=== PATIENT | female | born 1955 | race Caucasian/White ===

== ENCOUNTER 2020-02-06 12:22 | Emergency (ER) | payer MEDICARE, SELFPAY ==
[2020-02-06 12:33] VITALS: BP 120/79; PULSE 85; RESP 19; TEMP 36.6; O2SAT 100
--- NOTE | 2020-02-06 13:04 | ED.EXTPRO ---
HPI - Extremity Problem General Chief complaint: Extremity Problem,Nontraumatic Stated complaint: Possible blood clot right lower leg Time Seen by Provider: 02/06/20 13:00 Source: patient and RN notes reviewed Mode of arrival: ambulatory Limitations: no limitations History of Present Illness HPI Narrative: 64-year-old female who presents to express care with complaints of aching pain to her right lateral lower leg, thinks she has a blood clot. Patient states that she felt an itching sensation to her right lower leg on the lateral aspect and rubbed it through her pant leg about 45 minutes ago. Patient states that she has varicose veins to her lower legs and she noted now that she has swelling to the outer part of her leg and has a lot of discomfort to her leg. Patient denies any recent travel, no abnormal clotting factors, no hormones or irregular heart rhythm, denies any dyspnea or any chest pressure or pain.. Patient states that she is concerned also because she is suppose to leave on a trip to [place] on Sunday. MD Complaint: extremity pain (lateral right lower leg) Onset (ago): hour(s) (with in past hour) Pain Consistency: constant Location: right and lower extremity Severity scale (1-10): 4 Quality: aching Radiation: none Relieving factors: nothing Exacerbating factors: weight bearing and palpation Associated symptoms: denies other symptoms Context: other (varicose veins) Related Data Home Medications Medication Instructions Recorded Confirmed albuterol sulfate 2 inh INHALATION DIRECTED 02/06/20 02/06/20 fluticasone propionate 2 spray INTRANASAL DAILY 02/06/20 02/06/20 hydroxychloroquine 200 mg PO DIRECTED 02/06/20 02/06/20 methocarbamol 500 mg PO DIRECTED 02/06/20 02/06/20 mometasone-formoterol [Dulera] 2 inh INHALATION DIRECTED 02/06/20 02/06/20 omeprazole 40 mg PO DAILY 02/06/20 02/06/20 tizanidine 4 mg PO DIRECTED 02/06/20 02/06/20 Allergies Allergy/AdvReac Type Severity Reaction Status Date / Time Sulfa (Sulfonamide Allergy Unknown Rash Verified 02/06/20 12:26 Antibiotics) sulfanilamide Allergy Unknown Rash Verified 02/06/20 12:26 tramadol Allergy Unknown Unknown Verified 01/31/18 10:53 Review of Systems Review of Systems: Narrative: CONSTITUTIONAL: Denies fever, chills, or sweats. EYES: Denies visual changes, redness, or discharge. ENT: Denies rhinorrhea, congestion, sore throat, or otalgia. CARDIOVASCULAR: Denies chest pain, palpitations, or edema. RESPIRATORY: Denies cough or dyspnea. GASTROINTESTINAL: Denies abdominal pain, nausea, vomiting, or diarrhea. GENITOURINARY: Denies dysuria or hematuria. SKIN: Denies rash or itching. MUSCULOSKELETAL:States some chronic back pain,no other joint pain, states discomfort to her right lateral mid lower leg with swelling and bruising noted. patient concerned about possible blood clot. Noted varicose veins to lower extremities with hematoma type of swelling noted to right lateral lower leg measuring 2cm X 7cm, negative Neri's sign. NEUROLOGIC: Denies headache, numbness, or weakness. PSYCHIATRIC: Denies anxiety or depression. All systems reviewed & are unremarkable except as noted in HPI and below PMFSH Past Medical History Medical History (Updated 02/07/20 @ 13:12 by Josiane Rae NP) Age related osteoporosis Ankle fracture, left (Unknown) required ORIF Bronchitis Chronic back pain GERD (gastroesophageal reflux disease) Mitral valve prolapse Rheumatoid arthritis Surgical History Surgical History (Updated 02/07/20 @ 13:06 by Josiane Rae NP) History of bunionectomy of both great toes History of cholecystectomy History of hysterectomy Hx of cervical spine surgery fusion Family History Family History Mother Asthma Family history of arthritis Family history of emphysema, Onset Age: 67 Patient's mother is Sibling Family history of diabetes mellitus in f
--- NOTE | 2020-02-06 13:11 | PC.NURSE ---
1310- INBOUND CALL CENTER AGENT (Josiane) talking to Dr Dudley at [facility] for transfer.
== END 2020-02-06 13:20 | disposition short-term general hospital (02) ==
PROVIDERS: Emergency Provider Registered Nurse; PCP Family Medicine
DX: S80.11XA Contusion of right lower leg, initial encounter (principal); X58.XXXA Exposure to other specified factors, initial encounter; K21.9 Gastro-esophageal reflux disease without esophagitis; I34.1 Nonrheumatic mitral (valve) prolapse; M06.9 Rheumatoid arthritis, unspecified; M81.0 Age-related osteoporosis without current pathological fracture
CPT/HCPCS: 99212; G0463

== ENCOUNTER 2020-02-06 13:37 | Emergency (ER) | payer MEDICARE, SELFPAY ==
[2020-02-06 13:45] VITALS: BP 152/96; PULSE 83; RESP 17; TEMP 35.8; O2SAT 100
--- NOTE | 2020-02-06 14:15 | ED.LOWEXIN ---
HPI - Extremity Injury (Lower) General Chief Complaint: Extremity Injury, Lower Stated Complaint: Possible blood clot in leg Time Seen by Provider: 02/06/20 14:11 History of Present Illness HPI Narrative: Patient is a 64-year-old female who presents ER with right lower extremity bruising. Patient reports she felt an itch to her lower leg a couple hours ago when she rubs it. She then noticed that she developed a bruise and some swelling. No chest pain or shortness of breath or lower extremity swelling. No previous DVT or PE. She is not on any blood thinners. Related Data Home Medications Medication Instructions Recorded Confirmed albuterol sulfate 2 inh INHALATION DIRECTED 02/06/20 02/06/20 fluticasone propionate 2 spray INTRANASAL DAILY 02/06/20 02/06/20 hydroxychloroquine 200 mg PO DIRECTED 02/06/20 02/06/20 methocarbamol 500 mg PO DIRECTED 02/06/20 02/06/20 mometasone-formoterol [Dulera] 2 inh INHALATION DIRECTED 02/06/20 02/06/20 omeprazole 40 mg PO DAILY 02/06/20 02/06/20 tizanidine 4 mg PO DIRECTED 02/06/20 02/06/20 Allergies Allergy/AdvReac Type Severity Reaction Status Date / Time Sulfa (Sulfonamide Allergy Unknown Rash Verified 02/06/20 12:26 Antibiotics) sulfanilamide Allergy Unknown Rash Verified 02/06/20 12:26 tramadol Allergy Unknown Unknown Verified 01/31/18 10:53 Review of Systems Integumentary/Breasts: Skin/Breast: Reports pruritus, Denies rash and Denies skin ulcer Hematologic/Lymphatic: Hematologic/Lymphatic: Denies easy bleeding and Reports easy bruising [facility] Past Medical History Medical History (Updated 02/06/20 @ 14:21 by Gunnar Dudley MD) GERD (gastroesophageal reflux disease) Mitral valve prolapse Surgical History Surgical History (Updated 02/06/20 @ 14:18 by Gunnar Dudley MD) History of cholecystectomy History of hysterectomy Family History Family History Mother Asthma Family history of arthritis Family history of emphysema, Onset Age: 67 Patient's mother is Sibling Family history of diabetes mellitus in first degree relative Family history of heart disease in male family member before age 55 Other Diabetes mellitus Family history of gout Social History Social History Smoking status: Former smoker Smoking end date: 03/12/02 Alcohol intake: never Exam Narrative: Exam Narrative: GENERAL: Well-appearing, well-nourished, and in no acute distress. HEAD: Normocephalic, atraumatic. EXTREMITIES: Normal range of motion. No edema. The right lateral calf has an area of superficial bruising and hematoma formation. No Homans' sign SKIN: Warm, dry, no rash. Varicose veins of bilateral lower extremities. NEURO: Alert and oriented x3. PSYCH: Normal mood and affect. Course Course Emergency Course: Superficial hematoma. Discharge home. Vital Signs Vital signs: Vital Signs Temperature 96.5 F L 02/06/20 13:45 Pulse Rate 83 02/06/20 13:45 Respiratory Rate 17 02/06/20 13:45 Blood Pressure 152/96 H 02/06/20 13:45 Pulse Oximetry 100 02/06/20 13:45 Temperature 96.5 F L 02/06/20 13:45 Pulse Rate 83 02/06/20 13:45 Respiratory Rate 17 02/06/20 13:45 Blood Pressure 152/96 H 02/06/20 13:45 Pulse Oximetry 100 02/06/20 13:45 Discharge Plan Discharge Clinical Impression: Hematoma of lower leg Patient Disposition: Home, Self-Care Condition: Stable Instructions: Hematoma (ED) Additional Instructions: Follow-up with your primary care doctor. Return the ER if you have chest pain shortness of breath, you have lower extremity swelling, you have other concerns. Prescriptions: No Action methocarbamol 500 mg tablet 500 mg PO DIRECTED RF: 0 tizanidine 4 mg tablet 4 mg PO DIRECTED RF: 0 omeprazole 40 mg capsule,delayed release(DR/EC) 40 mg PO DA
== END 2020-02-06 14:41 | disposition home or self-care (01) ==
PROVIDERS: Emergency Provider Emergency Medicine; PCP Family Medicine
DX: M79.81 Nontraumatic hematoma of soft tissue (principal); I34.1 Nonrheumatic mitral (valve) prolapse; K21.9 Gastro-esophageal reflux disease without esophagitis
CPT/HCPCS: 99282

== ENCOUNTER → 2020-11-19 12:20 | Outpatient (CLI) | payer MEDICARE, SELFPAY ==
--- NOTE | ~2020-11-19 | XR_ITS ---
EXAMINATION: XR shoulder RT min 2V, XR humerus RT EXAM DATE: 11/19/2020 13:11 INDICATION: pain in right arm, pain in right shoulder. c/o popping and superior shoulder pain towa rds neck, c/o lateral mid to upper humerus pain x couple weeks, h/o neck surgery. TECHNIQUE: The following right shoulder projections obtained: frontal projection with internal rotati on, frontal projection with external rotation, Grashey, and axillary (4+ views). 2 orthogonal projec tions right humerus. There are no prior studies for comparison. FINDINGS: No evidence of right shoulder rotator cuff calcific tendinosis. There is mild glenohumera l joint, mild acromioclavicular joint primary osteoarthritis. There are no acute fractures or disloca tions identified. There is no subcutaneous gas. The soft tissue is unremarkable. There are no rad iopaque foreign bodies. IMPRESSION: Mild right shoulder osteoarthritis. Reviewed, dictated and finalized at location A. IMPRESSION: Mild right shoulder osteoarthritis.
== END ==
PROVIDERS: PCP Family Medicine; Visit Provider Physician Assistant
DX: M25.511 Pain in right shoulder (principal); M79.601 Pain in right arm; M19.011 Primary osteoarthritis, right shoulder
CPT/HCPCS: 73030; 73060

== ENCOUNTER → 2020-11-30 17:18 | Outpatient (CLI) | payer MEDICARE, SELFPAY ==
--- NOTE | ~2020-11-30 | MM_ITS ---
EXAMINATION: MM screening samir BI w mary HISTORY: Screening mammogram TECHNIQUE: Craniocaudal and mediolateral oblique 3-D tomosynthesis images were obtained and synthetic 2-D images were generated. CAD analysis was submitted and interpreted. COMPARISON: 08/07/2018, 06/28/2017, 06/27/2016 bilateral digital screening mammogram examinations BREAST PARENCHYMAL COMPOSITION: There are scattered areas of fibroglandular density. FINDINGS: There is no evidence of suspicious mass, calcification, or architectural distortion to sugg est malignancy in either breast. There has been no suspicious interval change. IMPRESSION: 1. No mammographic evidence of malignancy. 2. Recommend routine screening mammography in one year. BI-RADS Category 1: Negative Reviewed, dictated and finalized at location A.
== END ==
PROVIDERS: Visit Provider Obstetrics & Gynecology
DX: Z12.31 Encounter for screening mammogram for malignant neoplasm of breast (principal)
CPT/HCPCS: 77063; 77067

== ENCOUNTER → 2020-12-28 07:58 | Outpatient (CLI) | payer MEDICARE, SELFPAY ==
[2020-12-28 11:21] LABS: Influenza Control Positive
[2020-12-29 19:25] LABS: SARS-CoV-2 RNA PCR Negative
== END ==
PROVIDERS: PCP Family Medicine; Visit Provider Physician Assistant
DX: Z20.822 Contact with and (suspected) exposure to COVID-19 (principal); R05.9 Cough, unspecified
CPT/HCPCS: 87804; C9803; U0003; U0005

== ENCOUNTER → 2021-03-25 08:48 | Outpatient (CLI) | payer MEDICARE, SELFPAY ==
[2021-03-26 23:20] LABS: SARS-CoV-2 RNA PCR Positive
== END ==
PROVIDERS: PCP Family Medicine; Visit Provider Family Medicine
DX: U07.1 COVID-19 (principal); J06.9 Acute upper respiratory infection, unspecified
CPT/HCPCS: C9803; U0003; U0005

== ENCOUNTER → 2022-05-12 13:27 | Outpatient (CLI) | payer MEDICARE, SELFPAY ==
--- NOTE | ~2022-05-12 | MM_ITS ---
EXAMINATION: MM screening samir BI w mary HISTORY: Screening TECHNIQUE: Craniocaudal and mediolateral oblique 3-D tomosynthesis images were obtained and synthetic 2-D images were generated. CAD analysis was submitted and interpreted. COMPARISON: Comparison to multiple prior studies sequentially, with oldest reviewed study dated 06/21. BREAST PARENCHYMAL COMPOSITION: There are scattered areas of fibroglandular density. FINDINGS: There is no evidence of suspicious mass, calcification, or architectural distortion to sugg est malignancy in either breast. There has been no suspicious interval change. IMPRESSION: 1. No mammographic evidence of malignancy. 2. Recommend routine screening mammography in one year. BI-RADS Category 1: Negative Reviewed, dictated and finalized at location B. 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
--- NOTE | ~2022-05-12 | DEXA_ITS ---
Bone Density Report Name: ZEENAT ROBERTO Age: 67 Sex: Female Ethnicity: White Date of : 1955 Indication: postmenopausal osteoporosis; height loss; prior fracture; asthma or emphysema; hysterectomy; rheumatoid arthritis; Referring Provider: SINGH RAMÍREZ Study: Bone densitometry was performed. Exam Date: May 12, 2022 Accession number: [id number] Bone Density: Region BMD T-score Z-score Classification AP Spine (L1-L4) 0.710 -3.1 -1.2 Osteoporosis Femoral Neck (Left) 0.389 -4.1 -2.6 Osteoporosis Total Hip (Left) 0.523 -3.4 -2.2 Osteoporosis Femoral Neck (Right) 0.389 -4.1 -2.6 Osteoporosis Total Hip (Right) 0.529 -3.4 -2.1 Osteoporosis Total Hip Mean 0.526 -3.4 -2.2 Osteoporosis World Health Organization criteria for BMD impression classify patients as: Normal (T-score at or above -1.0), Osteopenia (T-score between -1.0 and -2.5), or Osteoporosis (T-score at or below -2.5). 10-year Fracture Risk: FRAX not reported because: Some T-score for Spine Total or Hip Total or Femoral Neck at or below -2.5 Prior hip or vertebral fracture Previous Exams: Region Exam Age BMD T-score BMD Change BMD Change Date g/cm2 vs Baseline vs Previous AP Spine(L1-L4) 05/12/2022 67 0.710 -3.1 -0.024* -0.024* 06/28/2017 62 0.734 -2.8 Total Hip(Left) 05/12/2022 67 0.523 -3.4 -0.082* -0.082* 06/28/2017 62 0.604 -2.8 Total Hip(Right) 05/12/2022 67 0.529 -3.4 -0.063* -0.063* 06/28/2017 62 0.591 -2.9 *Denotes significance at 95% confidence level, LSC for AP Spine = 0.022 g/cm2, LSC for Total Hip = 0.027 g/cm2 Clinical Information Provided by Patient: Have had a previous hip or vertebral fracture Has had a low trauma fracture Has rheumatoid arthritis Has the following medical conditions: Asthma or Emphysema, Hysterectomy, IBS no meds Patient maximum height was 62 Menopause Age: 45 No regular weight bearing exercise Does not regularly consume dairy products Onset of menses at age 13 Number of children 3 Impression: The patient has established osteoporosis, based on the Left Femoral Neck T-score and the existence of a prior fracture. The patient has risk factors, including: previous fracture. The BMD for the AP Spine(L1-L4) decreased, changing by -0.024 since the last DXA exam. The BMD for the Total Hip(Left) decreased, changing by -0.082 since the last DXA exam. The BMD for the Total Hip(Right) decreased, mario alberto
== END ==
PROVIDERS: PCP Obstetrics & Gynecology; Visit Provider Family Medicine
DX: Z12.31 Encounter for screening mammogram for malignant neoplasm of breast (principal); Z78.0 Asymptomatic menopausal state; M81.0 Age-related osteoporosis without current pathological fracture
CPT/HCPCS: 77063; 77067; 77080

== ENCOUNTER 2022-05-17 14:20 | Outpatient (CLI) | payer MEDICARE, SELFPAY ==
[2022-05-17 16:57] LABS: Albumin Level 4.4 g/dL (3.5-5.1); Anion Gap 6 mmol/L (8-16); Blood Urea Nitrogen 11 mg/dL (7-17); Calcium 8.8 mg/dL (8.4-10.2); Carbon Dioxide 27 mmol/L (22-30); Chloride 105 mmol/L (98-107); Estimated Glomerular Filt Rate > 60; Glucose 81 mg/dL (65-110); Phosphorus 3.9 mg/dL (2.5-4.5); Potassium 3.7 mmol/L (3.4-5.0); Sodium 138 mmol/L (137-145)
[2022-05-17 17:05] LABS: Parathyroid Intact 34.1 pg/mL (7.5-53.5)
[2022-05-17 17:19] LABS: Vitamin D 25 Hydroxy 45.7 ng/mL
== END 2022-05-17 14:21 | disposition home or self-care (01) ==
LOC: ANHWCLAB 14:20
PROVIDERS: PCP Family Medicine; Visit Provider Internal Medicine Endocrinology, Diabetes & Metabolism
DX: M81.0 Age-related osteoporosis without current pathological fracture (principal); R79.89 Other specified abnormal findings of blood chemistry
CPT/HCPCS: 36415; 80069; 82306; 83970; 84443

== ENCOUNTER 2022-06-21 14:34 | Outpatient (CLI) | payer MEDICARE, SELFPAY ==
--- NOTE | ~2022-06-21 | XR_ITS ---
XR lumbar spine 2-3V DATE: 06/21/2022 14:54 INDICATION: Low back pain for 2 weeks TECHNIQUE: AP, lateral, coned lateral lumbosacral views COMPARISON: 06/08/2015 lumbar spine FINDINGS: Diffuse osteopenia. There is mild thoracolumbar levoscoliosis. No fracture or bone destruction of the lumbar spine is detected. There is degenerative change at the apophyseal joints in the mid and lower lumbar and lumbosacral area with associated grade 1 anterolist hesis at L4-5. The included lower thoracic and lumbar pedicles are intact. Lumbar and lumbosacral interspaces are relatively preserved. The sacroiliac joints are normal. Surgical clips, right upper quadrant, consistent with cholecystectomy IMPRESSION: Thoracolumbar levoscoliosis Osteopenia Degenerative changes apophyseal joints with associated grade 1 anterolisthesis at L4-5 Reviewed, dictated and finalized at location A.
== END 2022-06-21 14:35 | disposition home or self-care (01) ==
PROVIDERS: PCP Family Medicine; Visit Provider Internal Medicine Endocrinology, Diabetes & Metabolism
DX: M81.0 Age-related osteoporosis without current pathological fracture (principal); M54.9 Dorsalgia, unspecified; M41.85 Other forms of scoliosis, thoracolumbar region; M85.88 Other specified disorders of bone density and structure, other site; M43.16 Spondylolisthesis, lumbar region
CPT/HCPCS: 72100

== ENCOUNTER 2022-07-05 15:12 | Outpatient (CLI) | payer MEDICARE, SELFPAY ==
--- NOTE | ~2022-07-05 | XR_ITS ---
EXAMINATION: XR chest 2V Exam Date/Time: 07/05/2022 15:30 CDT HISTORY: chest pain Comparison: 03/07/2013. RESULT: Lines, tubes, and devices: Partially visualized cervical fusion hardware. Fractured right inferior c ervical pedicle screw. Cholecystectomy clips Lungs and pleura: Clear. Cardiomediastinal silhouette: Stable. Other: No acute osseous or upper abdominal finding. IMPRESSION: No acute cardiopulmonary process. Fractured right inferior cervical pedicle screw. Recommend obtainin g outside studies for comparison, correlation with any cervical symptoms, and consider cervical spine radiographs for further evaluation. Reviewed, dictated and finalized at location K. IMPRESSION: No acute cardiopulmonary process. Fractured right inferior cervical pedicle scr ew. Recommend obtaining outside studies for comparison, correlation with any ce rvical symptoms, and consider cervical spine radiographs for further evaluation .
--- NOTE | 2022-07-05 16:46 | ECG_ITS ---
Measurements Intervals [place] Rate: 56 P: 77 CA: 158 QRS: 84 QRSD: 85 T: 59 QT: 388 QTc: 377 Interpretive Statements SINUS BRADYCARDIA OTHERWISE NORMAL ECG NO PREVIOUS ECG AVAILABLE FOR COMPARISON Electronically Signed On 07-06-2022 8:57:24 CDT by Haile Stubbs M.D.
[2022-07-05 16:47] LABS: Hematocrit 45.1 % (37.0-47.0); Hemoglobin 14.7 g/dL (12.0-15.0); Mean Corpuscular HGB Conc 32.6 g/dl (32-36); Mean Corpuscular Hemoglobin 29.6 pg (26-34); Mean Corpuscular Volume 90.7 fl (80-100); Mean Platelet Volume 9.1 fl (7.4-10.4); Platelet Count Result 265 k/mm3 (150-375); Red Blood Count 4.97 M/mm3 (4.2-5.4); Red Cell Distribution Width 14.6 % (11.5-14.5); White Blood Count 8.7 K/mm3 (4.5-10.0)
[2022-07-05 17:09] LABS: Troponin I < 0.012 ng/mL (0.000-0.034)
== END 2022-07-05 15:13 | disposition home or self-care (01) ==
PROVIDERS: PCP Family Medicine; Visit Provider Physician Assistant Medical
DX: R53.83 Other fatigue (principal); R07.9 Chest pain, unspecified; R00.1 Bradycardia, unspecified
CPT/HCPCS: 36415; 71046; 84484; 85027; 93005; 96372; J3111

== ENCOUNTER → 2022-08-02 09:48 | Outpatient (CLI) | payer MEDICARE, SELFPAY ==
--- NOTE | ~2022-08-02 | XR_ITS ---
EXAMINATION: XR ribs LT 2V w CXR 2V Exam Date/Time: 08/02/2022 9:59 CDT HISTORY: R07.81 - Pleurodynia Comparison: X-ray chest 07/05/2022. RESULT: Lines, tubes, and devices: Partially visualized cervical fusion hardware. The right inferior posteri or pedicle screw is fractured, a chronic finding. Cholecystectomy clips. Soft tissue anchor in the pr oximal right humerus. Lungs and pleura: Senescent change and mild hyperinflation. Otherwise clear. Cardiothymic silhouette: Stable. Other: No acute osseous or upper abdominal finding. IMPRESSION: No acute cardiopulmonary process. No acute osseous finding in the left ribs. Reviewed, dictated and finalized at location K.
== END ==
PROVIDERS: PCP Family Medicine; Visit Provider Family Medicine
DX: R07.81 Pleurodynia (principal)
CPT/HCPCS: 71046; 71100

== ENCOUNTER → 2023-05-15 10:55 | Outpatient (CLI) | payer MEDICARE, SELFPAY ==
--- NOTE | ~2023-05-15 | DEXA_ITS ---
Bone Density Report Name: ZEENAT ROBERTO Age: 68 Sex: Female Ethnicity: White Date of : 1955 Indication: postmenopausal osteoporosis; monitoring treatment; prior fracture; asthma or emphysema; hysterectomy; rheumatoid arthritis; Referring Provider: Rita Winkler Study: Bone densitometry was performed. Exam Date: May 15, 2023 Accession number: [id number] Bone Density: Region BMD T-score Z-score Classification AP Spine (L1-L4) 0.787 -2.4 -0.5 Osteopenia Femoral Neck (Left) 0.438 -3.7 -2.1 Osteoporosis Total Hip (Left) 0.580 -3.0 -1.6 Osteoporosis Femoral Neck (Right) 0.408 -4.0 -2.3 Osteoporosis Total Hip (Right) 0.572 -3.0 -1.7 Osteoporosis Total Hip Mean 0.576 -3.0 -1.7 Osteoporosis World Health Organization criteria for BMD impression classify patients as: Normal (T-score at or above -1.0), Osteopenia (T-score between -1.0 and -2.5), or Osteoporosis (T-score at or below -2.5). 10-year Fracture Risk: FRAX not reported because: Some T-score for Spine Total or Hip Total or Femoral Neck at or below -2.5 Prior hip or vertebral fracture Treated for osteopor Previous Exams: Region Exam Age BMD T-score BMD Change BMD Change Date g/cm2 vs Baseline vs Previous AP Spine(L1-L4) 05/15/2023 68 0.787 -2.4 0.053* 0.077* 05/12/2022 67 0.710 -3.1 -0.024* -0.024* 06/28/2017 62 0.734 -2.8 Total Hip(Left) 05/15/2023 68 0.580 -3.0 -0.025 0.057* 05/12/2022 67 0.523 -3.4 -0.082* -0.082* 06/28/2017 62 0.604 -2.8 Total Hip(Right) 05/15/2023 68 0.572 -3.0 -0.020 0.043* 05/12/2022 67 0.529 -3.4 -0.063* -0.063* 06/28/2017 62 0.591 -2.9 *Denotes significance at 95% confidence level, LSC for AP Spine = 0.022 g/cm2, LSC for Total Hip = 0.027 g/cm2 Clinical Information Provided by Patient: Have had a previous hip or vertebral fracture Has had a low trauma fracture Has rheumatoid arthritis Is being treated for osteoporosis Has used the following medications: Vitamin D, Calcium, EVENITY INJECTIONS, MTV Has the following medical conditions: Asthma or Emphysema, Hysterectomy, IBS no meds Patient maximum height was 62.0 Menopause Age: 45 No regular weight bearing exercise Onset of menses at age 13 Number of children 3 Impression: The patient has established osteoporosis, based on the Right Femoral Neck T-score and the existence of
== END ==
PROVIDERS: PCP Family Medicine; Visit Provider Internal Medicine Endocrinology, Diabetes & Metabolism
DX: M81.0 Age-related osteoporosis without current pathological fracture (principal)
CPT/HCPCS: 77080

== ENCOUNTER → 2023-05-15 10:58 | Outpatient (CLI) | payer MEDICARE, SELFPAY ==
--- NOTE | ~2023-05-15 | MM_ITS ---
EXAMINATION: MM screening samir BI w mary HISTORY: Screening mammogram TECHNIQUE: Craniocaudal and mediolateral oblique 3-D tomosynthesis images were obtained and synthetic 2-D images were generated. CAD analysis was submitted and interpreted. COMPARISON: 05/29/2022, 11/30/2020 bilateral screening mammogram examinations BREAST PARENCHYMAL COMPOSITION: The breasts are heterogeneously dense, which may obscure small masses . FINDINGS: There is no evidence of suspicious mass, calcification, or architectural distortion to sugg est malignancy in either breast. There has been no suspicious interval change. IMPRESSION: 1. No mammographic evidence of malignancy. 2. Recommend routine screening mammography in one year. BI-RADS Category 1: Negative Reviewed, dictated and finalized at location A. 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
== END ==
PROVIDERS: PCP Obstetrics & Gynecology; Visit Provider Family Medicine
DX: Z12.31 Encounter for screening mammogram for malignant neoplasm of breast (principal)
CPT/HCPCS: 77063; 77067

== ENCOUNTER 2023-06-25 09:24 | Outpatient (CLI) | payer MEDICARE, SELFPAY ==
--- NOTE | ~2023-06-25 | XR_ITS ---
Lumbosacral Spine: AP and lateral views Clinical History: Pain Findings: The normal lordotic curve is maintained. There is mild levoscoliosis. No fracture evident. There is 6 mm anterolisthesis of L4 over L5. There is severe facet arthropathy at L4-5 and L5-S1. The re is moderate facet arthropathy the upper lumbar spine. The sacroiliac joints are normally outlined. Impression: Moderate degenerative spondylosis, as above. 6 mm anterolisthesis of L4 over L5. Mild levoscoliosis. Reviewed, dictated and finalized at location M. Impression: Moderate degenerative spondylosis, as above. 6 mm anterolisthesis of L4 over L5. Mild levoscoliosis.
== END 2023-06-25 09:25 ==
PROVIDERS: PCP Family Medicine; Referring Provider Chiropractor; Visit Provider Internal Medicine Endocrinology, Diabetes & Metabolism
DX: M47.896 Other spondylosis, lumbar region (principal); M41.86 Other forms of scoliosis, lumbar region; M81.0 Age-related osteoporosis without current pathological fracture
CPT/HCPCS: 72100

== ENCOUNTER 2023-07-19 11:31 | Outpatient (CLI) | payer MEDICARE, SELFPAY ==
[2023-07-19 12:30] LABS: Influenza A QL RT-PCR Negative (Negative); Influenza B QL RT-PCR Negative (Negative); RSV RNA, RT-PCR Negative (Negative); SARS-CoV-2 RNA PCR Positive (Negative)
== END 2023-07-19 11:32 | disposition home or self-care (01) ==
LOC: ANHLAB 11:33
PROVIDERS: PCP Family Medicine; Visit Provider Family Medicine
DX: J06.9 Acute upper respiratory infection, unspecified (principal); Z20.822 Contact with and (suspected) exposure to COVID-19
CPT/HCPCS: 87637

== ENCOUNTER 2024-05-15 10:53 | Outpatient (CLI) | payer MEDICARE, SELFPAY ==
--- NOTE | ~2024-05-15 | MM_ITS ---
EXAMINATION: MM screening samir BI w mary HISTORY: Screening mammogram TECHNIQUE: Craniocaudal and mediolateral oblique 3-D tomosynthesis images were obtained and synthetic 2-D images were generated. CAD analysis was submitted and interpreted. COMPARISON: 05/15/2023, 05/12/2022, 11/30/2020 BREAST PARENCHYMAL COMPOSITION:Not Dense. There are scattered areas of fibroglandular density. FINDINGS: No suspicious mass, calcification, or architectural distortion are identified in either anderson ast to suggest malignancy. There has been no suspicious interval change. IMPRESSION: No mammographic evidence of malignancy. Recommend routine screening mammography in one year. BI-RADS Category 1: Negative Reviewed, dictated and finalized at location . 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
== END 2024-05-15 10:54 | disposition home or self-care (01) ==
LOC: MICIMG 10:54
PROVIDERS: PCP Family Medicine; Visit Provider Obstetrics & Gynecology
DX: Z12.31 Encounter for screening mammogram for malignant neoplasm of breast (principal)
CPT/HCPCS: 77063; 77067

== ENCOUNTER 2024-05-19 10:33 | Outpatient (CLI) | payer MEDICARE, SELFPAY ==
--- NOTE | ~2024-05-19 | DEXA_ITS ---
Bone Density Report Name: ZEENAT ROBERTO Age: 69 Sex: Female Ethnicity: White Date of : 1955 Indication: postmenopausal; screening for osteoporosis; height loss; asthma or emphysema; hysterectomy; secondary osteoporosis; Referring Provider: DANIEL BAEZA Study: Bone densitometry was performed. Exam Date: May 19, 2024 Accession number: [id number] Bone Density: Region BMD T-score Z-score Classification AP Spine(L1-L4) 0.862 -1.7 0.3 Osteopenia Femoral Neck (Left) 0.472 -3.4 -1.7 Osteoporosis Total Hip (Left) 0.649 -2.4 -1.0 Osteopenia Femoral Neck (Right) 0.457 -3.5 -1.9 Osteoporosis Total Hip (Right) 0.602 -2.8 -1.4 Osteoporosis Total Hip Mean 0.626 -2.6 -1.2 Osteoporosis World Health Organization criteria for BMD impression classify patients as: Normal (T-score at or above -1.0), Osteopenia (T-score between -1.0 and -2.5), or Osteoporosis (T-score at or below -2.5). 10-year Fracture Risk: FRAX not reported because: Some T-score for Spine Total or Hip Total or Femoral Neck at or below -2.5 Treated for osteoporosis Clinical Information Provided by Patient: Has secondary osteoporosis Is being treated for osteoporosis Has used the following medications: Prolia (i.e. denosumab), Vitamin D, Calcium Has the following medical conditions: Asthma or Emphysema, Hysterectomy Patient maximum height was 63.0 Menopause Age: 45 No regular weight bearing exercise Onset of menses at age 13 Number of children 3 Impression: The patient has osteoporosis, based on the Right Femoral Neck T-score. Discussion: It is important to ask patients whether they are taking their medications and to encourage continued and appropriate compliance with their osteoporosis therapies to reduce fracture risk. It is also important to review their risk factors and encourage appropriate calcium and vitamin D intakes, exercise, fall prevention and other lifestyle measures. Follow-Up: Consider a repeat BMD and Vertebral Fracture Assessment (VFA) exam in 2 years or sooner if medically necessary, to reassess this patient's status. Reported by: LITZY on 05/19/2024 11:05:00 AM. Reviewed, dictated and finalized at location A.
--- OUTSIDE RECORDS SUMMARY | 2024-05-19 12:23 | XMS_ITS | Patient Health Summary ---
Author Organization [facility] Address [address] [place] [address] Care Team Providers Care Mail List Librarian Name Role Phone Yudy Norris MD Unavailable [phone] Solis Gallagher MD Unavailable [phone] Cynthia Sarah MD Primary Care Provider [phone] [facility] from [facility],non-owned Affiliates and Associated Physician Practices is amultiple site organization consisting of ambulatory clinics and hospital sitesin [place], [place], [place] and [place]. This disclosure is being madepursuant to the Care Everywhere program and may not contain all information available regarding this patient. Last updated 17.[facility] Allergies * Cephalosporins(Rash) -Medium Criticality * Hydromorphone(Other) -Low Criticality * Sulfa Drugs(Itching) -Medium Criticality * Tramadol(Itching,Unknown) -Low Criticality Medications * Be aware that medications may not be up to date on this document. Alwaysverify current medications with the patient. * polyethylene glycol 3350 (MIRALAX) powder(Started 05/31/2016) MIX 25.5 GRAMS WITH FLUID ONCE DAILY 11 refills left * tiZANidine (ZANAFLEX) 4 MG tablet(Started 05/19/2016) Take 4 mg by mouth 3 times daily 2 refills left * omeprazole (PRILOSEC) 40 MG capsule Take 40 mg by mouth daily before breakfast * mometasone-formoterol (DULERA) 200-5 MCG/ACT inhaler Inhale 2 Puffs by mouth 2 times daily * Albuterol Sulfate (VENTOLIN HFA IN) * cetirizine (ZYRTEC ALLERGY) 10 MG tablet Take 10 mg by mouth once daily * FLUTICASONE PROPIONATE, INHAL, IN * Psyllium (METAMUCIL PO) * VITAMIN D, CHOLECALCIFEROL, PO * linaCLOtide (LINZESS) 145 MCG capsule(Started 07/13/2016) 145 mcg * hydroxychloroquine (PLAQUENIL) 200 MG tablet(Started 10/09/2017) TAKE 2 TABLETS BY MOUTH EVERY DAY FOR 30 DAYS * meloxicam (MOBIC) 15 MG tablet(Started 01/29/2018) Take 15 mg by mouth once daily Active Problems Problem Noted Date Diagnosed Date Other fracture of unspecifie d lower leg, initial encounter for closed fracture 03/12/2016 Osteoporosis Asthma Social History Tobacco Use Types Packs/Day Years Used Date Smoking Tobacco: Former Smokeless Tobacco: Never Alcohol Use Standard Drinks/Week Comments Yes 0 (1 standard drink = 0.6 oz pur e alcohol) social PHQ-2 Answer Date Recorded PHQ2 TOTAL SCORE 0 11/12/2020 Sex and Gender Information Value Date Recorded Sex Assigned at Not on file Gender Identity Female 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 Sexual Orientation Not on file Last Filed Vital Signs Vital Sign Reading Time Taken Comments Blood Pressure 104/64 11/12/2020 11:20 AM CDT Pulse - - Temperature - - Respiratory Rate - - Oxygen Saturation - - Inhaled Oxygen Concentration - - Weight 53.1 kg (117 lb) 11/12/2020 11:20 AM CDT Height 154.9 cm (5' 1 ) 11/12/2020 11:20 AM CDT Body Mass Index 22.11 11/12/2020 11:20 AM CDT Procedures * MAMMOGRAM(Performed 05/15/2024) * MAMMOGRAM(Performed 05/15/2023) * MAMMOGRAM(Performed 05/12/2022) * MAMMO BILAT SCREENING(Performed 11/30/2020) Performed for Well woman exam * PAP IG LB(Performed 11/12/2020) Performed for Well woman exam * OCCULT BLOOD FECES 1-3 SCREEN POINT OF CARE (AMB)(Performed 11/12/2020) Performed for Colon cancer screening * US TRANSVAGINAL NON OB(Performed 10/01/2019) Performed for Lower abdominal pain * MAMMO BILAT SCREENING(Performed 08/07/2018) Performed for Well woman exam * PAP IG LB + HPV HR(Performed 06/24/2018) Performed for Encounter for gynecological examination with abnormal finding * OCCULT BLOOD FECES 1-3 SCREEN POINT OF CARE (AMB)(Performed 06/24/2018) Performed for Lower abdominal pain * VITAMIN D 25-HYDROXY(Performed 06/28/2017) Performed for Osteoporosis, unspecified osteoporosis type, unspecified pathological fracture presence, Other fracture of unspecified lower leg, initial encounter for closed fracture * PAP IG LB + HPV HR(Performed 06/18/2017) Performed for Well woman exam * OCCULT BLOOD FECES 1-3 SCREEN POINT OF CARE (AMB)(Performed 06/18/2017) Performed for Colon cancer screening * DEXA BONE DENSITY 2 SITES(Performed 07/07/2016) Performed for Age-related osteoporosis without current pathological fracture * MAMMO BILAT SCREENING(Performed 06/27/2016) * PAP THINPREP(Performed 06/16/2016) * OCCULT BLOOD FECES 1-3 SCREEN POC (AMB) STL(Performed 06/16/2016) Performed for Colon cancer screening * HPV DNA PROBE HIGH RISK(Performed 06/16/2016) * PATHOLOGY/GENETICS HISTORICAL-ONBASE(Performed 05/17/2007) * PATHOLOGY/GENETICS HISTORICAL-ONBASE(Performed 01/11/2002) * GROSS + MICRO EXAM(Performed 11/13/2001) Results * MAMMOGRAM (05/15/2024) Only the most recent of3 resultswithin the time period is included. Anatomical Region Laterality Modality Other 05/15/2024 Narrative 05/15/2024 Ordered by an unspecified provider. Scanned Document SCANNING ONLY * MAMMO BILAT SCREENING (11/30/2020) Only the most recent of3 resultswithin the time period is included. Anatomical Region Laterality Modality Breast Bilateral Mammography 11/30/2020 Solis Gallagher MD MAMMO ORDERABLES * PAP IG LB (11/12/2020 12:02 PM CDT) Diagnosis [facility] ACCOUNT BILL Comment: NEGATIVE FOR INTRAEPITHELIAL LESION OR MALIGNANCY. CELLULAR CHANGES ASSOCIATED WITH ATROPHY ARE PRESENT. THIS SPECIMEN WAS RESCREENED PART OF OUR EM PHYSICIAN PROGRAM. Specimen Adequacy [facility] ACCOUNT BILL Comment: Satisfactory for evaluation. Endocervical component may not be distinguished in cases of atrophy. Clinician Provided ICD10 [facility] ACCOUNT BILL Comment: Z01.419 Z12.11 Performed by [facility] ACCOUNT BILL Comment:Latasha Cabello, Cytot echnologist (ASCP) QC Reviewed by [facility] ACCOUNT BILL Comment:Roxana Gordon pervisory Manager Community Relations (ASCP) Comment . [facility] ACCOUNT BILL Note [facility] ACCOUNT BILL Comment: The Pap smear is a screening test designed to aid in the detection of premalignant and malignant conditions of the uterine cervix. It is not a diagnostic procedure and should not be used as the sole means of detecting cervical cancer. Both false-positive and false-negative reports do occur. . IGLBP CPT Code Automation [facility] ACCOUNT BILL Comment: This liquid based ThinPrep(R) pap test was screened with the use of an image guided system. Pathology/Cytolog y ENTIRE VAGINA / Unknown 11/12/2020 12:02 PM CDT 11/16/2020 Narrative [facility] ACCOUNT BILL - 11/18/2020 1:09 PM CDT Source.............Vagina No. of containers..01 ThinPrep Vial Resulting Agency Comment Lab Testing performed at: [address] [phone] Solis Gallagher MD LAB - PATHOLOGY/CYT OLOGY ORDERABLES [facility] ACCOUNT BILL [address] [place] [address] * OCCULT BLOOD FECES 1-3 SCREEN POINT OF CARE (AMB) (11/12/2020 11:50 AM CDT) Only the most recent of3 resultswithin the time period is included. Occult Blood 1 neg Negative [facility] Occult Blood 2 [facility] Occult Blood 3 [facility] Card Lot Number [id number] Card Exp Date [facility] Developer Lot Number [facility] Developer Expiration Date [facility] QC Negative [facility] QC Positive [facility] Stool STOOL SPECIMEN / Unknown 11/12/2020 11:50 AM CDT Solis Gallagher MD LAB - POINT OF CARE ORDERABLES [facility] [address], [place] [phone] * US TRANSVAGINAL NON OB (10/01/2019 12:59 PM CDT) Anatomical Region Laterality Modality Abdomen Ultrasound Narrative 10/01/2019 12:59 PM CDT Solis Gallagher MD 10/01/2019 1:20 PM [facility] GRAINING MACHINE OPERATOR [place] TRANSPORTATION MAINTENANCE OPERATOR PELVIC ULTRASOUND Pt. Name: Josiane Bardales : 1955 Exam Date: 10/01/2019 LMP: No LMP recorded. Patient has had a hysterectomy. BMI: 24.75 kg/m2 Referring Physician: Loraine Gallagher Reason for Scan: Pain RLQ Transabdominal: No Transvaginal: Yes Uterine orientation: Surg absent Left Ovary: Unable to visualize due to bowel gas Right Ovary: Length 1.95 cm. Width 1.14 cm. Height 0.66 cm. Volume 0.768 cc Cul de Sac: Negative for free fluid CPT: 62223 Physician Interpretation: The uterus is not seen consistent with her history of previous surgically removal. The left ovary is not seen today due to bowel gas. The right ovary is seen and is normal in size and appearance. There is no free fluid present in the pelvis. Railroad Surveyor: Willa Mcgregor RDMS, RT(R) Images will be scanned into the record. Interpreting Physician: Loraine Gallagher Procedure Note Willa Mcgregor - 10/01/2019 12:59 PM CDT [facility] GRAINING MACHINE OPERATOR [place] TRANSPORTATION MAINTENANCE OPERATOR PELVIC ULTRASOUND Pt. Name: Josiane Bardales : 1955 Exam Date: 10/01/2019 LMP: No LMP recorded. Patient has had a hysterectomy. BMI: 24.75 kg/m2 Referring Physician: Loraine Gallagher Reason for Scan: Pain RLQ Transabdominal: No Transvaginal: Yes Uterine orientation: Surg absent Left Ovary: Unable to visualize due to bowel gas Right Ovary: Length 1.95 cm. Width 1.14 cm. Height 0.66 cm. Volume 0.768 cc Cul de Sac: Negative for free fluid CPT: 38879 Physician Interpretation: The uterus is not seen consistent with herhistory of previous surgically removal. The left ovary is not seen todaydue to bowel gas. The right ovary is seen and is normal in size andappearance. There is no free fluid present in the pelvis. Railroad Surveyor: Willa Mcgregor RDMS, RT(R) Images will be scanned into the record. Interpreting Physician: Loraine Gallagher Solis Gallagher MD US ORDERABLES * PAP IG LB + HPV HR (06/24/2018 11:42 AM CDT) Only the most recent of2 resultswithin the time period is included. Diagnosis [facility] ACCOUNT BILL Comment:NEGATIVE FOR INTRAEP ITHELIAL LESION OR MALIGNANCY. Specimen Adequacy [facility] ACCOUNT BILL Comment: Satisfactory for evaluation. Endocervical component may not be distinguished in cases of atrophy. Clinician Provided ICD10 [facility] ACCOUNT BILL Comment: Z01.419 R10.30 Performed by [facility] ACCOUNT BILL Comment:David Domínguez, Cyto technologist (ASCP) Comment . [facility] ACCOUNT BILL Note [facility] ACCOUNT BILL Comment: The Pap smear is a screening test designed to aid in the detection of premalignant and malignant conditions of the uterine cervix. It is not a diagnostic procedure and should not be used as the sole means of detecting cervical cancer. Both false-positive and false-negative reports do occur. . IGLBP CPT Code Automation [facility] ACCOUNT BILL Comment: This liquid based ThinPrep(R) pap test was screened with the use of an image guided system. Human papillomavirus High Risk Negative Negative [facility] ACCOUNT BILL Comment: This high-risk HPV test detects thirteen high-risk types (16/18/31/33/35/39/45/51/52/56/58/59/68) without differentiation. . Pathology/Cytolog y ENTIRE VAGINA / Unknown 06/24/2018 11:42 AM CDT 06/24/2018 Narrative [facility] ACCOUNT BILL - 06/25/2018 8:35 PM CDT No. of containers..01 ThinPrep Vial Resulting Agency Comment [facility] [place] [address] [facility] [place] [id number] Solis Gallagher MD LAB - PATHOLOGY/CYT OLOGY ORDERABLES [facility] ACCOUNT BILL [address] [place] [address] * VITAMIN D 25-HYDROXY (06/28/2017 2:24 PM CDT) Vitamin D, 25 Hydroxy 49.2 30.0 - 100.0 ng/mL [facility] ACCOUNT BILL Comment: Vitamin D deficiency has been defined by the [place] of Medicine and an Endocrine Society practice guideline as a level of serum 25-OH vitamin D less than 20 ng/mL (1,2). The Endocrine Society went on to further define vitamin D insufficiency as a level between 21 and 29 ng/mL (2). 1. IOM ([place] of Medicine). 2010. Dietary reference intakes for calcium and D. [place]: The National Academies Press. 2. Mitra MF, Karen NC, Steph BAETS, et al. Evaluation, treatment, and prevention of vitamin D deficiency: an Endocrine Society clinical practice guideline. JCEM. 2010; 96(7):1911-30. Blood BLOOD SPECIMEN / Unknown 06/28/2017 2:24 PM CDT 06/28/2017 Narrative Resulting Agency Comment [facility] [place] [address] [id number] Solis Gallagher MD LAB - CHEMISTRY ORD ERABLES [facility] ACCOUNT BILL [address] [place] [address] * DEXA BONE DENSITY 2 SITES (07/07/2016 2:45 PM CDT) Anatomical Region Laterality Modality Other Narrative 07/07/2016 2:45 PM CDT Solis Gallagher MD 07/07/2016 2:45 PM [facility] GRAINING MACHINE OPERATOR [place], Bone Density Report with VFA Pt. Name: Josiane Bardales Gender: female : 1955 Age: 61 y.o. Referring Physician: Loraine Gallagher Exam Date: 06/22/2016 Indication: Screening HIP: Osteoporosis SPINE: Osteoporosis WRIST: Not performed OVERALL IMPRESSION: Osteoporosis* INTERPRETATION OF VFA XXX VFA appears normal and shows no obvious evidence of compression VFA appears abnormal with possible compression fracture at . Lateral spine films would be beneficial in this patient to confirm compression fracture. In women > age 65 BMD testing of the spine may not be indicative of the disease process due to arthritic changes, facet sclerosis, or overlying Calcifications. T-Score of (L1), (L2), (L3), (L4), (Femoral Neck), (1/3 of wrist) is . Assesment: normal VFA Technologist: RT Vale(R), [facility] Images will be scanned into the record. Interpreting Physician: Loraine Gallagher Solis Gallagher MD DEXA ORDERABLES * PAP THIN PREP (06/16/2016) Clinical Information [facility] Comment:Information not prov ided LMP [facility] Comment:INFORMATION NOT PROV IDED Previous Pap [facility] Comment:INFORMATION NOT PROV IDED Prev. BX [facility] Comment:INFORMATION NOT PROV IDED Source [facility] Comment:Vagina Statement of Adequacy [facility] Comment:SATISFACTORY FOR JORGE LUATION Interpretation/Resul t [facility] Comment:Negative for intraep ithelial lesion or malignancy. Comment [facility] Comment: This Pap test has been evaluated with computer assisted technology. Manager Community Relations [facility] Comment: PCM, CT(ASCP) CT screening location: [place] [address] [place] [address] Test Performed at: [facility] [address] LESTER CAMPOVERDE MD 06/16/2016 06/19/2016 10: 03 AM CDT Solis Gallagher MD LAB - PATHOLOGY/CYT OLOGY ORDERABLES Performing Organization Address [facility] Co de Phone Number [facility] [address] [place] [address] * OCCULT BLOOD FECES 1-3 SCREEN POC (AMB) STL (06/16/2016) Pathologist [facility] Occult Blood 1 neg Negative Occult Blood 2 Negative Occult Blood 3 Negative Card Lot Number z Card Exp Date z Yes Developer Lot Number z Developer Expiration Date z Yes QC Negative z Negative QC Positive z Stool STOOL SPECIMEN / Unknown 06/16/2016 Solis Gallagher MD LAB - POINT OF CARE ORDERABLES * HPV DNA PROBE HIGH RISK (06/16/2016) [facility] Human papillomavirus DNA High Risk NOT DETECTED [facility] Comment: Tested for High Risk types 16, 18, 31, 33, 35, 39, 45, 51, 52, 56, 58, 59, 68. REFERENCE RANGE: HPV DNA HIGH RISK: NOT DETECTED The analytical performance characteristics of this assay, when used to test SurePath(TM) or Vaginal specimens, have been determined by [facility]. Test Performed at: [facility] [address] [place] [phone] Ede MONTOYA 06/16/2016 06/19/2016 10: 03 AM CDT Solis Gallagher MD LAB - MICROBIOLOGY ORDERABLES Performing Organization Address [facility] Co de Phone Number [facility] [address] [place] [address] * PATHOLOGY/GENETICS HISTORICAL-ONBASE (05/17/2007) Only the most recent of2 resultswithin the time period is included. 05/17/2007 Historical Provider LAB - CHEMISTRY O RDERABLES [place] [address] [address] * GROSS + MICRO EXAM (11/13/2001 7:54 AM CDT) Pathologist [facility] Result CASE NUMBER [id number] Comment: ORDERING PHYSICIAN SOLIS GALLAGHER SPECIMEN TYPE Uterus for Prolapse Date 11/13/2001 Physician Sudhakar Gross Description The specimen is received in formalin, labeled with the patient's name, and `uterus and cervix' and consists of a uterus that measures 5.5 x 4.5 x 4 cm. with attached cervix that measures 3 x 4 x 3 cm. The total weight including the cervix is 120 gms. Separately received is a nodule of fibroid tissue that measures 4 x 3 x 2.5 cm. The serosal surface of the uterus is tannish light brown, the cervix has external os that measures 1.3 cm in length. The uterine cavity is triangular shape, measures 2.2 x 3.7 cm. It has tannish reddish internal lining and the myometrium wall measures up to 1.5 cm in thickness. Sectioning through the uterus there are three whitish nodules, all of them have approximately equal size, .4 x .3 cm. and located serosally. Posterior surface of uterus there is a tissue defect that measures 2 x 1 cm. It is probably a represent area of previously detached and removed fibroid, otherwise specimen is grossly unremarkable. Sections are submitted as follows A and B-cervix anterior posterior, C and D- endomyometrium anterior posterior, E and F-fibroid, G-section through the area of defect tissue. TK/[facility] Microscopic Exam Sections of the cervix reveal squamocolumnar lined tissue fragments with areas of squamous metaplasia. Dysplasia is not seen. The stroma shows chronic inflammation. Sections of the endometrium reveals proliferative pattern. Sections of the myometrium reveal leiomyoma made up of elongated interlacing bundles of smooth muscle cells. Areas of hyalinization is seen. One of the leiomyomas show increased cellularity. However, no evidence of nuclear anaplasia, increased mitosis, malignancy, necrosis is noted. Serosal endometriosis is identified. SR/ Diagnosis i. Uterus, cervix A. Acute and chronic cervicitis with squamous metaplasia II. Uterus, endometrium A. Proliferative pattern. III. Uterus, myometrium A. Leiomyomata, multiple B. Cellular leiomyoma C. Serosal endometriosis SR/ Juvenile Officer [facility] Pathologist Damian Taylor M.D. [place]. 11/14/2001 1243 <4> CPT code 08430 MISCELLANEOUS SAMPLES / Unknown 11/13/2001 7:54 AM CDT 11/13/2001 7:54 AM CDT Historical Provider LAB - PATHOLOGY/C YTOLOGY ORDERABLES Care Teams Mail List Librarian Relationship Specialty Start Date End Date Cynthia Sarah MD [address] [place] [address] PCP - General Family Medicine 11/12/20 Yudy Norris MD [address] [facility] [address] [place] [address] Family Medicine 06/16/16 Solis Gallagher MD [address] [facility] [address] [place] [address] Obstetrics and Gynecology 11/11/20
--- OUTSIDE RECORDS SUMMARY | 2024-05-19 12:23 | XMS_ITS | Referral Summary ---
Author Organization [facility] Address [address] [facility] [place] [address] Care Team Providers Care Casino Operations Supervisor Name Role Phone Yudy Norris MD Unavailable [phone] Solis De La Fuente MD Unavailable [phone] Cynthia Sarah MD Primary Care Provider [phone] Source Comments [facility],non-owned Affiliates and Associated Physician Practices is amultiple site organization consisting of ambulatory clinics and hospital sitesin [place], [place], [place] and [place]. This disclosure is being madepursuant to the Care Everywhere program and may not contain all information available regarding this patient. Last updated 17.[facility] Allergies Active Allergy Reactions Criticality Noted Date Comments Cephalosporins Rash Medium 01/04/2015 Hydromorphone Other Low 10/21/2020 Makes me feel like I'm having a heart attack Sulfa Drugs Itching Medium 06/09/2013 Itching Other reaction(s): Unknown Tramadol Itching,Unknown Low 01/04/2015 Medications * Be aware that medications may not be up to date on this document. Alwaysverify current medications with the patient. Medication Sig Dispensed Refills Start Date End Date Status polyethylene glycol 3350 (MIRALAX) powder MIX 25.5 GRAMS WITH FLUID ONCE DAILY 11 05/31/2016 Active tiZANidine (ZANAFLEX) 4 MG tablet Take 4 mg by mouth 3 times daily 2 05/19/2016 Active omeprazole (PRILOSEC) 40 MG capsule Take 40 mg by mouth daily before breakfast Active mometasone-formoterol (DULERA) 200-5 MCG/ACT inhaler Inhale 2 Puffs by mouth 2 times daily Active Albuterol Sulfate (VENTOLIN HFA IN) Active cetirizine (ZYRTEC ALLERGY) 10 MG tablet Take 10 mg by mouth once daily Active FLUTICASONE PROPIONATE, INHAL, IN Act elva Psyllium (METAMUCIL PO) Active VITAMIN D, CHOLECALCIFEROL, PO Activ e linaCLOtide (LINZESS) 145 MCG capsule 145 mcg 07/13/2016 Active hydroxychloroquine (PLAQUENIL) 200 MG tablet TAKE 2 TABLETS BY MOUTH EVERY DAY FOR 30 DAYS 10/09/2017 Active meloxicam (MOBIC) 15 MG tablet Take 15 mg by mouth once daily 01/29/2018 Active Active Problems Problem Noted Date Diagnosed Date Other fracture of unspecifie d lower leg, initial encounter for closed fracture 03/12/2016 Overview (06/18/2017): Ankle fracture Osteoporosis Asthma Social History Tobacco Use Types Packs/Day Years Used Date Smoking Tobacco: Former Smokeless Tobacco: Never Alcohol Use Standard Drinks/Week Comments Yes 0 (1 standard drink = 0.6 oz pur e alcohol) social PHQ-2 Answer Date Recorded PHQ2 TOTAL SCORE 0 11/12/2020 Sex and Gender Information Value Date Recorded Sex Assigned at Not on file Gender Identity Female 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 Scanned Document SCANNING ONLY * DEXA BONE DENSITY 2 SITES (07/07/2016 2:45 PM CDT) Anatomical Region Laterality Modality Other Narrative 07/07/2016 2:45 PM CDT Solis De La Fuente MD 07/07/2016 2:45 PM SSG SOFTWARE TEST MANAGER [place], Bone Density Report with VFA Pt. Name: Josiane Bardales Gender: female : 1955 Age: 61 y.o. Referring Physician: Loraine De La Fuente Exam Date: 06/22/2016 Indication: Screening HIP: Osteoporosis [...] wrist) is . Assesment: normal VFA Technologist: Willa Mcgregor RT(R), [facility] Images will be scanned into the record. Interpreting Physician: Loranie De La Fuente Solis De La Fuente MD DEXA ORDERABLES from Last 3 Months or Most Recently Relevant to Health Maintenance Care Teams Casino Operations Supervisor Relationship Specialty Start Date End Date Cynthia Sarah MD [address] [place] [address] PCP - General Family Medicine 11/12/20 Yudy Norris MD [address] [place] [address] Family Medicine 06/16/16 Solis De La Fuente MD [address] [facility] [address] [place] [id number] Obstetrics and Gynecology 11/11/20
--- OUTSIDE RECORDS SUMMARY | 2024-05-19 12:23 | XMS_ITS | Clinical Summary ---
Author Organization [facility] Address [address] [place] [address] Care Team Providers Care Crew Member Name Role Phone Yudy Norris MD Unavailable [phone] Solis De La Fuente MD Unavailable [phone] Cynthia Sarah MD Primary Care Provider [phone] Source Comments [facility],non-owned Affiliates and Associated Physician Practices is amultiple site organization consisting of ambulatory clinics and hospital sitesin [place], [place], [place] and [place]. This disclosure is being madepursuant to the Care Everywhere program and may not contain all information available regarding this patient. Last updated 17.[facility] Allergies Active Allergy Reactions Criticality Noted [...] file Gender Identity Female 02/23/2021 8:42 AM RN GYNECOLOGY Sexual Orientation Not on file Last Filed [...] 11/12/2020 11:20 AM CDT Plan of Treatment Health Maintenance Due Date Last Done Comments COLOGUARD (AGES 45-75) - COLON CA SCREENING 1955 COLON MONITORING 1955 COLONOSCOPY - COLON CA SCREENING 1956 CT COLONOGRAPHY - COLON CA SCREENING 1955 Colorectal Cancer Screening 1955 FIT - COLON CA SCREENING 1955 FLEX SIG - COLON CA SCREENING 1955 LIPID TESTING 1955 HEPATITIS C SCREENING 05/01/1974 DTAP/TDAP/TD VACCINES (1 - Tdap) 1975 PNEUMOCOCCAL VACCINE 50+ (1 of 2 - PCV) 1975 ZOSTER VACCINE (1 of 2) 2006 Respiratory Syncytial Virus (RSV) Vaccine Pt: or over 60 yrs (1 - Risk 60-74 years 1-dose series) 2016 COVID-19 VACCINE (3 - 2023- season) 2023 05/31/2020, 05/10/2020 INFLUENZA VACCINE (#1) 2023 , 12/10/2017, 11/10/2016, Additional history exists DEPRESSION SCREENING 03/12/2024 MEDICARE AWV CALENDAR YEAR 2024 MAMMOGRAM 05/15/2026 05/15/2024, 030 07/2023, 05/12/2022, Additional history exists BONE DENSITY TESTING Completed 07/07/2016 HEPATITIS B VACCINE Aged Out No longe r eligible based on patient's age to complete this topic HIB VACCINE Aged Out No longer eligi ble based on patient's age to complete this topic HPV VACCINE Aged Out No longer eligi ble based on patient's age to complete this topic MENINGOCOCCAL (Group B) VACCINE Aged Out No longer eligible based on patient's age to complete this topic MENINGOCOCCAL VACCINE Aged Out No gonzalez manny eligible based on patient's age to complete this topic Procedures Procedure Name Priority Date/Time Associated Diagnosis [...] De La Fuente MD 07/07/2016 2:45 PM [facility] Elijah, Bone Density Report with VFA Pt. Name: [...] . Assesment: normal VFA Technologist: RT Vale(R), [facility] Images will be scanned into the record. Interpreting Physician: Loraine De La Fuente Solis De La Fuente MD DEXA ORDERABLES from Last 3 Months or Most Recently Relevant to Health Maintenance Care Teams Crew Member Relationship Specialty Start Date End Date Cynthia Sarah MD [address] [place] [address] PCP - General Family Medicine 11/12/20 Yudy Norris MD [address] [place] [address] Family Medicine 06/16/16 Solis De La Fuente MD [address] [place] [address] Obstetrics and Gynecology 11/11/20
--- OUTSIDE RECORDS SUMMARY | 2024-05-19 12:23 | XMS_ITS ---
Author Organization [facility] hussein Address [address] [facility] [place] [address] Care Team Providers Care Firefighter Type One Name Role Phone Tyrel YOUSSEF, Cynthia Primary Care Provider Jaye SolitarioKelly Unavailable [phone] Allergies Allergen (clinical drug ingredient) Drug/Non Drug Allergy documented on EMR Reaction Allergy Type Onset Date Status Substance with sulfonamide structure and antibacterial mechanism of action (substance) Sulfa Antibiotics Unknown Drug Allergy 06/11/2017 Active tramadol Tramadol Unknown Drug Allergy 06/11/2017 Active REASON FOR VISIT inflammatory arthritis, PCP: Dr. Cynthia Sarah [address] [facility] [address] Medications Medication SIG (Take, Route, Frequency, Duration) Notes Start Date End Date Status Prolia 60 MG/ML inject 1 milliliter (60 mg) by subcutaneous route every 6 months in the upper arm, upper thigh or abdomen Subcutaneous 5.64359384402935B-6 3 Active ZyrTEC Allergy 10 MG Oral Active Biotin - - oral *Pick strength-form from [employer] for eRX* Active tiZANidine HCl 2 MG Oral Active Calcium Pantothenate 500 MG chew 1 tablet by oral route once Oral 1 Active Dulera 100-5 MCG/ACT Inhalation Active Hydroxychloroquine Sulfate 200 MG TAKE 1 TABLET BY MOUTH TWICE A DAY for 90 Active Glucosamine Sulfate 500 mg take 1 tablet by oral route once Oral 1 Active Metamucil - daily oral *Pick strength-form from [employer] for eRX* Active Probiotic Blend - as directed Orally Active Vitamin D (Ergocalciferol) 40894 UNIT Oral Active Acetaminophen-Codeine 300-30 MG prn Oral Active Vital Signs Temperature 98.0 degrees Fahrenheit 05/14/19 25 Blood pressure systolic 108 mm Hg 05/14/19 25 Blood pressure diastolic 70 mm Hg 025 Heart Rate 92 /min 05/13/2024 Height 64 in 05/13/2024 Weight 110.4 lbs 05/13/2024 BMI 18.95 kg/m2 05/13/2024 Oximetry 95 % 05/13/2024 Height-cm 162.56 cm 05/13/2024 Weight-kg 50.07 kg 05/13/2024 Encounters Encounter Location Date Provider Diagnosis [facility] [address] [place] [address] 05/13/2024 Kelly Solitario Inflammatory arthrit is M19.90 ; High risk medication use Z79.899 and Lumbar back pain M54.50 Assessments Encounter Date Diagnosis (ICD Code) Assessment Notes Treatment Notes Treatment Clinical Notes Section Notes 05/13/2024 Inflammatory arthritis (ICD-10 - M19.90) improving, continue plaquenil, return in 5 months, advised about eye exam for plaquenil 05/13/2024 High risk medication use (ICD-10 - Z79.899) improving, continue plaquenil, return in 5 months, advised about eye exam for plaquenil 05/13/2024 Lumbar back pain (ICD-10 - M54.50) improving, continue plaquenil, return in 5 months, advised about eye exam for plaquenil Plan Of Treatment Next Appt Details Follow Up: 5 Months, Reason: Provider Name:Kelly Solitario, 10/28 10:15:00 AM, [address], [place], [address], Progress Notes * FELISAMauricioAlvaroOB:1955 (69 yo F)Acc No.[id number]:05/13/2024 Progress Notes Patient: Josiane NAVA Provider: Jocy SOLITARIO MD :1955 A ge:69 Y S ex:Female Date:05/13/2024 Address:[address] [place] [address] Pcp:Cynthia Sarah MD Subjective: * Chief Complaints: * I nflammatory arthritisPCP: Dr. Cynthia Sarah [address] [facility] [address] * HPI: G eneral Follow up: serologies (-) except for elevated CRP, on plaquneil 400mg/day, plaquenil helping, not much pain today, no joint swelling, am stiffness: none sees pain doctor for back pain, s/p radiofrequency ablation, takes Tylenol #3 and tizanidine, cannot afford PT allergic to sulfa and tramadol, off Mobic due to kidney problem, did not tolerate diclofenac, off?MTX since surgeries in 01/2023, serologies (-) eye exam: scheduled. * ROS: G eneral / Constitutional: Patient denies f kyra, chills. P atient complains of?fatigue. M usculoskeletal: Patient complains of s ee HPI. S kin: Patient denies r mariza. * Medical History: * Surgical History: G all Bladder Surgery; [id number]; 8051-41-64Iyjgoheoirjst; 8248-28-62Cagr Surgery; [id number] partial colectomy * Hospitalization/Major Diagno stic Procedure: * Family History: M igrated Family History: Father Notes: , Mother Notes: ,emphysema . * Social History: M igrated Social History: M igrated Social History: :: 2 Sons , Exercise :: Exercises regularly :: note : 03/14/2022 - stationary bike 15 mins a day, Marital Status :: , Occupation :: Disabled :: note : - [employer] 10/02/2017 , Substance Use :: Nonsmoker , Substance Use :: rare alcohol usage , Substance Use :: Tobacco :: Former :: note : quit 2001. * Medications: T akingDulera 100-5 MCG/ACT Aerosol Inhalation Glucosamine Sulfate 500 mg Tablet take 1 tablet by oral route once Oral 1 Prolia 60 MG/ML Solution Prefilled Syringe inject 1 milliliter (60 mg) by subcutaneous route every 6 months in the upper arm, upper thigh or abdomen Subcutaneous 5.01118610314966P-60 ZyrTEC Allergy 10 MG Capsule Oral Calcium Pantothenate 500 MG Tablet chew 1 tablet by oral route once Oral 1 Biotin - - oral , Notes to Pharmacist: *Pick strength-form from [facility] for eRX*tiZANidine HCl 2 MG Tablet Oral Vitamin D (Ergocalciferol) 49259 UNIT Capsule Oral Acetaminophen-Codeine 300-30 MG Tablet prn Oral Metamucil - daily oral , Notes to Pharmacist: *Pick strength-form from [facility] for eRX*Probiotic Blend - Capsule as directed Orally Hydroxychloroquine Sulfate 200 MG Tablet TAKE 1 TABLET BY MOUTH TWICE A DAY Medication List reviewed and reconciled with the patientTaking Dulera 100- 5 MCG/ACT Aerosol Inhalation Taking Glucosamine Sulfate 500 mg Tablet take 1 tablet by oral route once Oral 1 Taking Prolia 60 MG/ML Solution Prefilled Syringe inject 1 milliliter (60 mg) by subcutaneous route every 6 months in the upper arm, upper thigh or abdomen Subcutaneous 5.97866899738387T-32 Taking ZyrTEC Allergy 10 MG Capsule Oral Taking Calcium Pantothenate 500 MG Tablet chew 1 tablet by oral route once Oral 1 Taking Biotin - - oral , Notes to Pharmacist: *Pick strength-form from [facility] for eRX*Taking tiZANidine HCl 2 MG Tablet Oral Taking Vitamin D (Ergocalciferol) 39675 UNIT Capsule Oral Taking Acetaminophen-Codeine 300-30 MG Tablet prn Oral Taking Metamucil - daily oral , Notes to Pharmacist: *Pick strength-form from [facility] for eRX*Taking Probiotic Blend - Capsule as directed Orally Taking Hydroxychloroquine Sulfate 200 MG Tablet TAKE 1 TABLET BY MOUTH TWICE A DAY Medication List reviewed and reconciled with the patient * Allergies: S ulfa Antibiotics: Allergy - Onset Date 06/11/2017Tramadol: Allergy - Onset Date 06/11/2017no[Allergies Verified] Objective: * Vitals: B P:108/70mm Hg, HR:92/min, Temp:98.0F, Oxygen sat %:95%, Wt:110.4lbs, Wt- k.07kg, Ht:64in, Ht-cm:162.56cm, BMI:18.95Index, Body Surface Area:1.5. * Examination: G eneral Examination: General appearance: a lert, well-nourished and in no acute distress. Head: n ormocephalic, atraumatic. Eyes: n ormal. Skin: n o rash. Lungs: r espiratory effort normal. N eurology: Speech: n ormal. P sychiatry: Affect / mood: a ppropriate. R heumatology: b il CMCs and R 2nd PIP mildly tender, no swelling. Assessment: * Assessment: 1. I nflammatory arthritis - M19.90 (Primary) 2 . H igh risk medication use - Z79.899 3 . L umbar back pain - M54.50 improving, continue plaqueni l, return in 5 months, advised about eye exam for plaquenil Plan: * Treatment: * Procedure Codes: * Follow Up: 5 Months * Billing Information: * Visit Code: 50930 Office Visit, Est Pt., Level 4. * Procedure Codes: * ITY CONTROL COORDINATOR Sign off status: Completed true * Provider: Jocy SOLITARIO MD Date: 0 05/13/2024 Generated for Jacob downey/Gary/eTransmitting on: 0 05/19/2024 12:23 PM CDT History and Physical Notes * HPI (History of Present Illness) Category Sub-Category Detail Notes Category Not es General Follow up serologies (-) except for elevated CRP, on plaquneil 400mg/day, plaquenil helping, not much pain today, no joint swelling, am stiffness: none sees pain doctor for back pain, s/p radiofrequency ablation, takes Tylenol #3 and tizanidine, cannot afford PT allergic to sulfa and tramadol, off Mobic due to kidney problem, did not tolerate diclofenac, off MTX since surgeries in 01/2023, serologies (-) eye exam: scheduled Examination Category Sub-Category Detail Notes Category Not es Rheumatology caridad CMCs and R 2nd PIP mildly tender, no swelling Neurology Speech: normal Psychiatry Affect / mood: appropriate General Examination General appearance: alert, w ell-nourished and in no acute distress Head: normocephalic, atrau matic Eyes: normal Lungs: respiratory effort n ormal Skin: no rash
--- OUTSIDE RECORDS SUMMARY | 2024-05-19 12:24 | XMS_ITS ---
Author Organization [employer] Address [address] [facility] [address] [place] [address] Care Team Providers Care Hard Rock Miner Blasting Name Role Phone Cynthia Sarah MD Primary Care Provider Dominguez Cm Unavailable [phone] Results Component Value Reference Range Notes CBC With Differential/Platel et (Not yet reviewed by provider) Interpretation: Performing Lab:[facility], [address] [facility], Phone - [phone], Director - PhDRicbarrera Notes/Report: WBC 6.1 3.4-10.8 x10E3/uL RBC 4.72 3.77-5.28 x10E6/uL Hemoglobin 13.4 11.1-15.9 g/dL Hematocrit 40.4 34.0-46.6 % MCV 86 79-97 fL MCH 28.4 26.6-33.0 pg MCHC 33.2 31.5-35.7 g/dL RDW 13.6 11.7-15.4 % Platelets 281 150-450 x10E3/uL Neutrophils 64 Not Estab. % Lymphs 20 Not Estab. % Monocytes 11 Not Estab. % Eos 4 Not Estab. % Basos 1 Not Estab. % Neutrophils (Absolute) 3.9 1.4-7.0 x10E3/uL Lymphs (Absolute) 1.2 0.7-3.1 x10E3/uL Monocytes(Absolute) 0.7 0.1-0.9 x10E3/uL Eos (Absolute) 0.3 0.0-0.4 x10E3/uL Baso (Absolute) 0.0 0.0-0.2 x10E3/uL Immature Granulocytes 0 Not Estab. % Immature Grans (Abs) 0.0 0.0-0.1 x10E3/uL REASON FOR VISIT Labs Problems Problem Type SNOMED Code ICD Code Onset Dates Problem Status W/U Status Risk Notes Problem Anemia (103814999) Anemia (D64.9) Active confirmed Encounters Encounter Location Date Provider Diagnosis [facility] [address] [place] [address] 04/18/2024 Dominguez Noel Anemia D64.9 Assessments Encounter Date Diagnosis (ICD Code) Assessment Notes Treatment Notes Treatment Clinical Notes Section Notes 04/18/2024 Anemia (ICD-10 - D64.9) Plan Of Treatment Pending Test Test Name Order Date CBC With Differential/Platelet Next Appt Details Provider Name:Dominguez murphy, 07/01/2024 10:15:00 AM, [address] [place] [address] [address], [place], [address], Progress Notes * Josiane ROBERTO LDOB:[birth year] (68 yo F)Acc No.[id number]:04/18/2024 Patient: Josiane NAVA Arsalan :1955 A ge:68 Y S ex:Female Address:[address] [place] [address] Subjective: * Chief Complaints: * L abs * Medical History: * Surgical History: * Hospitalization/Major Diagno stic Procedure: * Medications: Objective: * Vitals: * Physical Examination: Assessment: * Assessment: 1. A nemia - D64.9 (Primary) Plan: * Treatment: * Procedure Codes: * true * Date: Generated for Jacob downey/Gary/eTransmitting on: 0 05/19/2024 12:23 PM CDT
--- OUTSIDE RECORDS SUMMARY | 2024-05-19 12:24 | XMS_ITS | Patient Health Record ---
Author Organization [facility] hussein Address [address] [place] [address] Care Team Providers Care Asw/Asuw Tactical Air Controller Name Role Phone Cynthia Sarah MD Primary Care Provider Kelly Zurita Unavailable [phone] Allergies Allergen (clinical drug ingredient) Drug/Non Drug Allergy documented on EMR Reaction Allergy Type Onset Date Status Substance with sulfonamide structure and antibacterial mechanism of action (substance) Sulfa Antibiotics Unknown Drug Allergy 06/11/2017 Active tramadol Tramadol Unknown Drug Allergy 06/11/2017 Active Reason For Referral No Information Medications Medication SIG (Take, Route, Frequency, Duration) Notes Start Date End Date Status Prolia 60 MG/ML inject 1 milliliter (60 mg) by subcutaneous route every 6 months in the upper arm, upper thigh or abdomen Subcutaneous 5.47909103535034R-7 3 Active ZyrTEC Allergy 10 MG Oral Active Dulera 100-5 MCG/ACT Inhalation Active Hydroxychloroquine Sulfate 200 MG TAKE 1 TABLET BY MOUTH TWICE A DAY for 90 Active Glucosamine Sulfate 500 mg take 1 tablet by oral route once Oral 1 Active Biotin - - oral *Pick strength-form from [employer] for eRX* Active tiZANidine HCl 2 MG Oral Active Calcium Pantothenate 500 MG chew 1 tablet by oral route once Oral 1 Active Metamucil - daily oral *Pick strength-form from [employer] for eRX* Active Probiotic Blend - as directed Orally Active Vitamin D (Ergocalciferol) 22411 UNIT Oral Active Acetaminophen-Codeine 300-30 MG prn Oral Active Problems Problem Type SNOMED Code ICD Code Onset Dates Problem Status W/U Status Risk Notes Problem Inflammatory arthritis (6366465) Inflammatory arthritis (M19.90) Active confirmed Problem Rheumatoid arthritis (77452618) Rheumatoid arthritis, unspecified (M06.9) Active confirmed Vital Signs Heart Rate 92 /min 05/13/2024 Temperature 98.0 degrees Fahrenheit 05/13/2024 Oximetry 95 % 05/13/2024 Height-cm 162.56 cm 05/13/2024 Blood pressure diastolic 70 mm Hg 05/13/2024 Weight-kg 50.07 kg 05/13/2024 Height 64 in 05/13/2024 Blood pressure systolic 108 mm Hg 05/13/2024 Weight 110.4 lbs 05/13/2024 BMI 18.95 kg/m2 05/13/2024 Encounters Encounter Location Date Provider Diagnosis [facility] [email or web address] [place] [address] 06/06/2023 Kelly Du Inflammatory arthrit is M19.90 ; High risk medication use Z79.899 and Lumbar back pain M54.50 [facility] [address] [place] [address] 01/18/2024 Kelly Du Inflammatory arthrit is M19.90 ; High risk medication use Z79.899 and Lumbar back pain M54.50 [facility] [email or web address] [place] [address] 05/13/2024 Kelly Du Inflammatory arthrit is M19.90 ; High risk medication use Z79.899 and Lumbar back pain M54.50 Assessments Encounter Date Diagnosis (ICD Code) Assessment Notes Treatment Notes Treatment Clinical Notes Section Notes 06/06/2023 Inflammatory arthritis (ICD-10 - M19.90) off DMARDs, no synovitis on exam, will monitor, return in 6 months 01/18/2024 Inflammatory arthritis (ICD-10 - M19.90) restart plaquenil 400mg/day, return in 3 momths 05/13/2024 Inflammatory arthritis (ICD-10 - M19.90) improving, continue plaquenil, return in 5 months, advised about eye exam for plaquenil 01/18/2024 High risk medication use (ICD-10 - Z79.899) restart plaquenil 400mg/day, return in 3 momths 05/13/2024 High risk medication use (ICD-10 - Z79.899) improving, continue plaquenil, return in 5 months, advised about eye exam for plaquenil 06/06/2023 High risk medication use (ICD-10 - Z79.899) off DMARDs, no synovitis on exam, will monitor, return in 6 months 01/18/2024 Lumbar back pain (ICD-10 - M54.50) restart plaquenil 400mg/day, return in 3 momths 06/06/2023 Lumbar back pain (ICD-10 - M54.50) off DMARDs, no synovitis on exam, will monitor, return in 6 months 05/13/2024 Lumbar back pain (ICD-10 - M54.50) improving, continue plaquenil, return in 5 months, advised about eye exam for plaquenil Plan Of Treatment Next Appt Details Provider Name:Kelly Sequeira, 10/28 10:15:00 AM, [address], [facility] [address], [place], [address], Insurance Providers Payer Name Payer Address Payer Phone Subscriber Number Group Number Insured Name Patient Relationship to Insured Coverage Start Date Coverage End Date [facility] Medicare Advantage [facility] [address] [address] [place] [address] [id number] Josiane Bardales Self - patient is the insured Medical (General) History Medical History History ICD Code Asthma; Rheumatoid arthritis; Surgical History Surgery Date(Month/Year) Gall Bladder Surgery; 2017-06-11 Hysterectomy; 2017-06-11 Thoracentesis; 2017-06-11 Neck Surgery; 2017-06-11 appendectomy partial colectomy
--- OUTSIDE RECORDS SUMMARY | 2024-05-19 12:24 | XMS_ITS ---
Author Organization [facility] Address [address] [place] [address] [address] [place] [address] Care Team Providers Care Char Filter Operator Helper Name Role Phone Cynthia Sarah MD Primary Care Provider Dominguez Cm Unavailable [phone] REASON FOR VISIT Abdominal cramping Encounters Encounter Location Date Provider Diagnosis [facility], [address] [place] [address] 05/08/2024 Dominguez Noel Plan Of Treatment Next Appt Details Provider Name:Dominguez murphy, 07/01/2024 10:15:00 AM, [address] [place] [address] [address], [place], [address], Progress Notes * Josiane ROBERTO LDOB:[birth year] (69 yo F)Acc No.[id number]:05/08/2024 Patient: Syd Josiane ROBERTS :1955 A ge:69 Y S ex:Female Address:[address] [place] [address] * true * Date: Generated for Printi ng/Faxing/eTransmitting on: 0 05/19/2024 12:23 PM CDT
--- OUTSIDE RECORDS SUMMARY | 2024-05-19 12:24 | XMS_ITS ---
Author Organization [facility] hussein Address [address] [place] [address] Care Team Providers Care Rabbler Name Role Phone Tyrel YOUSSEF, Cynthia Primary Care Provider Jaye Solitario Kelly Unavailable [phone] Allergies Allergen (clinical drug ingredient) Drug/Non Drug Allergy documented on EMR Reaction Allergy Type Onset Date Status Substance with sulfonamide structure and antibacterial mechanism of action (substance) Sulfa Antibiotics Unknown Drug Allergy 06/11/2017 Active tramadol Tramadol Unknown Drug Allergy 06/11/2017 Active REASON FOR VISIT yd/3 month follow up/flc, inflammatory arthritis, PCP: Dr. Cynthia Sarah [address] [id number] Medications Medication SIG (Take, Route, Frequency, Duration) Notes Start Date End Date Status Acetaminophen-Codeine 300-30 MG prn Oral Active Methotrexate Sodium 2.5 MG TAKE 4 TABLETS BY ORAL ROUTE ONCE A WEEK for 90 Active Hydroxychloroquine Sulfate 200 MG TAKE 1 TABLET BY MOUTH TWICE A DAY for 90 Active Folic Acid 1 MG TAKE 1 TABLET BY MOUTH EVERY DAY for 90 Active Metamucil - daily oral *Pick strength-form from [employer] for eRX* Active Cholestyramine powder - daily - *Reorder from [employer] for eRx and Interaction Alerts* Active Vitamin D (Ergocalciferol) 56945 UNIT Oral Active tiZANidine HCl 2 MG Oral Active Biotin - - oral *Pick strength-form from [employer] for eRX* Active Calcium Pantothenate 500 MG chew 1 tablet by oral route once Oral 1 Active Prolia 60 MG/ML inject 1 milliliter (60 mg) by subcutaneous route every 6 months in the upper arm, upper thigh or abdomen Subcutaneous 5.89689182229076U- 03 Active Glucosamine Sulfate 500 mg take 1 tablet by oral route once Oral 1 Active Dulera 100-5 MCG/ACT Inhalation Active ZyrTEC Allergy 10 MG Oral Active Vital Signs Temperature 97.0 degrees Fahrenheit 06/06/19 24 Blood pressure systolic 120 mm Hg 06/06/19 24 Blood pressure diastolic 80 mm Hg 024 Height 64 in 06/06/2023 Weight 111 lbs 06/06/2023 BMI 19.05 kg/m2 06/06/2023 Height-cm 162.56 cm 06/06/2023 Weight-kg 50.35 kg 06/06/2023 Encounters Encounter Location Date Provider Diagnosis [facility] [address] [place] [address] 06/06/2023 Kelly Du Inflammatory arthrit is M19.90 ; High risk medication use Z79.899 and Lumbar back pain M54.50 Assessments Encounter Date Diagnosis (ICD Code) Assessment Notes Treatment Notes Treatment Clinical Notes Section Notes 06/06/2023 Inflammatory arthritis (ICD-10 - M19.90) off DMARDs, no synovitis on exam, will monitor, return in 6 months 06/06/2023 High risk medication use (ICD-10 - Z79.899) off DMARDs, no synovitis on exam, will monitor, return in 6 months 06/06/2023 Lumbar back pain (ICD-10 - M54.50) off DMARDs, no synovitis on exam, will monitor, return in 6 months Plan Of Treatment Next Appt Details Follow Up: 6 Months, Reason: Provider Name:Kelly Solitario, 10/28 10:15:00 AM, [address], [place], [address], Progress Notes * Aric ROBERTOOB:1955 (68 yo F)Acc No.[id number]:06/06/2023 Progress Notes Patient: Josiane NAVA Provider: Jocy SOLITARIO MD :1955 A ge:68 Y S ex:Female Date:06/06/2023 Address:[address] [place], [place] [id number] Pcp:Cynthia Sarah MD Subjective: * Chief Complaints: * Y d/3 month follow up/flc, inflammatory arthritisPCP: Dr. Cynthia Sarah [address] [facility] [address] * HPI: G eneral Follow up: serologies (-) except for elevated CRP, stopped HCQ and MTX since surgeries in 01/2023, no flares, not much pain today, am stiffness: none significant sees pain doctor for back pain, s/p radiofrequency ablation, takes Tylenol #3 and tizanidine, cannot afford PT allergic to sulfa and tramadol, off Mobic due to kidney problem, did not tolerate diclofenac 09/2021, serologies (-) eye exam: 09/01/2022. * ROS: G eneral / Constitutional: Patient denies f kyra, chills. P atient complains of?fatigue. M usculoskeletal: Patient complains of s ee HPI. S kin: Patient denies r mariza. * Medical History: * Surgical History: G all Bladder Surgery; 4212-81-04Fzazjmpwexrb; 0685-05-21Gvlhwfcckvqml; 5894-72-12Lcvx Surgery; 6490-69-45qupflyqtmdql partial colectomy * Hospitalization/Major Diagno stic Procedure: [...] upper arm, upper thigh or abdomen Subcutaneous 5.91665187267774R-96 ZyrTEC Allergy 10 MG Capsule Oral Calcium Pantothenate 500 MG Tablet chew 1 tablet by oral route once Oral 1 Biotin - - oral , Notes to Pharmacist: *Pick strength-form from [facility] for eRX*tiZANidine HCl 2 MG Tablet Oral Vitamin D (Ergocalciferol) 26867 UNIT Capsule Oral Cholestyramine powder - daily - , Notes to Pharmacist: *Reorder from [facility] for eRx and Interaction Alerts*Acetaminophen-Codeine 300-30 MG Tablet prn Oral Metamucil - daily oral , Notes to Pharmacist: *Pick strength-form from [facility] for eRX*Folic Acid 1 MG Tablet TAKE 1 TABLET BY MOUTH EVERY DAY Hydroxychloroquine Sulfate 200 MG Tablet TAKE 1 TABLET BY MOUTH TWICE A DAY Methotrexate Sodium 2.5 MG Tablet TAKE 4 TABLETS BY ORAL ROUTE ONCE A WEEK Medication List reviewed and reconciled with the patientTaking Dulera 100-5 MCG/ACT Aerosol Inhalation Taking Glucosamine Sulfate 500 mg Tablet take 1 tablet by oral route once Oral 1 Taking Prolia 60 MG/ML Solution Prefilled Syringe inject 1 milliliter (60 mg) by subcutaneous route every 6 months in the upper arm, upper thigh or abdomen Subcutaneous 5.32085041701556B-63 Taking ZyrTEC Allergy 10 MG Capsule Oral Taking Calcium Pantothenate 500 MG Tablet chew 1 tablet by oral route once Oral 1 Taking Biotin - - oral , Notes to Pharmacist: *Pick strength-form from [facility] for eRX*Taking tiZANidine HCl 2 MG Tablet Oral Taking Vitamin D (Ergocalciferol) 81869 UNIT Capsule Oral Taking Cholestyramine powder - daily - , Notes to Pharmacist: *Reorder from [facility] for eRx and Interaction Alerts*Taking Acetaminophen-Codeine 300-30 MG Tablet prn Oral Taking Metamucil - daily oral , Notes to Pharmacist: *Pick strength-form from [facility] for eRX*Taking Folic Acid 1 MG Tablet TAKE 1 TABLET BY MOUTH EVERY DAY Taking Hydroxychloroquine Sulfate 200 MG Tablet TAKE 1 TABLET BY MOUTH TWICE A DAY Taking Methotrexate Sodium 2.5 MG Tablet TAKE 4 TABLETS BY ORAL ROUTE ONCE A WEEK Medication List reviewed and reconciled with the patient * Allergies: S ulfa Antibiotics: Allergy - Onset Date 06/11/2017Tramadol: Allergy - Onset Date 06/11/2017no[Allergies Verified] Objective: * Vitals: B P:120/80mm Hg, Temp:97.0F, Wt:111lbs, Wt-k.35 kg, Ht: 64 in, Ht-cm: 162.56 cm, BMI:19.05Index, Body Surface Area: 1.51. * Examination: G eneral Examination: General appearance: a lert, well-nourished and in no acute distress. Head: n ormocephalic, atraumatic. Eyes: n ormal. Skin: n o rash. Lungs: r espiratory effort normal. N eurology: Speech: n ormal. P sychiatry: Affect / mood: a ppropriate. R heumatology: n o synovitis, L 5th DIP - flexion contracture (hx of injury). Assessment: * Assessment: 1. I nflammatory arthritis - M19.90 (Primary) 2 . H igh risk medication use - Z79.899?3. L umbar back pain - M54.50 off DMARDs, no synovitis on exam, will monitor, return in 6 months. Plan: * Treatment: * Procedure Codes: * Follow Up: 6 Months * Billing Information: * Visit Code: 10926 Office Visit, Est Pt., Level 4. * Procedure Codes: * Sign off status: Completed true * Provider: Jocy SOLITARIO MD Date: 0 06/06/2023 Generated for Jacob downey/Gary/Devynitting on: 0 05/19/2024 12:24 PM CDT History and Physical Notes * HPI (History of Present Illness) Category Sub-Category Detail Notes Category Not es General Follow up serologies (-) except for elevated CRP, stopped HCQ and MTX since surgeries in 01/2023, no flares, not much pain today, am stiffness: none significant sees pain doctor for back pain, s/p radiofrequency ablation, takes Tylenol #3 and tizanidine, cannot afford PT allergic to sulfa and tramadol, off Mobic due to kidney problem, did not tolerate diclofenac 09/2021, serologies (-) eye exam: 09/01/2022 Examination Category Sub-Category Detail Notes Category Not es Rheumatology no synovitis, L 5th DIP - flexion contracture (hx of injury) Neurology Speech: normal Psychiatry Affect / mood: appropriate General Examination General appearance: alert, well-nourished and in no acute distress Head: normocephalic, atrau matic Eyes: normal Lungs: respiratory effort n ormal Skin: no rash
--- OUTSIDE RECORDS SUMMARY | 2024-05-19 12:25 | XMS_ITS | Encounter Summary ---
Author Organization [facility] Address [address] [place] [address] Care Team Providers Care In Home Nanny Name Role Phone Jess Burleson MD Primary Care Provider [phone] Encounter Details Date Type Department Care Team (Late Contact Info) Description 06/10/2002 Outpatient Historical [facility] Nicolás Arnold MD [address] [place] [address] ACUTE GASTRITIS W/O HEMORRHAGE (Primary Dx) Social History Tobacco Use Types Packs/Day Years Used Date Smoking Tobacco: Never Assessed Comments Unknown Sex and Gender Information Value Date Recorded Sex Assigned at Not on file Legal Sex Female 4:25 AM PAINT POURER Gender Identity Not on file Sexual Orientation Not on file documented as of this encounter Plan of Treatment Upcoming Encounters Date Type Department Care Team (Late Contact Info) Description 03/18/2025 11:00 AM PAINT POURER Office Visit [facility] Pulmonology [facility] [address] [place] [id number] Robbie Summers MD [address] [place] [address] documented as of this encounter Visit Diagnoses Diagnosis Acute gastritis without mention of hemorrhage- Primary documented in this encounter Additional Health Concerns Infection Onset Date Last Indicated Resolved Time R/O COVID-19 03/22/2021 03/22/2021 03/29/2021 1:16 AM PAINT POURER documented as of this encounter Care Teams In Home Nanny Relationship Specialty Start Date End Date Jess Burleson MD [address] [address] PCP - General 02/26/15 documented as of this encounter
--- OUTSIDE RECORDS SUMMARY | 2024-05-19 12:25 | XMS_ITS ---
Author Organization [facility] hussein Address [address] [place] [address] Care Team Providers Care Inter Com Installer Name Role Phone Tyrel YOUSSEF, Cynthia Primary Care Provider Jaye SolitarioKelly Unavailable [phone] Allergies Allergen (clinical drug ingredient) Drug/Non Drug Allergy documented on EMR Reaction Allergy Type Onset Date Status Substance with sulfonamide structure and antibacterial mechanism of action (substance) Sulfa Antibiotics Unknown Drug Allergy 06/11/2017 Active tramadol Tramadol Unknown Drug Allergy 06/11/2017 Active REASON FOR VISIT 6 month f/u, inflammatory arthritis, PCP: Dr. Cynthia Sarah [address] [facility] [address] Medications Medication SIG (Take, Route, Frequency, Duration) Notes Start Date End Date Status Probiotic Blend - as directed Orally Active Metamucil - daily oral *Pick strength-form from [facility] [employer] for eRX* Active Acetaminophen-Codeine 300-30 MG prn Oral Active Calcium Pantothenate 500 MG chew 1 tablet by oral route once Oral 1 Active Hydroxychloroquine Sulfate 200 MG TAKE 1 TABLET BY MOUTH TWICE A DAY for 90 Active Vitamin D (Ergocalciferol) 92721 UNIT Oral Active Biotin - - oral *Pick strength-form from [facility] for eRX* Active tiZANidine HCl 2 MG Oral Active ZyrTEC Allergy 10 MG Oral Active Glucosamine Sulfate 500 mg take 1 tablet by oral route once Oral 1 Active Prolia 60 MG/ML inject 1 milliliter (60 mg) by subcutaneous route every 6 months in the upper arm, upper thigh or abdomen Subcutaneous 5.81598165522479Q-5 3 Active Dulera 100-5 MCG/ACT Inhalation Active Problems Problem Type SNOMED Code ICD Code Onset Dates Problem Status W/U Status Risk Notes Problem Inflammatory arthritis (6182843) Inflammatory arthritis (M19.90) Active confirmed Vital Signs Temperature 98.0 degrees Fahrenheit 01/18/20 24 Blood pressure systolic 112 mm Hg 01/18/20 24 Blood pressure diastolic 68 mm Hg 024 Heart Rate 93 /min 01/18/2024 Height 64 in 01/18/2024 Weight 109.2 lbs 01/18/2024 BMI 18.74 kg/m2 01/18/2024 Oximetry 96 % 01/18/2024 Height-cm 162.56 cm 01/18/2024 Weight-kg 49.52 kg 01/18/2024 Encounters Encounter Location Date Provider Diagnosis [facility] [address] [address] [place] [address] 01/18/2024 Kelly Solitario Inflammatory arthrit is M19.90 ; High risk medication use Z79.899 and Lumbar back pain M54.50 Assessments Encounter Date Diagnosis (ICD Code) Assessment Notes Treatment Notes Treatment Clinical Notes Section Notes 01/18/2024 Inflammatory arthritis (ICD-10 - M19.90) restart plaquenil 400mg/day, return in 3 momths 01/18/2024 High risk medication use (ICD-10 - Z79.899) restart plaquenil 400mg/day, return in 3 momths 01/18/2024 Lumbar back pain (ICD-10 - M54.50) restart plaquenil 400mg/day, return in 3 momths Plan Of Treatment Medication Medication Name Sig Start Date Stop Date Notes Hydroxychloroquine Sulfate 200 MG TAKE 1 TABLET BY MOUTH TWICE A DAY for 90 Next Appt Details Follow Up: 3 Months, Reason: Provider Name:Kelly Solitario, 10/28 10:15:00 AM, [address], [place], [address], Progress Notes * Aric ROBERTOOB:1955 (68 yo F)Acc No.[id number]:01/18/2024 Progress Notes Patient: Josiane NAVA Provider: Jocy SOLITARIO MD :1955 A ge:68 Y S ex:Female Date:01/18/2024 Address:[address] [place], [place] [id number] Pcp:Cynthia Sarah MD Subjective: * Chief Complaints: * 6 month f/uInflammatory arthritisPCP: Dr. Cynthia Sarah [address] [facility] [address] * HPI: G eneral Follow up: serologies (-) except for elevated CRP, stopped HCQ and MTX since surgeries in 01/2023, has had pain in the arms, legs, and hands for a month, no joint swelling, am stiffness: not sure how long sees pain doctor for back pain, s/p [...] * Surgical History: G all Bladder Surgery; 6298-20-15Uptzexloitoi; 4572-47-02Oybehrbqthtxe; 3355-91-06Vori Surgery; 9087-00-53anoivmevuxfo partial colectomy * Hospitalization/Major Diagno stic Procedure: [...] upper arm, upper thigh or abdomen Subcutaneous 5.02477909036186B-49 ZyrTEC Allergy 10 MG Capsule Oral Calcium Pantothenate 500 MG Tablet chew 1 tablet by oral route once Oral 1 Biotin - - oral , Notes to Pharmacist: *Pick strength-form from [facility] for eRX*tiZANidine HCl 2 MG Tablet Oral Vitamin D (Ergocalciferol) 16957 UNIT Capsule Oral Acetaminophen-Codeine 300-30 MG Tablet prn Oral Metamucil - daily oral , Notes to Pharmacist: *Pick strength-form from [facility] for eRX*Hydroxychloroquine Sulfate 200 MG Tablet TAKE 1 TABLET BY MOUTH TWICE A DAY Probiotic Blend - Capsule as directed Orally Taking Dulera 100-5 MCG/ACT Aerosol Inhalation Taking Glucosamine Sulfate 500 mg Tablet take 1 tablet by oral route once Oral 1 Taking Prolia 60 MG/ML Solution Prefilled Syringe inject 1 milliliter (60 mg) by subcutaneous route every 6 months in the upper arm, upper thigh or abdomen Subcutaneous 5.49981657914194T-80 Taking ZyrTEC Allergy 10 MG Capsule Oral Taking Calcium Pantothenate 500 MG Tablet chew 1 tablet by oral route once Oral 1 Taking Biotin - - oral , Notes to Pharmacist: *Pick strength-form from [facility] for eRX*Taking tiZANidine HCl 2 MG Tablet Oral Taking Vitamin D (Ergocalciferol) 98707 UNIT Capsule Oral Taking Acetaminophen-Codeine 300-30 MG Tablet prn Oral Taking Metamucil - daily oral , Notes to Pharmacist: *Pick strength-form from [facility] for eRX*Taking Hydroxychloroquine Sulfate 200 MG Tablet TAKE 1 TABLET BY MOUTH TWICE A DAY Taking Probiotic Blend - Capsule as directed Orally DiscontinuedCholestyramine powder - daily - , Notes to Pharmacist: *Reorder from [facility] for eRx and Interaction Alerts*Methotrexate Sodium 2.5 MG Tablet TAKE 4 TABLETS BY ORAL ROUTE ONCE A WEEK Folic Acid 1 MG Tablet TAKE 1 TABLET BY MOUTH EVERY DAY Medication List reviewed and reconciled with the patientDiscontinued Cholestyramine powder - daily - , Notes to Pharmacist: *Reorder from [facility] for eRx and Interaction Alerts*Discontinued Methotrexate Sodium 2.5 MG Tablet TAKE 4 TABLETS BY ORAL ROUTE ONCE A WEEK Discontinued Folic Acid 1 MG Tablet TAKE 1 TABLET BY MOUTH EVERY DAY Medication List reviewed and reconciled with the patient * Allergies: S ulfa Antibiotics: Allergy - Onset Date 06/11/2017Tramadol: Allergy - Onset Date 06/11/2017no[Allergies Verified] Objective: * Vitals: B P:112/68mm Hg, HR:93/min, Temp:98.0F, Oxygen sat %:96%, Wt:109.2lbs, Wt- k.52kg, Ht:64in, Ht-cm:162.56cm, BMI:18.74Index, Body Surface Area:1.5. * Examination: G eneral Examination: General appearance: a lert, well-nourished and in no acute distress. Head: n ormocephalic, atraumatic. Eyes: n ormal. Skin: n o rash. Lungs: r espiratory effort normal. N eurology: Speech: n ormal. P sychiatry: Affect / mood: a ppropriate. R heumatology: R 2nd and 3rd PIPs tender, caridad CMCs tender, +pain in shoulders with abduciton, knees tender, no swelling. Assessment: * Assessment: 1. I nflammatory arthritis - M19.90 (Primary) 2 . H igh risk medication use - Z79.899 3 . L umbar back pain - M54.50 restart plaquenil 400mg/day, return in 3 momths Plan: * Treatment: * Procedure Codes: * Follow Up: 3 Months * Billing Information: * Visit Code: 59708 Office Visit, Est Pt., Level 4. * Procedure Codes: * ENT TRANSPORTER Sign off status: Completed true * Provider: Jocy SOLITARIO MD Date: 03/19/2023 Generated for Jacob downey/Gary/Elissa on: 0 05/19/2024 12:25 PM CDT History and Physical Notes * HPI (History of Present Illness) Category Sub-Category Detail Notes Category Not es General Follow up serologies (-) except for elevated CRP, stopped HCQ and MTX since surgeries in 01/2023, has had pain in the arms, legs, and hands for a month, no joint swelling, am stiffness: not sure how long sees pain doctor for back pain, s/p radiofrequency ablation, takes Tylenol #3 and tizanidine, cannot afford PT allergic to sulfa and tramadol, off Mobic due to kidney problem, did not tolerate diclofenac 09/2021, serologies (-) eye exam: 09/01/2022 Examination Category Sub-Category Detail Notes Category Not es Rheumatology R 2nd and 3rd PIPs tender, caridad CMCs tender, +pain in shoulders with abduciton, knees tender, no swelling Neurology Speech: normal Psychiatry Affect / mood: appropriate General Examination General appearance: alert, w ell-nourished and in no acute distress Head: normocephalic, atrau matic Eyes: normal Lungs: respiratory effort n ormal Skin: no rash
--- OUTSIDE RECORDS SUMMARY | 2024-05-19 12:25 | XMS_ITS | Encounter Summary ---
Author Organization [facility] Address [address] [place] [address] Care Team Providers Care Door Repairman Name Role Phone Nicolás Rodriguez MD Primary Care Provider [phone] Elizabeth Ramos RN Unavailable Unavailab Cynthia Hale MD Primary Care Provider [phone] Latasha Nguyen MD Unavailable Reason for Visit * Reason Onset Date Comments Pre-op Exam 12/02/2018 Encounter Details Date Type Department Care Team (Late st Contact Info) Description 12/02/2018 Telephone [facility] [address] [facility] [facility] [address] [place] [address] Yuridia Shen RN Pre-op Exam Social History Tobacco Use Types Packs/Day Years Used Date Smoking Tobacco: Former Cigarettes Q uit: 2001 Smokeless Tobacco: Never Alcohol Use Standard Drinks/Week Comments Yes 1 (1 standard drink = 0.6 oz pur e alcohol) AUDIT-C Answer Date Recorded Frequency of Alcohol Consumption Monthly or less 07/23/2018 Average Number of Drinks 1 or 2 019 Frequency of Binge Drinking Never 07/10 Comments No Sex and Gender Information Value Date Recorded Sex Assigned at Not on file Legal Sex Female 12:20 AM IT HELP DESK ASSOCIATE Gender Identity Not on file Sexual Orientation Not on file documented as of this encounter Plan of Treatment Not on file documented as of this encounter Goals Goal Patient Goal Type Associated Problems Recent Progress Patient-Stated? Author CCM Chronic Pain Care Plan Chronic Care Management On track(2024 8:27 AM IT HELP DESK ASSOCIATE) No Allison Shannon, ROSSANA Note: Problem: Chronic Pain Goals: 1. Minimize further functional decline 2. Maximize quality of life 3. Control pain Strategies: - Activity/exercise program recommendation - Conservative stepwise pain medicine strategy with multi-disciplinary approach - Recommend healthy lifestyle strategies and compensatory methods as needed Reduce the likelihood of falling Lifestyle On track(2024 8:27 AM IT HELP DESK ASSOCIATE) No Beatrice Caballero, ROSSANA Note: Below are four things you can do to prevent falls: 1. Begin an exercise program to improve your leg strength & balance 2. Ask your doctor or pharmacist to review your medicines 3. Get annual eye check-ups & update your eyeglasses 4. Make your home safer by: Removing clutter & tripping hazards Putting railings on all stairs & adding grab bars in the bathroom Having good lighting, especially on stairs Contact your local community or channing home for information on exercise, fall prevention programs, or options for improving home safety. documented as of this encounter Visit Diagnoses Not on filedocumented in this encounter Additional Health Concerns Infection Onset Date Last Indicated Resolved Time COVID: Recovered Comment:COVID+ 03/25/21. Met COVID recovered criteria. Results in media section Nany Alfredito 05/16/2021 04/04/2021 05/16/2021 07/23/2021 3:05 AM CDT documented as of this encounter Care Teams Door Repairman Relationship Specialty Start Date End Date Nicolás Rodriguez MD PCP - General 08/07/17 12/02/20 Cynthia Sarah MD PCP - General Family Medicine 12/03/20 Elizabeth Ramos RN Registered Nurse 01/22/20 Latasha Nguyen MD [address] [facility] [address] Consulting Physician Pain Management 10/01/17 documented as of this encounter
--- OUTSIDE RECORDS SUMMARY | 2024-05-19 12:25 | XMS_ITS | Encounter Summary ---
Author Organization [facility] Address [address] [place] [address] Care Team Providers Care Sap Hana Architect Name Role Phone Jess Burleson MD Primary Care Provider [phone]- [phone] Reason for Visit * Reason Comments Med Refill Encounter Details Date Type Department Care Team (Late st Contact Info) Description 05/19/2024 Refill [facility] Pulmonology [facility] [address] [place] [address] Robbie Summers MD [address] [place] [address] Social History Tobacco Use Types Packs/Day Years Used Date Smoking Tobacco: Former Cigarettes Q uit: 06/09/2001 Alcohol Use Standard Drinks/Week Comments Not Asked 0 (1 standard drink = 0.6 oz pur e alcohol) Comments Unknown Sex and Gender Information Value Date Recorded Sex Assigned at Not on file Legal Sex Female 4:25 AM MACHINIST APPRENTICE WOOD Gender Identity Not on file Sexual Orientation Not on file documented as of this encounter Miscellaneous Notes * Telephone Encounter - Lorena Ochoa RN - 05/19/2024 8:19 AM CDT Received refill request for Dulera. KONSTANTIN 03/13/24. F/U 03/18/25. E-prescribed 3 month supply with 3 refills to [facility]. documented in this encounter Plan of Treatment Upcoming Encounters Date Type Department Care Team (Late st Contact Info) Description 03/18/2025 11:00 AM MACHINIST APPRENTICE WOOD Office Visit [facility] Pulmonology [facility] [address] [place] [address] Robbie Summers MD [address] [place], [place] [id number] documented as of this encounter Visit Diagnoses Not on filedocumented in this encounter Care Teams Sap Hana Architect Relationship Specialty Start Date End Date Jess Burleson MD [address] [address] PCP - General 02/26/15 documented as of this encounter
--- OUTSIDE RECORDS SUMMARY | 2024-05-19 12:25 | XMS_ITS | Encounter Summary ---
Author Organization [facility] Address [address] [place] [address] Care Team Providers Care Icing Machine Operator Name Role Phone Jess Burleson MD Primary Care Provider [phone]- [phone] Encounter Details Date Type Department Care Team (Latest Contact Info) Description 02/20/2002 Outpatient Historical [facility] Nicolás Hedrick MD [address] [place] [address] NONINFEC GASTROENTERIT NEC (Primary Dx) Social History Tobacco Use Types Packs/Day Years Used Date Smoking Tobacco: Never Assessed Comments Unknown Sex and Gender Information Value Date Recorded Sex Assigned at Not on file Legal Sex Female 4:25 AM WORKFORCE DEVELOPMENT ASSISTANT Gender Identity Not on file Sexual Orientation Not on file documented as of this encounter Plan of Treatment Upcoming Encounters Date Type Department Care Team (Late st Contact Info) Description 03/18/2025 11:00 AM WORKFORCE DEVELOPMENT ASSISTANT Office Visit [facility] Pulmonology [facility] [address] [place] [address] Robbie Summers MD [address] [place] [address] documented as of this encounter Visit Diagnoses Diagnosis Other and unspecified noninfectious gastroenteritis and colitis(558.9)- Primary Other and unspecified noninfectious gastroenteritis and colitis documented in this encounter Additional Health Concerns Infection Onset Date Last Indicated Resolved Time R/O COVID-19 03/22/2021 03/22/2021 03/29/2021 1:16 AM WORKFORCE DEVELOPMENT ASSISTANT documented as of this encounter Care Teams Icing Machine Operator Relationship Specialty Start Date End Date Jess Burleson MD [address] [address] PCP - General 02/26/15 documented as of this encounter
--- OUTSIDE RECORDS SUMMARY | 2024-05-19 12:25 | XMS_ITS | Patient Health Record ---
Author Organization [facility] Address [address], [place] [address] Care Team Providers Care Consultant Electronics Name Role Phone Nicolás Rodriguez Primary Care Provider Unavailbelle Leslie JR, MD, Edward Unavailable ALLERGIES Allergen (clinical drug ingredient) Drug/Non Drug Allergy documented on EMR Reaction Allergy Type Onset Date Status tramadol Tramadol HCl Unknown Drug Allergy Acti ve sulfacetamide Sulfacetamide Sodium Unknown Drug Allergy Active REASON FOR REFERRAL No Information MEDICATIONS Medication SIG (Take, Route, Frequency, Duration) Notes Start Date End Date Status ZyrTEC Allergy Activ e tiZANidine HCl Activ e Hydroxychloroquine Sulfate Active Dulera Active Omeprazole Active Ventolin HFA Active Calcium + D Active IMMUNIZATIONS Vaccine Route Administration Date Status Comme nts Influenza Unknown 02/16/2017 Administered Influenza Unknown 12/19/2018 Administered pneumoccocal Unknown 02/16/2017 Refused pneumoccocal Unknown 03/21/2019 Refused SOCIAL HISTORY Tobacco Use: Social History Observation Description Date Details (start date - stop date) Former Smoker NA - NA Sex Assigned At : Social History Observation Description Sex Assigned At Unknown Tobacco Use: Question Answer Notes Patient is a: former smoker How long has it been since you last smoked? > 10 years Alcohol screening: Question Answer Notes Did you have a drink containing alcohol in the p ast year? No Points 0 Interpretation Negative PROBLEMS Problem Type ICD Code Onset Dates Problem Status W/U Status Risk SNOMED Code Notes Problem Sprain of unspecified site of right knee, initial encounter (S83.91XA) Active confirmed 49117267620382443 Problem Knee pain, right (M25.561) Active confirmed Pain of righ t knee region (finding) (391058860406904) Problem Overexertion from strenuous movement or load, initial encounter (X50.0XXA) Active confirmed [id number] PLAN OF TREATMENT Pending Test Test Name Order Date MRI : Knee, right 02/16/2017 Insurance Providers Payer Name Payer Address Payer Phone Subscriber Number Group Number Insured Name Patient Relationship to Insured Coverage Start Date Coverage End Date UHC Medicare Complete PPO [address] [address] [place] [address] [id number] Josiane Bardales Self - patient is the insured MEDICAL (GENERAL) HISTORY Medical History History ICD Code MVP asthma acid reflux irritable bowel syndrome rheumatoid arthritis Surgical History Surgery Date(Month/Year) neck 2000 L ankle 2000 hysterectomy 2001 gallbladder Thoracic outlet syndrome Neck x's 2 foot surgery
--- OUTSIDE RECORDS SUMMARY | 2024-05-19 12:25 | XMS_ITS ---
Author Organization [facility] Address [address] [place] [address] Care Team Providers Care Spreader Name Role Phone Cynthia Sarah MD Primary Care Provider Dominguez Cm Unavailable [phone] REASON FOR VISIT Upper abdominal pain - R10.10 Dysphagia - R13.10 Abdominal bloating - R14.0 Fecal incontinence - R15.9 Diarrhea - R19.7 5 2 110 Medications Medication SIG (Take, Route, Fr equency, Duration) Notes Start Date End Date Status Colestipol HCl 1 GM 2 tablets Orally Onc e a day for 30 day(s) 05/07/2024 Active Encounters Encounter Location Date Provider Diagnosis [facility] [address] [place] [address] 05/07/2024 Dominguez Noel Dyspepsia R10.13 ; Diarrhea R19.7 and Bloating R14.0 Assessments Encounter Date Diagnosis (ICD Code) Assessment Notes Treatment Notes Treatment Clinical Notes Section Notes 05/07/2024 Dyspepsia (ICD-10 - R10.13) 05/07/2024 Diarrhea (ICD-10 - R19.7) 05/07/2024 Bloating (ICD-10 - R14.0) Plan Of Treatment Medication Medication Name Sig Start Date Stop Date Notes Colestipol HCl 1 GM 2 tablets Orally Onc e a day for 30 day(s) 05/07/2024 Next Appt Details Follow Up: PRN, Reason: Provider Name:Dominguez murphy, 07/01/2024 10:15:00 AM, [address] [facility] [address] [facility], [place], [address], Progress Notes * Josiane ROBERTO LDOB:[birth year] (69 yo F)Acc No.[id number]:05/07/2024 Patient: Josiane NAVA Provider: Winston Noel MD :1955 A ge:69 Y S ex:Female Date:05/07/2024 Address:[address] [place] [address] Pcp:Cynthia Sarah MD Subjective: * Chief Complaints: * U pper abdominal pain - R10.10 Dysphagia - R13.10 Abdominal bloating - R14.0 Fecal incontinence - R15.9 Diarrhea - R19.7 5 2 110 * Medical History: * Surgical History: * Hospitalization/Major Diagno stic Procedure: * Medications: Objective: * Vitals: Assessment: * Assessment: 1. D yspepsia - R10.13 (Primary) 2 . D iarrhea - R19.7 3 .?Bloating - R14.0 Plan: * Treatment: * Procedure Codes: 4 3239 UPPER GI ENDOSCOPY, BIOPSY * Follow Up: P RN * Images: * OGICAL ENGINEER Sign off status: Completed true * Provider: Winston Noel MD Date: 0 05/07/2024 Generated for Jacob downey/Gary/eTharindersmitting on: 0 05/19/2024 12:24 PM CDT
--- OUTSIDE RECORDS SUMMARY | 2024-05-19 12:25 | XMS_ITS | Clinical Summary ---
Author Organization [facility] Address [address] [place] [address] Phone Care Team Providers Care Audio Visual Tech Name Role Phone Jess Burleson MD Primary Care Provider [phone]- [phone] Allergies Active Allergy Reactions Criticality Noted Date Comments Cephalosporins Rash Medium 01/04/2015 Hydromorphone Other (See Comments) Low 10/21/2020 Makes me feel like I'm having a heart attack Makes me feel like I'm having a heart attack Sulfa (Sulfonamide Antibiotics) Itching,Hives,Rash High 06/09/2013 Tramadol Itching,Unknown Low 01/04/2015 Medications omeprazole (PRILOSEC) 40 mg Capsule, Delayed Release(E.C.) Take 40 mg by mouth daily. Active mometasone (NASONEX) 50 mcg/actuation [place], Non-Aerosol daily. Active CALCIUM PHOSPHATE DIBAS/VIT D3 (VITAMIN D, WITH CALCIUM, ORAL) Take by mouth. Activ e tiZANidine (ZANAFLEX) 4 mg Tablet Take 4 mg by mouth every 6 hours as needed for Spasm. Active inhalational spacing device (MICROCHAMBER) Spacer Use with HFA inhaler. 1 Device 018 Active cetirizine (ZyrTEC) 10 mg tablet Take 10 mg by mouth daily. Active hydroxychloroqu ine (PLAQUENIL) 200 mg tablet Take 200 mg by mouth 2 times daily. Active acetaminophen (TYLENOL) 500 mg tablet Take 500 mg by mouth. Active flu vaccine quadrivalent 2020-, 6 mo+,,PF, (Flulaval Quad , PF,) 60 mcg (15 mcg x 4)/0.5 mL Syringe syringe Inject 0.5 mL (60 mcg) by intramuscular injection. 0.5 mL 1 11:22 AM BEEF PUSHER 021 Active ondansetron (ZOFRAN) 4 mg Tablet 1 Tablet. 022 Active fluticasone propionate (FLONASE) 50 mcg/spray [place], Suspension nasal inhaler Administer 1 [place] in each nostril. 020 Active ipratropium bromide (ATROVENT) 42 mcg (0.06 %) [place], Non-Aerosol ADMINISTER 2 SPRAYS IN EACH NOSTRIL 2 TIMES DAILY. 15 mL 2 023 Active albuterol sulfate HFA 90 mcg/actuation aerosol inhaler Take 1 Puff by inhalation every 6 hours as needed for Shortness of Breath or Wheezing. 8.5 Gram 3 025 Active Dulera 200-5 mcg/actuation inhaler USE 2 INHALATIONS BY MOUTH TWICE DAILY 39 Gram 3 025 Active mometasone-form oterol (DULERA) 200-5 mcg/actuation inhaler Take 2 Puffs by inhalation 2 times daily. 13 Gram 3 025 2024 Discontinued Active Problems Problem Noted Date Diagnosed Date Asthma, chronic, mild persistent, uncomplicated 01/23/2020 Personal history of tobacco use 01/23/2020 Current chronic use of inhaled steroid 0 Gastroesophageal reflux disease 01/23/2020 Chronic allergic rhinitis due to pollen 01/23/20 20 Resolved Problems Problem Noted Date Diagnosed Date Resolved Date Asthma 08/22/2013 01/23/2020 Encounters Date Type Department Care Team Description 05/19/2024 [facility] Pulmonology [facility] [address] [place] [address] Robbie Summers MD 04/29/2024 External Device Data STL ABSTRACTION Provider, Abstract 04/02/2024 External Device Data STL ABSTRACTION Provider, Abstract 04/01/2024 External Device Data STL ABSTRACTION Provider, Abstract 03/25/2024 External Device Data STL ABSTRACTION Provider, Abstract 03/13/2024 11:00 AM BEEF PUSHER Office Visit [facility] Pulmonology [facility] [address] [place] [address] Robbie Summers MD Asthma, chronic, mild persistent, uncomplicated (Primary Dx); Encounter for medication monitoring; Current chronic use of inhaled steroid; Personal history of tobacco use; Gastroesophageal reflux disease, unspecified whether esophagitis present from Last 3 Months Immunizations Immunization Administration Dates Next Due INFLUENZA VACCINE QUADRIVALENT 6 MOS UP PF IM Influenza Seasonal Unspecified Formulation IM Social History Tobacco Use Types Packs/Day Years Used Date Smoking Tobacco: Former Cigarettes Q uit: 06/09/2001 Tobacco Cessation:Counseling Given: Not Answered Alcohol Use Standard Drinks/Week Comments Not Asked 0 (1 standard drink = 0.6 oz pur e alcohol) Comments Unknown Sex and Gender Information Value Date Recorded Sex Assigned at Not on file Legal Sex Female 4:25 AM BEEF PUSHER Gender Identity Not on file Sexual Orientation Not on file Last Filed Vital Signs Vital Sign Reading Time Taken Comments Blood Pressure 120/70 03/13/2024 10:54 AM BEEF PUSHER Pulse 75 03/13/2024 10:54 AM BEEF PUSHER Temperature - - Respiratory Rate 16 01/18/2021 10:22 AM BEEF PUSHER Oxygen Saturation 98% 03/13/2024 10:54 AM BEEF PUSHER Inhaled Oxygen Concentration - - Weight 49.9 kg (110 lb) 03/13/2024 10:54 AM BEEF PUSHER Height 157.5 cm (5' 2 ) 03/13/2024 10:54 AM BEEF PUSHER Body Mass Index 20.12 03/13/2024 10:54 AM BEEF PUSHER Plan of Treatment Upcoming Encounters Date Type Department Care Team (Late st Contact Info) Description 03/18/2025 11:00 AM BEEF PUSHER Office Visit [facility] Pulmonology [facility] [address] [place] [address] Robbie Summers MD [address] [place], [place] [id number] Health Maintenance Due Date Last Done Comments DTAP/TDAP/TD VACCINES (1 - Tdap) 1975 PNEUMOCOCCAL VACCINE 50+ YEA RS (1 of 2 - PCV) 1975 ZOSTER VACCINE (1 of 2) 1975 COLORECTAL SCREENING 2001 Colorectal Cancer Screening 2001 FIT-DNA Q 3 years 2001 FIT/FOBT Q 1 year 2001 Flex Sig/CT Colonography Q 5 years 2001 RSV VACCINE (60+ or ) (1 - Risk 60-74 years 1-dose series) 2016 BREAST CANCER SCREENING 11/30/2021 11/30/2020, 08/07 INFLUENZA VACCINE (#1) 2023 , 12/06/2017, 11/10/2016, Additional history exists [place] Preventative Visit/Annual Wellness Visit 03/12/2024 11/12/2020, 06/18/2017, 06/16/2016 OSTEOPOROSIS SCREENING Completed 9, 02/13/2019, 07/07/[address] [place] [id number] RX [employer] RX Member Subscriber Plan / Payer (Ef fective 2021-Present) Name:Josiane Bardales Relation to Subscriber:Self Name:Josiane Bardales Subscriber ID:Not on file Payer ID:Not on file Group ID:[id number] Type:RX Medicare Part D Address: [address] Care Teams Audio Visual Tech Relationship Specialty Start Date End Date Jess Burleson MD [address] [address] PCP - General 02/26/15
--- OUTSIDE RECORDS SUMMARY | 2024-05-19 12:25 | XMS_ITS | Encounter Summary ---
Author Organization [facility] Healthcare Address [address] [place] [address] Care Team Providers Care Software Test Specialist Name Role Phone Nicolás Rodriguez MD Primary Care Provider [phone] Elizabeth Ramos RN Unavailable Unavailab Cynthia Hale MD Primary Care Provider [phone] Latasha Nguyen MD Unavailable [phone] Reason for Visit * Reason Onset Date Comments PRECALL 09/08/2019 Encounter Details Date Type Department Care Team (Late st Contact Info) Description 09/08/2019 Telephone [facility] [address] [place] [address] Ju Lundberg RN PRECALL Social History Tobacco Use Types Packs/Day Years Used Date Smoking Tobacco: Former Cigarettes Q uit: 2001 Smokeless Tobacco: Never Alcohol Use Standard Drinks/Week Comments Yes 1 (1 standard drink = 0.6 oz pur e alcohol) AUDIT-C Answer Date Recorded Frequency of Alcohol Consumption Monthly or less 07/23/2018 Average Number of Drinks 1 or 2 019 Frequency of Binge Drinking Never 07/10 PHQ-2 Answer Date Recorded PHQ-2 Score 0 02/03/2019 Comments No Sex and Gender Information Value Date Recorded Sex Assigned at Not on file Legal Sex Female 12:20 AM DIAMOND BROKER Gender Identity Not on file Sexual Orientation Not on file documented as of this encounter Plan of Treatment Not on file documented as of this encounter Goals Goal Patient Goal Type Associated Problems Recent Progress Patient-Stated? Author CCM Chronic Pain Care Plan Chronic Care Management On track(2024 8:27 AM DIAMOND BROKER) No Allison Shannon, ROSSANA Note: Problem: Chronic Pain Goals: 1. Minimize further functional decline 2. Maximize quality of life 3. Control pain Strategies: - Activity/exercise program recommendation - Conservative stepwise pain medicine strategy with multi-disciplinary approach - Recommend healthy lifestyle strategies and compensatory methods as needed Reduce the likelihood of falling Lifestyle On track(2024 8:27 AM DIAMOND BROKER) No Beatrice Caballero RN Note: Below are four things you can [...] on stairs Contact your local community or [facility] for information on exercise, fall prevention programs, or options for improving home safety. documented as of this encounter Visit Diagnoses Not on filedocumented in this encounter Additional Health Concerns Infection Onset Date Last Indicated Resolved Time COVID: Recovered Comment:COVID+ 03/25/21. Met COVID recovered criteria. Results in media section Nany Glaser 05/16/2021 04/04/2021 05/16/2021 07/23/2021 3:05 AM CDT documented as of this encounter Care Teams Software Test Specialist Relationship Specialty Start Date End Date Nicolás Rodriguez MD PCP - General 08/07/17 12/02/20 Cynthia Sarah MD PCP - General Family Medicine 12/03/20 Elizabeth Ramos RN Registered Nurse 01/22/20 Latasha Nguyen MD [address] [place] [address] Consulting Physician Pain Management 10/01/17 documented as of this encounter
--- OUTSIDE RECORDS SUMMARY | 2024-05-19 12:25 | XMS_ITS | Patient Health Record ---
Author Organization [facility] in [place] Address [address] [facility]. [address] [place] [address] Care Team Providers Care Scheduling Coordinator Name Role Phone Cynthia Sarah MD Primary Care Provider Dominguez Cm Unavailable [phone] Allison Cole Unavailable [phone] Allergies Allergen (clinical drug ingredient) Drug/Non Drug Allergy documented on EMR Reaction Allergy Type Onset Date Status tramadol Tramadol HCl Unknown Drug Allergy Acti ve Substance with sulfonamide structure and antibacterial mechanism of action (substance) Sulfa Antibiotics rash Drug Allergy 11/17/2022 active Results Component Value Reference Range Notes CBC With Differential/Platel et (Not yet reviewed by provider) Interpretation: [facility] [address] [facility], Phone - [phone], Director - PhDRicchivji Notes/Report: WBC 6.1 3.4-10.8 x10E3/uL RBC 4.72 [...] % Immature Grans (Abs) 0.0 0.0-0.1 x10E3/uL Pathology Report (Not yet re viewed by provider) Interpretation: Performing Lab: Notes/Report: Complete 100 microscopic examination is performed. The findings are included in the diagnosis rendered. Specimen A was evaluated with H&E stain. Specimen A was evaluated with Alcian Blue PAS stain. MICROSCOPIC DESCRIPTION A. The specimen is received in a Formalin-filled container labeled with the patient's name and designated Duodenum It contains multiple fragments of topete tissue that measure from 2x1x1 to 3x2x1 mm. The specimen was entirely submitted into a single cassette for processing. GROSSING DESCRIPTION Abdominal cramping. Watery diarrhea. Epigastric pain. CLINICAL HISTORY -Alcian blue/PAS stain to identify gastric foveolar metaplasia and Whipple's disease is negative; no parasites are seen. -Normal villous architecture; no evidence of Celiac sprue. -Duodenal mucosa with no diagnostic abnormality. A. Duodenum , Biopsy: DIAGNOSES Textual Pathology Report SEE NOTES Reason For Referral No Information Medications Medication SIG (Take, Route, Fr equency, Duration) Notes Start Date End Date Status Colestipol HCl 1 GM 2 tablets Orally Onc e a day for 30 day(s) 05/07/2024 Active Immunizations Vaccine Route Administration Date Status Comme nts Influenza Vaccination Unknown 12/10/2017 Administered Influenza Vaccination Unknown 12/11/2021 Administered Influenza, seasonal, injecta ble, preservative free, 3 yrs and above Unknown 11/10/2016 Administered Pneumococcal polysaccharide PPV23 Unknown 12/11/2021 Ad ministered Zoster Unknown 05/25/2023 Administered Zoster Unknown 10/01/2023 Administered Social History Tobacco Use: Social History Observation Description Date Details (start date - stop date) Former Smoker NA - NA Tobacco Use/Smoking Question Answer Notes Are you a former smoker How long has it been since you last smoked? > 10 years Problems Problem Type SNOMED Code ICD Code Onset Dates Problem Status W/U Status Risk Notes Problem 822932836 Esophageal obstruction (K22.2) Active confirmed Problem 417051632 Diverticulosis of large intestine without perforation or abscess without bleeding (K57.30) Active confirmed Problem 409327563 Irritable bowel syndrome with diarrhea (K58.0) Active confirmed Problem 57559290 Constipation, unspecified (K59.00) Active confirmed Problem 2216059 Melena (K92.1) Active confirmed Recently, her stools have been darker in color. Problem 95650901 Epigastric pain (R10.13) Active confirmed She has been experiencing epigastric pain, nausea, and vomiting for the last week and a half. Symptoms are similar to when she had a CT scan in May and was diagnosed with colitis. She underwent colonoscopy at that time, which revealed a polyp, but was otherwise normal. She does report that her stools have been darker in color. She does not take NSAID's and has not been on any recent antibiotics. Differential diagnosis includes gastritis, peptic ulcer, gastroenteritis , or others. Problem 322919573 Nausea (R11.0) Active confirmed She has been feeling nauseated after eating, like she could vomit. Her reflux symptoms have been well controlled on pantoprazole. Problem 98732487 Dysphagia, unspecified (R13.10) Active confirmed Problem 19193412 Full incontinence of feces (R15.9) Active confirmed Suspect pelvic floor dysfunction may be contributing. Problem Polyp colon (17434522) Colon polyp (K63.5) Active confirmed Problem 77908981 Diarrhea (R19.7) Active confirmed Improve now that she is off antibiotics. She will also stop taking her probiotics as well. Problem 683951031 Bloating (R14.0) Active confirmed She has had increased abdominal bloating over the last few days. Problem 123515067 History of colon polyps (Z86.010) Active confirmed Her most re cent colonoscopy in May revealed a polyp and she was instructed to follow up in 5 years which would be in 2023. Problem 31691314 Midepigastric pain (R10.13) Active confirmed Problem Dysphagia (77946480) Dysphagia (R13.10) Active confirmed Problem 73786526 Irritable bowel syndrome with both constipation and diarrhea (K58.2) Active confirmed IBS was aga in reviewed and discussed. The role of using medication to help control her symptoms was reviewed and discussed. It has been more challenging now that she is having both constipation as well as diarrhea. But she has noted that Atkins shakes have helped. She usually has the shakes in the morning, she would skip lunch and have a high fiber type of dinner. If she has an upset stomach, she would back down to soups. Problem 229843092 Irritable bowel syndrome with constipation (K58.1) Active confirmed Continues to be symptomatic with lower abdominal cramping. There has been no hematochezia. Problem 12951958 Abdominal cramping (R10.9) Active confirmed Problem 15900989 Irritable bowel syndrome, unspecified type (K58.9) Active confirmed She has long-standing history of irregular bowel habits. Sometimes her stools are explosive and come on urgently. Problem Bowel incontinence (79980002) Fecal incontinence (R15.9) Active confirmed Problem Anemia (557224085) Anemia (D64.9) Active confirmed Problem Internal hemorrhoids (15761680) Hemorrhoids, internal (K64.8) Active confirmed Problem 945557365 LLQ pain (R10.32) Active confirmed She has been experiencing pelvic and left lower quadrant pain over the last couple of days. She also feels the urge to urinate, but has not been able to go as much. She denies having any fevers. She has been slightly more constipated. Differential diagnosis includes diverticulitis, urinary tract infection, gastroenteritis , or others. Problem Diverticulitis (42209927) Diverticulitis (K57.92) Active confirmed Improving at this point with no fever. She was readmitted in October with diverticulitis on CT scan as well as a fluid collection noted. She had visited with Dr. Eastman. Her most recent CT scan yesterday revealed no evidence of active diverticulitis. The plan is for her to undergo subsequent colonoscopy. If there are no other findings, she may indeed be a candidate for subsequent sigmoid resection with Dr. Eastman in light of repeated bouts of diverticulitis recently with abscess formation. Problem 920860524 History of cholecystectomy (Z90.49) Active confirmed Problem 58703494 Colitis (K52.9) Active confirmed Problem 01283099 Nausea and vomiting (R11.2) Active confirmed Problem 623049398 RUQ abdominal pain (R10.11) Active confirmed Problem 784049480 Acute diverticulitis (K57.92) Active confirmed Problem Diverticulitis of colon (049443974) Diverticulitis of colon (K57.32) Active confirmed Problem 50775563 Pelvic pain (R10.2) Active confirmed Problem 538525489 Mild acid reflux (K21.9) Active confirmed Currently controlled on Omeprazole 40 mg daily. It continues to be helpful and she gets a lot of heartburn if she is out of the medications. 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 confirmed Problem 451037152 S/P partial colectomy (Z90.49) Active confirmed Vital Signs Height 62 in 04/14/2024 Weight 108 lbs 04/14/2024 BMI 19.75 kg/m2 04/14/2024 Procedures Procedure Date Ordered Date Performed Result Body Sit e EGD 04/14/2024 N/A Initiate ARM 04/14/2024 N/A Encounters Encounter Location Date Provider Diagnosis [facility], [address] [place] [address] 05/24/2023 Dominguez Noel Irritable bowel syndrome with both constipation and diarrhea K58.2 ; Bloating R14.0 ; History of diverticulitis Z87.19 and S/P partial colectomy Z90.49 [facility], [address] [place] [address] 04/14/2024 Allison Kelsey Upper abdominal pain R10.10 ; Dysphagia R13.10 ; Abdominal bloating R14.0 ; Fecal incontinence R15.9 and Diarrhea R19.7 [facility] [address] [place] [address] 05/07/2024 Dominguez Noel Dyspepsia R10.13 ; Diarrhea R19.7 and Bloating R14.0 [facility], [address] [place] [address] 06/19/2023 Dominguez Noel [facility], [address] [place] [address] 05/24/2023 Dominguez Noel [facility], [address] [place] [address] 02/05/2024 Dominguez Ramgopal [facility] [address] [place] [address] [place] [address] 03/07/2024 Dominguez Ramgopal [facility] [address] [place] [address] [place] [address] 04/15/2024 Dominguez Ramgopal [facility] [address] [place] [address] [place] [address] 04/15/2024 Dominguez Ramgopal [facility] [address] [place] [address] [place] [address] 04/18/2024 Dominguez Ramgopal Anemia D64.9 [facility], [address] [place] [address] 05/08/2024 Dominguez Ramgopal Assessments Encounter Date Diagnosis (ICD Code) Assessment Notes Treatment Notes Treatment Clinical Notes Section Notes 05/24/2023 Bloating (ICD-10 - R14.0) Josiane is a pleasant 68 year old with a history of IBS and recurrent diverticulitis status post partial colectomy. Overall her bowel movements have improved. She no longer needs cholestyramine. She has concerns for a possible abdominal wall hernia. If present, on exam it is very small. I would favor observation. We will try a trial of lactose free diet x 7 days and she will call with update on symptoms. Followup in one year. 05/24/2023 Irritable bowel syndrome with both constipation and diarrhea (ICD-10 - K58.2) Josiane is a pleasant 68 year old with a history of IBS and recurrent diverticulitis status post partial colectomy. Overall her bowel movements have improved. She no longer needs cholestyramine. She has concerns for a possible abdominal wall hernia. If present, on exam it is very small. I would favor observation. We will try a trial of lactose free diet x 7 days and she will call with update on symptoms. Followup in one year. 04/14/2024 Dysphagia (ICD-10 - R13.10) UPPER ABDOMINAL PAIN, ABDOMINAL BLOATING: Ongoing upper abdominal pain and constant abdominal bloating since January 2020 for hospital discharge. Pain is daily rated at 4-10 in severity. Acid reflux well-controlled on omeprazole. Intermittent nausea controlled with Zofran. Differentials include PUD, gallbladder conditions, gastritis, H. pylori, SIBO, gastroparesis, and others. DYSPHAGIA: With intermittent dysphagia with large pills. Likely related to history of esophageal stenosis. Differentials include Schatzki's ring, esophageal dysmotility etiologies, and others. DIARRHEA: Intermittent diarrhea since hospital discharge. Taking cholestyramine once weekly. She also remains on Metamucil. Differentials include IBS, less likely IBD, fructose/lactose intolerance, SIBO, and others. FECAL INCONTIENCE: Intermittent fecal incontinence. Suspect pelvic floor dysfunction. 04/14/2024 Upper abdominal pain (ICD-10 - R10.10) UPPER ABDOMINAL PAIN, ABDOMINAL BLOATING: Ongoing upper abdominal pain and constant abdominal bloating since January 2020 for hospital discharge. Pain is daily rated at 4-10 in severity. Acid reflux well-controlled on omeprazole. Intermittent nausea controlled with Zofran. Differentials include PUD, gallbladder conditions, gastritis, H. pylori, SIBO, gastroparesis, and others. DYSPHAGIA: With intermittent dysphagia with large pills. Likely related to history of esophageal stenosis. Differentials include Schatzki's ring, esophageal dysmotility etiologies, and others. DIARRHEA: Intermittent diarrhea since hospital discharge. Taking cholestyramine once weekly. She also remains on Metamucil. Differentials include IBS, less likely IBD, fructose/lactose intolerance, SIBO, and others. FECAL INCONTIENCE: Intermittent fecal incontinence. Suspect pelvic floor dysfunction. 04/18/2024 Anemia (ICD-10 - D64.9) 05/07/2024 Diarrhea (ICD-10 - R19.7) 05/07/2024 Dyspepsia (ICD-10 - R10.13) 05/07/2024 Bloating (ICD-10 - R14.0) 04/14/2024 Abdominal bloating (ICD-10 - R14.0) UPPER ABDOMINAL PAIN, ABDOMINAL BLOATING: Ongoing upper abdominal pain and constant abdominal bloating since January 2020 for hospital discharge. Pain is daily rated at 4-10 in severity. Acid reflux well-controlled on omeprazole. Intermittent nausea controlled with Zofran. Differentials include PUD, gallbladder conditions, gastritis, H. pylori, SIBO, gastroparesis, and others. DYSPHAGIA: With intermittent dysphagia with large pills. Likely related to history of esophageal stenosis. Differentials include Schatzki's ring, esophageal dysmotility etiologies, and others. DIARRHEA: Intermittent diarrhea since hospital discharge. Taking cholestyramine once weekly. She also remains on Metamucil. Differentials include IBS, less likely IBD, fructose/lactose intolerance, SIBO, and others. FECAL INCONTIENCE: Intermittent fecal incontinence. Suspect pelvic floor dysfunction. 05/24/2023 History of diverticulitis (ICD-10 - Z87.19) Josiane is a pleasant 68 year old with a history of IBS and recurrent diverticulitis status post partial colectomy. Overall her bowel movements have improved. She no longer needs cholestyramine. She has concerns for a possible abdominal wall hernia. If present, on exam it is very small. I would favor observation. We will try a trial of lactose free diet x 7 days and she will call with update on symptoms. Followup in one year. 05/24/2023 S/P partial colectomy (ICD-10 - Z90.49) Josiane is a pleasant 68 year old with a history of IBS and recurrent diverticulitis status post partial colectomy. Overall her bowel movements have improved. She no longer needs cholestyramine. She has concerns for a possible abdominal wall hernia. If present, on exam it is very small. I would favor observation. We will try a trial of lactose free diet x 7 days and she will call with update on symptoms. Followup in one year. 04/14/2024 Fecal incontinence (ICD-10 - R15.9) UPPER ABDOMINAL PAIN, ABDOMINAL BLOATING: Ongoing upper abdominal pain and constant abdominal bloating since January 2020 for hospital discharge. Pain is daily rated at 4-10 in severity. Acid reflux well-controlled on omeprazole. Intermittent nausea controlled with Zofran. Differentials include PUD, gallbladder conditions, gastritis, H. pylori, SIBO, gastroparesis, and others. DYSPHAGIA: With intermittent dysphagia with large pills. Likely related to history of esophageal stenosis. Differentials include Schatzki's ring, esophageal dysmotility etiologies, and others. DIARRHEA: Intermittent diarrhea since hospital discharge. Taking cholestyramine once weekly. She also remains on Metamucil. Differentials include IBS, less likely IBD, fructose/lactose intolerance, SIBO, and others. FECAL INCONTIENCE: Intermittent fecal incontinence. Suspect pelvic floor dysfunction. 04/14/2024 Diarrhea (ICD-10 - R19.7) UPPER ABDOMINAL PAIN, ABDOMINAL BLOATING: Ongoing upper abdominal pain and constant abdominal bloating since January 2020 for hospital discharge. Pain is daily rated at 4-10 in severity. Acid reflux well-controlled on omeprazole. Intermittent nausea controlled with Zofran. Differentials include PUD, gallbladder conditions, gastritis, H. pylori, SIBO, gastroparesis, and others. DYSPHAGIA: With intermittent dysphagia with large pills. Likely related to history of esophageal stenosis. Differentials include Schatzki's ring, esophageal dysmotility etiologies, and others. DIARRHEA: Intermittent diarrhea since hospital discharge. Taking cholestyramine once weekly. She also remains on Metamucil. Differentials include IBS, less likely IBD, fructose/lactose intolerance, SIBO, and others. FECAL INCONTIENCE: Intermittent fecal incontinence. Suspect pelvic floor dysfunction. 04/14/2024 Other After my visit with Josiane, I recommend the followin. Continue omeprazole.2. Start famotidine 40 mg at bedtime. Continue antireflux diet and lifestyle modifications. 3. Encouraged to swallow large pills carefully and crush if possible. 4. Schedule EGD. Procedure risks, benefits, indications, and alternatives discussed. She verbalized understanding and wishes to proceed. 5. Discussed discontinuing cholestyramine and increasing fiber supplement daily. 6. Schedule ARM. 7. If upper endoscopy is unremarkable, consider repeat breath testing including SIBO and fructose. Josiane verbalized a clear understanding of the plan and recommendations. All questions answered. She may call our office for new GI complaints or alarm symptoms as needed. She will sign a release form for past CT scan and stool test results for her chart. UPPER ABDOMINAL PAIN, ABDOMINAL BLOATING: Ongoing upper abdominal pain and constant abdominal bloating since January 2020 for hospital discharge. Pain is daily rated at 4-10 in severity. Acid reflux well-controlled on omeprazole. Intermittent nausea controlled with Zofran. Differentials include PUD, gallbladder conditions, gastritis, H. pylori, SIBO, gastroparesis, and others. DYSPHAGIA: With intermittent dysphagia with large pills. Likely related to history of esophageal stenosis. Differentials include Schatzki's ring, esophageal dysmotility etiologies, and others. DIARRHEA: Intermittent diarrhea since hospital discharge. Taking cholestyramine once weekly. She also remains on Metamucil. Differentials include IBS, less likely IBD, fructose/lactose intolerance, SIBO, and others. FECAL INCONTIENCE: Intermittent fecal incontinence. Suspect pelvic floor dysfunction. Plan Of Treatment Pending Test Test Name Order Date EGD 04/14/2024 Upper Endoscopy 08/07/2018 Colonoscopy 12/03/2020 Colonoscopy 06/14/2022 Initiate Lactose 08/14/2018 CBC With Differential/Platelet Initiate ARM 04/14/2024 Pathology Report 05/07/2024 Next Appt Details Provider Name:Dominguez murphy, 07/01/2024 10:15:00 AM, [address] [facility] [facility], [place], [address], Insurance Providers Payer Name Payer Address Payer Phone Subscriber Number Group Number Insured Name Patient Relationship to Insured Coverage Start Date Coverage End Date [facility] Medicare Advantage Ppo [address] [address] [place] [address] [id number] Mynor Bardales Spouse - patient is the spouse of the insured Medical (General) History Medical History History ICD Code IBS GERD Colitis Colon Polyps Diverticulitis Hemorrhoids SIBO Asthma Rheumatoid Arthritis Anxiety Surgical History Surgery Date(Month/Year) EGD 08/2022 Colonoscopy 06/2022 Laparoscopic Cholecystectomy 2017 Sigmoid Resection Appendectomy 01/2023 Thoracic Outlet Syndrome 2016 Ankle x3 Neck x3 Partial Hysterectomy Foot Sinus Hospitalization History Reason Date(Month/Year) Ileus 2016 [facility]: Abdominal Pain 05/2018 [facility]: Recurrent Diverticulitis 2020 [facility]: Enteritis 01/2023 [facility]: Abdominal Pain, Nausea, Emesi s, Diarrhea 01/2024
--- OUTSIDE RECORDS SUMMARY | 2024-05-19 12:25 | XMS_ITS | Encounter Summary ---
Author Organization [facility] Address [address] [place] [address] Care Team Providers Care Environmental Monitoring Technician Name Role Phone Jess Burleson MD Primary Care Provider [phone] Encounter Details Date Type Department Care Team (Late Contact Info) Description 11/18/2007 Outpatient Historical [facility] Dwain Moulton MD [address] [place] [address] Personal History of Colonic Polyps Social History Tobacco Use Types Packs/Day Years Used Date Smoking Tobacco: Never Assessed Comments Unknown Sex and Gender Information Value Date Recorded Sex Assigned at Not on file Legal Sex Female 4:25 AM MANAGER BANKING Gender Identity Not on file Sexual Orientation Not on file documented as of this encounter Plan of Treatment Upcoming Encounters Date Type Department Care Team ([facility] Contact Info) Description 03/18/2025 11:00 AM MANAGER BANKING Office Visit [facility] Pulmonology [facility] [address] [place] [address] Robbie Summers MD [address] [place] [address] documented as of this encounter Procedures Procedure Name Priority Date/Time Associated Diagnosis Comments PATHOLOGY Routine 11/18/2007 1:27 PM CDT documented in this encounter Results * PATHOLOGY (11/18/2007 1:27 PM CDT) FINAL REPORT [facility] [address] [place], [place] [address] Patient: ZEENAT ROBERTO : 1955 Procedure Date: 11/18/2007 Accession Date: 11/18/2007 Case No: [id number] Ordering Dr: DWAIN MOULTON Case types AW, BW, FW, NW and SH are performed [place] [facility] [place] [place] SURGICAL PATHOLOGY & NON-GYNECOLOGIC CYTOPATHOLOGY REPORT DIAGNOSIS COLON, SIGMOID AT 40 CM, POLYP, BIOPSY: - NO PATHOLOGIC DIAGNOSIS. RECTUM, POLYP: - NONDIAGNOSTIC DUE TO MARKED THERMAL DISTORTION. Specimen Description: (1) Sigmoid colon at 40 cm polyp; (2) rectal polyp. Operative Procedure: Colonoscopy. Patient Information/Histo ry/Diagnosis: (1), (2) Colon polyp(s). Adenomatous vs. hyperplastic vs. other. Gross: The specimen is received in two containers, each labeled Zeenat Roberto. Received in the first container and labeled sigmoid colon at 40 cm polyp is a single topete piece of tissue measuring 0.2 cm in greatest dimension. The entire specimen is submitted in cassette A1. Received in the second container labeled rectal polyp is a single topete piece of tissue measuring 1 to 0.1 cm in greatest dimension. The entire specimen is submitted in cassette B1. [facility] 11.18.2007 02:42 pm Microscopic: The slides are labeled [id number] and Zeenat Roberto. The sections of the sigmoid colon at 40-cm polyp show an unremarkable portion of colonic mucosa. A polyp is not identified. Deeper levels show similar histologic features. The sections of the rectal polyp show a small portion of tissue with marked thermal distortion. Viable mucosa is not present. Deeper levels show similar histologic findings. [facility] 11.19.2007 09:36 am Staging Form: No. ELECTRONIC SIGNATURE FOR GABRIELLA YE M.D.- 11/19/07 03:38 pm INTERFACE SYSTEM 11/18/2007 1:27 PM CDT Dwain Moulton MD PATHOLOGY/CYTOLOGY ORDERABLES Final Result INTERFACE SYSTEM Refer to clinic/hospital department documented in this encounter Visit Diagnoses Diagnosis Personal history of colonic polyps documented in this encounter Additional Health Concerns Infection Onset Date Last Indicated Resolved Time R/O COVID-19 03/22/2021 03/22/2021 03/29/2021 1:16 AM MANAGER BANKING documented as of this encounter Care Teams Environmental Monitoring Technician Relationship Specialty Start Date End Date Jess Burleson MD [address] [address] PCP - General 02/26/15 documented as of this encounter
--- OUTSIDE RECORDS SUMMARY | 2024-05-19 12:25 | XMS_ITS | Encounter Summary ---
Author Organization [facility] Healthcare Address [address] [place] [address] Care Team Providers Care Outside Cutter Hand Name Role Phone Elizabeth Ramos RN Unavailable Unavailab Cynthia Hale MD Primary Care Provider [phone]- [phone] Latasha Nguyen MD Unavailable Encounter Details Date Type Department Care Team (Late st Contact Info) Description 11/29/2021 Orders Only [facility] [address] [facility] [address] [place] [address] Latasha Nguyen MD [address] [place] [address] Social History Tobacco Use Types Packs/Day Years Used Date Smoking Tobacco: Former Cigarettes 1 28 1 973 - 2001 Smokeless Tobacco: Never Alcohol Use Standard Drinks/Week Comments Yes 1 (1 standard drink = 0.6 oz pur e alcohol) AUDIT-C Answer Date Recorded Q1: How often do you have a drink containing alc ohol? Monthly or less 10/18/2021 Q2: How many drinks containi ng alcohol do you have on a typical day when you are drinking? 1 or 2 10/18/2021 Q3: How often do you have si x or more drinks on one occasion? Less than monthly 10/18/2021 PHQ-2 Answer Date Recorded PHQ-2 Total Score (If total score is 3 or more points, staff should administer the PHQ-9) 0 02/23/2020 Comments No Sex and Gender Information Value Date Recorded Sex Assigned at Not on file Legal Sex Female 12:20 AM GEOGRAPHIC INFORMATION SYSTEMS ENGINEER Gender Identity Not on file Sexual Orientation Not on file documented as of this encounter Plan of Treatment Not on file documented as of this encounter Goals Goal Patient Goal Type Associated Problems Recent Progress Patient-Stated? Author CCM Chronic Pain Care Plan Chronic Care Management On track(2024 8:27 AM GEOGRAPHIC INFORMATION SYSTEMS ENGINEER) No Allison Shannon, ROSSANA Note: Problem: Chronic Pain Goals: 1. Minimize further functional decline 2. Maximize quality of life 3. Control pain Strategies: - Activity/exercise program recommendation - Conservative stepwise pain medicine strategy with multi-disciplinary approach - Recommend healthy lifestyle strategies and compensatory methods as needed Reduce the likelihood of falling Lifestyle On track(2024 8:27 AM GEOGRAPHIC INFORMATION SYSTEMS ENGINEER) No Beatrice Caballero RN Note: Below are [...] on stairs Contact your local community or senior [place] for information on exercise, fall prevention programs, or options for improving home safety. documented as of this encounter Visit Diagnoses Not on filedocumented in this encounter Care Teams Outside Cutter Hand Relationship Specialty Start Date End Date Cynthia Sarah MD PCP - General Family Medicine 12/03/20 Elizabeth Ramos, ROSSANA Registered Nurse 01/22/20 Latasha Nguyen MD [address] [place] [address] Consulting Physician Pain Management 10/01/17 documented as of this encounter
--- OUTSIDE RECORDS SUMMARY | 2024-05-19 12:25 | XMS_ITS | Clinical Summary ---
Author Organization [facility] Address [address] [place] [id number] Care Team Providers Care Research Associate Quality Control Qc Name Role Phone Unavailable Primary Care Provider Unavailabl e Social History Tobacco Use Types Packs/Day Years Used Date Smoking Tobacco: Never Assessed Comments Unknown Sex and Gender Information Value Date Recorded Sex Assigned at Not on file Legal Sex Female 5:08 PM CDT Gender Identity Not on file Sexual Orientation Not on file Plan of Treatment Health Maintenance Due Date Last Done Comments Colorectal Cancer Screening Colonoscopy (10 Years) 1956 Hepatitis C 1974 DTaP, Tdap and Td Vaccines ( 1 - Tdap) 1975 Mammogram Screening 1996 Zoster Vaccines (1 of 2) 2006 Dexa Scan (General) 2021 Pneumococcal Vaccine: 65+ Ye ars (1 of 1 - PCV) 2021 COVID-19 Vaccine ( - 2023-2 5 season) 2023 Influenza Adult (#1) 2023 RSV Immunization or 60+ Years (1 - 1-dose 75+ series) 2031 Meningococcal B Vaccine Aged Out No l onger eligible based on patient's age to complete this topic Meningococcal Vaccine Aged Out No gonzalez manny eligible based on patient's age to complete this topic RSV Immunizations Under 20 Months Aged Out No longer eligible based on patient's age to complete this topic
--- OUTSIDE RECORDS SUMMARY | 2024-05-19 12:25 | XMS_ITS | Clinical Summary ---
Author Organization [facility] Address [address] [place] [address] Care Team Providers Care Reconciling Clerk Name Role Phone Elizabeth Ramos RN Unavailable Unavailab Cynthia Hale MD Primary Care Provider [phone] Latasha Nguyen MD Unavailable Allergies Active Allergy Reactions Criticality Noted Date Comments Cephalosporins Rash Medium 01/04/2015 Hydromorphone Other (See comments) Low 10/21/2020 Makes me feel like I'm having a heart attack Sulfa (Sulfonamide Antibiotics) Hives,Itching,Rash High 06/09/2013 Tramadol Itching Low 01/04/2015 Tramadol Hcl Itching,Unknown Low 07/23/2018 Medications mometasone-formote rol (DULERA) 200-5 mcg/actuation inhaler inhale 2 puff by inhalation route every day in the morning and evening 0 Inhaler 0 07/14/19 17 Active cetirizine (ZyrTEC) 10 mg tablet take 1 tablet by oral route every day 0 0 07/14/19 17 Active albuterol HFA (VENTOLIN HFA) 90 mcg/actuation inhaler inhale 2 puff by inhalation route every 4 - 6 hours as needed 0 Inhaler 0 07/14/19 17 Active psyllium (METAMUCIL) 3.4 gram packetIndications: Irritable Bowel Syndrome Take 1 packet by mouth nightly Mixes in water Active hydroxychloroquine (PLAQUENIL) 200 mg tabletIndications: Rheumatoid Arthritis Take 1 tablet (200 mg total) by mouth 2 (two) times a day 3 10/10/19 18 Active azelastine (ASTELIN) 137 mcg (0.1 %) nasal spray Administer 1 spray into each nostril as needed for allergies 5 05/03/19 19 Active acetaminophen (TYLENOL) 500 mg tablet Take 1 tablet (500 mg total) by mouth every 6 (six) hours as needed for pain Active fluticasone propionate (FLONASE) 50 mcg/actuation nasal sprayIndications:A llergic Rhinitis Administer 1 spray into each nostril as needed for allergies 01/20/20 20 Active omeprazole (PriLOSEC) 40 mg capsuleIndications :Treatment of Non-Bleeding Gastric Disorder,acid reflux Take 1 capsule (40 mg total) by mouth every morning Active ondansetron ODT (ZOFRAN-ODT) 4 mg disintegrating tablet Take 1 tablet (4 mg total) by mouth as needed for nausea or vomiting 05/06/19 21 Active BIOTIN ORALIndications:montalvo pplement Take 1 capsule by mouth every morning Active multivitamin capsule Take 1 capsule by mouth nightly Active ipratropium (ATROVENT) 21 mcg (0.03 %) nasal spray 2 SPRAY INTRANASALLY TWICE A DAY ADMINISTER INTO EACH NOSTRIL 02/04/20 22 Active calcium carbonate (CALCIUM 600 ORAL) Take 1 tablet by mouth daily 11/02/19 17 Active cholecalciferol (VITAMIN D-3) 5,000 unit capsule Take 1 capsule (5,000 Units total) by mouth daily Active acetaminophen-code ine (TYLENOL with CODEINE #4) 300-60 mg per tablet Take 1 tablet by mouth daily as needed for pain 30 tablet 04/27/19 24 Active tiZANidine (ZANAFLEX) 4 mg tabletIndications: Muscle Spasm Take 1 tablet (4 mg total) by mouth every 6 (six) hours as needed (muscle pain) 360 tablet 1 06/15/19 24 Active naproxen sodium 220 mg capsule Take by mouth A ctive Active Problems Problem Noted Date Diagnosed Date Subacromial bursitis of right shoulder joint Overview (04/26/2021): Added automatically from request for surgery [id number] Encounter for surgical after care following surgery of circulatory system 12/03/2020 Varicose veins of right lower extremity with cookie n 10/14/2020 Overview (10/14/2020): Added automatically from request for surgery [id number] Spinal enthesopathy, cervical region 02/24/2020 Gastroesophageal reflux disease 02/23/2020 Irritable bowel syndrome wit h both constipation and diarrhea 02/23/2020 Sacroiliitis (CMS/HCC) - Left 11/11/2019 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, sacral and sacrococcygeal region 01/27/2019 Other chronic pain 12/03/2018 Overview (12/03/2018): Added automatically from request for surgery [id number] Greater trochanteric bursitis of left hip 2018 Myofascial pain syndrome 02/11/2018 Asthma 11/20/2017 Assessment & Plan (07/23/2018 11:49 AM CDT): Seeing Pulchris rodriguezair prn dulera BID Osteoporosis 11/20/2017 [facility] arthritis 10/31/2016 Cervical pain (neck) 10/31/2016 Chronic right-sided low back pain with sciatica 10/31/2016 Assessment & Plan (07/23/2018 11:46 AM CDT): Giovanny Seeing pain management, [facility] Cont meds Going to [facility] Scoliosis 05/19/2016 Status post cervical spinal fusion 06/07/2015 Thoracic outlet syndrome 01/01/2015 Mitral valve prolapse 08/28/2014 Resolved Problems Problem Noted Date Diagnosed Date Resolved Date Acute midline thoracic back pain 02/03/2019 02/23/2020 Mild intermittent asthma without complication 07/24/19 19 02/23/2020 Travel advice encounter 07/23/201802/09 Assessment & Plan (07/23/2018 11:56 AM CDT): Diet Pro biotic Order cipro Push fluids filter Chronic pain of right knee 03/01/2017 1 04/25/2019 Elevated C-reactive protein (CRP) 03/01/2017 07/23/2018 Muscle cramp 02/05/2017 07/23/2018 Joint pain 02/05/2017 07/23/2018 Pain of finger of right hand 02/05/2017 07/23/2018 Elevated C-reactive protein (CRP) 10/31/2016 07/23/2018 Encounters Date Type Department Care Team Description 03/25/2024 8:19 AM PERIODICALS LIBRARY ASSISTANT - 03/25/2024 11:59 PM PERIODICALS LIBRARY ASSISTANT Hospital Encounter [address] [phone] Latasha Nguyen MD Pain of left hip Discharge Disposition: Discharge to home or self care 03/21/[address] [phone] Elizabeth Villarreal RN Call Back 03/21/[address] [phone] Gloria Brown, ROSSANA Pre Arrival 02/29/2024 9:10 AM PERIODICALS LIBRARY ASSISTANT - 02/29/2024 11:59 PM PERIODICALS LIBRARY ASSISTANT Hospital Encounter [address] [phone] Latasha Nguyen MD Sacroiliitis Discharge Disposition: Discharge to home or self care 02/27/2024 9:00 AM PERIODICALS LIBRARY ASSISTANT - 02/27/2024 11:59 PM PERIODICALS LIBRARY ASSISTANT Hospital Encounter [address] [phone] Latasha Nguyen MD Sacroiliitis (Primary Dx) Discharge Disposition: Discharge to home or self care 02/27/[address] [phone] Opal Robert, ROSSANA Pre Arrival from Last 3 Months Immunizations Immunization Administration Dates Next Due Influenza, Trivalent, High D ose, Split, Preservative Free, Intramuscular 12/14/2012 Influenza, Trivalent, IM (MDV) 12/10/2017,2013,03/25/2012 Influenza, Trivalent, Preser vative Free, Intramuscular 11/10/2016,12/10/2014 Surgical History Surgery Date Site/Laterality Comments CT GUIDED TRANSFORAMINAL EPIDURAL INJECTION CERVICAL THORACIC FIRST LEVEL 09/17/2013 N/A ANKLE SURGERY 03/12/2001 - 03/11/2002 Left injury NECK SURGERY 2000, 2013 x2 x3, plates and screws HYSTERECTOMY 03/12/2001 - 03/11/2002 TONSILLECTOMY 03/12/1964 - 03/11/1965 THORACIC OUTLET SURGERY ? Left CHOLECYSTECTOMY ? BASAL CELL CARCINOMA EXCISION ? forehead BUNIONECTOMY 04/12/2019 - 05/10/2019 Left right one first COLONOSCOPY last one was 2019 VEIN LIGATION AND STRIPPING 03/12/2020 - 03/11/2021 RLE Medical History Medical History Date Comments Airway hyperreactivity Asthma- w ell controlled, reports never used albuterol inhaler Hx Other Medical thoracic outlet syndrome s/p surgery Hx Other Medical neck surgery x 3 Chronic pain Osteopenia IBS (irritable bowel syndrome) Back pain Low back pain Diverticulitis 10/2020 Neck pain Shoulder pain, bilateral Upper back pain Joint pain GERD (gastroesophageal reflux disease) well controlled Allergic rhinitis Rheumatoid arthritis (HCC) on pl aquenil MVP (mitral valve prolapse) foll ows with PCP. Denies CP/SOB Family History Medical History Relation Name Comments Diabetes Brother 2 Heart disease Brother 2 No Known Problems Father No Known Problems Maternal Grandfather No Known Problems Maternal Grandmother Emphysema Mother Glaucoma Mother No Known Problems Paternal Grandfather No Known Problems Paternal Grandmother Anesthesia problems Neg Hx Relation Name Status Comments Brother 2 Alive Father Maternal Grandfather Maternal Grandmother Mother Paternal Grandfather Paternal Grandmother Social History Tobacco Use Types Packs/Day Years Used Date Smoking Tobacco: Former Cigarettes 2000 Smokeless Tobacco: Never Tobacco Cessation:Counseling Given: Not Answered Alcohol Use Standard Drinks/Week Comments Yes 1 (1 standard drink = 0.6 oz pur e alcohol) AUDIT-C Answer Date Recorded Q1: How often do you have a drink containing alc ohol? Monthly or less 05/09/2022 Q2: How many drinks containi ng alcohol do you have on a typical day when you are drinking? 1 or 2 05/09/2022 Q3: How often do you have si x or more drinks on one occasion? Never 05/09/2022 PHQ-2 Answer Date Recorded PHQ-2 Total Score (If total score is 3 or more points, staff should administer the PHQ-9) 0 02/23/2020 Hunger Vital Sign Answer Date Recorded Within the past 12 months, y ou worried that your food would run out before you got the money to buy more. Never true 05/09/19 23 Within the past 12 months, t he food you bought just didn't last and you didn't have money to get more. Never true 05/09/2022 Comments No Sex and Gender Information Value Date Recorded Sex Assigned at Not on file Legal Sex Female 12:20 AM PERIODICALS LIBRARY ASSISTANT Gender Identity Not on file Sexual Orientation Not on file Obstetrics History Last Filed Vital Signs Vital Sign Reading Time Taken Comments Blood Pressure 144/93 03/25/2024 8:26 AM PERIODICALS LIBRARY ASSISTANT Pulse 78 03/25/2024 8:26 AM PERIODICALS LIBRARY ASSISTANT Temperature 36.7 C (98 F) 03/25/2024 8:26 AM PERIODICALS LIBRARY ASSISTANT Respiratory Rate 15 03/25/2024 8:26 AM PERIODICALS LIBRARY ASSISTANT Oxygen Saturation 98% 03/25/2024 8:26 AM PERIODICALS LIBRARY ASSISTANT Inhaled Oxygen Concentration - - Weight 50.3 kg (111 lb) 05/09/2022 1:03 PM PERIODICALS LIBRARY ASSISTANT Height 157.5 cm (5' 2 ) 05/09/2022 1:03 PM PERIODICALS LIBRARY ASSISTANT Body Mass Index 20.3 05/09/2022 1:03 PM PERIODICALS LIBRARY ASSISTANT Plan of Treatment Health Maintenance Due Date Last Done Comments Colon Cancer Screening-Colonoscopy 1955 Hepatitis B Screening 1974 Covid-19 Vaccine (3 - Pfizer risk series) 06/28/2020 05/31/2020, 05/10/2020 Osteoporosis Screening-Bone Density Scan 02/13/2021 02/13/2019, 02/13/2019, 06/23/2015 Depression Screening 02/22/2021 02/23/2020, 05/13/2019, 02/03/2019 Well Visit 65+ 2021 Breast Cancer Screening-Mammogram 11/30/2021 021, 08/07/2018 Pneumococcal vaccine 65+ (2 of 2 - PCV) 12/11/2022 12/11/2021 Zoster Vaccine (2 of 2) 11/26/2023 10/01/2023 Fall Risk Assessment 03/25/2025 03/25/2024, 02/29/2024, 02/27/2024, Additional history exists DTaP/Tdap/Td Vaccine (2 - Td or Tdap) 06/25/2030 06/25/2020 Hepatitis C Screening Completed 07/20/2016 Influenza Vaccine Completed 10/30/2023, , 01/18/2021, Additional history exists Goals Goal Patient Goal Type Associated Problems Recent Progress Patient-Stated? Author CCM Chronic Pain Care Plan Chronic Care Management On track(2024 8:27 AM PERIODICALS LIBRARY ASSISTANT) Allison Hawthorne, ROSSANA Note: Problem: Chronic Pain Goals: 1. Minimize further functional decline 2. Maximize quality of life 3. Control pain Strategies: - Activity/exercise program recommendation - Conservative stepwise pain medicine strategy with multi-disciplinary approach - Recommend healthy lifestyle strategies and compensatory methods as needed Reduce the likelihood of falling Lifestyle On track(2024 8:27 AM PERIODICALS LIBRARY ASSISTANT) No Betarice Caballero, ROSSANA Note: Below are four things [...] stairs Contact your local community or senior center for information on exercise, fall prevention programs, or options for improving home safety. Medical Devices Implanted Type Area Discotheque Dancer Device Identifier Shelf Expiration Date Model / Serial / Lot Plate Plate Neck Screw Screw Neck [employer] Ar-2267 [employer] Large Eyelet Pectoralis Button Fixation Latex Free - [id number] Implanted:Qty: 1 on 05/23/2021 by Sridhar Hernandez MD at [facility] Right: Shoulder [employer] 06/09/2025 AR-2267 / / [id number] Description:[employer] AR-2 267 DIE STAMPER LARGE EYELET PECTORALIS BUTTON FIXATION LATEX FREE - [id number] Procedures Procedure Name Priority Date/Time Associated Diagnosis Comments PAIN MGMT IMAGING SHOULDER, HIP, KNEE JOINT/BURSA INJ LEFT Schedule Routine, Read Routine (OP Routine) 03/25/2024 8:55 AM PERIODICALS LIBRARY ASSISTANT Pain of left hip PAIN MGMT IMAGING SI JOINT LEFT Schedule Routine, Read Routine (OP Routine) 02/29/2024 9:33 AM PERIODICALS LIBRARY ASSISTANT Sacroiliitis DEXA AXIAL SKELETON BONE DENSITY 1 OR MORE SITES 02/13/2019 9:56 AM PERIODICALS LIBRARY ASSISTANT SERUM HEPATITIS C AB Routine 07/20/2016 6:25 AM CDT from Last 3 Months or Most Recently Relevant to Health Maintenance Results * Imaging Shoulder, Hip, Knee Joint/Bursa INJ Left () (03/25/2024 8:55 AM PERIODICALS LIBRARY ASSISTANT) Narrative [facility] - 03/25/2024 9:05 AM PERIODICALS LIBRARY ASSISTANT The images from this study are not interpreted by Radiology. Please refer to the physician's procedure / OR operative note. Latasha CHOW PAIN MGMT PROCEDU RES Final Result Performing Organization Address [facility] Co de Phone Number [email or web address] * Imaging SI Joint Injection Left ([id number]) (02/29/2024 9:33 AM PERIODICALS LIBRARY ASSISTANT) Narrative [facility] - 02/29/2024 9:43 AM PERIODICALS LIBRARY ASSISTANT The images from this study are not interpreted by Radiology. Please refer to the physician's procedure / OR operative note. Latasha CHOW PAIN MGMT PROCEDU RES Final Result Performing Organization Address [facility] Co de Phone Number [facility] * Dexa Axial Skeleton Bone Density 1 or 2 Site (02/13/2019 9:56 AM PERIODICALS LIBRARY ASSISTANT) Anatomical Region Laterality Modality Body N/A Radiographic Didi ging 02/13/2019 11:0 1 AM PERIODICALS LIBRARY ASSISTANT Narrative 02/13/2019 11:04 AM PERIODICALS LIBRARY ASSISTANT Patient Name: JOSIANE ROBERTO Arsalan Ordering Dr: Nicolás Rodriguez MD D.O.B: 1955 Exam Date: 1955 Age: 63 Sex: Female MR#: [id number] Loc: RADIOLOGY REPORT Order #[id number] Bone Density Bone Density Hip/Spine (STD) Signed EXAM DESCRIPTION: Bone Density Hip/Spine (STD) REASON FOR STUDY: 63 year old postmenopausal white female with given history of screening. 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 Rheumatoid arthritis. Secondary osteoporosis. Asthma/emphysema. Inflammatory bowel disease. Has taken Fosamax, vitamin-D, and calcium. Performs regular weight-bearing exercise. Regularly consumes dairy products. Does not drink caffeinated beverages. COMPARISON: None available. This will serve as a new baseline. Acquisition of a new DXA machine precludes comparison with older exams due to differences in scan type. FINDINGS: AP LUMBAR SPINE L1-L4: Total BMD is 0.686 g/cm2 T-score is -3.3 LEFT HIP: Total BMD is 0.593 g/cm2 T-score is -2.9 Femoral neck BMD is 0.467 g/cm2 T-score is -3.4 IMPRESSION: Osteoporosis. Bone mineral density: Normal (T-score above or = -1.0) Low bone mass (T-score between -1.0 and -2.5) replaces the previously used term osteopenia Osteoporosis (T-score = or below -2.5) Medical evaluation for secondary causes of low bone mineral density may be appropriate. FRAX is a World Health Organization validated fracture risk assessment tool that calculates a person's 10 year probability of a major osteoporosis related fracture and hip fracture. According to the National Osteoporosis Foundation guidelines, postmenopausal women and men age 50 or older with low bone mass and a 10 year probability of a major osteoporosis related fracture = or greater than 20% or a 10 year probability of a hip fracture = or greater than 3% should be considered for treatment. For further information, including treatment recommendations, please refer to the 2013 ISCD Official Positions (http://www.iscd.org) and the NOF's Clinician's Guide to Prevention and Treatment of Osteoporosis (http://www.nof.org/professionals/clinical-guidelines) THIS IS AN ELECTRONICALLY VERIFIED FINAL REPORT 02/13/2019 11:04 AM - Electronically signed by Miah Bolden M.D. RB: RICH Report ID: [id number] Reading Location: [id number] REPORT ELECTRONICALLY SIGNED IN OTHER VENDOR SYSTEM Resulting Agency Comment O Procedure Note Miah Bolden MD - 02/13/2019 Patient Name: JOSIANE ROBERTO Dr: Nicolás Rodriguez MD D.O.B: 1955 Exam Date: 02/13/19 0956 Age: 63 Sex: Female MR#: [id number] Loc: [facility]#: [id number] RADIOLOGY REPORT Order #[id number] Bone Density Bone Density Hip/Spine (STD) Signed EXAM DESCRIPTION: Bone Density Hip/Spine (STD) REASON FOR STUDY: 63 year old postmenopausal white female with givenhistory of screening. 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 Rheumatoid arthritis.Secondary osteoporosis. Asthma/emphysema. Inflammatory bowel disease. Has taken Fosamax, vitamin-D, and calcium. Performs regular weight-bearingexercise. Regularly consumes dairy products. Does not drink caffeinated beverages. COMPARISON: None available. This will serve as a new baseline. Acquisition of a new DXA machineprecludes comparison with older exams due to differences in scan type. FINDINGS: AP LUMBAR SPINE L1-L4: Total BMD is 0.686 g/cm2 T-score is -3.3 LEFT HIP: Total BMD is 0.593 g/cm2 T-score is -2.9 Femoral neck BMD is 0.467 g/cm2 T-score is -3.4 IMPRESSION: Osteoporosis. Bone mineral density: Normal (T-score above or = -1.0) Low bone mass (T-score between -1.0 and -2.5) replaces thepreviously used term osteopenia Osteoporosis (T-score = or below -2.5) Medical evaluation for secondary causes of low bone mineral density maybe appropriate. FRAX is a World Health Organization validated fracture risk assessmenttool that calculates a person's 10 year probability of a major osteoporosisrelated fracture and hip fracture. According to the National OsteoporosisFoundation guidelines, postmenopausal women and men age 50 or older with low bonemass and a 10 year probability of a major osteoporosis related fracture = or greater than 20% or a 10 year probability of a hip fracture = or greaterthan 3% should be considered for treatment. For further information, including treatment recommendations, pleaserefer to the 2013 ISCD Official Positions (http://www.iscd.org) and the NOF's Clinician's Guide to Prevention and Treatment of Osteoporosis (http://www.nof.org/professionals/clinical-guidelines) THIS IS AN ELECTRONICALLY VERIFIED FINAL REPORT 02/13/2019 11:04 AM - Electronically signed by Miah Bolden M.D. RB: RICH Report ID: [id number] Reading Location: [place] [id number] REPORT ELECTRONICALLY SIGNED IN OTHER VENDOR SYSTEM Nicolás Rodriguez MD IM DXA PROCEDURES Final Resu lt * Serum Hepatitis C ab (07/20/2016 6:25 AM CDT) HCV ab NON-REACTI VE NON-REACTI VE CDR HISTORICAL RESULTS Hepatitis signal to cutoff ratio 0.01 <1.00 CDR HISTORICAL RESULTS Serum 07/20/2016 6:25 AM CDT Narrative CDR HISTORICAL RESULTS - 07/21/2016 10:00 AM CDT Test performed at [facility] [address] [place] [address] Director: JESUS ELIZABETH DO,MPH us Historical Provider LAB BLOOD ORDERABLES Saida murphy Result CDR HISTORICAL RESULTS from Last 3 Months or Most Recently Relevant to Health Maintenance Insurance MEDICARE SOLUTIONS MEDICARE SOLUTIONS MEDICARE SOLUTIONS Care Teams Reconciling Clerk Relationship Specialty Start Date End Date Cynthia Sarah MD PCP - General Family Medicine 12/03/20 Elizabeth Ramos, RN Registered Nurse 01/22/20 Latasha Nguyen MD [address] [facility] [place] [address] Consulting Physician Pain Management 10/01/17
--- OUTSIDE RECORDS SUMMARY | 2024-05-19 12:25 | XMS_ITS | Encounter Summary ---
Author Organization [facility] Address [address] [place] [address] Care Team Providers Care Stock Preparation Operator Name Role Phone Jess Burleson MD Primary Care Provider [phone] Encounter Details Date Type Department Care Team (Late Contact Info) Description 04/22/2002 Outpatient Historical [facility] Nicolás Arnold MD [address] [place] [address] DIARRHEA NOS (Primary Dx) Social History Tobacco Use Types Packs/Day Years Used Date Smoking Tobacco: Never Assessed Comments Unknown Sex and Gender Information Value Date Recorded Sex Assigned at Not on file Legal Sex Female 4:25 AM WIRE TAPER Gender Identity Not on file Sexual Orientation Not on file documented as of this encounter Plan of Treatment Upcoming Encounters Date Type Department Care Team ([facility] Contact Info) Description 03/18/2025 11:00 AM WIRE TAPER Office Visit [facility] Pulmonology [facility] [address] [place] [phone] Robbie Summers MD [address] [place] [address] documented as of this encounter Visit Diagnoses Diagnosis Diarrhea- Primary documented in this encounter Additional Health Concerns Infection Onset Date Last Indicated Resolved Time R/O COVID-19 03/22/2021 03/22/2021 03/29/2021 1:16 AM WIRE TAPER documented as of this encounter Care Teams Stock Preparation Operator Relationship Specialty Start Date End Date Jess Burleson MD [address] [address] PCP - General 02/26/15 documented as of this encounter
--- OUTSIDE RECORDS SUMMARY | 2024-05-19 12:25 | XMS_ITS | Referral Summary ---
Author Organization [facility] Address [address] [place] [address] Care Team Providers Care Paper Sales Representative Name Role Phone Elizabeth Ramos RN Unavailable Unavailab Cynthia Hale MD Primary Care Provider [phone] Latasha Nguyen MD Unavailable [phone] Encounters Date Type Department Care Team Description 03/25/2024 8:19 AM DATA SCIENTIST - 03/25/2024 11:59 PM DATA SCIENTIST Hospital Encounter [address] [address] Latasha Nguyen MD Pain of left hip Discharge Disposition: Discharge to home or self care 03/21/2024 Telephone [facility] [address] [address] Elizabeth Villarreal RN Call Back 03/21/[address] [address] Gloria Brown, ROSSANA Pre Arrival 02/29/2024 9:10 AM DATA SCIENTIST - 02/29/2024 11:59 PM DATA SCIENTIST Hospital Encounter [address] [address] Latasha Nguyen MD Sacroiliitis Discharge Disposition: Discharge to home or self care 02/27/2024 Telephone [facility] at [address] [address] Opal Robert RN Pre Arrival 02/27/2024 9:00 AM DATA SCIENTIST - 02/27/2024 11:59 PM DATA SCIENTIST Hospital Encounter [facility] at [address] [address] Latasha Nguyen MD Sacroiliitis (Primary Dx) Discharge Disposition: Discharge to home or self care from Last 3 Months Allergies Active Allergy Reactions Criticality Noted Date [...] (04/26/2021): Added automatically from request for surgery [id number] Encounter for surgical after care following surgery of circulatory system 12/03/2020 Varicose veins of right lower extremity with cookie n 10/14/2020 Overview (10/14/2020): Added automatically from request for surgery [id number] Spinal enthesopathy, cervical region 02/24/2020 Gastroesophageal reflux disease 02/23/2020 Irritable bowel syndrome wit h both constipation and diarrhea 02/23/2020 Sacroiliitis (CMS/HCC) - Left 11/11/2019 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, sacral and sacrococcygeal region 01/27/2019 Other chronic pain 12/03/2018 Overview (12/03/2018): Added automatically from request for surgery [id number] Greater trochanteric bursitis of left hip 2018 Myofascial pain syndrome 02/11/2018 Asthma 11/20/2017 Assessment & Plan (07/23/2018 11:49 AM CDT): Seeing Donis culp dulera BID Osteoporosis 11/20/2017 [facility] arthritis 10/31/2016 Cervical pain (neck) 10/31/2016 Chronic right-sided low back pain with sciatica 10/31/2016 Assessment & Plan (07/23/2018 11:46 AM CDT): Giovanny Seeing pain management, [facility] Cont meds Going to [facility] Scoliosis 05/19/2016 Status post cervical spinal fusion [...] 07/23/2018 Elevated C-reactive protein (CRP) 10/31/2016 07/23/2018 Immunizations Immunization Administration Dates Next Due Influenza, Trivalent, High D ose, Split, Preservative Free, Intramuscular 12/14/2012 Influenza, Trivalent, IM (MDV) 12/10/2017,2013,03/25/2012 Influenza, Trivalent, Preser vative Free, Intramuscular 11/10/2016,12/10/2014 Social History Tobacco Use Types Packs/Day Years Used Date Smoking Tobacco: Former Cigarettes 1 28 1 973 - 2000 Smokeless Tobacco: Never Tobacco Cessation:Counseling Given: [...] on file Legal Sex Female 12:20 AM DATA SCIENTIST Gender Identity Not on file Sexual Orientation Not on file Last Filed Vital Signs Vital Sign Reading Time Taken Comments Blood Pressure 144/93 03/25/2024 8:26 AM DATA SCIENTIST Pulse 78 03/25/2024 8:26 AM DATA SCIENTIST Temperature 36.7 C (98 F) 03/25/2024 8:26 AM DATA SCIENTIST Respiratory Rate 15 03/25/2024 8:26 AM DATA SCIENTIST Oxygen Saturation 98% 03/25/2024 8:26 AM DATA SCIENTIST Inhaled Oxygen Concentration - - Weight 50.3 kg (111 lb) 05/09/2022 1:03 PM DATA SCIENTIST Height 157.5 cm (5' 2 ) 05/09/2022 1:03 PM DATA SCIENTIST Body Mass Index 20.3 05/09/2022 1:03 PM DATA SCIENTIST Plan of Treatment Not on file Goals Goal Patient Goal Type Associated Problems Recent Progress Patient-Stated? Author CCM Chronic Pain Care Plan Chronic Care Management On track(2024 8:27 AM DATA SCIENTIST) No Allison Shannon, ROSSANA Note: Problem: Chronic Pain Goals: 1. Minimize further functional decline 2. Maximize quality of life 3. Control pain Strategies: - Activity/exercise program recommendation - Conservative stepwise pain medicine strategy with multi-disciplinary approach - Recommend healthy lifestyle strategies and compensatory methods as needed Reduce the likelihood of falling Lifestyle On track(2024 8:27 AM DATA SCIENTIST) No Beatrice Caballero RN Note: Below are [...] home safety. Medical Devices Implanted Type Area User Acceptance Tester Device Identifier Shelf Expiration Date Model / Serial / Lot Plate Plate Neck Screw Screw Neck [employer] Ar-2267 Customer Success Specialist Large Eyelet Pectoralis Button Fixation Latex Free - [id number] Implanted:Qty: 1 on 05/23/2021 by Sridhar Hernandez MD at [facility] Right: Shoulder [employer] 06/09/2025 AR-2267 / / [id number] Description:[employer] AR-2 267 TRAINING DEVELOPMENT SPECIALIST LARGE EYELET PECTORALIS BUTTON FIXATION LATEX FREE - [id number] Procedures Procedure Name Priority Date/Time Associated Diagnosis Comments PAIN MGMT IMAGING SHOULDER, HIP, KNEE JOINT/BURSA INJ LEFT Schedule Routine, Read Routine (OP Routine) 03/25/2024 8:55 AM DATA SCIENTIST Pain of left hip PAIN MGMT IMAGING SI JOINT LEFT Schedule Routine, Read Routine (OP Routine) 02/29/2024 9:33 AM DATA SCIENTIST Sacroiliitis DEXA AXIAL SKELETON BONE DENSITY 1 OR MORE SITES 02/13/2019 9:56 AM DATA SCIENTIST SERUM HEPATITIS C AB Routine 07/20/2016 6:25 AM CDT from Last 3 Months or Most Recently Relevant to Health Maintenance Results * Imaging Shoulder, Hip, Knee Joint/Bursa INJ Left () (03/25/2024 8:55 AM DATA SCIENTIST) Narrative [facility] - 03/25/2024 9:05 AM DATA SCIENTIST The images from this study are not interpreted by Radiology. Please refer to the physician's procedure / OR operative note. Latasha Nguyen MD [facility] PAIN MGMT PROCEDU RES Final Result Performing Organization Address [facility] Co de Phone Number RAD_[email or web address] * Imaging SI Joint Injection Left ([id number]) (02/29/2024 9:33 AM DATA SCIENTIST) Narrative [facility] - 02/29/2024 9:43 AM DATA SCIENTIST The images from this study are not interpreted by Radiology. Please refer to the physician's procedure / OR operative note. Latasha Nguyen MD [facility] PAIN MGMT PROCEDU RES Final Result Performing Organization Address [facility] Co de Phone Number RAD[email or web address] * Dexa Axial Skeleton Bone Density 1 or 2 Site (02/13/2019 9:56 AM DATA SCIENTIST) Anatomical Region Laterality Modality Body N/A Radiographic Didi ging 02/13/2019 11:0 1 AM DATA SCIENTIST Narrative 02/13/2019 11:04 AM DATA SCIENTIST Patient Name: FELISAJOSIANE L Ordering Dr: Nicolás Rodriguez MD D.O.B: 1955 Exam Date: 02/13/19 0956 Age: 63 Sex: Female MR[facility] [id number] [id number] Order #[id number] Bone Density Bone Density Hip/Spine (STD) Signed EXAM DESCRIPTION: Bone Density Hip/Spine (STD) REASON FOR STUDY: 63 year old postmenopausal white female with given history of screening. User Acceptance Tester/Model: Holo[employer]ide[employer] A (S/N [id number]) CLINICAL INFORMATION: Current height: 62 inches Maximum [...] Miah Bolden M.D. RB: RICH Report ID: [id number] Reading Location: [id number] REPORT ELECTRONICALLY SIGNED IN OTHER VENDOR SYSTEM Resulting Agency Comment O Procedure Note Miah Bolden MD - 02/13/2019 Patient Name: JOSIANE ROBERTO Dr: Nicolás Rodriguez MD D.O.B: 1955 Exam Date: 02/13/19 0956 Age: 63 Sex: Female MR#: [id number] Loc: RADIOLOGY REPORT Order #[id number] Bone Density Bone Density Hip/Spine (STD) Signed EXAM DESCRIPTION: Bone Density Hip/Spine (STD) REASON FOR STUDY: 63 year old postmenopausal white female with givenhistory of screening. User Acceptance Tester/Model: Spool A (S/N [id number]) CLINICAL INFORMATION: Current height: 62 inches Maximum [...] Miah Bolden M.D. RB: RICH Report ID: [id number] Reading Location: [place] [address] REPORT ELECTRONICALLY SIGNED IN OTHER VENDOR SYSTEM Nicolás Rodriguez MD IM DXA PROCEDURES Final Resu lt * Serum Hepatitis C ab (07/20/2016 6:25 AM CDT) Pathologist [facility] HCV ab NON-REACTI VE NON-REACTI VE CDR HISTORICAL RESULTS Hepatitis signal to cutoff ratio 0.01 <1.00 CDR HISTORICAL RESULTS Serum 07/20/2016 6:25 AM CDT Narrative CDR HISTORICAL RESULTS - 07/21/2016 10:00 AM CDT Test performed at [facility] [address] [address] [place] [address] Director: JESUS ELIZABETH DO,MPH Historical Provider LAB BLOOD ORDERABLES Saida murphy Result CDR HISTORICAL RESULTS from Last 3 Months or Most Recently Relevant to Health Maintenance Insurance MEDICARE SOLUTIONS [facility] MEDICARE Address: [address] [address] [place] [phone] MEDICARE SOLUTIONS MEDICARE SOLUTIONS Member Subscriber Plan / Payer ( fective 2017-Present) Name:Josiane Roberto Relation to Subscriber:Self Name:Rylandearl Josiane Arsalan Payer ID:[id number] (NAIC) Type:UHC MEDICARE Address: [place] [id number] [place] [phone] Care Teams Paper Sales Representative Relationship Specialty Start Date End Date Cynthia Sarah MD PCP - General Family Medicine 12/03/20 Elizabeth Ramos, RN Registered Nurse 01/22/20 Latasha Nguyen MD [address] [facility] [place] [address] Consulting Physician Pain Management 10/01/17
--- OUTSIDE RECORDS SUMMARY | 2024-05-19 12:25 | XMS_ITS | Encounter Summary ---
Author Organization [facility] Address [address] [place] [address] Care Team Providers Care Degree Clerk Name Role Phone Nicolás Rodriguez MD Primary Care Provider [phone] Elizabeth Ramos RN Unavailable Unavailab Cynthia Hale MD Primary Care Provider [phone] Latasha Nguyen MD Unavailable Reason for Visit * Reason Onset Date Comments Pre-op Exam 09/30/2018 Encounter Details Date Type Department Care Team (Late st Contact Info) Description 09/30/2018 Telephone [facility] [address] [place] [address] Yuridia Shen RN Pre-op Exam [...] on file Legal Sex Female 12:20 AM HEADING PINNER Gender Identity Not on file Sexual Orientation Not on file documented as of this encounter Plan of Treatment Not on file documented as of this encounter Goals Goal Patient Goal Type Associated Problems Recent Progress Patient-Stated? Author CCM Chronic Pain Care Plan Chronic Care Management On track(2024 8:27 AM HEADING PINNER) Allison Hawthorne RN Note: Problem: Chronic Pain Goals: 1. Minimize further functional decline 2. Maximize quality of life 3. Control pain Strategies: - Activity/exercise program recommendation - Conservative stepwise pain medicine strategy with multi-disciplinary approach - Recommend healthy lifestyle strategies and compensatory methods as needed documented as of this encounter Visit Diagnoses Not on filedocumented in this encounter Additional Health Concerns Infection Onset Date Last Indicated Resolved Time COVID: Recovered Comment:COVID+ 03/25/21. Met COVID recovered criteria. Results in media section Nany Glaser 05/16/2021 04/04/2021 05/16/2021 07/23/2021 3:05 AM CDT documented as of this encounter Care Teams Degree Clerk Relationship Specialty Start Date End Date Nicolás Rodriguez MD PCP - General 08/07/17 12/02/20 Cynthia Sarah MD PCP - General Family Medicine 12/03/20 Elizabeth Ramos, RN Registered Nurse 01/22/20 Latasha Nguyen MD [address] [facility] [place] [address] Consulting Physician Pain Management 10/01/17 documented as of this encounter
== END 2024-05-19 10:34 | disposition home or self-care (01) ==
LOC: ANHIMG 10:34
PROVIDERS: PCP Family Medicine; Visit Provider Internal Medicine Endocrinology, Diabetes & Metabolism
DX: M81.0 Age-related osteoporosis without current pathological fracture (principal); M85.89 Other specified disorders of bone density and structure, multiple sites
CPT/HCPCS: 77080

== ENCOUNTER 2024-06-06 13:18 | Outpatient (CLI) | payer MEDICARE, SELFPAY ==
--- NOTE | ~2024-06-06 | US_ITS ---
EXAMINATION: US breast LT limited HISTORY: 43-year-old woman with no personal or family history of breast cancer presents for diagnosti c evaluation of a left-sided palpable abnormality at both the 1:00 position (felt by the patient's cl inician) as well as the 10:30 position, within the medial infraclavicular chest wall (felt by the pat ient). High resolution focused left breast ultrasound was performed. COMPARISON: No prior ultrasounds in this area have been performed. Reference is made to a bilateral screening mammography dated 05/15/2024 and dating back to 08/07/2018. FINDINGS: ULTRASOUND: Sonographic evaluation of the 12, 1, and 2:00 positions of the left breast were performed at multiple distances from the nipple (the palpable abnormality felt by the clinician). This demonstrated benign fibroglandular elements without a cystic or solid lesion of concern. Sonographic evaluation of the 10-10:30 position of the left breast (the palpable abnormality felt by the patient) was then performed. This area was approximately 8 cm caudal to the left clavicle. This area demonstrated benign fibromuscular and fibrofatty soft tissue without a cystic or solid lesi on appreciated. IMPRESSION: No sonographic evidence to suggest of malignancy. Given the location of the palpable abnormality, felt by the patient, cross-sectional imaging (CT vers us MRI) may be performed for further evaluation, if the patient is clinically able. Resumption of yearly mammography is recommended. BI-RADS Category 2: Benign finding(s). Reviewed, dictated and finalized at location A. IMPRESSION: No sonographic evidence to suggest of malignancy. Given the location of the palpable abnormality, felt by the patient, cross-sect ional imaging (CT versus MRI) may be performed for further evaluation, if the p atient is clinically able. Resumption of yearly mammography is recommended. BI-RADS Category 2: Benign finding(s).
--- OUTSIDE RECORDS SUMMARY | 2024-06-06 13:26 | XMS_ITS ---
Author Organization [facility] hussein Address [address] [facility] [address] [place] [address] Care Team Providers Care Dental Service Technician Name Role Phone Tyrel YOUSSEF, Cynthia Primary Care Provider Jaye SolitarioKelly Unavailable [phone] Allergies Allergen (clinical drug ingredient) Drug/Non Drug Allergy documented on EMR Reaction Allergy Type Onset Date Status Substance with sulfonamide structure and antibacterial mechanism of action (substance) Sulfa Antibiotics Unknown Drug Allergy 06/11/2017 Active tramadol Tramadol Unknown Drug Allergy 06/11/2017 Active REASON FOR VISIT inflammatory arthritis, PCP: Dr. Cynthia Sarah [address] [facility] [address] Medications Medication SIG (Take, Route, Frequency, Duration) Notes Start Date End Date Status Prolia 60 MG/ML inject 1 milliliter (60 mg) by subcutaneous route every 6 months in the upper arm, upper thigh or abdomen Subcutaneous 5.04619631245721P-8 3 Active ZyrTEC Allergy 10 MG Oral Active Biotin - - oral *Pick strength-form from [employer] for eRX* Active tiZANidine HCl 2 MG [...] Metamucil - daily oral *Pick strength-form from [employer] for eRX* Active Probiotic Blend - as directed Orally Active Vitamin D (Ergocalciferol) 53702 UNIT Oral Active Acetaminophen-Codeine 300-30 MG prn [...] 05/13/2024 Encounters Encounter Location Date Provider Diagnosis [facility] [address] [place] [address] 05/13/2024 Kelly Solitario Inflammatory arthrit is M19.90 [...] AM, [address], [place], [address], Progress Notes * FELISAMauricioAlvaroOB:1955 (69 yo F)Acc No.[id number]:05/13/2024 Progress Notes Patient: Josiane NAVA Provider: Jocy SOLITARIO MD :1955 A ge:69 Y S ex:Female Date:05/13/2024 Address:[address] [place] [address] Pcp:Cynthia Sarah MD Subjective: * Chief Complaints: * I nflammatory arthritisPCP: Dr. Cynthia Sarah [address] [facility] [address] * HPI: G eneral Follow up: serologies [...] * Surgical History: G all Bladder Surgery; 4333-40-42Weksenlxeqpo; 8009-62-05Ihomncjhkamin; 0320-72-44Rnco Surgery; 9622-91-34puypqsupggjj partial colectomy * Hospitalization/Major Diagno stic Procedure: [...] upper arm, upper thigh or abdomen Subcutaneous 5.24962021368492V-92 ZyrTEC Allergy 10 MG Capsule Oral Calcium Pantothenate 500 MG Tablet chew 1 tablet by oral route once Oral 1 Biotin - - oral , Notes to Pharmacist: *Pick strength-form from [facility] for eRX*tiZANidine HCl 2 MG Tablet Oral Vitamin D (Ergocalciferol) 54457 UNIT Capsule Oral Acetaminophen-Codeine 300-30 MG Tablet prn Oral Metamucil - daily oral , Notes to Pharmacist: *Pick strength-form from [facility] for eRX*Probiotic Blend - Capsule as directed [...] upper arm, upper thigh or abdomen Subcutaneous 5.74991663620740O-94 Taking ZyrTEC Allergy 10 MG Capsule Oral Taking Calcium Pantothenate 500 MG Tablet chew 1 tablet by oral route once Oral 1 Taking Biotin - - oral , Notes to Pharmacist: *Pick strength-form from [facility] for eRX*Taking tiZANidine HCl 2 MG Tablet Oral Taking Vitamin D (Ergocalciferol) 82231 UNIT Capsule Oral Taking Acetaminophen-Codeine 300-30 MG Tablet prn Oral Taking Metamucil - daily oral , Notes to Pharmacist: *Pick strength-form from [facility] for eRX*Taking Probiotic Blend - Capsule as [...] Months * Billing Information: * Visit Code: 08638 Office Visit, Est Pt., Level 4. * Procedure Codes: * CLABLE MATERIALS COLLECTOR Sign off status: Completed true * Provider: Jocy SOLITARIO MD Date: 05/13/2024 Generated for Jacob downey/Gary/Xiransmitting on: 0 06/06/2024 01:26 PM CDT History and Physical Notes * [...]
--- OUTSIDE RECORDS SUMMARY | 2024-06-06 13:26 | XMS_ITS | Clinical Summary ---
Author Organization [facility] Address [address] [facility] [place] [address] Care Team Providers Care Shift Lab Technician Name Role Phone Yudy Norris MD Unavailable [phone] Solis De La Fuente MD Unavailable [phone] Cynthia Sarah MD Primary Care Provider [phone] Source Comments [facility],non-owned Affiliates and Associated Physician Practices is amultiple site organization consisting of ambulatory clinics and hospital sitesin [place], [place]. This disclosure is being madepursuant to the Care Everywhere program and may not contain all information available regarding this patient. Last updated 17.[facility] Allergies Active Allergy Reactions Criticality Noted [...] file Gender Identity Female 02/23/2021 8:42 AM MANAGER OF TRAINING AND DEVELOPMENT Sexual Orientation Not on file Last Filed [...] 1-dose series) 2016 COVID-19 VACCINE (3 - season) 2023 05/31/2020, 05/10/2020 INFLUENZA VACCINE (#1) 2023 , 12/10/2017, 11/10/2016, Additional history exists DEPRESSION SCREENING 03/12/2024 MEDICARE AWV CALENDAR YEAR 2024 MAMMOGRAM 05/15/2026 05/15/2024, 0307/2023, 05/12/2022, Additional history exists BONE DENSITY TESTING Completed 07/07/2016 HEPATITIS B VACCINE Aged Out No longe r eligible based on patient's age to complete this topic HIB VACCINE Aged Out No longer eligi ble based on patient's age to complete this topic HPV VACCINE Aged Out No longer eligi ble based on patient's age to complete this topic MENINGOCOCCAL (Group B) VACCINE SHARED DECISION-MAKING Aged Out No longer eligible based on patient's age to complete this topic MENINGOCOCCAL GROUPS A/C/Y/W VACCINE Aged Out No longer eligible based [...] La Fuente MD 07/07/2016 2:45 PM SSG CUSTOMER ENGAGEMENT MANAGER Elijah, Bone Density Report with VFA [...] Assesment: normal VFA Technologist: Willa Mcgregor RT(R), RDMS Images will be scanned into the record. Interpreting Physician: Loraine De La Fuente Solis De La Fuente MD DEXA ORDERABLES from Last 3 Months or Most Recently Relevant to Health Maintenance Care Teams Shift Lab Technician Relationship Specialty Start Date End Date Cynthia Sarah MD [address] [place] [address] PCP - General Family Medicine 11/12/20 Yudy Norris MD [address] [place] [address] Family Medicine 06/16/16 Solis De La Fuente MD [address] [address] Obstetrics and Gynecology 11/11/20
--- OUTSIDE RECORDS SUMMARY | 2024-06-06 13:27 | XMS_ITS ---
Author Organization [facility] Address [address] [place] [address] Care Team Providers Care Corrugated Sheet Material Sheeter Name Role Phone Cynthia Sarah MD Primary Care Provider Dominguez Cm Unavailable [phone] Results Component Value Reference Range Notes CBC With Differential/Platel et (Not yet reviewed by provider) Interpretation: Performing Lab:[facility], [address] [facility], Phone - [phone], Director - Ricbarrera Notes/Report: WBC 6.1 3.4-10.8 x10E3/uL RBC 4.72 [...] Status W/U Status Risk Notes Problem Anemia (772794878) Anemia (D64.9) Active confirmed Encounters Encounter Location Date Provider Diagnosis [facility] [address] [facility] [address] [place] [address] 04/18/2024 Dominguez Noel Anemia D64.9 Assessments Encounter Date Diagnosis (ICD Code) Assessment Notes Treatment Notes Treatment Clinical Notes Section Notes 04/18/2024 Anemia (ICD-10 - D64.9) Plan Of Treatment Pending Test Test Name Order Date CBC With Differential/Platelet Next Appt Details Provider Name:Dominguez murphy, 07/01/2024 10:15:00 AM, [address] [place] [address] [address], [place], [address], Progress Notes * Josiane ROBERTO LDOB:[birth year] (68 yo F)Acc No.[id number]:04/18/2024 Patient: Josiane NAVA Arsalan :1955 A ge:68 Y S ex:Female Address:[address] [place] [address] Subjective: * Chief Complaints: * L abs * Medical History: * Surgical History: * Hospitalization/Major Diagno stic Procedure: * Medications: Objective: * Vitals: * Physical Examination: Assessment: * Assessment: 1. A nemia - D64.9 (Primary) Plan: * Treatment: * Procedure Codes: * true * Date: Generated for Jacob downey/Gary/eTransmitting on: 0 06/06/2024 01:26 PM CDT
--- OUTSIDE RECORDS SUMMARY | 2024-06-06 13:27 | XMS_ITS ---
Author Organization [facility] Address [address] [place] [address] [address] [place] [address] Care Team Providers Care Labor Trainer Name Role Phone Cynthia Sarah MD Primary Care Provider Dominguez Cm Unavailable [phone] REASON FOR VISIT Abdominal cramping Encounters Encounter Location Date Provider Diagnosis [facility], [address] [place] [address] 05/08/2024 Dominguez Noel Plan Of Treatment Next Appt Details Provider Name:Dominguez murphy, 07/01/2024 10:15:00 AM, [address] [place] [address] [address], [place], [address], Progress Notes * Josiane ROBERTO LDOB:[birth year] (69 yo F)Acc No.[id number]:05/08/2024 Patient: Syd Josiane ROBERTS :1955 A ge:69 Y S ex:Female Address:[address] [place] [address] * true * Date: Generated for Printi ng/Faxing/eTransmitting on: 0 06/06/2024 01:27 PM CDT
--- OUTSIDE RECORDS SUMMARY | 2024-06-06 13:28 | XMS_ITS | Patient Health Record ---
Author Organization [facility] Address [address] [facility]. [address] [place] [address] Care Team Providers Care Medical Collections Specialist Name Role Phone Cynthia Sarah MD Primary Care Provider Dominguez Cm Unavailable [phone] Allison Cole Unavailable [phone] Allergies Allergen (clinical drug ingredient) Drug/Non Drug Allergy documented on EMR Reaction Allergy Type Onset Date Status tramadol Tramadol HCl Unknown Drug Allergy Acti ve Substance with sulfonamide structure and antibacterial mechanism of action (substance) Sulfa Antibiotics rash Drug Allergy 11/17/2022 active Results Component Value Reference Range Notes CBC With Differential/Platel et (Not yet reviewed by provider) Interpretation: [facility]forming [facility] [address] [facility], Phone - [phone], Director - PhDRicchivji Notes/Report: WBC 6.1 3.4-10.8 [...] Grans (Abs) 0.0 0.0-0.1 x10E3/uL Pathology Report Reviewed date:05/25/2024 03:06:01 PM Interpretation: Performing Lab: Notes/Report: DIAGNOSES A. Duodenum , Biopsy: -Duodenal mucosa with no diagnostic abnormality. -Normal villous architecture; no evidence of Celiac sprue. -Alcian blue/PAS stain to identify gastric foveolar metaplasia and Whipple's disease is negative; no parasites are seen. CLINICAL HISTORY Abdominal cramping. Watery diarrhea. Epigastric pain. GROSSING DESCRIPTION A. The specimen is received in a Formalin-filled container labeled with the patient's name and designated Duodenum It contains multiple fragments of topete tissue that measure from 2x1x1 to 3x2x1 mm. The specimen was entirely submitted into a single cassette for processing. MICROSCOPIC DESCRIPTION Complete 100 microscopic examination is performed. The findings are included in the diagnosis rendered. Specimen A was evaluated with H&E stain. Specimen A was evaluated with Alcian Blue PAS stain. Textual Pathology Report SEE NOTES Reason For [...] Problem Status W/U Status Risk Notes Problem 372980799 Esophageal obstruction (K22.2) Active confirmed Problem 719109797 Diverticulosis of large intestine without perforation or abscess without bleeding (K57.30) Active confirmed Problem 457372238 Irritable bowel syndrome with diarrhea (K58.0) Active confirmed Problem 13267899 Constipation, unspecified (K59.00) Active confirmed Problem 9209396 Melena (K92.1) Active confirmed Recently, her stools have been darker in color. Problem 49612734 Epigastric pain (R10.13) Active confirmed She has [...] peptic ulcer, gastroenteritis , or others. Problem 095760247 Nausea (R11.0) Active confirmed She has been feeling nauseated after eating, like she could vomit. Her reflux symptoms have been well controlled on pantoprazole. Problem 77034187 Dysphagia, unspecified (R13.10) Active confirmed Problem 57911967 Full incontinence of feces (R15.9) Active confirmed Suspect pelvic floor dysfunction may be contributing. Problem Polyp colon (47613938) Colon polyp (K63.5) Active confirmed Problem 09650332 Diarrhea (R19.7) Active confirmed Improve now that she is off antibiotics. She will also stop taking her probiotics as well. Problem 031566259 Bloating (R14.0) Active confirmed She has had increased abdominal bloating over the last few days. Problem 410685658 History of colon polyps (Z86.010) Active confirmed Her most re cent colonoscopy in May revealed a polyp and she was instructed to follow up in 5 years which would be in 2023. Problem 23773421 Midepigastric pain (R10.13) Active confirmed Problem Dysphagia (00565828) Dysphagia (R13.10) Active confirmed Problem 78057225 Irritable bowel syndrome with both constipation and [...] she would back down to soups. Problem 296847259 Irritable bowel syndrome with constipation (K58.1) Active confirmed Continues to be symptomatic with lower abdominal cramping. There has been no hematochezia. Problem 01458465 Abdominal cramping (R10.9) Active confirmed Problem 46508178 Irritable bowel syndrome, unspecified type (K58.9) Active confirmed She has long-standing history of irregular bowel habits. Sometimes her stools are explosive and come on urgently. Problem Bowel incontinence (83818711) Fecal incontinence (R15.9) Active confirmed Problem Anemia (794541309) Anemia (D64.9) Active confirmed Problem Internal hemorrhoids (90894363) Hemorrhoids, internal (K64.8) Active confirmed Problem 431116679 LLQ pain (R10.32) Active confirmed She has been experiencing pelvic and left lower quadrant pain over the last couple of days. She also feels the urge to urinate, but has not been able to go as much. She denies having any fevers. She has been slightly more constipated. Differential diagnosis includes diverticulitis, urinary tract infection, gastroenteritis , or others. Problem Diverticulitis (79606423) Diverticulitis (K57.92) Active confirmed Improving at this [...] of diverticulitis recently with abscess formation. Problem 444611614 History of cholecystectomy (Z90.49) Active confirmed Problem 76895012 Colitis (K52.9) Active confirmed Problem 92031818 Nausea and vomiting (R11.2) Active confirmed Problem 633109343 RUQ abdominal pain (R10.11) Active confirmed Problem 785745200 Acute diverticulitis (K57.92) Active confirmed Problem Diverticulitis of colon (326547470) Diverticulitis of colon (K57.32) Active confirmed Problem 44163916 Pelvic pain (R10.2) Active confirmed Problem 573425139 Mild acid reflux (K21.9) Active confirmed Currently controlled on Omeprazole 40 mg daily. It continues to be helpful and she gets a lot of heartburn if she is out of the medications. 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 [address] [facility] [place] [address] 04/14/2024 Allison Cole Upper abdominal pain R10.10 ; Dysphagia R13.10 ; Abdominal bloating R14.0 ; Fecal incontinence R15.9 and Diarrhea R19.7 [facility] [address] [place] [address] 05/07/2024 Dominguez Noel Dyspepsia R10.13 ; Diarrhea R19.7 and Bloating R14.0 [facility], [facility] [address] [facility] [place] [address] 06/19/2023 [facility] [address] [facility] [place] [address] 02/05/2024 Dominguez Noel [facility], [facility] [address] [facility] [place] [address] 03/07/2024 [facility] [address] [facility] [place] [address] 04/15/2024 [facility] [address] [place] [address] 04/15/2024 Dominguez Noel [facility], [facility] [address] [facility] [place] [address] 04/18/2024 Dominguez Noel Anemia D64.9 [facility], [facility] [address] [facility] [place] [address] 05/08/2024 Dominguez Noel Assessments Encounter Date Diagnosis (ICD Code) Assessment Notes Treatment Notes Treatment Clinical Notes Section Notes 04/14/2024 Dysphagia (ICD-10 - R13.10) UPPER ABDOMINAL [...] fecal incontinence. Suspect pelvic floor dysfunction. 04/14/2024 Fecal incontinence (ICD-10 - R15.9) UPPER [...] 08/14/2018 CBC With Differential/Platelet Initiate ARM 04/14/2024 Next Appt Details Provider Name:Dominguez murphy, 07/01/2024 10:15:00 AM, [address] [facility] , [address], [place], [address], Insurance Providers Payer Name Payer Address Payer Phone Subscriber Number Group Number Insured Name Patient Relationship to Insured Coverage Start Date Coverage End Date [facility] Medicare Advantage Ppo [address] [address] [place] [address] [id number] Mynor Bardales Spouse - patient is the [...] [facility] [address] [facility]: Abdominal Pain 05/2018 . [facility]: Recurrent Diverticulitis 2020 . [facility]: Enteritis 01/2023 [facility]: Abdominal Pain, Nausea, Emesi s, Diarrhea 01/2024
--- OUTSIDE RECORDS SUMMARY | 2024-06-06 13:28 | XMS_ITS | Patient Health Record ---
Author Organization [facility] hussein Address [address] [facility] [address] [place] [address] Care Team Providers Care Crate Opener Name Role Phone Cynthia Sarah MD Primary Care Provider Kelly Zurita Unavailable [phone] Allergies Allergen (clinical drug ingredient) Drug/Non Drug [...] upper arm, upper thigh or abdomen Subcutaneous 5.48061063571232G-1 3 Active ZyrTEC Allergy 10 MG Oral Active Dulera 100-5 MCG/ACT Inhalation Active Hydroxychloroquine Sulfate 200 MG TAKE 1 TABLET BY MOUTH TWICE A DAY for 90 Active Glucosamine Sulfate 500 mg take 1 tablet by oral route once Oral 1 Active Biotin - - oral *Pick strength-form from [employer]O Groupan for eRX* Active tiZANidine HCl 2 MG Oral Active Calcium Pantothenate 500 MG chew 1 tablet by oral route once Oral 1 Active Metamucil - daily oral *Pick strength-form from SQLstreamspan for eRX* Active Probiotic Blend - as directed Orally Active Vitamin D (Ergocalciferol) 71404 UNIT Oral Active Acetaminophen-Codeine 300-30 MG prn Oral Active Problems Problem Type SNOMED Code ICD Code Onset Dates Problem Status W/U Status Risk Notes Problem Inflammatory arthritis (6384371) Inflammatory arthritis (M19.90) Active confirmed Problem Rheumatoid arthritis (22348079) Rheumatoid arthritis, unspecified (M06.9) Active confirmed Vital Signs Heart Rate 92 /min 05/13/2024 Temperature 98.0 degrees Fahrenheit 05/13/2024 Blood pressure diastolic 70 mm Hg 05/13/2024 Oximetry 95 % 05/13/2024 Height-cm 162.56 cm 05/13/2024 Weight-kg 50.07 kg 05/13/2024 Height 64 in 05/13/2024 Blood pressure systolic 108 mm Hg 05/13/2024 Weight 110.4 lbs 05/13/2024 BMI 18.95 kg/m2 05/13/2024 Encounters Encounter Location Date Provider Diagnosis [facility] [address] [facility] [address] [place] [address] 01/18/2024 Kelly Du Inflammatory arthrit is M19.90 ; High risk medication use Z79.899 and Lumbar back pain M54.50 [facility] [address] [facility] [address] [place] [address] 05/13/2024 Kelly Du Inflammatory arthrit is M19.90 [...] advised about eye exam for plaquenil 01/18/2024 Lumbar back pain (ICD-10 - M54.50) restart plaquenil 400mg/day, return in 3 momths 05/13/2024 Lumbar back pain (ICD-10 - M54.50) improving, continue plaquenil, return in 5 months, advised about eye exam for plaquenil Plan Of Treatment Next Appt Details Provider Name:Kelly Sequeira, 10/28 10:15:00 AM, [address], [facility] [address], [place], [address], Insurance Providers Payer Name Payer Address Payer Phone Subscriber Number Group Number Insured Name Patient Relationship to Insured Coverage Start Date Coverage End Date [employer] Medicare Advantage [facility] [address] [address] [place] [address] [id number] Josiane Bardales Self - patient is the insured Medical (General) History Medical History History ICD Code Asthma; Rheumatoid arthritis; Surgical History Surgery Date(Month/Year) Gall Bladder Surgery; 2017-06-11 Hysterectomy; 2017-06-11 Thoracentesis; 2017-06-11 Neck Surgery; 2017-06-11 appendectomy partial colectomy
--- OUTSIDE RECORDS SUMMARY | 2024-06-06 13:28 | XMS_ITS ---
Author Organization [facility] hussein Address [address] [facility] [address] [place] [address] Care Team Providers Care Hand Iii Cutter Name Role Phone Tyrel YOUSSEF, Cynthia Primary Care Provider Jaye Solitario Kelly Unavailable [phone] Allergies Allergen (clinical drug ingredient) Drug/Non Drug Allergy documented on EMR Reaction Allergy Type Onset Date Status Substance with sulfonamide structure and antibacterial mechanism of action (substance) Sulfa Antibiotics Unknown Drug Allergy 06/11/2017 Active tramadol Tramadol Unknown Drug Allergy 06/11/2017 Active REASON FOR VISIT yd/3 month follow up/flc, inflammatory arthritis, PCP: Dr. Cynthia Sarah [address] [facility] [id number] Medications Medication SIG (Take, Route, Frequency, Duration) [...] Metamucil - daily oral *Pick strength-form from CytoPherxspan for eRX* Active Cholestyramine powder - daily - *Reorder from [employer]toPherxspan for eRx and Interaction Alerts* Active Vitamin D (Ergocalciferol) 04179 UNIT Oral Active tiZANidine HCl 2 MG Oral Active Biotin - - oral *Pick strength-form from Medispan for eRX* Active Calcium Pantothenate 500 MG chew 1 tablet by oral route once Oral 1 Active Prolia 60 MG/ML inject 1 milliliter (60 mg) by subcutaneous route every 6 months in the upper arm, upper thigh or abdomen Subcutaneous 5.71637440513890N- 03 Active Glucosamine Sulfate 500 mg take [...] 06/06/2023 Encounters Encounter Location Date Provider Diagnosis [facility] [address] [facility] [address] [place] [address] 06/06/2023 Kelly Du Inflammatory arthrit is M19.90 [...] AM, [address], [place], [address], Progress Notes * Aric ROBERTOOB:1955 (68 yo F)Acc No.[id number]:06/06/2023 Progress Notes Patient: Josiane NAVA Provider: Jocy SOLITARIO MD :1955 A ge:68 Y S ex:Female Date:06/06/2023 Address:[address] [place], [place] [id number] Pcp:Cynthia Sarah MD Subjective: * Chief Complaints: * Y d/3 month follow up/flc, inflammatory arthritisPCP: Dr. Cynthia Sarah [address] [facility] [address] * HPI: G eneral Follow up: serologies [...] * Surgical History: G all Bladder Surgery; 3902-91-67Zukodwimhvgx; 8215-80-33Rrvhswvstnwre; 6576-58-07Xyor Surgery; 1192-93-71jwstptdilbju partial colectomy * Hospitalization/Major Diagno stic Procedure: [...] upper arm, upper thigh or abdomen Subcutaneous 5.50386062840301H-84 ZyrTEC Allergy 10 MG Capsule Oral Calcium Pantothenate 500 MG Tablet chew 1 tablet by oral route once Oral 1 Biotin - - oral , Notes to Pharmacist: *Pick strength-form from [facility] for eRX*tiZANidine HCl 2 MG Tablet Oral Vitamin D (Ergocalciferol) 63295 UNIT Capsule Oral Cholestyramine powder - daily - , Notes to Pharmacist: *Reorder from [facility] for eRx and Interaction Alerts*Acetaminophen-Codeine 300-30 MG Tablet prn Oral Metamucil - daily oral , Notes to Pharmacist: *Pick strength-form from [facility] for eRX*Folic Acid 1 MG Tablet TAKE [...] upper arm, upper thigh or abdomen Subcutaneous 5.12916026529493X-56 Taking ZyrTEC Allergy 10 MG Capsule Oral Taking Calcium Pantothenate 500 MG Tablet chew 1 tablet by oral route once Oral 1 Taking Biotin - - oral , Notes to Pharmacist: *Pick strength-form from [facility] for eRX*Taking tiZANidine HCl 2 MG Tablet Oral Taking Vitamin D (Ergocalciferol) 04017 UNIT Capsule Oral Taking Cholestyramine powder - daily - , Notes to Pharmacist: *Reorder from [facility] for eRx and Interaction Alerts*Taking Acetaminophen-Codeine 300-30 MG Tablet prn Oral Taking Metamucil - daily oral , Notes to Pharmacist: *Pick strength-form from [facility] for eRX*Taking Folic Acid 1 MG Tablet [...] Months * Billing Information: * Visit Code: 88045 Office Visit, Est Pt., Level 4. * Procedure Codes: * Sign off status: Completed true * Provider: Jocy SOLITARIO MD Date: 0 06/06/2023 Generated for Jacob downey/Gary/Devynitting on: 0 06/06/2024 01:27 PM CDT History and Physical Notes * [...]
--- OUTSIDE RECORDS SUMMARY | 2024-06-06 13:28 | XMS_ITS ---
Author Organization [employer] Address [address] [facility] [address] [place] [address] Care Team Providers Care Impregnation Operator Name Role Phone Cynthia Sarah MD Primary Care Provider Dominguez Cm Unavailable [phone] REASON FOR VISIT Upper abdominal pain - R10.10 Dysphagia - R13.10 Abdominal bloating - R14.0 Fecal incontinence - R15.9 Diarrhea - R19.7 5 2 110 Medications Medication SIG (Take, Route, Fr equency, Duration) Notes Start Date End Date Status Colestipol HCl 1 GM 2 tablets Orally Onc e a day for 30 day(s) 05/07/2024 Active Encounters Encounter Location Date Provider Diagnosis [facility] Surgery [address] [place] [address] 05/07/2024 Dominguez Noel Dyspepsia R10.13 ; Diarrhea [...] Provider Name:Dominguez murphy, 07/01/2024 10:15:00 AM, [address] [facility] , [address] [facility], [place], [address], Progress Notes * Josiane ROBERTO LDOB:[birth year] (69 yo F)Acc No.[id number]:05/07/2024 Patient: Josiane NAVA Provider: Winston Noel MD :1955 A ge:69 Y S ex:Female Date:05/07/2024 Address:[address] [place] [address] Pcp:Cynthia Sarah MD Subjective: * Chief Complaints: [...] Follow Up: P RN * Images: * IC INTERVIEWER Sign off status: Completed true * Provider: Winston Noel MD Date: 0 05/07/2024 Generated for Jacob downey/Gary/eTharindersmitting on: 0 06/06/2024 01:28 PM CDT
--- OUTSIDE RECORDS SUMMARY | 2024-06-06 13:28 | XMS_ITS | Encounter Summary ---
Author Organization [facility] Healthcare Address [address] [place] [address] Care Team Providers Care Documentation Liaison Name Role Phone Nicolás Rodriguez MD Primary Care Provider [phone] Elizabeth Ramos RN Unavailable Unavailab Cynthia Hale MD Primary Care Provider [phone] Latasha Nguyen MD Unavailable Reason for Visit * Reason Onset Date Comments PRECALL 09/08/2019 Encounter Details Date Type Department Care Team (Late st Contact Info) Description 09/08/2019 Telephone [facility] at [facility] [address] [facility] 1[address] [place] [address] Ju Lundberg RN PRECALL Social [...] on file 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 Author CCM Chronic Pain Care Plan Chronic Care Management On track(2024 10:31 AM CDT) No Allison Shannon, ROSSANA Note: Problem: Chronic Pain Goals: 1. Minimize further functional decline 2. Maximize quality of life 3. Control pain Strategies: - Activity/exercise program recommendation - Conservative stepwise pain medicine strategy with multi-disciplinary approach - Recommend healthy lifestyle strategies and compensatory methods as needed Reduce the likelihood of falling Lifestyle On track(2024 10:31 AM CDT) No Beatrice Caballero, ROSSANA Note: Below are [...] on stairs Contact your local community or community [facility] for information on exercise, fall prevention [...] documented as of this encounter Care Teams Documentation Liaison Relationship Specialty Start Date End Date Nicolás Rodriguez MD PCP - General 08/07/17 12/02/20 Cynthia Sarah MD PCP - General Family Medicine 12/03/20 Elizabeth Ramos RN Registered Nurse 01/22/20 Latasha Nguyen MD [address] [facility] [place] [address] Consulting Physician Pain Management 10/01/17 documented as of this encounter
--- OUTSIDE RECORDS SUMMARY | 2024-06-06 13:28 | XMS_ITS | Clinical Summary ---
Author Organization [facility] Address [address] [place] [address] Phone Care Team Providers Care Spice Room Worker Name Role Phone Jess Burleson MD Primary Care Provider [phone] Allergies Active Allergy Reactions Criticality Noted Date [...] mouth daily. Active mometasone (NASONEX) 50 mcg/actuation [place], Non-Aerosol daily. Active CALCIUM PHOSPHATE DIBAS/VIT D3 [...] intramuscular injection. 0.5 mL 1 11:22 AM FOREIGN POLICY OFFICER 021 Active ondansetron (ZOFRAN) 4 mg Tablet 1 Tablet. 022 Active fluticasone propionate (FLONASE) 50 mcg/spray [place], Suspension nasal inhaler Administer 1 [place] in each nostril. 020 Active ipratropium bromide (ATROVENT) 42 mcg (0.06 %) [place], Non-Aerosol ADMINISTER 2 SPRAYS IN EACH NOSTRIL [...] Date Type Department Care Team Description 05/19/2024 External Device Data [facility] ABSTRACTION Provider, Abstract 05/19/2024 [facility] Pulmonology [address] [place] [address] Robbie Summers MD 04/29/2024 External Device Data [facility] ABSTRACTION Provider, Abstract 04/02/2024 External Device Data [facility]CTION Provider, Abstract 04/01/2024 External Device Data [facility] ABSTRACTION Provider, Abstract 03/25/2024 External Device Data [facility] ABSTRACTION Provider, Abstract 03/13/2024 11:00 AM FOREIGN POLICY OFFICER Office Visit [facility] Pulmonology [facility] [address] [place] [address] Robbie Summers MD Asthma, chronic, mild persistent, [...] on file Legal Sex Female 4:25 AM FOREIGN POLICY OFFICER Gender Identity Not on file Sexual Orientation Not on file Last Filed Vital Signs Vital Sign Reading Time Taken Comments Blood Pressure 120/70 03/13/2024 10:54 AM FOREIGN POLICY OFFICER Pulse 75 03/13/2024 10:54 AM FOREIGN POLICY OFFICER Temperature - - Respiratory Rate 16 01/18/2021 10:22 AM FOREIGN POLICY OFFICER Oxygen Saturation 98% 03/13/2024 10:54 AM FOREIGN POLICY OFFICER Inhaled Oxygen Concentration - - Weight 49.9 kg (110 lb) 03/13/2024 10:54 AM FOREIGN POLICY OFFICER Height 157.5 cm (5' 2 ) 03/13/2024 10:54 AM FOREIGN POLICY OFFICER Body Mass Index 20.12 03/13/2024 10:54 AM FOREIGN POLICY OFFICER Plan of Treatment Upcoming Encounters Date Type Department Care Team (Late st Contact Info) Description 03/18/2025 11:00 AM FOREIGN POLICY OFFICER Office Visit [facility] Pulmonology [facility] [address] [place] [address] Robbie Summers MD [address] [place], [place] [id number] Health Maintenance Due Date Last Done Comments [...] 1-dose series) 2016 BREAST CANCER SCREENING 11/30/2021 12/01/19, 11/30/2020, 08/07/2018 INFLUENZA VACCINE (#1) 2023 , 12/06/2017, 11/10/2016, Additional history exists OSTEOPOROSIS SCREENING Completed , 02/13/2019, 07/07/2016 Insurance RX [employer] Member Subscriber Plan / Payer (Ef fective 2021-Present) Name:Josiane Bardales Relation to Subscriber:Self Name:Josiane Bardales Subscriber ID:Not on file Payer ID:Not on file Group ID:[id number] Type:RX Medicare Part D Address: [place] Care Teams Spice Room Worker Relationship Specialty Start Date End Date Jess Burleson MD [address] [address] PCP - General 02/26/15
--- OUTSIDE RECORDS SUMMARY | 2024-06-06 13:28 | XMS_ITS | Clinical Summary ---
Author Organization [facility] Address [address] [place] [address] Care Team Providers Care Mechanic Name Role Phone Unavailable Primary Care Provider [...]
--- OUTSIDE RECORDS SUMMARY | 2024-06-06 13:28 | XMS_ITS | Patient Health Record ---
Author Organization [facility] Address [address], [place] [address] Care Team Providers Care Hide Handler Name Role Phone Nicolás Rodriguez Primary Care [...] right knee, initial encounter (S83.91XA) Active confirmed [id number] Problem Knee pain, right (M25.561) Active confirmed Pain of righ t knee region (finding) ([id number]) Problem Overexertion from strenuous movement or load, initial encounter (X50.0XXA) Active confirmed [id number] PLAN OF TREATMENT Pending Test Test Name Order Date MRI : Knee, right 02/16/2017 Insurance Providers Payer Name Payer Address Payer Phone Subscriber Number Group Number Insured Name Patient Relationship to Insured Coverage Start Date Coverage End Date U[employer] Medicare Complete PPO [address] [address] [place] [address] [id number] Josiane Bardales Self - patient is the insured MEDICAL (GENERAL) HISTORY Medical History History ICD Code MVP asthma acid reflux irritable bowel syndrome rheumatoid arthritis Surgical History Surgery Date(Month/Year) neck 2000 L ankle 2000 hysterectomy 2001 gallbladder Thoracic outlet syndrome Neck x's 2 foot surgery
--- OUTSIDE RECORDS SUMMARY | 2024-06-06 13:29 | XMS_ITS | Encounter Summary ---
Author Organization [facility] Healthcare Address [address] [place] [address] Care Team Providers Care Senior Physical Therapist Name Role Phone Nicolás Rodriguez MD Primary Care Provider [phone] Elizabeth Ramos RN Unavailable Unavailab Cynthia Hale MD Primary Care Provider + [phone] Latasha Nguyen MD Unavailable Reason for Visit * Reason Onset Date Comments Pre-op Exam 12/02/2018 Encounter Details Date Type Department Care Team (Late st Contact Info) Description 12/02/2018 Telephone 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
--- OUTSIDE RECORDS SUMMARY | 2024-06-06 13:29 | XMS_ITS | Encounter Summary ---
Author Organization [facility] Address [address] [place] [address] Care Team Providers Care Policeman Name Role Phone Jess Burleson MD Primary Care Provider [phone]- [phone] Encounter Details Date Type Department Care Team (Latest Contact Info) Description 02/20/2002 Outpatient Historical [facility] Nicolás Hedrick MD [address] [place] [address] NONINFEC GASTROENTERIT NEC (Primary Dx) Social History Tobacco Use Types Packs/Day Years Used Date Smoking Tobacco: Never Assessed Comments Unknown Sex and Gender Information Value Date Recorded Sex Assigned at Not on file Legal Sex Female 4:25 AM DINING ROOM HOST Gender Identity Not on file Sexual Orientation Not on file documented as of this encounter Plan of Treatment Upcoming Encounters Date Type Department Care Team (Late st Contact Info) Description 03/18/2025 11:00 AM DINING ROOM HOST Office Visit [facility] Pulmonology [facility] [address] [place] [address] Robbie Summers MD [address] [place] [address] documented as of this encounter Visit Diagnoses Diagnosis Other and unspecified noninfectious gastroenteritis and colitis(558.9)- Primary Other and unspecified noninfectious gastroenteritis and colitis documented in this encounter Additional Health Concerns Infection Onset Date Last Indicated Resolved Time R/O COVID-19 03/22/2021 03/22/2021 03/29/2021 1:16 AM DINING ROOM HOST documented as of this encounter Care Teams Policeman Relationship Specialty Start Date End Date Jess Burleson MD [address] [address] PCP - General 02/26/15 documented as of this encounter
--- OUTSIDE RECORDS SUMMARY | 2024-06-06 13:29 | XMS_ITS | Referral Summary ---
Author Organization [facility] Address [address] [place] [address] Care Team Providers Care Dermatologist Name Role Phone Elizabeth Ramos RN Unavailable Unavailab Cynthia Hale MD Primary Care Provider [phone]- [phone] Latasha Nguyen MD Unavailable [phone] Encounters Date Type Department Care Team Description 06/05/[address] [address] Janae Hale RN Pre Arrival 05/30/2024 10:22 AM CDT - 05/30/2024 11:59 PM CDT Hospital Encounter [address] [phone] Latasha Nguyen MD Sacroiliitis (CMS/HCC) - Left (Primary Dx); Greater trochanteric bursitis of left hip Discharge Disposition: Discharge to home or self care 03/25/2024 8:19 AM SILK HANGER - 03/25/2024 11:59 PM SILK HANGER Hospital Encounter [facility] [address] [phone] Latasha Nguyen MD Pain of left hip Discharge Disposition: Discharge to home or self care 03/21/2024 Telephone [facility] at [facility] [address] 1st [place] [address] Elizabeth Villarreal RN Call Back 03/21/2024 Telephone [facility] at [facility] [address] 1st [place] [address] Gloria Brown, ROSSANA Pre Arrival from Last 3 Months Allergies Active Allergy [...] mg capsule Take by mouth A ctive colestipoL (COLESTID) 1 gram tablet Take 1 tablet (1 g total) by mouth 2 (two) times a day Patient takes 1/2 tab daily Active Active Problems Problem Noted Date Diagnosed Date Subacromial bursitis of right shoulder joint Overview (04/26/2021): Added automatically from request for surgery [id number] Encounter for surgical after care following surgery of circulatory system 12/03/2020 Varicose veins of right lower extremity with cookie n 10/14/2020 Overview (10/14/2020): Added automatically from request for surgery [id number] Spinal enthesopathy, cervical region 02/24/2020 Gastroesophageal reflux disease 02/23/2020 Irritable bowel syndrome wit h both constipation and diarrhea 02/23/2020 Sacroiliitis (CMS/HCC) - Left 11/11/2019 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, sacral and sacrococcygeal region 01/27/2019 Other chronic pain 12/03/2018 Overview (12/03/2018): Added automatically from request for surgery [id number] Greater trochanteric bursitis of left hip 2018 Myofascial pain syndrome 02/11/2018 Asthma 11/20/2017 Assessment & Plan (07/23/2018 11:49 AM CDT): Seeing Donis pattonera BID Osteoporosis 11/20/2017 [facility] arthritis 10/31/2016 Cervical pain (neck) 10/31/2016 Chronic right-sided low back pain with sciatica 10/31/2016 Assessment & Plan (07/23/2018 11:46 AM CDT): Giovanny Seeing pain management, [facility] Cont meds [facility] Scoliosis 05/19/2016 Status post cervical spinal fusion [...] on file Legal Sex Female 12:20 AM SILK HANGER Gender Identity Not on file Sexual Orientation Not on file Last Filed Vital Signs Vital Sign Reading Time Taken Comments Blood Pressure 135/94 05/30/2024 10:31 AM CDT Pulse 86 05/30/2024 10:31 AM CDT Temperature 35.9 C (96.6 F) 05/30/2024 10:31 AM CDT Respiratory Rate 16 05/30/2024 10:31 AM CDT Oxygen Saturation 96% 05/30/2024 10:31 AM CDT Inhaled Oxygen Concentration - - Weight 50.3 kg (111 lb) 05/09/2022 1:03 PM SILK HANGER Height 157.5 cm (5' 2 ) 05/09/2022 1:03 PM SILK HANGER Body Mass Index 20.3 05/09/2022 1:03 PM SILK HANGER Plan of Treatment Not on file Goals [...] On track(2024 10:31 AM CDT) No Beatrice Caballero RN Note: Below are [...] on stairs Contact your local community or [facility] for information on exercise, fall prevention programs, or options for improving home safety. Medical Devices Implanted Type Area Storage Receipt Poster Device Identifier Shelf Expiration Date Model / Serial / Lot Plate Plate Neck Screw Screw Neck [employer] Ar-2267 Maintenance Helper Large Eyelet Pectoralis Button Fixation Latex Free - [id number] Implanted:Qty: 1 on 05/23/2021 by Sridhar Hernandez MD at [facility] Right: Shoulder [employer] 06/09/2025 AR-2267 / / [id number] Description:[employer] AR-2 267 PUBLIC HEALTH NUTRITIONIST LARGE EYELET PECTORALIS BUTTON FIXATION LATEX FREE - [id number] Procedures Procedure Name Priority Date/Time Associated Diagnosis Comments PAIN MGMT IMAGING SHOULDER, HIP, KNEE JOINT/BURSA INJ LEFT Schedule Routine, Read Routine (OP Routine) 03/25/2024 8:55 AM SILK HANGER Pain of left hip DEXA AXIAL SKELETON BONE DENSITY 1 OR MORE SITES 02/13/2019 9:56 AM SILK HANGER SERUM HEPATITIS C AB Routine 07/20/2016 6:25 AM CDT from Last 3 Months or Most Recently Relevant to Health Maintenance Results * Imaging Shoulder, Hip, Knee Joint/Bursa INJ Left () (03/25/2024 8:55 AM SILK HANGER) Narrative [facility] - 03/25/2024 9:05 AM SILK HANGER The images from this study are not interpreted by Radiology. Please refer to the physician's procedure / OR operative note. us Latasha Nguyen MD IMG PAIN MGMT PROCEDU RES Final Result [facility] * Dexa Axial Skeleton Bone Density 1 or 2 Site (02/13/2019 9:56 AM SILK HANGER) Anatomical Region Laterality Modality Body N/A Radiographic Didi ging 02/13/2019 11:0 1 AM SILK HANGER Narrative 02/13/2019 11:04 AM SILK HANGER Patient Name: FELISAJOSIANESTEPHANIE Calles Dr: Nicolás Rodriguez MD D.O.B: 1955 Exam Date: 02/13/19955 Age: 63 Sex: Female MR#: [id number] Loc: RADIOLOGY REPORT Order #[id number] Bone Density Bone Density Hip/Spine (STD) Signed EXAM DESCRIPTION: Bone Density Hip/Spine (STD) REASON FOR STUDY: 63 year old postmenopausal white female with given history of screening. Storage Receipt Poster/Model: MedaNext A (S/N [id number]) CLINICAL INFORMATION: Current height: 62 inches Maximum [...] Miah Bolden M.D. RB: RICH Report ID: [id number] Reading Location: [place] [address] REPORT ELECTRONICALLY SIGNED IN OTHER VENDOR SYSTEM Resulting Agency Comment O Procedure Note Miah Bolden MD - 02/13/2019 Patient Name: JOSIANE ROBERTO Dr: Nicolás Rodriguez MD D.O.B: 1955 Exam Date: 02/13/19 0956 Age: 63 Sex: Female MR#: [id number] Loc: RADIOLOGY REPORT Order #[id number] Bone Density Bone Density Hip/Spine (STD) Signed EXAM DESCRIPTION: Bone Density Hip/Spine (STD) REASON FOR STUDY: 63 year old postmenopausal white female with givenhistory of screening. Storage Receipt Poster/Model: Ro[employer] Horizon A (S/N [id number]) CLINICAL INFORMATION: Current height: 62 inches Maximum [...] Miah Bolden M.D. RB: RICH Report ID: [id number] Reading Location: [id number] REPORT ELECTRONICALLY SIGNED IN OTHER VENDOR SYSTEM Nicolás Rodriguez MD IMG DXA PROCEDURES Final Resu lt * Serum Hepatitis C ab (07/20/2016 6:25 AM CDT) HCV ab NON-REACTI VE NON-REACTI VE CDR HISTORICAL RESULTS Hepatitis signal to cutoff ratio 0.01 <1.00 CDR HISTORICAL RESULTS Serum 07/20/2016 6:25 AM CDT Narrative CDR HISTORICAL RESULTS - 07/21/2016 10:00 AM CDT Test performed at [employer] [address] [place] [address] Director: JESUS ELIZABETH DO,MPH Historical Provider LAB BLOOD ORDERABLES Saida murphy Result Performing Organization Address City/State/[facility] Co de Phone Number CDR HISTORICAL RESULTS from Last 3 Months or Most Recently Relevant to Health Maintenance Insurance [facility] MEDICARE ADVANTAGE Care Teams Dermatologist Relationship Specialty Start Date End Date Cynthia Sarah MD PCP - General Family Medicine 12/03/20 Elizabeth Ramos, RN Registered Nurse 01/22/20 Latasha Nguyen MD [address] [facility] [place] [address] Consulting Physician Pain Management 10/01/17
--- OUTSIDE RECORDS SUMMARY | 2024-06-06 13:29 | XMS_ITS | Encounter Summary ---
Author Organization [facility] Address [address] [place] [address] Care Team Providers Care Hat Former Name Role Phone Jess Burleson MD Primary Care Provider [phone] Encounter Details Date Type Department Care Team (Late Contact Info) Description 11/18/2007 Outpatient Historical [facility] Dwain Moulton MD [address] [place] [address] Personal History of Colonic Polyps Social History Tobacco Use Types Packs/Day Years Used Date Smoking Tobacco: Never Assessed Comments Unknown Sex and Gender Information Value Date Recorded Sex Assigned at Not on file Legal Sex Female 4:25 AM ASPHALT PLANT OPERATOR Gender Identity Not on file Sexual Orientation Not on file documented as of this encounter Plan of Treatment Upcoming Encounters Date Type Department Care Team ([facility] Contact Info) Description 03/18/2025 11:00 AM ASPHALT PLANT OPERATOR Office [facility] Pulmonology [facility] [address] [place] [address] Robbie Summers MD [address] [place] [address] documented as of this encounter Procedures Procedure Name Priority Date/Time Associated Diagnosis Comments PATHOLOGY Routine 11/18/2007 1:27 PM CDT documented in this encounter Results * PATHOLOGY (11/18/2007 1:27 PM CDT) FINAL REPORT [facility] [address] [place], [place] [address] Patient: ZEENAT ROBERTO : 1955 Procedure Date: 11/18/2007 Accession Date: 11/18/2007 Case No: [id number] Ordering Dr: DWAIN MOULTON Case types AW, BW, FW, NW and SH are performed by [facility] [place], [place], [place] SURGICAL PATHOLOGY & NON-GYNECOLOGIC CYTOPATHOLOGY REPORT [...] entire specimen is submitted in cassette B1. [facility] 11.18.2007 02:42 pm Microscopic: The slides are labeled [id number] and Zeenat Roberto. The sections of the [...] R/O COVID-19 03/22/2021 03/22/2021 03/29/2021 1:16 AM ASPHALT PLANT OPERATOR documented as of this encounter Care Teams Hat Former Relationship Specialty Start Date End Date Jess Burleson MD [address] [address] PCP - General 02/26/15 documented as of this encounter
--- OUTSIDE RECORDS SUMMARY | 2024-06-06 13:29 | XMS_ITS | Encounter Summary ---
Author Organization [facility] Address [address] [place] [address] Care Team Providers Care Benzene Washer Operator Name Role Phone Jess Burleson MD Primary Care Provider [phone] Encounter Details Date Type Department Care Team (Late Contact Info) Description 06/10/2002 Outpatient Historical [facility] Nicolás Arnold MD [address] [place] [address] ACUTE GASTRITIS W/O HEMORRHAGE (Primary Dx) Social History Tobacco Use Types Packs/Day Years Used Date Smoking Tobacco: Never Assessed Comments Unknown Sex and Gender Information Value Date Recorded Sex Assigned at Not on file Legal Sex Female 4:25 AM BACTERIOLOGIST MEDICAL Gender Identity Not on file Sexual Orientation Not on file documented as of this encounter Plan of Treatment Upcoming Encounters Date Type Department Care Team (Late Contact Info) Description 03/18/2025 11:00 AM BACTERIOLOGIST MEDICAL Office Visit [facility] Pulmonology [facility] [address] [place] [address] Robbie Summers MD [address] [place] [address] documented as of this encounter Visit Diagnoses Diagnosis Acute gastritis without mention of hemorrhage- Primary documented in this encounter Additional Health Concerns Infection Onset Date Last Indicated Resolved Time R/O COVID-19 03/22/2021 03/22/2021 03/29/2021 1:16 AM BACTERIOLOGIST MEDICAL documented as of this encounter Care Teams Benzene Washer Operator Relationship Specialty Start Date End Date Jess Burleson MD [address] [address] PCP - General 02/26/15 documented as of this encounter
--- OUTSIDE RECORDS SUMMARY | 2024-06-06 13:29 | XMS_ITS | Encounter Summary ---
Author Organization [facility] Healthcare Address [address] [place] [address] Care Team Providers Care Social Media Manager Name Role Phone Nicolás Rodriguez MD Primary Care Provider Elizabeth Ramos RN Unavailable Unavailab Cynthia Hale MD Primary Care Provider [phone] Latasha Nguyen MD Unavailable Reason for Visit * Reason Onset Date Comments Pre-op Exam 09/30/2018 Encounter Details Date Type Department Care Team (Late st Contact Info) Description 09/30/2018 Telephone [facility] [address] 1st [place] [address] Yuridia Shen RN Pre-op Exam [...] on file Legal Sex Female 12:20 AM OUTSIDE UPHOLSTERER Gender Identity Not on file Sexual Orientation Not on file documented as of this encounter Plan of Treatment Not on file documented as of this encounter Goals Goal Patient Goal Type Associated Problems Recent Progress Patient-Stated? Author CCM Chronic Pain Care Plan Chronic Care Management On track(2024 10:31 AM CDT) Allison Hawthorne, ROSSANA Note: Problem: Chronic Pain [...] documented as of this encounter Care Teams Social Media Manager Relationship Specialty Start Date End Date Nicolás Rodriguez MD PCP - General 08/07/17 12/02/20 Cynthia Sarah MD PCP - General Family Medicine 12/03/20 Elizabeth Ramos, RN Registered Nurse 01/22/20 Latasha Nguyen MD [address] [facility] [place] [address] Consulting Physician Pain Management 10/01/17 documented as of this encounter
--- OUTSIDE RECORDS SUMMARY | 2024-06-06 13:29 | XMS_ITS | Encounter Summary ---
Author Organization [facility] Healthcare Address [address] [place] [address] Care Team Providers Care Sales Lead Generator Name Role Phone Elizabeth Ramos RN Unavailable Unavailab Cynthia Hale MD Primary Care Provider [phone]- [phone] Latasha Nguyen MD Unavailable Encounter Details Date Type Department Care Team (Late st Contact Info) Description 11/29/2021 Orders Only [facility] [address] [facility] [address] [place] [address] Latasha Nguyen MD [address] [place] [address] Social History Tobacco Use Types Packs/Day Years Used Date Smoking Tobacco: Former Cigarettes 04 08 1 973 - 2000 Smokeless Tobacco: Never Alcohol Use Standard Drinks/Week [...] on file Legal Sex Female 12:20 AM ASSOCIATE SCIENTIST Gender Identity Not on file Sexual [...] stairs Contact your local community or [facility] for information on exercise, fall prevention programs, or options for improving home safety. documented as of this encounter Visit Diagnoses Not on filedocumented in this encounter Care Teams Sales Lead Generator Relationship Specialty Start Date End Date Cynthia Sarah MD PCP - General Family Medicine 12/03/20 Elizabeth Ramos, ROSSANA Registered Nurse 01/22/20 Latasha Nguyen MD [address] [place] [address] Consulting Physician Pain Management 10/01/17 documented as of this encounter
--- OUTSIDE RECORDS SUMMARY | 2024-06-06 13:29 | XMS_ITS ---
Author Organization [facility] hussein Address [address] [place] [address] Care Team Providers Care Planning Manager Name Role Phone Tyrel YOUSSEF, Cynthia Primary Care Provider Jaye SolitarioKelly Unavailable [phone] Allergies Allergen (clinical drug ingredient) Drug/Non Drug Allergy documented on EMR Reaction Allergy Type Onset Date Status Substance with sulfonamide structure and antibacterial mechanism of action (substance) Sulfa Antibiotics Unknown Drug Allergy 06/11/2017 Active tramadol Tramadol Unknown Drug Allergy 06/11/2017 Active REASON FOR VISIT 6 month f/u, inflammatory arthritis, PCP: Dr. Cynthia Sarah [address] [facility] [address] Medications Medication SIG (Take, Route, Frequency, Duration) Notes Start Date End Date Status Probiotic Blend - as directed Orally Active Metamucil - daily oral *Pick strength-form from [employer] for eRX* Active Acetaminophen-Codeine 300-30 MG prn Oral Active Calcium Pantothenate 500 MG chew 1 tablet by oral route once Oral 1 Active Hydroxychloroquine Sulfate 200 MG TAKE 1 TABLET BY MOUTH TWICE A DAY for 90 Active Vitamin D (Ergocalciferol) 43574 UNIT Oral Active Biotin - - oral *Pick strength-form from [facility] for eRX* Active tiZANidine HCl 2 MG Oral Active ZyrTEC Allergy 10 MG Oral Active Glucosamine Sulfate 500 mg take 1 tablet by oral route once Oral 1 Active Prolia 60 MG/ML inject 1 milliliter (60 mg) by subcutaneous route every 6 months in the upper arm, upper thigh or abdomen Subcutaneous 5.55710990796192Q-4 3 Active Dulera 100-5 MCG/ACT Inhalation Active Problems Problem Type SNOMED Code ICD Code Onset Dates Problem Status W/U Status Risk Notes Problem Inflammatory arthritis (1795626) Inflammatory arthritis (M19.90) Active confirmed Vital Signs Temperature 98.0 degrees Fahrenheit 01/18/20 24 Blood pressure systolic 112 mm Hg 01/18/20 24 Blood pressure diastolic 68 mm Hg 024 Heart Rate 93 /min 01/18/2024 Height 64 in 01/18/2024 Weight 109.2 lbs 01/18/2024 BMI 18.74 kg/m2 01/18/2024 Oximetry 96 % 01/18/2024 Height-cm 162.56 cm 01/18/2024 Weight-kg 49.52 kg 01/18/2024 Encounters Encounter Location Date Provider Diagnosis [facility] [address] [facility] [address] [place] [address] 01/18/2024 Kelly Solitario Inflammatory arthrit is M19.90 [...] AM, [address], [place], [address], Progress Notes * Aric ROBERTOOB:1955 (68 yo F)Acc No.[id number]:01/18/2024 Progress Notes Patient: Josiane NAVA Provider: Jocy SOLITARIO MD :1955 A ge:68 Y S ex:Female Date:01/18/2024 Address:[address] [place], [place] [id number] Pcp:Cynthia Sarah MD Subjective: * Chief Complaints: * 6 month f/uInflammatory arthritisPCP: Dr. Cynthia Sarah [address] [facility] [address] * HPI: G eneral Follow up: serologies [...] * Surgical History: G all Bladder Surgery; 4049-30-94Thdtnbmxuknp; 2936-09-49Exhgadfwmbzxe; 7107-89-21Sslg Surgery; 7577-78-43utjpzpkarjjv partial colectomy * Hospitalization/Major Diagno stic Procedure: [...] upper arm, upper thigh or abdomen Subcutaneous 5.69416242157749D-17 ZyrTEC Allergy 10 MG Capsule Oral Calcium Pantothenate 500 MG Tablet chew 1 tablet by oral route once Oral 1 Biotin - - oral , Notes to Pharmacist: *Pick strength-form from [facility] for eRX*tiZANidine HCl 2 MG Tablet Oral Vitamin D (Ergocalciferol) 79363 UNIT Capsule Oral Acetaminophen-Codeine 300-30 MG Tablet prn Oral Metamucil - daily oral , Notes to Pharmacist: *Pick strength-form from [facility] for eRX*Hydroxychloroquine Sulfate 200 MG Tablet TAKE [...] upper arm, upper thigh or abdomen Subcutaneous 5.23375020291957F-76 Taking ZyrTEC Allergy 10 MG Capsule Oral Taking Calcium Pantothenate 500 MG Tablet chew 1 tablet by oral route once Oral 1 Taking Biotin - - oral , Notes to Pharmacist: *Pick strength-form from [facility] for eRX*Taking tiZANidine HCl 2 MG Tablet Oral Taking Vitamin D (Ergocalciferol) 41520 UNIT Capsule Oral Taking Acetaminophen-Codeine 300-30 MG Tablet prn Oral Taking Metamucil - daily oral , Notes to Pharmacist: *Pick strength-form from [facility] for eRX*Taking Hydroxychloroquine Sulfate 200 MG Tablet TAKE 1 TABLET BY MOUTH TWICE A DAY Taking Probiotic Blend - Capsule as directed Orally DiscontinuedCholestyramine powder - daily - , Notes to Pharmacist: *Reorder from [facility] for eRx and Interaction Alerts*Methotrexate Sodium 2.5 MG Tablet TAKE 4 TABLETS BY ORAL ROUTE ONCE A WEEK Folic Acid 1 MG Tablet TAKE 1 TABLET BY MOUTH EVERY DAY Medication List reviewed and reconciled with the patientDiscontinued Cholestyramine powder - daily - , Notes to Pharmacist: *Reorder from [facility] for eRx and Interaction Alerts*Discontinued Methotrexate Sodium [...] Months * Billing Information: * Visit Code: 05384 Office Visit, Est Pt., Level 4. * Procedure Codes: * PHOTO INSTALLER Sign off status: Completed true * Provider: Jocy SOLITARIO MD Date: 03/19/2023 Generated for Jacob downey/Gary/Elissa on: 0 06/06/2024 01:29 PM CDT History and Physical Notes * [...]
--- OUTSIDE RECORDS SUMMARY | 2024-06-06 13:29 | XMS_ITS | Encounter Summary ---
Author Organization [facility] Address [address] [place] [address] Care Team Providers Care Nail Feeder Name Role Phone Jess Burleson MD Primary Care Provider [phone] Encounter Details Date Type Department Care Team (Late Contact Info) Description 04/22/2002 Outpatient Historical [facility] Nicolás Arnold MD [address] [place] [address] DIARRHEA NOS (Primary Dx) Social History Tobacco Use Types Packs/Day Years Used Date Smoking Tobacco: Never Assessed Comments Unknown Sex and Gender Information Value Date Recorded Sex Assigned at Not on file Legal Sex Female 4:25 AM SKI PATROL Gender Identity Not on file Sexual Orientation Not on file documented as of this encounter Plan of Treatment Upcoming Encounters Date Type Department Care Team ([facility] Contact Info) Description 03/18/2025 11:00 AM SKI PATROL Office Visit [facility] Pulmonology [facility] [address] [place] [address] Robbie Summers MD [address] [place] [address] documented as of this encounter Visit Diagnoses Diagnosis Diarrhea- Primary documented in this encounter Additional Health Concerns Infection Onset Date Last Indicated Resolved Time R/O COVID-19 03/22/2021 03/22/2021 03/29/2021 1:16 AM SKI PATROL documented as of this encounter Care Teams Nail Feeder Relationship Specialty Start Date End Date Jess Burleson MD [address] [address] PCP - General 02/26/15 documented as of this encounter
--- OUTSIDE RECORDS SUMMARY | 2024-06-06 13:29 | XMS_ITS | Clinical Summary ---
Author Organization [facility] Address [address] [place] [address] Care Team Providers Care Electronic Game Developer Name Role Phone Elizabeth Ramos RN Unavailable Unavailab Cynthia Hale MD Primary Care Provider [phone] Latasha Nguyen MD Unavailable [phone] Allergies Active Allergy Reactions Criticality Noted Date [...] (04/26/2021): Added automatically from request for surgery [id number] Encounter for surgical after care following surgery of circulatory system 12/03/2020 Varicose veins of right lower extremity with cookie n 10/14/2020 Overview (10/14/2020): Added automatically from request for surgery [id number] Spinal enthesopathy, cervical region 02/24/2020 Gastroesophageal reflux disease 02/23/2020 Irritable bowel syndrome wit h both constipation and diarrhea 02/23/2020 Sacroiliitis (CMS/HCC) - Left 11/11/2019 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 Cont meds Going to [facility] Scoliosis 05/19/2016 Status post cervical spinal [...] Type Department Care Team Description 06/05/2024 Telephone [facility] Pain [address] [address] Janae Hale RN Pre Arrival 05/30/2024 10:22 AM CDT - 05/30/2024 11:59 PM CDT Hospital Encounter [address] [address] Latasha Nguyen MD Sacroiliitis (CMS/HCC) - Left (Primary Dx); Greater trochanteric bursitis of left hip Discharge Disposition: Discharge to home or self care 03/25/2024 8:19 AM [employer] SALES REPRESENTATIVE - 03/25/2024 11:59 PM [employer] SALES REPRESENTATIVE Hospital Encounter [address] [address] Latasha Nguyen MD Pain of left hip Discharge Disposition: Discharge to home or self care 03/21/[address] [address] Elizabeth Villarreal RN Call Back 03/21/[address] [address] Gloria Brown, ROSSANA Pre Arrival from [...] on file Legal Sex Female 12:20 AM [employer] SALES REPRESENTATIVE Gender Identity Not on file Sexual Orientation [...] 50.3 kg (111 lb) 05/09/2022 1:03 PM [employer] SALES REPRESENTATIVE Height 157.5 cm (5' 2 ) 05/09/2022 1:03 PM [employer] SALES REPRESENTATIVE Body Mass Index 20.3 05/09/2022 1:03 PM [employer] SALES REPRESENTATIVE Plan of Treatment Health Maintenance Due Date Last Done Comments Colon Cancer Screening-Colonoscopy 1955 Hepatitis B Screening 1973 Covid-19 Vaccine (3 - Pfizer risk series) 06/28/2020 05/31/2020, 05/10/2020 Osteoporosis Screening-Bone Density Scan 02/13/2021 02/13/2019, 02/13/2019, 06/23/2015 Depression Screening 02/22/2021 02/23/2020, 05/13/2019, 02/03/2019 Well Visit 65+ 2021 Breast Cancer Screening-Mammogram 11/30/2021 021, 08/07/2018 Pneumococcal vaccine 65+ (2 of 2 - PCV) 12/11/2022 12/11/2021 Fall Risk Assessment 05/30/2025 05/30/2024, 03/25/2024, 02/29/2024, Additional history exists DTaP/Tdap/Td Vaccine (2 - Td or Tdap) 06/25/2030 06/25/2020 Hepatitis C Screening Completed 07/20/2016 Zoster Vaccine Completed 10/01/2023, 05/25/2023 Influenza Vaccine Completed 10/30/2023, , 01/18/2021, Additional [...] home safety. Medical Devices Implanted Type Area Bench Boring Machine Operator Device Identifier Shelf Expiration Date Model / Serial / Lot Plate Plate Neck Screw Screw Neck [employer] Ar-2267 Manager Packaging Large Eyelet Pectoralis Button Fixation Latex Free - [id number] Implanted:Qty: 1 on 05/23/2021 by Sridhar Hernandez MD at [facility] Right: Shoulder [employer] 06/09/2025 AR-2267 / / [id number] Description:[employer] AR-2 267 ELECTRIC METER INSTALLER LARGE EYELET PECTORALIS BUTTON FIXATION LATEX FREE - [id number] Procedures Procedure Name Priority Date/Time Associated Diagnosis Comments PAIN MGMT IMAGING SHOULDER, HIP, KNEE JOINT/BURSA INJ LEFT Schedule Routine, Read Routine (OP Routine) 03/25/2024 8:55 AM [employer] SALES REPRESENTATIVE Pain of left hip DEXA AXIAL SKELETON BONE DENSITY 1 OR MORE SITES 02/13/2019 9:56 AM [employer] SALES REPRESENTATIVE SERUM HEPATITIS C AB Routine 07/20/2016 6:25 AM CDT from Last 3 Months or Most Recently Relevant to Health Maintenance Results * Imaging Shoulder, Hip, Knee Joint/Bursa INJ Left () (03/25/2024 8:55 AM [employer] SALES REPRESENTATIVE) Narrative [facility] - 03/25/2024 9:05 AM [employer] SALES REPRESENTATIVE The images from this study are not interpreted by Radiology. Please refer to the physician's procedure / OR operative note. us Latasha Nguyen MD IMG PAIN MGMT PROCEDU RES Final Result [facility] * Dexa Axial Skeleton Bone Density 1 or 2 Site (02/13/2019 9:56 AM [employer] SALES REPRESENTATIVE) Anatomical Region Laterality Modality Body N/A Radiographic Didi ging 02/13/2019 11:0 1 AM [employer] SALES REPRESENTATIVE Narrative 02/13/2019 11:04 AM [employer] SALES REPRESENTATIVE Patient Name: JOSIANE ROBERTO Dr: Nicolás Rodriguez MD D.O.B: 1955 Exam Date: 02/13/19955 Age: 63 Sex: Female MR#: [id number] Loc: RADIOLOGY REPORT Order #[id number] Bone Density Bone Density Hip/Spine (STD) Signed EXAM DESCRIPTION: Bone Density Hip/Spine (STD) REASON FOR STUDY: 63 year old postmenopausal white female with given history of screening. Bench Boring Machine Operator/Model: [id number] (S/N [id number]) CLINICAL INFORMATION: Current height: 62 inches Maximum [...] Miah Bolden M.D. RB: RICH Report ID: [id number] Reading Location: [place] [address] REPORT ELECTRONICALLY SIGNED IN OTHER VENDOR SYSTEM Resulting Agency Comment O Procedure Note Miah Bolden MD - 02/13/2019 Patient Name: JOSIANE ROBERTO Dr: Nicolás Rodriguez MD D.O.B: 1955 Exam Date: 02/13/19 0956 Age: 63 Sex: Female MR#: [id number] Loc: RADIOLOGY REPORT Order #[id number] Bone Density Bone Density Hip/Spine (STD) Signed EXAM DESCRIPTION: Bone Density Hip/Spine (STD) REASON FOR STUDY: 63 year old postmenopausal white female with givenhistory of screening. Bench Boring Machine Operator/Model: [employer] [id number] (S/N [id number]) CLINICAL INFORMATION: Current height: 62 inches Maximum [...] Miah Bolden M.D. RB: RICH Report ID: [id number] Reading Location: [place] [address] REPORT ELECTRONICALLY SIGNED IN OTHER VENDOR SYSTEM Nicolás Rodriguez MD IMG DXA PROCEDURES Final Resu lt * Serum Hepatitis C ab (07/20/2016 6:25 AM CDT) HCV ab NON-REACTI VE NON-REACTI VE CDR HISTORICAL RESULTS Hepatitis signal to cutoff ratio 0.01 <1.00 CDR HISTORICAL RESULTS Serum 07/20/2016 6:25 AM CDT Narrative CDR HISTORICAL RESULTS - 07/21/2016 10:00 AM CDT Test performed at [facility] [address] [place] [address] Director: JESUS ELIZABETH DO,MPH us Historical Provider LAB BLOOD ORDERABLES Saida murphy Result CDR HISTORICAL RESULTS from Last 3 Months or Most Recently Relevant to Health Maintenance Insurance [facility] MEDICARE ADVANTAGE [facility] MEDIC[facility] Address: [address] [address] [place] [address] [facility] MED[facility] Address: [address] [address] [place] [address] [facility] Address: [address] [address] [place] [address] Care Teams Electronic Game Developer Relationship Specialty Start Date End Date Cynthia Sarah MD PCP - General Family Medicine 12/03/20 Elizabeth Ramos, RN Registered Nurse 01/22/20 Latasha Nguyen MD [address] [place] [address] Consulting Physician Pain Management 10/01/17
--- OUTSIDE RECORDS SUMMARY | 2024-06-06 13:30 | XMS_ITS | Encounter Summary ---
Author Organization [facility] Address [address] [place] [address] Care Team Providers Care Pr Intern Name Role Phone Elizabeth Ramos RN Unavailable Unavailab Cynthia Hale MD Primary Care Provider [phone] Latasha Nguyen MD Unavailable Reason for Visit * Reason Onset Date Comments Pre Arrival 06/05/2024 Encounter Details Date Type Department Care Team (Late st Contact Info) Description 06/05/2024 Telephone [facility] [address] 1[address] [place] [address] Janae Hale RN Pre Arrival Social History Tobacco Use Types Packs/Day Years Used Date Smoking Tobacco: Former Cigarettes 973 - 2000 Smokeless Tobacco: Never Alcohol [...] on file Legal Sex Female 12:20 AM 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 [] No solid food for 6 hours; No liquids for 3 hours; Take medications with sips of water. Blood thinner: [x] Notify the office immediately if taking a new blood thinner [] Notify the office immediately if blood thinner: was not stopped on date: ____ [] No need to hold blood thinner Antibiotics: [x] Notify the office immediately if taking any antibiotics and reason why [] Yes, Antibiotic and why [] No Feeling ill/sick - Notify the office immediately If fever present in the last 24 hours. Have been exposed to anyone who is sick in the last 30 days? Have tested positive for COVID-19, Flu, or RSV within the last 10 days? Are currently waiting results from a COVID-19, Flu, or RSV test? Having any symptoms of Rash, Cough, Shortness of breath, Fever (>=100F), Body aches, Loss of taste or smell, Diarrhea or vomiting, sore throat, or Severe headache? Lab work [] Yes, Lab work is required prior to the procedure. Please arrive 1 hour early to have the following test: [] CBC [] PT/INR [x] No, Lab work required. Gas Pump Attendant Required for procedure: [] Yes [x] No [] Gas Pump Attendant Available documented in this encounter Plan of Treatment Not on [...] on stairs Contact your local community or [facility] for information on exercise, fall prevention programs, or options for improving home safety. documented as of this encounter Visit Diagnoses Not on filedocumented in this encounter Care Teams Pr Intern Relationship Specialty Start Date End Date Cynthia Sarah MD PCP - General Family Medicine 12/03/20 Elizabeth Ramos RN Registered Nurse 01/22/20 Latasha Nguyen MD [address] [place] [address] Consulting Physician Pain Management 10/01/17 documented as of this encounter
== END 2024-06-06 13:19 | disposition home or self-care (01) ==
LOC: ANHIMG 13:19
PROVIDERS: PCP Family Medicine; Visit Provider Student in an Organized Health Care Education/Training Program
DX: N63.25 Unspecified lump in the left breast, overlapping quadrants (principal)
CPT/HCPCS: 76642

== ENCOUNTER 2024-06-20 08:13 | Outpatient (CLI) | payer MEDICARE, SELFPAY ==
--- NOTE | ~2024-06-20 | CT_ITS ---
EXAMINATION: CT diagnostic chest w con DATE: 06/20/2024 08:44 INDICATION: R22.2 - Localized swelling, mass and lump, trunk TECHNIQUE: Computed tomography (CT) of the chest was performed with 100 mL Omnipaque-350 intravenous contrast. Additional 3D reconstructions utilizing coronal maximum intensity projection (MIP) were per formed. Automated exposure control and iterative reconstruction technique were employed. The dose-sachi gth product was 136.63 mGy-cm. COMPARISON: None FINDINGS: Moderate emphysema. No pneumonia, pulmonary nodules, pulmonary edema or pleural effusion. No pulmonar y embolism. Heart size is normal. No pericardial effusion. Thoracic aorta is normal in caliber with n o dissection. Multinodular goiter with a few subcentimeter likely benign bilateral thyroid nodules. N o pathologically enlarged thoracic lymphadenopathy. Cholecystectomy clips the gallbladder fossa. Sugg estion of diffuse hepatic steatosis although specificities decreased by the presence of intravenous c ontrast. Small region of cortical scarring at the mid right kidney. Mild thoracic spondylosis with ch ronic mild likely physiologic anterior wedging at T11. Partially visualized instrumented posterior sp inal fusion with bilateral vertical lorelei and pedicle screw fixation at C5-T1 and anterior spinal fusio n with plate and screw fixation at C6-C7. IMPRESSION: 1. Moderate emphysema. 2. Multinodular goiter with a 2 likely benign subcentimeter thyroid nodules. Reviewed, dictated and finalized at location B.
--- OUTSIDE RECORDS SUMMARY | 2024-06-20 08:17 | XMS_ITS | Clinical Summary ---
Author Organization [facility] Address [address] [place] [place] [address] Phone Care Team Providers Care Residential Energy Auditor Name Role Phone Jess Burleson MD Primary Care Provider [phone] Allergies Active Allergy Reactions Criticality Noted Date [...] mouth daily. Active mometasone (NASONEX) 50 mcg/actuation [place], Non-Aerosol daily. Active CALCIUM PHOSPHATE DIBAS/VIT D3 (VITAMIN D, WITH CALCIUM, ORAL) Take by mouth. Active tiZANidine (ZANAFLEX) 4 mg Tablet Take 4 mg by mouth every 6 hours as needed for Spasm. Active inhalational spacing device (MICROCHAMBER) Spacer Use with HFA inhaler. 1 Device 07/04/19 18 Active cetirizine (ZyrTEC) 10 mg tablet Take 10 mg by mouth daily. Active hydroxychloroqui ne (PLAQUENIL) 200 mg tablet Take 200 mg by mouth 2 times daily. Active acetaminophen (TYLENOL) 500 mg tablet Take 500 mg by mouth. Active flu vaccine quadrivalent 2020-, 6 mo+,,PF, (Flulaval Quad , PF,) 60 mcg (15 mcg x 4)/0.5 mL Syringe syringe Inject 0.5 mL (60 mcg) by intramuscular injection. 0.5 mL 01/18/2021 11:22 AM HIDE BUYER 01/19/20 21 Active ondansetron (ZOFRAN) 4 mg Tablet 1 Tablet. 02/23/20 22 Active fluticasone propionate (FLONASE) 50 mcg/spray [place], Suspension nasal inhaler Administer 1 [place] in each nostril. 01/20/20 Active ipratropium bromide (ATROVENT) 42 mcg (0.06 %) [place], Non-Aerosol ADMINISTER 2 SPRAYS IN EACH NOSTRIL 2 TIMES DAILY. 15 mL 2 01/02/20 23 Active albuterol sulfate HFA 90 mcg/actuation aerosol inhaler Take 1 Puff by inhalation every 6 hours as needed for Shortness of Breath or Wheezing. 8.5 Gram 3 03/13/19 25 Active Dulera 200-5 mcg/actuation inhaler USE 2 INHALATIONS BY MOUTH TWICE DAILY 39 Gram 3 05/20/19 25 Active Active Problems Problem Noted Date Diagnosed Date Asthma, chronic, mild persistent, uncomplicated 01/23/2020 Personal history of tobacco use 01/23/2020 Current chronic use of inhaled steroid 0 Gastroesophageal reflux disease 01/23/2020 Chronic allergic rhinitis due to pollen 01/23/20 Resolved Problems Problem Noted Date Diagnosed Date Resolved Date Asthma 08/22/2013 01/23/2020 Encounters Date Type Department Care Team Description 05/19/2024 External Device Data STL ABSTRACTION Provider, Abstract 05/19/2024 [facility] Pulmonology [facility] [address] [place] [address] Robbie Summers MD 04/29/2024 External Device Data STL ABSTRACTION Provider, Abstract 04/02/2024 External Device Data STL ABSTRACTION Provider, Abstract 04/01/2024 External Device Data STL ABSTRACTION Provider, Abstract 03/25/2024 External Device Data STL ABSTRACTION Provider, Abstract from Last 3 Months Immunizations Immunization Administration [...] on file Legal Sex Female 4:25 AM HIDE BUYER Gender Identity Not on file Sexual Orientation Not on file Last Filed Vital Signs Vital Sign Reading Time Taken Comments Blood Pressure 120/70 03/13/2024 10:54 AM HIDE BUYER Pulse 75 03/13/2024 10:54 AM HIDE BUYER Temperature - - Respiratory Rate 16 01/18/2021 10:22 AM HIDE BUYER Oxygen Saturation 98% 03/13/2024 10:54 AM HIDE BUYER Inhaled Oxygen Concentration - - Weight 49.9 kg (110 lb) 03/13/2024 10:54 AM HIDE BUYER Height 157.5 cm (5' 2 ) 03/13/2024 10:54 AM HIDE BUYER Body Mass Index 20.12 03/13/2024 10:54 AM HIDE BUYER Plan of Treatment Upcoming Encounters Date Type Department Care Team (Late st Contact Info) Description 03/18/2025 11:00 AM HIDE BUYER Office Visit [facility] Pulmonology [facility] [address] [place] [phone] Robbie Summers MD [address] [place] [address] Health Maintenance Due Date Last Done Comments [...] 1-dose series) 2016 BREAST CANCER SCREENING 11/30/2021 12/01/19 21, 11/30/2020, 08/07/2018 INFLUENZA VACCINE (#1) 2023 , 12/06/2017, 11/10/2016, Additional history exists OSTEOPOROSIS SCREENING Completed , 02/13/2019, 07/07/2016 Insurance [facility] [id number] RX [employer] RX Member Subscriber Plan / Payer (Ef fective 2021-Present) Name:Josiane Bardales Relation to Subscriber:Self Name:Josiane Bardales Subscriber ID:Not on file Payer ID:Not on file Group ID:[id number] Type:RX Medicare Part D Address: [address] Care Teams Residential Energy Auditor Relationship Specialty Start Date End Date Jess Burleson MD [address] [address] PCP - General 02/26/15
--- OUTSIDE RECORDS SUMMARY | 2024-06-20 08:17 | XMS_ITS | Encounter Summary ---
Author Organization [facility] Address [address] [place] [address] Care Team Providers Care Decal Applier Name Role Phone Jess Burleson MD Primary Care Provider [phone] Encounter Details Date Type Department Care Team (Late Contact Info) Description 04/22/2002 Outpatient Historical [facility] Nicolás Arnold MD [address] [place] [address] DIARRHEA NOS (Primary Dx) Social History Tobacco Use Types Packs/Day Years Used Date Smoking Tobacco: Never Assessed Comments Unknown Sex and Gender Information Value Date Recorded Sex Assigned at Not on file Legal Sex Female 4:25 AM MAT TESTER Gender Identity Not on file Sexual Orientation Not on file documented as of this encounter Plan of Treatment Upcoming Encounters Date Type Department Care Team ([facility] Contact Info) Description 03/18/2025 11:00 AM MAT TESTER Office Visit [facility] Pul[facility]ology [facility] [address] [place] [address] Robbie Summers MD [address] [place], [place] [id number] documented as of this encounter Visit Diagnoses Diagnosis Diarrhea- Primary documented in this encounter Additional Health Concerns Infection Onset Date Last Indicated Resolved Time R/O COVID-19 03/22/2021 03/22/2021 03/29/2021 1:16 AM MAT TESTER documented as of this encounter Care Teams Decal Applier Relationship Specialty Start Date End Date Jess Burleson MD [address] [address] PCP - General 02/26/15 documented as of this encounter
--- OUTSIDE RECORDS SUMMARY | 2024-06-20 08:17 | XMS_ITS | Clinical Summary ---
Author Organization [facility] Address [address] [place] [address] Care Team Providers Care Early Childhood Name Role Phone Yudy Norris MD Unavailable [phone] Solis De La Fuente MD Unavailable Cynthia Sarah MD Primary Care Provider [phone] Source Comments [facility],non-owned Affiliates and Associated Physician Practices is amultiple site organization consisting of ambulatory clinics and hospital sitesin [place], [place], [place] and [place]. This disclosure is being madepursuant to the Care Everywhere program and may not contain all information available regarding this patient. Last updated 17.[facility] Allergies Active Allergy Reactions Criticality Noted [...] file Gender Identity Female 02/23/2021 8:42 AM CHANGE MANAGEMENT FACILITATOR Sexual Orientation Not on file Last Filed [...] VACCINE (3 - season) 2023 05/31/2020, 05/10/2020 DEPRESSION SCREENING 03/12/2024 MEDICARE AWV CALENDAR YEAR 2024 INFLUENZA VACCINE (Season Ended) 2024 12/19/2021, 12/10/2017, 11/10/2016, Additional history exists MAMMOGRAM 05/15/2026 05/15/2024, 07/2023, 05/12/2022, Additional history exists BONE DENSITY [...] La Fuente MD 07/07/2016 2:45 PM SSG RESIDENT ASSISTANT CNA Elijah, Bone Density Report with VFA Pt. [...] Recently Relevant to Health Maintenance Care Teams Early Childhood Relationship Specialty Start Date End Date Cynthia Sarah MD [address] [place] [address] PCP - General Family Medicine 11/12/20 uYdy Norris MD [address] [place] [address] Family Medicine 06/16/16 Solis De La Fuente MD [address] [address] Obstetrics and Gynecology 11/11/20
--- OUTSIDE RECORDS SUMMARY | 2024-06-20 08:17 | XMS_ITS | Clinical Summary ---
Author Organization [facility] Address [address] [place] [address] Care Team Providers Care Counselor At Law Name Role Phone Unavailable Primary Care Provider [...] Vaccine ( - 2023-2 5 season) 2023 RSV Immunization or 60+ Years (1 [...]
--- OUTSIDE RECORDS SUMMARY | 2024-06-20 08:17 | XMS_ITS | Encounter Summary ---
Author Organization [facility] Address [address] [place] [address] Care Team Providers Care Bus Washer Name Role Phone Jess Burleson MD Primary Care Provider [phone] Encounter Details Date Type Department Care Team (Latest Contact Info) Description 02/20/2002 Outpatient Historical [facility] Nicolás Hedrick MD [address] [place] [address] NONINFEC GASTROENTERIT NEC (Primary Dx) Social History Tobacco Use Types Packs/Day Years Used Date Smoking Tobacco: Never Assessed Comments Unknown Sex and Gender Information Value Date Recorded Sex Assigned at Not on file Legal Sex Female 4:25 AM POLLUTION CONTROL CHEMIST Gender Identity Not on file Sexual Orientation Not on file documented as of this encounter Plan of Treatment Upcoming Encounters Date Type Department Care Team (Late st Contact Info) Description 03/18/2025 11:00 AM POLLUTION CONTROL CHEMIST Office Visit [facility] Pulmonology [facility] [address] [place] [address] Robbie Summers MD [address] [place] [address] documented as of this encounter Visit Diagnoses Diagnosis Other and unspecified noninfectious gastroenteritis and colitis(558.9)- Primary Other and unspecified noninfectious gastroenteritis and colitis documented in this encounter Additional Health Concerns Infection Onset Date Last Indicated Resolved Time R/O COVID-19 03/22/2021 03/22/2021 03/29/2021 1:16 AM POLLUTION CONTROL CHEMIST documented as of this encounter Care Teams Bus Washer Relationship Specialty Start Date End Date Jess Burleson MD [address] [address] PCP - General 02/26/15 documented as of this encounter
--- OUTSIDE RECORDS SUMMARY | 2024-06-20 08:17 | XMS_ITS | Encounter Summary ---
Author Organization [facility] Address [address] [place] [address] Care Team Providers Care Coordinator Hotels Name Role Phone Nicolás Rodriguez MD Primary Care Provider [phone] Elizabeth Ramos RN Unavailable Unavailab Cynthia Hale MD Primary Care Provider [phone] Latasha Nguyen MD Unavailable [phone] Reason for Visit * Reason Onset Date Comments PRECALL 09/08/2019 Encounter Details Date Type Department Care Team (Late st Contact Info) Description 09/08/2019 Telephone [facility] [place] [address] [facility] 1st [place] [address] Ju Lundberg RN PRECALL Social [...] on file Legal Sex Female 12:20 AM BOTTLING ATTENDANT Gender Identity Not on file Sexual Orientation Not on file documented as of this encounter Plan of Treatment Not on file documented as of this encounter Goals Goal Patient Goal Type Associated Problems Recent Progress Patient-Stated? Author CCM Chronic Pain Care Plan Chronic Care Management Improving( 11:11 AM CDT) No Allison Shannon, ROSSANA Note: Problem: Chronic Pain Goals: 1. Minimize further functional decline 2. Maximize quality of life 3. Control pain Strategies: - Activity/exercise program recommendation - Conservative stepwise pain medicine strategy with multi-disciplinary approach - Recommend healthy lifestyle strategies and compensatory methods as needed Reduce the likelihood of falling Lifestyle On track(2024 11:11 AM CDT) No Beatrice Caballero, ROSSANA Note: [...] on stairs Contact your local community or [facility] for information on exercise, fall prevention [...] documented as of this encounter Care Teams Coordinator Hotels Relationship Specialty Start Date End Date Nicolás Rodriguez MD PCP - General 08/07/17 12/02/20 Cynthia Sarah MD PCP - General Family Medicine 12/03/20 Elizabeth Ramos RN Registered Nurse 01/22/20 Latasha Nguyen MD [address] [facility] [place] [address] Consulting Physician Pain Management 10/01/17 documented as of this encounter
--- OUTSIDE RECORDS SUMMARY | 2024-06-20 08:17 | XMS_ITS | Encounter Summary ---
Author Organization [facility] Address [address] [place] [address] Care Team Providers Care Microsoft Dynamics Consultant Name Role Phone Jess Burleson MD Primary Care Provider [phone] Encounter Details Date Type Department Care Team (Late Contact Info) Description 06/10/2002 Outpatient Historical [facility] Nicolás Arnold MD [address] [place] [address] ACUTE GASTRITIS W/O HEMORRHAGE (Primary Dx) Social History Tobacco Use Types Packs/Day Years Used Date Smoking Tobacco: Never Assessed Comments Unknown Sex and Gender Information Value Date Recorded Sex Assigned at Not on file Legal Sex Female 4:25 AM PULP BLEACHER Gender Identity Not on file Sexual Orientation Not on file documented as of this encounter Plan of Treatment Upcoming Encounters Date Type Department Care Team (Late Contact Info) Description 03/18/2025 11:00 AM PULP BLEACHER Office Visit [facility] Pulmonology [facility] [address] [place] [address] Robbie Summers MD [address] [place] [address] documented as of this encounter Visit Diagnoses Diagnosis Acute gastritis without mention of hemorrhage- Primary documented in this encounter Additional Health Concerns Infection Onset Date Last Indicated Resolved Time R/O COVID-19 03/22/2021 03/22/2021 03/29/2021 1:16 AM PULP BLEACHER documented as of this encounter Care Teams Microsoft Dynamics Consultant Relationship Specialty Start Date End Date Jess Burleson MD [address] [address] PCP - General 02/26/15 documented as of this encounter
--- OUTSIDE RECORDS SUMMARY | 2024-06-20 08:17 | XMS_ITS | Encounter Summary ---
Author Organization [facility] Healthcare Address [address] [place] [address] Care Team Providers Care Marine Safety Officer Name Role Phone Nicolás Rodriguez MD Primary Care Provider [phone] Elizabeth Ramos RN Unavailable Unavailab Cynthia Hale MD Primary Care Provider [phone] Latasha Nguyen MD Unavailable [phone] Reason for Visit * Reason Onset Date Comments Pre-op Exam 12/02/2018 Encounter Details Date Type Department Care Team (Late st Contact Info) Description 12/02/2018 Telephone [facility] [address] [facility] 1st [place] [address] Yuridia Shen RN Pre-op Exam [...] on file Legal Sex Female 12:20 AM SIDE LASTER Gender Identity Not on file Sexual Orientation [...] on stairs Contact your local community or [facility] for information on exercise, fall prevention [...] documented as of this encounter Care Teams Marine Safety Officer Relationship Specialty Start Date End Date Nicolás Rodriguez MD PCP - General 08/07/17 12/02/20 Cynthia Sarah MD PCP - General Family Medicine 12/03/20 Elizabeth Ramos RN Registered Nurse 01/22/20 Latasha Nguyen MD [address] [place] [address] Consulting Physician Pain Management 10/01/17 documented as of this encounter
--- OUTSIDE RECORDS SUMMARY | 2024-06-20 08:17 | XMS_ITS | Encounter Summary ---
Author Organization [facility] Address [address] [place] [address] Care Team Providers Care Subway Operator Name Role Phone Nicolás Rodriguez MD Primary Care Provider [phone] Elizabeth Ramos RN Unavailable Unavailab Cynthia Hale MD Primary Care Provider + [phone] Latasha Nguyen MD Unavailable [phone] Reason for Visit * Reason Onset Date Comments Pre-op Exam 09/30/2018 Encounter Details Date Type Department Care Team (Late st Contact Info) Description 09/30/2018 Telephone [facility] [address] [facility] 1st [place] [address] Yuridia Shen RN Pre-op Exam [...] on file Legal Sex Female 12:20 AM CANTEEN MANAGER Gender Identity Not on file Sexual Orientation Not on file documented as of this encounter Plan of Treatment Not on file documented as of this encounter Goals Goal Patient Goal Type Associated Problems Recent Progress Patient-Stated? Author CCM Chronic Pain Care Plan Chronic Care Management Improving( 11:11 AM CDT) Allison Hawthorne, ROSSANA Note: Problem: [...] documented as of this encounter Care Teams Subway Operator Relationship Specialty Start Date End Date Nicolás Rodriguez MD PCP - General 08/07/17 12/02/20 Cynthia Sarah MD PCP - General Family Medicine 12/03/20 Elizabeth Ramos, RN Registered Nurse 01/22/20 Latasha Nguyen MD [address] [facility] [place] [address] Consulting Physician Pain Management 10/01/17 documented as of this encounter
--- OUTSIDE RECORDS SUMMARY | 2024-06-20 08:17 | XMS_ITS | Encounter Summary ---
Author Organization [facility] Address [address] [place] [address] Care Team Providers Care Risk Control Field Representative Name Role Phone Jess Burleson MD Primary Care Provider [phone] Encounter Details Date Type Department Care Team (Late Contact Info) Description 11/18/2007 Outpatient Historical [facility] Dwain Moulton MD [address] [place] [address] Personal History of Colonic Polyps Social History Tobacco Use Types Packs/Day Years Used Date Smoking Tobacco: Never Assessed Comments Unknown Sex and Gender Information Value Date Recorded Sex Assigned at Not on file Legal Sex Female 4:25 AM CELL ATTENDANT Gender Identity Not on file Sexual Orientation Not on file documented as of this encounter Plan of Treatment Upcoming Encounters Date Type Department Care Team ([facility] Contact Info) Description 03/18/2025 11:00 AM CELL ATTENDANT Office Visit [facility] Pulmonology [facility] [address] [place] [address] Robbie Summers MD [address] [place] [address] documented as of this encounter Procedures Procedure Name Priority Date/Time Associated Diagnosis Comments PATHOLOGY Routine 11/18/2007 1:27 PM CDT documented in this encounter Results * PATHOLOGY (11/18/2007 1:27 PM CDT) FINAL REPORT [facility] [address] [place], [place] [address] Patient: ZEENAT ROBERTO : 1955 Procedure Date: 11/18/2007 Accession Date: 11/18/2007 Case No: [id number] Ordering Dr: DWAIN MOULTON Case types AW, BW, FW, NW and SH are performed by [facility], [place], [place] SURGICAL PATHOLOGY & NON-GYNECOLOGIC CYTOPATHOLOGY REPORT [...] entire specimen is submitted in cassette B1. [facility] 11.18.2007 02:42 pm Microscopic: The slides are labeled [id number] and Zeenat Roberto. The sections of the [...] R/O COVID-19 03/22/2021 03/22/2021 03/29/2021 1:16 AM CELL ATTENDANT documented as of this encounter Care Teams Risk Control Field Representative Relationship Specialty Start Date End Date Jess Burleson MD [address] [address] PCP - General 02/26/15 documented as of this encounter
--- OUTSIDE RECORDS SUMMARY | 2024-06-20 08:18 | XMS_ITS | Clinical Summary ---
Author Organization [facility] Address [address] [place] [address] Care Team Providers Care Singing Messenger Name Role Phone Elizabeth Ramos RN Unavailable Unavailab Cynthia Hale MD Primary Care Provider [phone] Latasha Nguyen MD Unavailable [phone] Allergies Active Allergy Reactions Criticality Noted Date [...] (04/26/2021): Added automatically from request for surgery [id number] Encounter for surgical after care following surgery of circulatory system 12/03/2020 Varicose veins of right lower extremity with cookie n 10/14/2020 Overview (10/14/2020): Added automatically from request for surgery [id number] Spinal enthesopathy, cervical region 02/24/2020 Gastroesophageal reflux disease 02/23/2020 Irritable bowel syndrome wit h both constipation and diarrhea 02/23/2020 Sacroiliitis (CMS/HCC) - Left 11/11/2019 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, sacral and sacrococcygeal region 01/27/2019 Other chronic pain 12/03/2018 Overview (12/03/2018): Added automatically from request for surgery [id number] Greater trochanteric bursitis of left hip 2018 Myofascial pain syndrome 02/11/2018 Asthma 11/20/2017 Assessment & Plan (07/23/2018 11:49 AM CDT): Seeing Donis tapia BID Osteoporosis 11/20/2017 [facility] arthritis 10/31/2016 Cervical pain (neck) 10/31/2016 Chronic right-sided low back pain with sciatica 10/31/2016 Assessment & Plan (07/23/2018 11:46 AM CDT): Giovanny Seeing pain management, [facility] Cont meds Going to [facility] Scoliosis 05/19/2016 Status post cervical [...] Encounters Date Type Department Care Team Description 06/16/2024 10:49 AM CDT - 06/16/2024 11:59 PM CDT Hospital Encounter [facility] [address] [phone] Latasha Nguyen MD Greater trochanteric bursitis of left hip Discharge Disposition: Discharge to home or self care 06/12/[address] [address] Elizabeth Villarreal RN precall 06/09/2024 10:44 AM CDT - 06/09/2024 11:59 PM CDT Hospital Encounter [address] [address] Latasha Nguyen MD Sacroiliitis (CMS/HCC) - Left (Primary Dx); Greater trochanteric bursitis of left hip; Sacroiliitis Discharge Disposition: Discharge to home or self care 06/05/2024 Telephone [facility] [address] [address] Janae Hale, ROSSANA Pre Arrival 05/30/2024 10:22 AM CDT - 05/30/2024 11:59 PM CDT Hospital Encounter [address] [address] Latasha Nguyen MD Sacroiliitis (CMS/HCC) - Left (Primary Dx); Greater trochanteric bursitis of left hip Discharge Disposition: Discharge to home or self care 03/25/2024 8:19 AM CANNED FOOD RECONDITIONING INSPECTOR - 03/25/2024 11:59 PM CANNED FOOD RECONDITIONING INSPECTOR Hospital Encounter [facility] at [facility] [address] [facility] [address] [place] [address] Latasha Nguyen MD Pain of left hip Discharge Disposition: Discharge to home or self care from Last 3 Months Immunizations Immunization Administration [...] on file Legal Sex Female 12:20 AM CANNED FOOD RECONDITIONING INSPECTOR Gender Identity Not on file Sexual Orientation Not on file Obstetrics History Last Filed Vital Signs Vital Sign Reading Time Taken Comments Blood Pressure 159/82 06/16/2024 11:05 AM CDT Pulse 72 06/16/2024 11:05 AM CDT Temperature 36.1 C (97 F) 06/16/2024 11:05 AM CDT Respiratory Rate 18 06/16/2024 11:05 AM CDT Oxygen Saturation 98% 06/16/2024 11:05 AM CDT Inhaled Oxygen Concentration - - Weight 50.3 kg (111 lb) 05/09/2022 1:03 PM CANNED FOOD RECONDITIONING INSPECTOR Height 157.5 cm (5' 2 ) 05/09/2022 1:03 PM CANNED FOOD RECONDITIONING INSPECTOR Body Mass Index 20.3 05/09/2022 1:03 PM CANNED FOOD RECONDITIONING INSPECTOR Plan of Treatment Health Maintenance Due Date [...] - PCV) 12/11/2022 12/11/2021 Fall Risk Assessment 06/16/2025 06/16/2024, 06/09/2024, 05/30/2024, Additional history exists DTaP/Tdap/Td Vaccine (2 - [...] home safety. Medical Devices Implanted Type Area Expediter Device Identifier Shelf Expiration Date Model / Serial / Lot Plate Plate Neck Screw Screw Neck [employer] Ar-2267 Manufacturing Engineering Professor Large Eyelet Pectoralis Button Fixation Latex Free - [id number] Implanted:Qty: 1 on 05/23/2021 by Sridhar Hernandez MD at [facility] Right: Shoulder [employer] 06/09/2025 AR-2267 / / [id number] Description:[employer] AR-2 267 PIER HAND LARGE EYELET PECTORALIS BUTTON FIXATION LATEX FREE - [id number] Procedures Procedure Name Priority Date/Time Associated Diagnosis Comments PAIN MGMT IMAGING SHOULDER, HIP, KNEE JOINT/BURSA INJ LEFT Schedule Routine, Read Routine (OP Routine) 06/16/2024 11:58 AM CDT Greater trochanteric bursitis of left hip PAIN MGMT IMAGING SI JOINT LEFT Schedule Routine, Read Routine (OP Routine) 06/09/2024 11:58 AM CDT Sacroiliitis PAIN MGMT IMAGING SHOULDER, HIP, KNEE JOINT/BURSA INJ LEFT Schedule Routine, Read Routine (OP Routine) 03/25/2024 8:55 AM CANNED FOOD RECONDITIONING INSPECTOR Pain of left hip DEXA AXIAL SKELETON BONE DENSITY 1 OR MORE SITES 02/13/2019 9:56 AM CANNED FOOD RECONDITIONING INSPECTOR SERUM HEPATITIS C AB Routine 07/20/2016 6:25 AM CDT from Last 3 Months or Most Recently Relevant to Health Maintenance Results * Imaging Shoulder, Hip, Knee Joint/Bursa INJ Left () (06/16/2024 11:58 AM CDT) Narrative [facility]PACS_[facility] - 06/16/2024 12:01 PM CDT The images from this study are not interpreted by Radiology. Please refer to the physician's procedure / OR operative note. Latasha Nguyen MD [employer] [facility] [employer] PAIN MGMT PROCEDU RES Final Result Performing Organization Address [facility] Phone Number RAD_PACS[facility] * Imaging SI Joint Injection Left ([id number]) (06/09/2024 11:58 AM CDT) Narrative [facility] - 06/09/2024 12:07 PM CDT The images from this study are not interpreted by Radiology. Please refer to the physician's procedure / OR operative note. Latasha Nguyen MD [employer] [facility] [employer] PAIN MGMT PROCEDU RES Final Result Performing Organization Address [facility] Phone Number [facility] * Imaging Shoulder, Hip, Knee Joint/Bursa INJ Left ([id number]) (03/25/2024 8:55 AM CANNED FOOD RECONDITIONING INSPECTOR) Narrative [facility] - 03/25/2024 9:05 AM CANNED FOOD RECONDITIONING INSPECTOR The images from this study are not interpreted by Radiology. Please refer to the physician's procedure / OR operative note. Latasha Nguyen MD [employer] PAIN MGMT PROCEDU RES Final Result Performing Organization Address [facility] Phone Number [facility] * Dexa Axial Skeleton Bone Density 1 or 2 Site (02/13/2019 9:56 AM CANNED FOOD RECONDITIONING INSPECTOR) Anatomical Region Laterality Modality Body N/A Radiographic Didi ging 02/13/2019 11:0 1 AM CANNED FOOD RECONDITIONING INSPECTOR Narrative 02/13/2019 11:04 AM CANNED FOOD RECONDITIONING INSPECTOR Patient Name: JOSIANE ROBERTO Dr: Nicolás Rodriguez MD D.O.B: 1955 Exam Date: 02/13/19 0956 Age: 63 Sex: Female MR#: [id number] Loc: RADIOLOGY REPORT Order #[id number] Bone Density Bone Density Hip/Spine (STD) Signed EXAM DESCRIPTION: Bone Density Hip/Spine (STD) REASON FOR STUDY: 63 year old postmenopausal white female with given history of screening. Expediter/Model: [employer] A (S/N [id number]) CLINICAL INFORMATION: Current height: 62 inches Maximum [...] Miah Bolden M.D. RB: RICH Report ID: [id number] Reading Location: [id number] REPORT ELECTRONICALLY SIGNED IN OTHER VENDOR SYSTEM Resulting Agency Comment O Procedure Note Miah Bolden MD - 02/13/2019 Patient Name: JOSIANE ROBERTO Dr: Nicolás Rodriguez MD D.O.B: 1955 Exam Date: 02/13/19 0956 Age: 63 Sex: Female MR#: [id number] Loc: RADIOLOGY REPORT Order #[id number] Bone Density Bone Density Hip/Spine (STD) Signed EXAM DESCRIPTION: Bone Density Hip/Spine (STD) REASON FOR STUDY: 63 year old postmenopausal white female with givenhistory of screening. Expediter/Model: [employer] A (S/N [id number]) CLINICAL INFORMATION: Current height: 62 inches Maximum [...] Miah Bolden M.D. RB: RICH Report ID: [id number] Reading Location: [place] [address] REPORT ELECTRONICALLY SIGNED IN OTHER VENDOR SYSTEM Nicolás Rodriguez MD IMG DXA PROCEDURES Final Resu lt * Serum Hepatitis C ab (07/20/2016 6:25 AM CDT) Pathologist [facility] HCV ab NON-REACTI VE NON-REACTI VE CDR HISTORICAL RESULTS Hepatitis signal to cutoff ratio 0.01 <1.00 CDR HISTORICAL RESULTS Serum 07/20/2016 6:25 AM CDT Narrative CDR HISTORICAL RESULTS - 07/21/2016 10:00 AM CDT [facility] [address] [place] [address] Director: JESUS ELIZABETH DO,MPH us Historical Provider LAB BLOOD ORDERABLES Saida murphy Result CDR HISTORICAL RESULTS from Last 3 Months or Most Recently Relevant to Health Maintenance Insurance [facility] MEDICARE ADVANTAGE Member Subscriber Plan / Payer (Ef fective 2017-Present) Name:Josiane Roberto Relation to Subscriber:Self Name:Josiane Roberto Payer ID:[id number] (NAIC) Type:[facility] MEDICARE Address: [place] [phone] Care Teams Singing Messenger Relationship Specialty Start Date End Date Cynthia Sarah MD PCP - General Family Medicine 12/03/20 Elizabeth Ramos, RN Registered Nurse 01/22/20 Latasha Nguyen MD [address] [place] [address] Consulting Physician Pain Management 10/01/17
--- OUTSIDE RECORDS SUMMARY | 2024-06-20 08:18 | XMS_ITS | Referral Summary ---
Author Organization [facility] Address [address] [place] [address] Care Team Providers Care Gas Pumping Station Supervisor Name Role Phone Elizabeth Ramos RN Unavailable Unavailab Cynthia Hale MD Primary Care Provider [phone] Latasha Nguyen MD Unavailable Encounters Date Type Department Care Team Description 06/16/2024 10:49 AM CDT - 06/16/2024 11:59 PM CDT Hospital Encounter [address] [address] Latasha Nguyen MD Greater trochanteric bursitis of left hip Discharge Disposition: Discharge to home or self care 06/12/[address] [address] Elizabeth Villarreal RN precall 06/09/2024 10:44 AM CDT - 06/09/2024 11:59 PM CDT Hospital Encounter [address] [address] Latasha Nguyen MD Sacroiliitis (CMS/HCC) - Left (Primary Dx); Greater trochanteric bursitis of left hip; Sacroiliitis Discharge Disposition: Discharge to home or self care 06/05/[address] [address] Janae Hale RN Pre Arrival 05/30/2024 10:22 AM CDT - 05/30/2024 11:59 PM CDT Hospital Encounter [address] [address] Latasha Nguyen MD Sacroiliitis (CMS/HCC) - Left (Primary Dx); Greater trochanteric bursitis of left hip Discharge Disposition: Discharge to home or self care 03/25/2024 8:19 AM INDUSTRIAL ENGINEERING MANAGER - 03/25/2024 11:59 PM INDUSTRIAL ENGINEERING MANAGER Hospital Encounter [address] [address] Latasha Nguyen MD Pain of [...] (04/26/2021): Added automatically from request for surgery [id number] Encounter for surgical after care following surgery of circulatory system 12/03/2020 Varicose veins of right lower extremity with cookie n 10/14/2020 Overview (10/14/2020): Added automatically from request for surgery [id number] Spinal enthesopathy, cervical region 02/24/2020 Gastroesophageal reflux disease 02/23/2020 Irritable bowel syndrome wit h both constipation and diarrhea 02/23/2020 Sacroiliitis (CMS/HCC) - Left 11/11/2019 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, sacral and sacrococcygeal region 01/27/2019 Other chronic pain 12/03/2018 Overview (12/03/2018): Added automatically from request for surgery [id number] Greater trochanteric bursitis of left hip 2018 Myofascial pain syndrome 02/11/2018 Asthma 11/20/2017 Assessment & Plan (07/23/2018 11:49 AM CDT): Seeing Donis pattonera BID Osteoporosis 11/20/2017 [facility] arthritis 10/31/2016 Cervical pain (neck) 10/31/2016 Chronic right-sided low back pain with sciatica 10/31/2016 Assessment & Plan (07/23/2018 11:46 AM CDT): Giovanny Seeing pain management, [facility] Cont meds Going to [place] Scoliosis 05/19/2016 Status post cervical spinal fusion [...] on file Legal Sex Female 12:20 AM INDUSTRIAL ENGINEERING MANAGER Gender Identity Not on file Sexual [...] 50.3 kg (111 lb) 05/09/2022 1:03 PM INDUSTRIAL ENGINEERING MANAGER Height 157.5 cm (5' 2 ) 05/09/2022 1:03 PM INDUSTRIAL ENGINEERING MANAGER Body Mass Index 20.3 05/09/2022 1:03 PM INDUSTRIAL ENGINEERING MANAGER Plan of Treatment Not on file Goals Goal Patient Goal Type Associated Problems Recent Progress Patient-Stated? Author [facility] Chronic Pain Care Plan Chronic Care Management Improving( 11:11 AM CDT) No Allison Shannon, RN Note: Problem: Chronic Pain Goals: 1. [...] home safety. Medical Devices Implanted Type Area Disability Representative Device Identifier Shelf Expiration Date Model / Serial / Lot Plate Plate Neck Screw Screw Neck [employer] Ar-2267 Career Professional Large Eyelet Pectoralis Button Fixation Latex Free - [id number] Implanted:Qty: 1 on 05/23/2021 by Sridhar Hernandez MD at [facility] Right: Shoulder [employer] 06/09/2025 AR-2267 / / [id number] Description:[employer] AR-2 267 INSOLE FILLER LARGE EYELET PECTORALIS BUTTON FIXATION LATEX FREE - [id number] Procedures Procedure Name Priority Date/Time Associated Diagnosis [...] Read Routine (OP Routine) 03/25/2024 8:55 AM INDUSTRIAL ENGINEERING MANAGER Pain of left hip DEXA AXIAL SKELETON BONE DENSITY 1 OR MORE SITES 02/13/2019 9:56 AM INDUSTRIAL ENGINEERING MANAGER SERUM HEPATITIS C AB Routine 07/20/2016 6:25 AM CDT from Last 3 Months or Most Recently Relevant to Health Maintenance Results * Imaging Shoulder, Hip, Knee Joint/Bursa INJ Left () (06/16/2024 11:58 AM CDT) Narrative [facility] - 06/16/2024 12:01 PM CDT The images from this study are not interpreted by Radiology. Please refer to the physician's procedure / OR operative note. us Latasha Nguyen MD IMG PAIN MGMT PROCEDU RES Final Result RAD_[facility] * Imaging SI Joint Injection Left ([id number]) (06/09/2024 11:58 AM CDT) Narrative [facility] - 06/09/2024 12:07 PM CDT The images from this study are not interpreted by Radiology. Please refer to the physician's procedure / OR operative note. us Latasha Nguyen MD [facility] PAIN MGMT PROCEDU RES Final Result Performing Organization Address [facility] de Phone Number [facility] * Imaging Shoulder, Hip, Knee Joint/Bursa INJ Left () (03/25/2024 8:55 AM INDUSTRIAL ENGINEERING MANAGER) Narrative [facility] - 03/25/2024 9:05 AM INDUSTRIAL ENGINEERING MANAGER The images from this study are not interpreted by Radiology. Please refer to the physician's procedure / OR operative note. us Latasha Nguyen MD [facility] PAIN MGMT PROCEDU RES Final Result Performing Organization Address [facility] de Phone Number [facility] * Dexa Axial Skeleton Bone Density 1 or 2 Site (02/13/2019 9:56 AM INDUSTRIAL ENGINEERING MANAGER) Anatomical Region Laterality Modality Body N/A Radiographic Didi ging 02/13/2019 11:0 1 AM INDUSTRIAL ENGINEERING MANAGER Narrative 02/13/2019 11:04 AM INDUSTRIAL ENGINEERING MANAGER Patient Name: JOSIANE ROBERTO Dr: Nicolás Rodriguez MD D.O.B: 1955 Exam Date: 02/13/19 0956 Age: 63 Sex: Female MR#: [id number] Loc: RADIOLOGY REPORT Order #[id number] Bone Density Bone Density Hip/Spine (STD) Signed EXAM DESCRIPTION: Bone Density Hip/Spine (STD) REASON FOR STUDY: 63 year old postmenopausal white female with given history of screening. Disability Representative/Model: [employer] A (S/N [id number]) CLINICAL INFORMATION: Current height: 62 inches Maximum [...] Miah Bolden M.D. RB: RICH Report ID: [id number] Reading Location: [id number] REPORT ELECTRONICALLY SIGNED IN OTHER VENDOR SYSTEM Resulting Agency Comment O Procedure Note Miah Bolden MD - 02/13/2019 Patient Name: JOSIANE ROBERTO Dr: Nicolás Rodriguez MD D.O.B: 1955 Exam Date: 02/13/19 0956 Age: 63 Sex: Female MR#: [id number] Loc: RADIOLOGY REPORT Order #[id number] Bone Density Bone Density Hip/Spine (STD) Signed EXAM DESCRIPTION: Bone Density Hip/Spine (STD) REASON FOR STUDY: 63 year old postmenopausal white female with givenhistory of screening. Disability Representative/Model: [employer] A (S/N [id number]) CLINICAL INFORMATION: Current height: 62 inches Maximum [...] Miah Bolden M.D. RB: RICH Report ID: [id number] Reading Location: [id number] REPORT ELECTRONICALLY SIGNED IN OTHER VENDOR SYSTEM Nicolás Rodriguez MD IMG DXA PROCEDURES Final Resu lt * Serum Hepatitis C ab (07/20/2016 6:25 AM CDT) HCV ab NON-REACTI VE NON-REACTI VE CDR HISTORICAL RESULTS Hepatitis signal to cutoff ratio 0.01 <1.00 CDR HISTORICAL RESULTS Serum 07/20/2016 6:25 AM CDT Narrative CDR HISTORICAL RESULTS - 07/21/2016 10:00 AM CDT Test performed at [facility] [address] [place] [address] Director: JESUS ELIZABETH DO,MPH Historical Provider LAB BLOOD ORDERABLES Saida murphy Result CDR HISTORICAL RESULTS from Last 3 Months or Most Recently Relevant to Health Maintenance Insurance [employer] MEDICARE ADVANTAGE [facility] MEDICARE ADVANTAGE Care Teams Gas Pumping Station Supervisor Relationship Specialty Start Date End Date Cynthia Sarah MD PCP - General Family Medicine 12/03/20 Elizabeth Ramos RN Registered Nurse 01/22/20 Latasha Nguyen MD [address] [facility] [place] [address] Consulting Physician Pain Management 10/01/17
--- OUTSIDE RECORDS SUMMARY | 2024-06-20 08:18 | XMS_ITS | Encounter Summary ---
Author Organization [facility] Address [address] [place] [address] Care Team Providers Care General Manager Land Department Name Role Phone Elizabeth Ramos RN Unavailable Unavailab Cynthia Hale MD Primary Care Provider [phone] Latasha Nguyen MD Unavailable [phone] Encounter Details Date Type Department Care Team (Late st Contact Info) Description 11/29/2021 Orders Only [facility] [address] [facility] [address] [place] [address] Latasha Nguyen MD [address] [place] [address] Social History Tobacco Use Types Packs/Day Years [...] on file Legal Sex Female 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 documented as of this encounter Visit Diagnoses Not on filedocumented in this encounter Care Teams General Manager Land Department Relationship Specialty Start Date End Date Cynthia Sarah MD PCP - General Family Medicine 12/03/20 Elizabeth Ramos, ROSSANA Registered Nurse 01/22/20 Latasha Nguyen MD [address] [facility] [place] [address] Consulting Physician Pain Management 10/01/17 documented as of this encounter
[2024-06-20 08:31] LABS: Estimated Glomerular Filt Rate > 60
== END 2024-06-20 08:14 | disposition home or self-care (01) ==
LOC: ANHIMG 08:13
PROVIDERS: PCP Family Medicine; Visit Provider Student in an Organized Health Care Education/Training Program
DX: J43.9 Emphysema, unspecified (principal); E04.2 Nontoxic multinodular goiter
CPT/HCPCS: 71260; Q9967

== ENCOUNTER 2024-08-11 14:38 | Outpatient (CLI) | payer MEDICARE, SELFPAY ==
--- NOTE | ~2024-08-11 | XR_ITS ---
EXAMINATION: XR chest 2V Exam Date/Time: 08/11/2024 14:45 CDT HISTORY: R05.9 - Cough, unspecified Comparison: 08/02/2022. RESULT: Lines, tubes, and devices: Partially visualized cervical fusion hardware. The right inferior pedicle screw is fractured, which is a chronic finding. Medial right humeral shaft soft tissue anchor. Jenae cystectomy clips. Lungs and pleura: No focal consolidation, pleural effusion, or pneumothorax. Senescent/emphysematous change. Cardiomediastinal silhouette: Stable. Other: No acute osseous or upper abdominal finding. IMPRESSION: No acute cardiopulmonary process. Senescent/emphysematous change. Reviewed, dictated and finalized at location K.
== END 2024-08-11 14:39 | disposition home or self-care (01) ==
LOC: MICIMG 14:40
PROVIDERS: Visit Provider Family Medicine
DX: J43.9 Emphysema, unspecified (principal)
CPT/HCPCS: 71046

== ENCOUNTER 2024-12-25 09:06 | Outpatient (CLI) | payer MEDICARE, SELFPAY ==
--- OUTSIDE RECORDS SUMMARY | 2002-06-28 03:15 | XMS_ITS | Continuity of Care Document ---
Author Organization [facility] Address [address] [place] [address] Phone Care Team Providers Care Agitator Operator Name Role Phone Rushing OD, Ryan Unavailable Unavailable Advance Directives Directive Yes / No Effective Date File Name No Information Encounters Encounter Description Practice Location Reason(s) For Visit Diagnoses Date Provider Providers Copied on Encounter [facility], [address], [place], [place], [id number], [place] tel:[phone] [facility] [address] No Information [phone] Rushing OD Ryan. [address] , [address], [place], [address], [place]. tel:[phone] Family History Family Member Type Diagnosis Age At Onset No Information Payers Payer name Insurance type Covered libertarian ID Authoriza tion(s) [employer] SOI CI [id number] Social History Type Description Quantity Date Captured Comments Sex Female Smoking Status No Information Chief Complaint And Reason For Visit No Information Reason For Referral Reason For Referral No Information History Of Present Illness Encounter Date Complaint History Of Prese nt Illness No Information Functional Status Date Functional Assessmen t No Information Instructions Date Instruction Additional Infor mation No Information Assessments Type Assessment Date No Information Patient Care Teams Name Effective Dates (start - stop) Status Members No Information
--- NOTE | ~2024-12-25 | XR_ITS ---
EXAMINATION: XR knee RT 3V, 12/25/2024 9:20 CDT HISTORY: M25.561 - Pain in right knee, MEDIAL COMPARISON: No comparisons available. Findings: No acute fracture or malalignment. Moderate tricompartmental degenerative changes, small effusion Soft tissues unremarkable. Impression: No acute fracture or malalignment. Reviewed, dictated and finalized at location P. Impression: No acute fracture or malalignment.
--- OUTSIDE RECORDS SUMMARY | 2024-12-25 09:51 | XMS_ITS | Clinical Summary ---
Author Organization [facility] Address [address] [place] [address] Care Team Providers Care Circulation Director Name Role Phone Yudy Norris MD Unavailable [phone] Solis De La Fuente MD Unavailable [phone] Cynthia Sarah MD Primary Care Provider [phone] Source Comments [facility],non-owned Affiliates and Associated Physician Practices is amultiple site organization consisting of ambulatory clinics and hospital sitesin [place], [place], [place] and [place]. This disclosure is being madepursuant to the Care Everywhere program and may not contain all information available regarding this patient. Last updated 17.[facility] Allergies Active Allergy Reactions Criticality Noted Date Comments Cephalosporins Rash Medium 01/04/2015 Hydromorphone Other Low 10/21/2020 Makes me feel like I'm having a heart attack Sulfa Drugs Itching Medium 06/09/2013 Itching Other reaction(s): Unknown Tramadol Itching,Unknown Low 01/04/2015 Medications * Be aware that medications may not be up to date on this document. Alwaysverify current medications with the patient. polyethylene glycol 3350 (MIRALAX) powder MIX 25.5 GRAMS WITH FLUID ONCE DAILY 11 7 Active tiZANidine (ZANAFLEX) 4 MG tablet Take 4 mg by mouth 3 times daily 2 7 Active omeprazole (PRILOSEC) 40 MG capsule Take 40 mg by mouth daily before breakfast Active mometasone-form oterol (DULERA) 200-5 MCG/ACT inhaler Inhale 2 Puffs by mouth 2 times daily Active Albuterol Sulfate (VENTOLIN HFA IN) Active cetirizine (ZYRTEC ALLERGY) 10 MG tablet Take 10 mg by mouth once daily Active FLUTICASONE PROPIONATE, INHAL, IN Active Psyllium (METAMUCIL PO) Activ e VITAMIN D, CHOLECALCIFEROL , PO Active linaCLOtide (LINZESS) 145 MCG capsule 145 mcg 7 Active hydroxychloroqu ine (PLAQUENIL) 200 MG tablet TAKE 2 TABLETS BY MOUTH EVERY DAY FOR 30 DAYS 8 Active meloxicam (MOBIC) 15 MG tablet Take 15 mg by mouth once daily 8 Active Active Problems Problem Noted Date Diagnosed [...] Date Recorded PHQ2 TOTAL SCORE 0 11/12/2020 Comments No Sex and Gender Information Value Date Recorded Sex Assigned at Not on file Legal Sex Female 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 Gender Identity Female 02/23/2021 8:42 AM MOTOR REBUILDER Sexual Orientation Not on file Last Filed Vital Signs Vital Sign Reading Time Taken Comments Blood Pressure 104/64 11/12/2020 11:20 AM CDT Pulse - - Temperature - - Respiratory Rate - - Oxygen Saturation - - Inhaled Oxygen Concentration - - Weight 53.1 kg (117 lb) 11/12/2020 11:20 AM CDT Height 154.9 cm (5' 1) 11/12/2020 11:20 AM CDT Body Mass Index [...] - Risk 60-74 years 1-dose series) 2016 DEPRESSION SCREENING 03/12/2024 MEDICARE AWV CALENDAR YEAR 2024 COVID-19 VACCINE (2024- season) 2024 05/31/2020, 05/10/2020 INFLUENZA VACCINE (#1) 2024 , 12/10/2017, 11/10/2016, Additional history exists MAMMOGRAM 05/15/2026 [...] Narrative 05/15/2024 Ordered by an unspecified provider. us Scanned Document SCANNING ONLY Final Result * DEXA BONE DENSITY 2 SITES (07/07/2016 2:45 PM CDT) Anatomical Region Laterality Modality Other Narrative 07/07/2016 2:45 PM CDT Solis De La Fuente MD 07/07/2016 2:45 PM [facility] [employer], Bone Density Report with VFA Pt. Name: [...] . Assesment: normal VFA Technologist: RT Vale(R), [facility] Images will be scanned into the record. Interpreting Physician: Loraine De La Fuente us Solis De La Fuente MD DEXA ORDERABLES Final Resul t from Last 3 Months or Most Recently Relevant to Health Maintenance Insurance [facility] MANAGED MEDICARE ADV Care Teams Circulation Director Relationship Specialty Start Date End Date Cynthia Sarah MD [address] [place] [address] PCP - General Family Medicine 11/12/20 Yudy Norris MD [address] [place] [address] Family Medicine 06/16/16 Solis De La Fuente MD [address] [place] [id number] Obstetrics and Gynecology 11/11/20
--- OUTSIDE RECORDS SUMMARY | 2024-12-25 09:51 | XMS_ITS | Encounter Summary ---
Author Organization [facility] Address [address] [place] [address] Care Team Providers Care Executor Of Estate Name Role Phone Jess Burleson MD Primary Care Provider [phone] Reason for Visit * Reason Onset Date Comments Medication Refill 12/24/2024 Encounter Details Date Type Department Care Team (Late st Contact Info) Description 12/24/2024 Refill [facility] Pulmonology [facility] [address] [place] [address] Robbie Summers MD [address] [place] [address] Social History Tobacco Use Types Packs/Day Years Used Date Smoking Tobacco: Former Cigarettes Q uit: 06/09/2001 Alcohol Use Standard Drinks/Week Comments Not Asked 0 (1 standard drink = 0.6 oz pur e alcohol) Comments Unknown Sex and Gender Information Value Date Recorded Sex Assigned at Not on file Legal 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 KONSTANTIN 09/08/24, Inhaler spacer sent to the requested pharmacy. documented in this encounter Plan of Treatment Upcoming Encounters Date Type Department Care Team (Late st Contact Info) Description 03/18/2025 11:00 AM SUPERVISOR BRIAR SHOP Office Visit [facility] Pulmonology [facility] [address] [place] [address] Robbie Summers MD [address] [place], [place] [id number] documented as of this encounter Visit Diagnoses Not on filedocumented in this encounter Care Teams Executor Of Estate Relationship Specialty Start Date End Date Jess Burleson MD [address] [address] PCP - General 02/26/15 documented as of this encounter
--- OUTSIDE RECORDS SUMMARY | 2024-12-25 09:52 | XMS_ITS | Clinical Summary ---
Author Organization [facility] Address [address] [place] [address] Care Team Providers Care Blacktop Paver Operator Name Role Phone Unavailable Primary Care Provider [...] 1 - Tdap) 1975 Mammogram Screening 1996 Pneumococcal Vaccine: 50+ Ye ars (1 of 1 - PCV) 2006 Zoster Vaccines (1 of 2) 2006 Dexa Scan (General) 2021 COVID-19 Vaccine ( - 2023-2 5 season) 2024 Influenza Adult (#1) 2024 RSV Immunization or 60+ Years (1 - [...]
--- OUTSIDE RECORDS SUMMARY | 2024-12-25 09:52 | XMS_ITS | Patient Health Record ---
Author Organization [facility] Address [address], [place] [address] Care Team Providers Care Administrative Manager Name Role Phone Nicolás Rodriguez Primary Care Provider Unavailbelle Leslie JR, MD, Edward Unavailable [phone] ALLERGIES Allergen (clinical drug ingredient) Drug/Non Drug [...] right knee, initial encounter (S83.91XA) Active confirmed [id number] Problem Knee pain, right (M25.561) Active confirmed Pain of righ t knee region (finding) (706832644645778) Problem Overexertion from strenuous movement or load, initial encounter (X50.0XXA) Active confirmed 66180489 PLAN OF TREATMENT Pending Test Test Name Order Date MRI : Knee, right 02/16/2017 Insurance Providers Payer Name Payer Address Payer Phone Subscriber Number Group Number Insured Name Patient Relationship to Insured Coverage Start Date Coverage End Date UHC Medicare Complete PPO [address] [address] [place] [address] [id number] Josiane Bardales Self - patient is the insured MEDICAL (GENERAL) HISTORY Medical History History ICD Code MVP asthma acid reflux irritable bowel syndrome rheumatoid arthritis Surgical History Surgery Date(Month/Year) neck 2000 L ankle 2000 hysterectomy 2001 gallbladder Thoracic outlet syndrome Neck x's 2 foot surgery
--- OUTSIDE RECORDS SUMMARY | 2024-12-25 09:52 | XMS_ITS | Patient Health Record ---
Author Organization [facility] Address [address] [facility] [address] [facility] [address] [place] [address] Care Team Providers Care Human Resources Services Specialist Name Role Phone Cynthia Sarah MD Primary Care Provider Dominguez Cm Unavailable [phone] Allison Cole Unavailable [phone] Allergies Allergen (clinical drug ingredient) Drug/Non Drug Allergy documented on EMR Reaction Allergy Type Onset Date Status tramadol Tramadol HCl Unknown Drug Allergy Acti ve Substance with sulfonamide structure and antibacterial mechanism of action (substance) Sulfa Antibiotics rash Drug Allergy 11/17/2022 active Results Component Value Reference Range Notes CBC With Differential/Platel et Reviewed date:06/14/2024 09:40:36 AM Interpretation: Performing Lab:[facility], [address] [place] [address], Phone - [phone], Director - Ricbarrera Notes/Report: WBC 6.1 3.4-10.8 [...] Duration) Notes Start Date End Date Status Omeprazole 40 MG TAKE 1 CAPSULE BY [facility] ONCE DAILY 1/2 HOUR BEFORE MORNING MEAL for 90 Active Famotidine 40 MG TAKE 1 TABLET BY [facility] EVERY DAY FOR 30 DAYS for 90 Active Colestipol HCl 1 GM 2 tablets Orally Onc e a day for 90 days 05/07/2024 Active Immunizations Vaccine Route Administration Date [...] Problem Status W/U Status Risk Notes Problem 219189721 Esophageal obstruction (K22.2) Active confirmed Problem 584087551 Diverticulosis of large intestine without perforation or abscess without bleeding (K57.30) Active confirmed Problem 288996632 Irritable bowel syndrome with diarrhea (K58.0) Active confirmed Problem 28270920 Constipation, unspecified (K59.00) Active confirmed Problem 3920985 Melena (K92.1) Active confirmed Recently, her stools have been darker in color. Problem 26939293 Epigastric pain (R10.13) Active confirmed She has [...] peptic ulcer, gastroenteritis , or others. Problem 079935141 Nausea (R11.0) Active confirmed She has been feeling nauseated after eating, like she could vomit. Her reflux symptoms have been well controlled on pantoprazole. Problem 12120995 Dysphagia, unspecified (R13.10) Active confirmed Problem 92828742 Full incontinence of feces (R15.9) Active confirmed Suspect pelvic floor dysfunction may be contributing. Problem Polyp colon (46028134) Colon polyp (K63.5) Active confirmed Problem 95401806 Diarrhea (R19.7) Active confirmed Improve now that she is off antibiotics. She will also stop taking her probiotics as well. Problem 882311407 Bloating (R14.0) Active confirmed She has had increased abdominal bloating over the last few days. Problem 479827461 History of colon polyps (Z86.010) Active confirmed Her most re cent colonoscopy in May revealed a polyp and she was instructed to follow up in 5 years which would be in 2023. Problem 85870234 Midepigastric pain (R10.13) Active confirmed Problem Dysphagia (08382970) Dysphagia (R13.10) Active confirmed Problem 56062413 Irritable bowel syndrome with both constipation and [...] she would back down to soups. Problem 429361483 Irritable bowel syndrome with constipation (K58.1) Active confirmed Continues to be symptomatic with lower abdominal cramping. There has been no hematochezia. Problem 21484794 Abdominal cramping (R10.9) Active confirmed Problem 39335289 Irritable bowel syndrome, unspecified type (K58.9) Active confirmed She has long-standing history of irregular bowel habits. Sometimes her stools are explosive and come on urgently. Problem Bowel incontinence (47896270) Fecal incontinence (R15.9) Active confirmed Problem Anemia (709984121) Anemia (D64.9) Active confirmed Problem Internal hemorrhoids (57507694) Hemorrhoids, internal (K64.8) Active confirmed Problem 160068865 LLQ pain (R10.32) Active confirmed She has been experiencing pelvic and left lower quadrant pain over the last couple of days. She also feels the urge to urinate, but has not been able to go as much. She denies having any fevers. She has been slightly more constipated. Differential diagnosis includes diverticulitis, urinary tract infection, gastroenteritis , or others. Problem Diverticulitis (63536546) Diverticulitis (K57.92) Active confirmed Improving at this [...] of diverticulitis recently with abscess formation. Problem 445800824 History of cholecystectomy (Z90.49) Active confirmed Problem 32028966 Colitis (K52.9) Active confirmed Problem 95468083 Nausea and vomiting (R11.2) Active confirmed Problem 885616632 RUQ abdominal pain (R10.11) Active confirmed Problem 229295057 Acute diverticulitis (K57.92) Active confirmed Problem Diverticulitis of colon (668886426) Diverticulitis of colon (K57.32) Active confirmed Problem 25516059 Pelvic pain (R10.2) Active confirmed Problem 318283379 Mild acid reflux (K21.9) Active confirmed Currently controlled on Omeprazole 40 mg daily. It continues to be helpful and she gets a lot of heartburn if she is out of the medications. 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 confirmed Problem 112520122 S/P partial colectomy (Z90.49) Active confirmed Vital Signs Height 62 in 04/14/2024 Weight 108 lbs 04/14/2024 BMI 19.75 kg/m2 04/14/2024 Procedures Procedure Date Ordered Date Performed Result Body Sit e Initiate ARM 04/14/2024 N/A EGD 04/14/2024 N/A Encounters Encounter Location Date Provider Diagnosis [facility], [address] [place] [address] 04/14/2024 Allison Kelsey Upper abdominal pain R10.10 ; Dysphagia R13.10 ; Abdominal bloating R14.0 ; Fecal incontinence R15.9 and Diarrhea R19.7 [facility] [address] [place] [address] 05/07/2024 Dominguez Noel Dyspepsia R10.13 ; Diarrhea R19.7 and Bloating R14.0 [facility], [facility] [address] [facility] [place] [address] 02/05/2024 Dominguez Noel [facility], [facility] [address] [facility] [place] [address] 03/07/2024 Dominguez Noel [facility], [facility] [address] [facility] [place] [address] 04/15/2024 [facility] [address] [facility] [place] [address] 04/15/2024 [facility] [address] [facility] [place] [address] 04/18/2024 [facility] Anemia D64.9 [facility] [address] [facility] [place] [address] 05/08/2024 [facility] [address] [facility] [place] [address] 06/09/2024 [facility] [address] [facility] [place] [address] 07/08/2024 [facility] Diarrhea R19.7 Assessments Encounter Date Diagnosis (ICD Code) Assessment [...] - R19.7) 05/07/2024 Dyspepsia (ICD-10 - R10.13) 07/08/2024 Diarrhea (ICD-10 - R19.7) 05/07/2024 Bloating (ICD-10 - R14.0) 04/14/2024 Abdominal [...] Colonoscopy 12/03/2020 Colonoscopy 06/14/2022 Initiate Lactose 08/14/2018 Initiate ARM 04/14/2024 Insurance Providers Payer Name Payer Address Payer Phone Subscriber Number Group Number Insured Name Patient Relationship to Insured Coverage Start Date Coverage End Date [employer] Medicare Advantage Ppo [address] [address] [place] [address] [id number] Mynor Bardales Spouse - patient is the [...]
--- OUTSIDE RECORDS SUMMARY | 2024-12-25 09:52 | XMS_ITS | Encounter Summary ---
Author Organization [facility] Address [address] [place] [address] Care Team Providers Care Manager Labor Relations Name Role Phone Nicolás Rodriguez MD Primary Care Provider [phone] Elizabeth Ramos RN Unavailable Unavailab Cynthia Hale MD Primary Care Provider [phone] Latasha Nguyen MD Unavailable Reason for Visit * Reason Onset Date Comments PRECALL 09/08/2019 Encounter Details Date Type Department Care Team (Late st Contact Info) Description 09/08/2019 Telephone [facility] [address] [facility] 1st [place] [address] Ju Lundberg RN PRECALL Social [...] on file Legal 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 Author CCM Chronic Pain Care Plan Chronic Care Management On track(2024 8:54 AM CDT) No Allison Shannon, ROSSANA Note: Problem: Chronic Pain Goals: 1. Minimize further functional decline 2. Maximize quality of life 3. Control pain Strategies: - Activity/exercise program recommendation - Conservative stepwise pain medicine strategy with multi-disciplinary approach - Recommend healthy lifestyle strategies and compensatory methods as needed Reduce the likelihood of falling Lifestyle On track(2024 8:54 AM CDT) No Beatrice Caballero, ROSSANA Note: [...] on stairs Contact your local community or [facility] for information on exercise, fall prevention programs, [...] documented as of this encounter Care Teams Manager Labor Relations Relationship Specialty Start Date End Date Nicolás Rodriguez MD PCP - General 08/07/17 12/02/20 Cynthia Sarah MD PCP - General Family Medicine 12/03/20 Elizabeth Ramos RN Registered Nurse 01/22/20 Latasha Nguyen MD [address] [facility] [place] [place] [address] Consulting Physician Pain Management 10/01/17 documented as of this encounter
--- OUTSIDE RECORDS SUMMARY | 2024-12-25 09:52 | XMS_ITS | Encounter Summary ---
Author Organization [facility] Address [address] [place] [address] Care Team Providers Care Seamer Operator Name Role Phone Jess Burleson MD Primary Care Provider [phone] Encounter Details Date Type Department Care Team (Late Contact Info) Description 11/18/2007 Outpatient Historical [facility] Dwain Moulton MD [address] [place] [address] Personal History of Colonic Polyps Social History Tobacco Use Types Packs/Day Years Used Date Smoking Tobacco: Never Assessed Comments Unknown Sex and Gender Information Value Date Recorded Sex Assigned at Not on file Legal Sex Female 4:25 AM STATISTICAL ENGINEER Gender Identity Not on file Sexual Orientation Not on file documented as of this encounter Plan of Treatment Upcoming Encounters Date Type Department Care Team ([facility] Contact Info) Description 03/18/2025 11:00 AM STATISTICAL ENGINEER Office Visit [facility] Pulmonology [facility] [address] [place] [address] Robbie Summers MD [address] [place] [address] documented as of this encounter Procedures Procedure Name Priority Date/Time Associated Diagnosis Comments PATHOLOGY Routine 11/18/2007 1:27 PM CDT documented in this encounter Results * PATHOLOGY (11/18/2007 1:27 PM CDT) FINAL REPORT [facility] [address] [place], [place] [address] Patient: ZEENAT ROBERTO : 1955 Procedure Date: 11/18/2007 Accession Date: 11/18/2007 Case No: [id number] Ordering Dr: DWAIN MOULTON Case types AW, BW, FW, NW and SH are performed by [facility], [place], [place] SURGICAL PATHOLOGY & NON-GYNECOLOGIC CYTOPATHOLOGY REPORT [...] entire specimen is submitted in cassette B1. [facility] 11.18.2007 02:42 pm Microscopic: The slides are labeled [id number] and Zeenat Roberto. The sections of the [...] R/O COVID-19 03/22/2021 03/22/2021 03/29/2021 1:16 AM STATISTICAL ENGINEER documented as of this encounter Care Teams Seamer Operator Relationship Specialty Start Date End Date Jess Burleson MD [address] [address] PCP - General 02/26/15 documented as of this encounter
--- OUTSIDE RECORDS SUMMARY | 2024-12-25 09:52 | XMS_ITS | Encounter Summary ---
Author Organization [facility] Address [address] [place] [address] Care Team Providers Care Candle Cutter Name Role Phone Jess Burleson MD Primary Care Provider [phone] Encounter Details Date Type Department Care Team (Latest Contact Info) Description 02/20/2002 Outpatient Historical [facility] Nicolás Hedrick MD [address] [place] [address] NONINFEC GASTROENTERIT NEC (Primary Dx) Social History Tobacco Use Types Packs/Day Years Used Date Smoking Tobacco: Never Assessed Comments Unknown Sex and Gender Information Value Date Recorded Sex Assigned at Not on file Legal Sex Female 4:25 AM 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 Gender Identity Not on file Sexual Orientation Not on file documented as of this encounter Plan of Treatment Upcoming Encounters Date Type Department Care Team (Late st Contact Info) Description 03/18/2025 11:00 AM 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 Office Visit [facility]mon[facility] [address] [place] [address] Robbie Summers MD [address] [place] [address] documented as of this encounter Visit Diagnoses Diagnosis Other and unspecified noninfectious gastroenteritis and colitis(558.9)- Primary Other and unspecified noninfectious gastroenteritis and colitis documented in this encounter Additional Health Concerns Infection Onset Date Last Indicated Resolved Time R/O COVID-19 03/22/2021 03/22/2021 03/29/2021 1:16 AM 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 documented as of this encounter Care Teams Candle Cutter Relationship Specialty Start Date End Date Jess Burleson MD [address] [address] PCP - General 02/26/15 documented as of this encounter
--- OUTSIDE RECORDS SUMMARY | 2024-12-25 09:52 | XMS_ITS | Encounter Summary ---
Author Organization [facility] Address [address] [place] [address] Care Team Providers Care Air Support Control Officer Name Role Phone Nicolás Rodriguez MD Primary Care Provider [phone] Elizabeth Ramos RN Unavailable Unavailab Cynthia Hale MD Primary Care Provider [phone] Latasha Nguyen MD Unavailable Reason for Visit * Reason Onset Date Comments Pre-op Exam 09/30/2018 Encounter Details Date Type Department Care Team (Late st Contact Info) Description 09/30/2018 Telephone [facility] [address] 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 Author CCM Chronic Pain Care Plan Chronic Care Management On track(2024 8:54 AM CDT) Allison Hawthorne, ROSSANA Note: Problem: [...] documented as of this encounter Care Teams Air Support Control Officer Relationship Specialty Start Date End Date Nicolás Rodriguez MD PCP - General 08/07/17 12/02/20 Cynthia Sarah MD PCP - General Family Medicine 12/03/20 Elizabeth Ramos, RN Registered Nurse 01/22/20 Latasha Nguyen MD [address] [place] [address] Consulting Physician Pain Management 10/01/17 documented as of this encounter
--- OUTSIDE RECORDS SUMMARY | 2024-12-25 09:52 | XMS_ITS | Patient Health Record ---
Author Organization [facility] hussein Address [address] [facility] [place] [address] Care Team Providers Care Reliability Specialist Name Role Phone Cynthia Sarah MD Primary Care Provider Kelly Zurita Unavailable [phone] Allergies Allergen (clinical drug ingredient) Drug/Non Drug Allergy documented on EMR Reaction Allergy Type Onset Date Status Substance with sulfonamide structure and antibacterial mechanism of action (substance) Sulfa Antibiotics Unknown Drug Allergy 06/11/2017 Active tramadol Tramadol Unknown Drug Allergy 06/11/2017 Active Reason For Referral No Information Medications Medication SIG (Take, Route, Frequency, Duration) Notes Start Date End Date Status tiZANidine HCl 2 MG Oral Active Vitamin D (Ergocalciferol) 91096 UNIT Oral Active Biotin - - oral *Pick strength-form from IMAGINATE - Technovating Reality for eRX* Active Probiotic Blend - as directed Orally Active Dulera 100-5 MCG/ACT Inhalation Active Hydroxychloroquine Sulfate 200 MG 1 Orally daily; Duration: 90 days Active Acetaminophen-Codeine 300-30 MG prn Oral Active Metamucil - daily oral *Pick strength-form from IMAGINATE - Technovating Reality for eRX* Active ZyrTEC Allergy 10 MG Oral Active Calcium Pantothenate 500 MG chew 1 tablet by oral route once Oral 1 Active Glucosamine Sulfate 500 mg take 1 tablet by oral route once Oral 1 Active Prolia 60 MG/ML inject 1 milliliter (60 mg) by subcutaneous route every 6 months in the upper arm, upper thigh or abdomen Subcutaneous [id number]-[id number] 3 Active Problems Problem Type SNOMED Code ICD Code Onset Dates Problem Status W/U Status Risk Notes Problem Inflammatory arthritis (3071415) Inflammatory arthritis (M19.90) Active confirmed Problem Rheumatoid arthritis (26482045) Rheumatoid arthritis, unspecified (M06.9) Active confirmed Vital Signs Heart Rate 81 /min 11/06/2024 Temperature 97.7 degrees Fahrenheit 11/06/2024 Blood pressure diastolic 78 mm Hg 11/06/2024 Oximetry 95 % 11/06/2024 Height-cm 162.56 cm 11/06/2024 Weight-kg 50.08 kg 11/06/2024 Height 64 in 11/06/2024 Blood pressure systolic 102 mm Hg 11/06/2024 Weight 110.4 lbs 11/06/2024 BMI 18.95 kg/m2 11/06/2024 Encounters Encounter Location Date Provider Diagnosis [facility] [address] [place] [address] 01/18/2024 Kelly Du Inflammatory arthrit is M19.90 ; High risk medication use Z79.899 and Lumbar back pain M54.50 [facility] [address] [place] [address] 05/13/2024 Kelly Du Inflammatory arthrit is M19.90 ; High risk medication use Z79.899 and Lumbar back pain M54.50 [facility] [address] [place] [address] 11/06/2024 Kelly Du Inflammatory arthrit is M19.90 ; [...] months, advised about eye exam for plaquenil 11/06/2024 Inflammatory arthritis (ICD-10 - M19.90) stable, continue plaquenil, return in 6 months 11/06/2024 High risk medication use (ICD-10 - Z79.899) stable, continue plaquenil, return in 6 months 01/18/2024 High risk medication use (ICD-10 - [...] months, advised about eye exam for plaquenil 11/06/2024 Lumbar back pain (ICD-10 - M54.50) stable, continue plaquenil, return in 6 months Plan Of Treatment Next Appt Details Provider Name:Kelly Hua, 05/08 01:00:00 PM, [address] [facility] [address], [place], [address], Insurance Providers Payer Name Payer Address Payer Phone Subscriber Number Group Number Insured Name Patient Relationship to Insured Coverage Start Date Coverage End Date [facility] Medicare Advantage [facility] [address] [address] [place] [address] [id number] Josiane Bardales Self - patient is the insured Medical (General) History Medical History History ICD Code Asthma; Rheumatoid arthritis; Surgical History Surgery Date(Month/Year) Gall Bladder Surgery; 2017-06-11 Hysterectomy; 2017-06-11 Thoracentesis; 2017-06-11 Neck Surgery; 2017-06-11 appendectomy partial colectomy
--- OUTSIDE RECORDS SUMMARY | 2024-12-25 09:52 | XMS_ITS | Clinical Summary ---
Author Organization [facility] Address [address] [place] [address] Care Team Providers Care Customer Accounts Advisor Name Role Phone Elizabeth Ramos RN Unavailable Unavailab Cynthia Hale MD Primary Care Provider [phone] Latasha Nguyen MD Unavailable Allergies Active Allergy [...] for pain 30 tablet 04/27/19 24 Active Additional Information Patient not taking.Reported on 12/04/2024 naproxen sodium 220 mg capsule Take by mouth A ctive colestipoL (COLESTID) 1 gram tablet Take 1 tablet (1 g total) by mouth 2 (two) times a day Patient takes 1/2 tab daily Active tiZANidine (ZANAFLEX) 4 mg tablet TAKE 1 TABLET BY MOUTH EVERY 6 HOURS NEEDED FOR MUSCLE PAIN 360 tablet 1 07/09/19 25 Active Active Problems Problem Noted Date Diagnosed Date Subacromial bursitis of right shoulder joint Overview (04/26/2021): Added automatically from request for surgery [id number] Encounter for surgical after care following surgery of circulatory system 12/03/2020 Varicose veins of right lower extremity with cookie n 10/14/2020 Overview (10/14/2020): Added automatically from request for surgery [id number] Spinal enthesopathy, cervical region 02/24/2020 Gastroesophageal reflux disease 02/23/2020 Irritable bowel syndrome wit h both constipation and diarrhea 02/23/2020 Sacroiliitis (CMS/HCC) - Left 11/11/2019 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, sacral and sacrococcygeal region 01/27/2019 Other chronic pain 12/03/2018 Overview (12/03/2018): Added automatically from request for surgery [id number] Greater trochanteric bursitis of left hip 2018 Myofascial pain syndrome 02/11/2018 Asthma 11/20/2017 Assessment & Plan (07/23/2018 11:49 AM CDT): Seeing Donis tapia BID Osteoporosis 11/20/2017 [facility] arthritis 10/31/2016 Cervical pain (neck) 10/31/2016 Chronic right-sided low back pain with sciatica 10/31/2016 Assessment & Plan (07/23/2018 11:46 AM CDT): Giovanny Seeing pain management, [facility] Cont meds Going to [facility] Scoliosis 05/19/2016 Status post cervical spinal fusion [...] Encounters Date Type Department Care Team Description 12/24/2024 Telephone [facility] [address] [address] Latasha Nguyen MD Scheduling Appointments 12/04/2024 8:35 AM CDT - 12/04/2024 11:59 PM CDT Hospital Encounter [address] [address] Latasha Nguyen MD Sacroiliitis (CMS/HCC) - Left; Sacroiliitis Discharge Disposition: Discharge to home or self care 12/02/[address] [address] Opal Robert RN Pre Arrival 11/18/2024 7:44 AM CDT - 11/18/2024 11:59 PM CDT Hospital Encounter [address] [address] Latasha Nguyen MD Greater trochanteric bursitis of left hip (Primary Dx) Discharge Disposition: Discharge to home or self care 11/14/[address] [address] Shanda Cowan RN Pre Arrival 11/04/2024 7:57 AM CDT - 11/04/2024 11:59 PM CDT Hospital Encounter [facility] at [address] [address] Latasha Nguyen MD Cervical pain (neck) [M54.2] (Primary Dx); Greater trochanteric bursitis of left hip; Myalgia Discharge Disposition: Discharge to home or self care 11/03/2024 Telephone [facility] at [address] [phone] Aleksandra Mas RN taking antibiotics 10/31/2024 Telephone [facility] at [address] [phone] Aleksandra Mas RN Pre Arrival 10/27/2024 Telephone [facility] [address] [phone] Latasha Nguyen MD Scheduling Appointments 10/02/2024 Telephone [facility] at [address] [address] Latasha Nguyen MD Scheduling Appointments 09/26/2024 1:46 PM CDT - 09/26/2024 11:59 PM CDT Hospital Encounter [facility] [address] [address] Latasha Nguyen MD Pain Discharge Disposition: Discharge to home or self care 09/24/2024 Telephone [facility] [address] [phone] Opal Robert RN Pre Arrival from Last 3 Months Immunizations [...] Years Used Date Smoking Tobacco: Former Cigarettes 28 1 973 - 2000 Smokeless Tobacco: [...] on file Legal Sex 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 Gender Identity Not on file Sexual Orientation Not on file Obstetrics History Last Filed Vital Signs Vital Sign Reading Time Taken Comments Blood Pressure 143/95 12/04/2024 9:38 AM CDT Pulse 72 12/04/2024 9:38 AM CDT Temperature 36 C (96.8 F) 12/04/2024 8:54 AM CDT Respiratory Rate 16 12/04/2024 9:25 AM CDT Oxygen Saturation 96% 12/04/2024 9:38 AM CDT Inhaled Oxygen Concentration - - Weight 50.3 kg (111 lb) 05/09/2022 1:03 PM BENZENE WASHER OPERATOR Height 157.5 cm (5' 2) 05/09/2022 1:03 PM BENZENE WASHER OPERATOR Body Mass Index 20.3 05/09/2022 1:03 PM BENZENE WASHER OPERATOR Plan of Treatment Health Maintenance Due Date Last Done Comments Colon Cancer Screening-Colonoscopy 1955 Hepatitis B Screening 1974 Osteoporosis Screening-Bone Density Scan 02/13/2021 02/13/2019, 06/23/2015 Depression Screening 02/22/2021 02/23/2020, 05/13/2019, 02/03/2019 Well Visit 65+ 2021 Breast Cancer Screening-Mammogram 11/30/2021 021, 08/07/2018 Pneumococcal vaccine 65+ (2 of 2 - PCV) 12/11/2022 12/11/2021 Covid-19 Vaccine (4 - 2024-2 6 season) 2024 12/16/2020, 05/31/2020, 05/10/2020 Influenza Vaccine (#1) 2024 4, 12/11/2021, 01/18/2021, Additional history exists Fall Risk Assessment 12/04/2025 12/04/2024, 11/18/2024, 11/04/2024, Additional history exists DTaP/Tdap/Td Vaccine (2 - Td or Tdap) 06/25/2030 06/25/2020 Hepatitis C Screening Completed 07/20/2016 Zoster Vaccine Completed 10/01/2023, 05/25/2023 Goals Goal Patient Goal Type Associated Problems [...] home safety. Medical Devices Implanted Type Area Chocolate Packer Device Identifier Shelf Expiration Date Model / Serial / Lot Plate Plate Neck Screw Screw Neck [employer] Ar-2267 [employer] Large Eyelet Pectoralis Button Fixation Latex Free - [id number] Implanted:Qty: 1 on 05/23/2021 by Sridhar Hernandez MD at [facility] Right: Shoulder [employer] 06/09/2025 AR-2267 / / [id number] Description:[employer] AR-2 267 STEAMER OPERATOR LARGE EYELET PECTORALIS BUTTON FIXATION LATEX FREE - [id number] Procedures Procedure Name Priority Date/Time Associated Diagnosis Comments PAIN MGMT IMAGING SI JOINT LEFT Schedule Routine, Read Routine (OP Routine) 12/04/2024 9:35 AM CDT Sacroiliitis PAIN MGMT IMAGING SHOULDER, HIP, KNEE JOINT/BURSA INJ LEFT Schedule Routine, Read Routine (OP Routine) 11/18/2024 8:48 AM CDT Greater trochanteric bursitis of left hip PAIN MGMT IMAGING OTHER NERVE BLOCK Schedule Routine, Read Routine (OP Routine) 09/26/2024 2:31 PM CDT Pain DEXA AXIAL SKELETON BONE DENSITY 1 OR MORE SITES 02/13/2019 9:56 AM BENZENE WASHER OPERATOR SERUM HEPATITIS C AB Routine 07/20/2016 6:25 AM CDT from Last 3 Months or Most Recently Relevant to Health Maintenance Results * Imaging SI Joint Injection Left ([id number]) (12/04/2024 9:35 AM CDT) Narrative [facility] - 12/04/2024 1:00 PM CDT The images from this study are not interpreted by Radiology. Please refer to the physician's procedure / OR operative note. Latasha CHOW PAIN MGMT PROCEDU RES Final Result [email or web address] * Imaging Shoulder, Hip, Knee Joint/Bursa INJ Left ([id number]) (11/18/2024 8:48 AM CDT) Narrative [facility] - 11/18/2024 9:00 AM CDT The images from this study are not interpreted by Radiology. Please refer to the physician's procedure / OR operative note. Latasha Nguyen MD IMG PAIN MGMT PROCEDU RES Final Result Performing Organization Address City/[facility]/ZIP Co de Phone Number [email or web address] * Imaging OTHER Nerve Block ([id number]) (09/26/2024 2:31 PM CDT) Narrative [facility] - 09/26/2024 3:33 PM CDT The images from this study are not interpreted by Radiology. Please refer to the physician's procedure / OR operative note. us Latasha Nguyen MD IMG PAIN MGMT PROCEDU RES Final Result Performing Organization Address [facility] Co de Phone Number [email or web address] * Dexa Axial Skeleton Bone Density 1 or 2 Site (02/13/2019 9:56 AM BENZENE WASHER OPERATOR) Anatomical Region Laterality Modality Body N/A Radiographic Didi ging 02/13/2019 11:0 1 AM BENZENE WASHER OPERATOR Narrative 02/13/2019 11:04 AM BENZENE WASHER OPERATOR Patient Name: JOSIANE ROBERTO Dr: Nicolás Rodriguez MD D.O.B: 1955 Exam Date: 02/13/19955 Age: 63 Sex: Female MR#: [id number] Loc: RADIOLOGY REPORT Order #[id number] Bone Density Bone Density Hip/Spine (STD) Signed EXAM DESCRIPTION: Bone Density Hip/Spine (STD) REASON FOR STUDY: 63 year old postmenopausal white female with given history of screening. Chocolate Packer/Model: HoloNetatmo A (S/N [id number]) CLINICAL INFORMATION: Current height: 62 inches Maximum [...] Miah Bolden M.D. RB: RICH Report ID: [id number] Reading Location: [place] [address] REPORT ELECTRONICALLY SIGNED IN OTHER VENDOR SYSTEM Resulting Agency Comment O Procedure Note Miah Bolden MD - 02/13/2019 Patient Name: JOSIANE ROBERTO Dr: Nicolás Rodriguez MD D.O.B: 1955 Exam Date: 1955 Age: 63 Sex: Female MR#: [id number] Loc: RADIOLOGY REPORT Order #[id number] Bone Density Bone Density Hip/Spine (STD) Signed EXAM DESCRIPTION: Bone Density Hip/Spine (STD) REASON FOR STUDY: 63 year old postmenopausal white female with givenhistory of screening. Chocolate Packer/Model: [employer] Horizon A ([id number]/N [id number]) CLINICAL INFORMATION: Current height: 62 inches Maximum [...] Miah Bolden M.D. RB: RICH Report ID: [id number] Reading Location: [place] [address] REPORT ELECTRONICALLY SIGNED IN OTHER VENDOR SYSTEM Nicolás Rodriguez MD IMG DXA PROCEDURES Final Resu lt * Serum Hepatitis C ab (07/20/2016 6:25 AM CDT) HCV ab NON-REACTI VE NON-REACTI VE CDR HISTORICAL RESULTS Hepatitis signal to cutoff ratio 0.01 <1.00 CDR HISTORICAL RESULTS Serum 07/20/2016 6:25 AM CDT Narrative CDR HISTORICAL RESULTS - 07/21/2016 10:00 AM CDT Test performed at [facility] [address] [place] [address] Director: JESUS ELIZABETH DO,MPH Historical Provider LAB BLOOD ORDERABLES Saida murphy Result CDR HISTORICAL RESULTS from Last 3 Months or Most Recently Relevant to Health Maintenance Insurance [facility] Address: [facility] [address] [place] [address] [facility] Address: [address] [address] [place] [address] [facility] ADVANTAGE [facility] Address: [address] [address] [place] [address] Care Teams Customer Accounts Advisor Relationship Specialty Start Date End Date Cynthia Sarah MD PCP - General Family Medicine 12/03/20 Elizabeth Ramos, RN Registered Nurse 01/22/20 Latasha Nguyen MD [address] [facility] [place] [address] Consulting Physician Pain Management 10/01/17
--- OUTSIDE RECORDS SUMMARY | 2024-12-25 09:52 | XMS_ITS | Encounter Summary ---
Author Organization [facility] Healthcare Address [address] [place] [address] Care Team Providers Care Sales Engineering Manager Name Role Phone Elizabeth Ramos RN Unavailable Unavailab Cynthia Hale MD Primary Care Provider [phone] Latasha Nguyen MD Unavailable [phone] Reason for Visit * Reason Onset Date Comments Scheduling Appointments 12/24/2024 Encounter Details Date Type Department Care Team (Late st Contact Info) Description 12/24/2024 Telephone [facility] [address] [facility] [address] [place] [address] Latasha Nguyen MD [address] [place] [address] Scheduling Appointments Social History Tobacco Use Types Packs/Day Years Used Date Smoking Tobacco: Former Cigarettes 28 1 973 - 2001 Smokeless Tobacco: [...] on file Legal Sex Female 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 If okay Please place order for GTB, SIJI, and TPI injection, thank you ! documented in this encounter Plan of Treatment [...] Lifestyle On track(2024 8:54 AM CDT) No Beatirce Caballero, ROSSANA Note: Below are four things [...] filedocumented in this encounter Care Teams Sales Engineering Manager Relationship Specialty Start Date End Date Cynthia Sarah MD PCP - General Family Medicine 12/03/20 Elizabeth Ramos RN Registered Nurse 01/22/20 Latasha Nguyen MD [address] [facility] [place] [address] Consulting Physician Pain Management 10/01/17 documented as of this encounter
--- OUTSIDE RECORDS SUMMARY | 2024-12-25 09:52 | XMS_ITS | Patient Health Record ---
Author Organization [facility] Address [address] [place], [place] [address] Care Team Providers Care Online Communications Manager Name Role Phone CARLITOS DIALLO Unavailable [phone] Nicolás Rodriguez Unavailable Unavailable Reason For Referral No Information Medications Medication SIG (Take, Route, Frequency, Duration) Notes Start Date End Date Status 120 ACTUAT formoterol fumarate 0.005 MG/ACTUAT / mometasone furoate 0.1 MG/ACTUAT Metered Dose Inhaler [Dulera] INTRAPULMONARY 120 ACTUAT formoterol fumarate 0.005 MG/ACTUAT / mometasone furoate 0.1 MG/ACTUAT Metered Dose Inhaler [Dulera]Original [id number] ACTUAT formoterol fumarate 0.005 MG/ACTUAT / mometasone furoate 0.1 MG/ACTUA 6 Active nortriptyline 10 MG Oral Capsule ORAL nortriptyline 10 MG Oral CapsuleOriginal Medicationnortriptyline 10 MG Oral Capsule *Reorder from [employer] for eRx and Interaction Alerts* 6 Active omeprazole 20 MG Delayed Release Oral Capsule ORAL omeprazole 20 MG Delayed Release Oral CapsuleOriginal Medicationomeprazole 20 MG Delayed Release Oral Capsule *Reorder from [employer] for eRx and Interaction Alerts* 6 Active acetaminophen 300 MG / hydrocodone bitartrate 5 MG Oral Tablet ORAL acetaminophen 300 MG / hydrocodone bitartrate 5 MG Oral TabletOriginal Medicationacetaminophen 300 MG / hydrocodone bitartrate 5 MG Oral Tablet *Reorder from [employer] for eRx and Interaction Alerts* 4 Active Medrol Dosepak ORAL Medrol DosepakOr iginal MedicationMedrol Dosepak *Reorder from [facility] for eRx and Interaction Alerts* 0 Active nabumetone 500 MG Oral Tablet [Relafen] ORAL nabumetone 500 MG Oral Tablet [Relafen]Original Medicationnabumetone 500 MG Oral Tablet [Relafen] *Reorder from [facility] for eRx and Interaction Alerts* 4 Active Plan Of Treatment No Information Insurance Providers Payer Name Payer Address Payer Phone Subscriber Number Group Number Insured Name Patient Relationship to Insured Coverage Start Date Coverage End Date [facility] [address] [address] [place] [id number] ZEENAT ROBERTO Self - patient is the insured
--- OUTSIDE RECORDS SUMMARY | 2024-12-25 09:52 | XMS_ITS | Encounter Summary ---
Author Organization [facility] Address 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 Gender Identity Not on file Sexual Orientation Not on file documented as of this encounter Plan of Treatment Upcoming Encounters Date Type Department Care Team ([facility] Contact Info) Description 03/18/2025 11:00 AM POURING CRANE OPERATOR Office Visit [facility] Pulmonology [facility] [address] [place] [address] Robbie Summers MD [address] [place], [place] [phone] documented as of this encounter Visit Diagnoses Diagnosis Diarrhea- Primary documented in this encounter Additional Health Concerns Infection Onset Date Last Indicated Resolved Time R/O COVID-19 03/22/2021 03/22/2021 03/29/2021 1:16 AM POURING CRANE OPERATOR documented as of this encounter Care Teams Washing Machine Mechanic Relationship Specialty Start Date End Date Jess Burleson MD [address] [address] PCP - General 02/26/15 documented as of this encounter
--- OUTSIDE RECORDS SUMMARY | 2024-12-25 09:52 | XMS_ITS | Encounter Summary ---
Author Organization [facility] Healthcare Address [address] [place] [address] Care Team Providers Care Medication Tech Name Role Phone Nicolás Rodriguez MD Primary Care Provider [phone] Elizabeth Ramos RN Unavailable Unavailab Cynthia Hale MD Primary Care Provider [phone] Latasha Nguyen MD Unavailable [phone] Reason for Visit * Reason Onset Date Comments Pre-op Exam 12/02/2018 Encounter Details Date Type Department Care Team (Late st Contact Info) Description 12/02/2018 Telephone [facility] [address] [facility] 1[address] [place] [address] Yuridia Shen RN Pre-op Exam [...] on file Legal Sex Female 12: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 Gender Identity Not on file Sexual Orientation [...] On track(2024 8:54 AM CDT) No Beatrice Caballero RN Note: [...] on stairs Contact your local community or [facility], [place] for information on exercise, fall prevention programs, [...] documented as of this encounter Care Teams Medication Tech Relationship Specialty Start Date End Date Nicolás Rodriguez MD PCP - General 08/07/17 12/02/20 Cynthia Sarah MD PCP - General Family Medicine 12/03/20 Elizabeth Ramos RN Registered Nurse 01/22/20 Latasha Nguyen MD [address] [facility] [place] [address] Consulting Physician Pain Management 10/01/17 documented as of this encounter
--- OUTSIDE RECORDS SUMMARY | 2024-12-25 09:52 | XMS_ITS | Encounter Summary ---
Author Organization [facility] Address [address] [place] [address] Care Team Providers Care Developer Support Engineer Name Role Phone Jess Burleson MD Primary Care Provider [phone] Encounter Details Date Type Department Care Team (Late Contact Info) Description 06/10/2002 Outpatient Historical [facility] Nicolás Arnold MD [address] [place] [address] ACUTE GASTRITIS W/O HEMORRHAGE (Primary Dx) Social History Tobacco Use Types Packs/Day Years Used Date Smoking Tobacco: Never Assessed Comments Unknown Sex and Gender Information Value Date Recorded Sex Assigned at Not on file Legal Sex Female 4:25 AM BROODMARE BARN GROOM Gender Identity Not on file Sexual Orientation Not on file documented as of this encounter Plan of Treatment Upcoming Encounters Date Type Department Care Team (Late Contact Info) Description 03/18/2025 11:00 AM BROODMARE BARN GROOM Office Visit [facility] Pulmonology [facility] [address] [place] [id number] Robbie Summers MD [address] [place] [address] documented as of this encounter Visit Diagnoses Diagnosis Acute gastritis without mention of hemorrhage- Primary documented in this encounter Additional Health Concerns Infection Onset Date Last Indicated Resolved Time R/O COVID-19 03/22/2021 03/22/2021 03/29/2021 1:16 AM BROODMARE BARN GROOM documented as of this encounter Care Teams Developer Support Engineer Relationship Specialty Start Date End Date Jess Burleson MD [address] [address] PCP - General 02/26/15 documented as of this encounter
--- OUTSIDE RECORDS SUMMARY | 2024-12-25 09:52 | XMS_ITS | Clinical Summary ---
Author Organization [facility] Address [address] [place] [address] Phone Care Team Providers Care Senior Electrical Project Manager Name Role Phone Jess Burleson MD Primary Care Provider [phone] Allergies Active Allergy Reactions Criticality Noted Date [...] mouth daily. Active mometasone (NASONEX) 50 mcg/actuation [place], Non-Aerosol daily. Active CALCIUM PHOSPHATE DIBAS/VIT D3 (VITAMIN D, WITH CALCIUM, ORAL) Take by mouth. Active tiZANidine (ZANAFLEX) 4 mg Tablet Take 4 mg by mouth every 6 hours as needed for Spasm. Active cetirizine (ZyrTEC) 10 mg tablet Take 10 mg by mouth daily. Active hydroxychloroqui ne (PLAQUENIL) 200 mg tablet Take 200 mg by mouth 2 times daily. Active acetaminophen (TYLENOL) 500 mg tablet Take 500 mg by mouth. Active ondansetron (ZOFRAN) 4 mg Tablet 1 Tablet. 02/23/20 Active fluticasone propionate (FLONASE) 50 mcg/spray [place], Suspension nasal inhaler Administer 1 [place] in each nostril. 01/20/20 Active ipratropium bromide (ATROVENT) 42 mcg (0.06 %) [place], Non-Aerosol ADMINISTER 2 SPRAYS IN EACH NOSTRIL 2 TIMES DAILY. 15 mL 2 01/02/20 23 Active albuterol sulfate HFA 90 mcg/actuation aerosol inhaler Take 1 Puff by inhalation every 6 hours as needed for Shortness of Breath or Wheezing. 8.5 Gram 3 03/13/19 25 Active Dulera 200-5 mcg/actuation inhaler USE 2 INHALATIONS BY MOUTH TWICE DAILY 39 Gram 3 05/20/19 25 Active albuterol (PROVENTIL,MIKE RITIKA) 2.5 mg /3 mL (0.083 %) Solution for Nebulization Take 3 mL (2.5 mg) by inhalation every 6 hours as needed for Shortness of Breath or Wheezing. Dx: J45.50 (Asthma) 360 mL 3 08/13/19 25 Active budesonide (PULMICORT RESPULE) 0.5 mg/2 mL Suspension for Nebulization INHALE 1 VIAL MIXED WITH ALBUTEROL NEB SOLUTION TWICE A DAY X14 DAYS. DX: J45.50 (ASTHMA) ADDITIONAL AMPULES/VIALS ORDERED FOR FUTURE EXACERBATIONS 180 mL 3 11/12/19 25 Active predniSONE (DELTASONE) 10 mg tablet Take 1 Tablet (10 mg) by mouth daily. 30 Tablet 11/25/19 25 Active inhalational spacing device (Microchamber) Spacer Use with HFA inhaler 1 Each 6 12/25/19 25 Active inhalational spacing device (MICROCHAMBER) Spacer Use with HFA inhaler. 1 Device 07/04/19 18 025 Discontinu ed(Reorder ) doxycycline hyclate (VIBRAMYCIN) 100 mg tablet Take 1 Tablet (100 mg) by mouth 2 times daily for 7 days. 14 Tablet 11/25/19 25 025 Active Problems Problem Noted Date Diagnosed Date Asthma, chronic, mild persistent, uncomplicated 01/23/2020 Personal history of tobacco use 01/23/2020 Current chronic use of inhaled steroid 0 Gastroesophageal reflux disease 01/23/2020 Chronic allergic rhinitis due to pollen 01/23/20 20 Resolved Problems Problem Noted Date Diagnosed Date Resolved Date Asthma 08/22/2013 01/23/2020 Encounters Date Type Department Care Team Description 12/24/2024 Refill [facility] Pulmonology [address], [place] [address] Robbie Summers MD 11/25/2024 External Device Data STL ABSTRACTION Provider, Abstract 11/24/2024 [facility] Pulmonology [address], [place] [address] Robbie Summers MD New Prescription Request (Travel med emergency kit) 11/11/2024 External Device Data STL ABSTRACTION Provider, Abstract 11/08/2024 [facility] Pulmonology [address] [place] [address] Robbie Summers MD 10/27/2024 [facility] Pulmonology [address] [place] [phone] Robbie Summers MD medication update 10/15/2024 External Device Data STL ABSTRACTION Provider, Abstract 10/14/2024 External Device Data STL ABSTRACTION Provider, Abstract 09/30/2024 [facility] Pulmonology [address] [place] [phone] Robbie Summers MD Indomethacin update 09/24/2024 External Device Data STL ABSTRACTION Provider, Abstract 09/24/2024 External Device Data STL ABSTRACTION Provider, Abstract 09/24/2024 External Device Data STL ABSTRACTION Provider, Abstract from Last 3 Months Immunizations Immunization Administration Dates Next Due INFLUENZA VACCINE QUADRIVALENT 6 MOS UP PF IM Influenza Seasonal Unspecified Formulation IM Family History Medical History Relation Name Comments Diabetes Brother [place] Relation Name Status Comments Brother [place] Alive Social History Tobacco Use Types Packs/Day Years Used Date Smoking Tobacco: Former Cigarettes Q uit: 06/09/2001 Tobacco Cessation:Counseling Given: Not Answered Alcohol Use Standard Drinks/Week Comments Not Asked 0 (1 standard drink = 0.6 oz pur e alcohol) Comments Unknown Sex and Gender Information Value Date Recorded Sex Assigned at Not on file Legal Sex Female 4:25 AM DIVERSIONAL THERAPIST'S ASSISTANT Gender Identity Not on file Sexual Orientation Not on file Last Filed Vital Signs Vital Sign Reading Time Taken Comments Blood Pressure 108/70 09/08/2024 10:34 AM CDT Pulse 72 09/08/2024 10:34 AM CDT Temperature - - Respiratory Rate 16 01/18/2021 10:22 AM DIVERSIONAL THERAPIST'S ASSISTANT Oxygen Saturation 93% 09/08/2024 10:34 AM CDT w/o o2 Inhaled Oxygen Concentration - - Weight 50.3 kg (111 lb) 09/08/2024 10:34 AM CDT Height 157.5 cm (5' 2) 09/08/2024 10:34 AM CDT Body Mass Index 20.3 09/08/2024 10:34 AM CDT Plan of Treatment Upcoming Encounters Date Type Department Care Team (Late st Contact Info) Description 03/18/2025 11:00 AM DIVERSIONAL THERAPIST'S ASSISTANT Office Visit [facility] Pulmonology [facility] [address] [place] [phone] Robbie Summers MD [address] [place] [address] Health Maintenance Due Date Last [...] CANCER SCREENING 11/30/2021 12/01/19 21, 11/30/2020, 08/07/2018 OSTEOPOROSIS SCREENING 02/14/2024 9, 02/13/2019, 07/07/2016 Medicare Advantage (MD) Preventative Visit/Annual Wellness Visit 03/12/2024 11/12/2020, 06/18/2017, 06/16/2016 INFLUENZA VACCINE (#1) 2024 , 12/06/2017, 11/10/2016, Additional history exists Insurance [facility] [id number] RX [employer] RX Member Subscriber Plan / Payer (Ef fective 2021-Present) Name:Josiane Bardales Relation to Subscriber:Self Name:Josiane Bardales Subscriber ID:Not on file Payer ID:Not on file Group ID:[id number] Type:RX Medicare Part D Address: [address] Care Teams Senior Electrical Project Manager Relationship Specialty Start Date End Date Jess Burleson MD [address] [address] PCP - General 02/26/15
--- OUTSIDE RECORDS SUMMARY | 2024-12-25 09:52 | XMS_ITS | Encounter Summary ---
Author Organization [facility] Address [address] [place] [address] Care Team Providers Care Statistical Clerk Name Role Phone Elizabeth Ramos RN Unavailable Unavailab Cynthia Hale MD Primary Care Provider [phone] Latasha Nguyen MD Unavailable Encounter Details Date Type Department Care Team (Late st Contact Info) Description 11/29/2021 Orders Only [facility] [address] Advanced Medicine [address] [place] [address] Latasha Nguyen MD [address] [place] [address] Social History Tobacco Use Types Packs/Day Years [...] on file Legal Sex Female 12:20 AM BANDOLEER STRAIGHTENER STAMPER Gender Identity Not on file Sexual Orientation [...] on stairs Contact your local community or [facility] for information on exercise, fall prevention programs, or options for improving home safety. documented as of this encounter Visit Diagnoses Not on filedocumented in this encounter Care Teams Statistical Clerk Relationship Specialty Start Date End Date Cynthia Sarah MD PCP - General Family Medicine 12/03/20 Elizabeth Ramos, ROSSANA Registered Nurse 01/22/20 Latasha Nguyen MD [address] [facility] [place] [address] Consulting Physician Pain Management 10/01/17 documented as of this encounter
== END 2024-12-25 09:07 | disposition home or self-care (01) ==
PROVIDERS: PCP Student in an Organized Health Care Education/Training Program; Visit Provider Student in an Organized Health Care Education/Training Program
DX: M25.561 Pain in right knee (principal)
CPT/HCPCS: 73562

== ENCOUNTER 2025-03-04 04:23 | Emergency (ER) | payer MEDICARE, SELFPAY ==
--- OUTSIDE RECORDS SUMMARY | 2024-07-01 04:15 | XMS_ITS ---
Author Organization [facility] [place] Address [address] [place] [address] [address] [place] [address] Care Team Providers Care Field Installer Name Role Phone Cynthia Sarah MD Primary Care Provider Dominguez Cm Unavailable [phone] REASON FOR VISIT Fecal Incontinence Encounters Encounter Location Date Provider [facility] [address] [place] [address] 07/01/2024 Dominguez Noel Plan Of Treatment No Information Progress Notes * Mauricio ROBERTOen LDOB:[birth year] (69 yo F)Acc No.[id number]:07/01/2024 Patient: Josiane NAVA Provider: Winston Noel MD :1955 A ge:69 Y S ex:Female Date:07/01/2024 Address:[address] [facility] Pcp:Cynthia Sarah MD Subjective: * Chief Complaints: * 1 . Fecal Incontinence. * Medical History: Objective: * Vitals: Assessment: Plan: * Treatment: * * Electronic signature of Liberty Noel MD on 03/04/2025 at 07:17 AM CREDIT ASSOCIATE Sign off status: Pending * Provider: Winston Noel MD Date: 0 07/01/2024 Generated for Printi ng/Fakeng/eTransmitting on: 2024 07:17 AM CREDIT ASSOCIATE
--- NOTE | ~2025-03-04 | CT_ITS ---
EXAMINATION: CT abdomen pelvis w con DATE: 03/04/2025 08:21 INDICATION: Lower abdominal pain TECHNIQUE: Computed tomography (CT) of the abdomen and pelvis was performed with 100 mL Omnipaque-350 intravenous contrast. Automated exposure control and iterative reconstruction technique were employed. The dose-length product was 195.24 mGy-cm. COMPARISON: 06/12/2017 FINDINGS: Mild atelectasis in bilateral lower lungs. Heart size is normal. No pericardial or pleural effusion. There is reflux of contrast into the inferior vena cava and and hepatic veins consistent with tricuspid regurgitation. Cholecystectomy clips at the gallbladder fossa. A couple subcentimeter low-attenuation likely hepatic cysts. Spleen, pancreas and, bilateral adrenal glands and kidneys are normal. Change of likely prior sigmoidectomy with anastomotic suture line along the remaining short sigmoid colon. There is some fluid scattered throughout nondilated small bowel and in the proximal colon consistent with nonspecific diarrhea. No bowel obstruction or abnormal bowel wall thickening. The appendix is not visualized. No pericecal inflammatory change to suggest acute appendicitis. Bladder is normal. The uterus is not identified and has likely been surgically resected. There is a 2 cm region of fat in the deep pelvis within peripheral rim of soft tissue density which could be due to either epiploic appendagitis or fat necrosis. There is no surrounding inflammatory stranding and this is most likely chronic. No free intraperitoneal gas or fluid. No pathologically enlarged abdominal or pelvic lymphadenopathy. Mild lumbar and mild to moderate lower thoracic spondylosis. Chronic appearing mild anterior wedging at T11. IMPRESSION: 1. Fluid scattered throughout nondilated small bowel and proximal colon consistent with nonspecific diarrhea. Correlate clinically for possible gastroenteritis. Reviewed, dictated and finalized at location A. LY CHAIN TECH IMPRESSION: 1. Fluid scattered throughout nondilated small bowel and proximal colon consist ent with nonspecific diarrhea. Correlate clinically for possible gastroenteriti s.
[2025-03-04 04:24] VITALS: BP 143/96; PULSE 101; RESP 18; TEMP 36.4; O2SAT 99
[2025-03-04 04:42] LABS: Hematocrit 48.4 % (37.0-47.0); Hemoglobin 16.3 g/dL (12.0-15.0); Immature Granulocyte Percent A 0.4 % (0-0.5); Lymphocytes Absolute Auto 0.78 K/mm3 (0.9-3.2); Mean Corpuscular HGB Conc 33.7 g/dl (32-36); Mean Corpuscular Hemoglobin 28.6 pg (26-34); Mean Corpuscular Volume 84.9 fl (80-100); Nucleated Red Blood Cells Absolute Auto 0.000 K/mm3 (0.0-0.012); Nucleated Red Blood Cells Perc 0.0 % (0.0-0.2); Platelet Count Result 251 k/mm3 (150-375); Red Blood Count 5.70 M/mm3 (4.2-5.4); White Blood Count 12.4 K/mm3 (4.5-10.0)
[2025-03-04 04:55] LABS: Alanine Aminotransferase 22 U/L (6-35); Albumin Level 4.8 g/dL (3.5-5.1); Alkaline Phosphatase 62 U/L (38-126); Anion Gap 7 mmol/L (4-12); Aspartate Amino Transferase 30 U/L (14-36); Bilirubin,Total 0.8 mg/dL (0.2-1.3); Blood Urea Nitrogen 19 mg/dL (7-17); Calcium 10.0 mg/dL (8.4-10.2); Carbon Dioxide 29 mmol/L (22-30); Chloride 101 mmol/L (98-107); Estimated CRCL calculation 49 ml/min; Estimated Glomerular Filt Rate > 60; Glucose 112 mg/dL (65-110); Lipase 152 U/L (23-300); Potassium 3.7 mmol/L (3.4-5.0); Sodium 137 mmol/L (137-145); Total Protein 8.1 g/dL (6.3-8.2)
[2025-03-04 05:17] LABS: Influenza A QL RT-PCR Negative (Negative); Influenza B QL RT-PCR Negative (Negative); RSV RNA, RT-PCR Negative (Negative); SARS-CoV-2 RNA PCR Negative (Negative)
[2025-03-04 07:02] VITALS: BP 142/100; PULSE 84; RESP 14; O2SAT 98
[2025-03-04 07:16] VITALS: BP 146/89; PULSE 85; RESP 14; O2SAT 97
--- OUTSIDE RECORDS SUMMARY | 2025-03-04 07:17 | XMS_ITS | Clinical Summary ---
Author Organization [facility] Address [address] [place] [address] Care Team Providers Care Applications Manager Name Role Phone Yudy Norris MD Unavailable [phone] Solis De La Fuente MD Unavailable [phone] Cynthia Sarah MD Primary Care Provider [phone] Source Comments [facility],non-owned Affiliates and Associated Physician Practices is amultiple site organization consisting of ambulatory clinics and hospital sitesin [place], [place], [place] and [place]. This disclosure is being madepursuant to the Care Everywhere program and may not contain all information available regarding this patient. Last updated 17.[facility] Allergies Active Allergy Reactions Criticality Noted Date [...] on file Legal Sex Female 6:25 AM INSTALLATION AND SERVICE TECHNICIAN Gender Identity Female 02/23/2021 8:42 AM INSTALLATION AND SERVICE TECHNICIAN Sexual Orientation Not on file Last Filed [...] 50+ (1 of 2 - PCV) 1975 Respiratory Syncytial Virus (RSV) Vaccine Pt: or over 60 yrs (1 - Risk 50-74 years 1-dose series) 2006 ZOSTER VACCINE (1 of 2) 2006 DEPRESSION SCREENING 03/12/2024 MEDICARE AWV CALENDAR YEAR 2024 COVID-19 VACCINE ( season) 2024 05/31/2020, 05/10/2020 INFLUENZA VACCINE (#1) [...] La Fuente MD 07/07/2016 2:45 PM [facility] CHEF MANAGER Elijah, Bone Density Report with VFA [...] . Assesment: normal VFA Technologist: RT Vale(R), [facility] Images will be scanned into the record. Interpreting Physician: Loraine De La Feunte us Solis De La Fuente MD DEXA ORDERABLES Final Resul t from Last 3 Months or Most Recently Relevant to Health Maintenance Insurance [facility] MEDICARE ADV Care Teams Applications Manager Relationship Specialty Start Date End Date Cynthia Sarah MD [address] [place] [address] PCP - General Family Medicine 11/12/20 Yudy Norris MD [address] [place] [address] Family Medicine 06/16/16 Solis De La Fuente MD [address] [place] [phone] Obstetrics and Gynecology 11/11/20
--- OUTSIDE RECORDS SUMMARY | 2025-03-04 07:18 | XMS_ITS | Encounter Summary ---
Author Organization [facility] Address [address] [place] [address] Care Team Providers Care Warehouse Driver Name Role Phone Jess Burleson MD Primary Care Provider [phone] Encounter Details Date Type Department Care Team (Latest Contact Info) Description 02/20/2002 Outpatient Historical [facility] Nicolás Hedrick MD [address] [place] [address] NONINFEC GASTROENTERIT NEC (Primary Dx) Social History Tobacco Use Types Packs/Day Years Used Date Smoking Tobacco: Never Assessed Comments Unknown Sex and Gender Information Value Date Recorded Sex Assigned at Not on file Legal Sex Female 4:25 AM SUPERINTENDENT PLANT Gender Identity Not on file Sexual Orientation Not on file documented as of this encounter Plan of Treatment Upcoming Encounters Date Type Department Care Team (Late st Contact Info) Description 03/18/2025 11:00 AM SUPERINTENDENT PLANT Office Visit [facility] Pulmonology [facility] [address] [place] [address] Robbie Summers MD [address] [place] [address] documented as of this encounter Visit Diagnoses Diagnosis Other and unspecified noninfectious gastroenteritis and colitis(558.9)- Primary Other and unspecified noninfectious gastroenteritis and colitis documented in this encounter Additional Health Concerns Infection Onset Date Last Indicated Resolved Time R/O COVID-19 03/22/2021 03/22/2021 03/29/2021 1:16 AM SUPERINTENDENT PLANT documented as of this encounter Care Teams Warehouse Driver Relationship Specialty Start Date End Date Jess Burleson MD [address] [address] PCP - General 02/26/15 documented as of this encounter
--- OUTSIDE RECORDS SUMMARY | 2025-03-04 07:18 | XMS_ITS | Clinical Summary ---
Author Organization [facility] Address [address] [place] [address] Care Team Providers Care Cloth Picker Name Role Phone Elizabeth Ramos RN Unavailable Unavailab Cynthia Hale MD Primary Care Provider [phone] Latasha Nguyen MD Unavailable Allergies Active Allergy [...] Active Additional Information Patient not taking.Reported on 02/25/2025 naproxen sodium 220 mg capsule Take by mouth A ctive colestipoL (COLESTID) 1 gram tablet Take 1 tablet (1 g total) by mouth 2 (two) times a day Patient takes 1/2 tab daily Active tiZANidine (ZANAFLEX) 4 mg tablet Take 1 tablet (4 mg total) by mouth every 6 (six) hours as needed for muscle spasms 360 tablet 1 11/10 026 Active Active Problems Problem Noted Date Diagnosed Date Subacromial bursitis of right shoulder joint Overview (04/26/2021): Added automatically from request for surgery [id number] Encounter for surgical after care following surgery of circulatory system 12/03/2020 Varicose veins of right lower extremity with cookie n 10/14/2020 Overview (10/14/2020): Added automatically from request for surgery [id number] Spinal enthesopathy, cervical region 02/24/2020 Gastroesophageal reflux disease 02/23/2020 Irritable bowel syndrome wit h both constipation and diarrhea 02/23/2020 Sacroiliitis (CMS/HCC) - Left 11/11/2019 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, sacral and sacrococcygeal region 01/27/2019 Other chronic pain 12/03/2018 Overview (12/03/2018): Added automatically from request for surgery [id number] Greater trochanteric bursitis of left hip 2018 Myofascial pain syndrome 02/11/2018 Asthma 11/20/2017 Assessment & Plan (07/23/2018 11:49 AM CDT): Seeing Donis tapia BID Osteoporosis 11/20/2017 [facility] arthritis 10/31/2016 Cervical pain (neck) 10/31/2016 Chronic right-sided low back pain with sciatica 10/31/2016 Assessment & Plan (07/23/2018 11:46 AM CDT): Giovanny Seeing pain management, [facility] Cont meds Going to [place] Scoliosis 05/19/2016 [...] Encounters Date Type Department Care Team Description 02/25/2025 10:27 AM SECOND CRUSHER - 02/25/2025 11:59 PM SECOND CRUSHER Hospital Encounter [facility] Pain [address] [phone] Latasha Nguyen MD Trochanteric bursitis of left hip Discharge Disposition: Discharge to home or self care 02/23/[address] [phone] Elizabeth Villarreal RN precall 02/18/2025 7:55 AM SECOND CRUSHER - 02/18/2025 11:59 PM SECOND CRUSHER Hospital Encounter [facility] at [address] [phone] Lumbar radiculopathy Discharge Disposition: Discharge to home or self care 02/11/2025 9:00 AM SECOND CRUSHER - 02/11/2025 11:59 PM SECOND CRUSHER Hospital Encounter [address] [phone] Latasha Nguyen MD Lumbar radiculopathy (Primary Dx); Myalgia Discharge Disposition: Discharge to home or self care 12/24/[address] [phone] Latasha Nguyen MD Scheduling Appointments 12/04/2024 8:35 AM CDT - 12/04/2024 11:59 PM CDT Hospital Encounter [facility] [address] [facility] [address] [place] [address] Latasha Nguyen MD Sacroiliitis (CMS/HCC) - Left; [...] on file Legal Sex Female 12:20 AM SECOND CRUSHER Gender Identity Not on file Sexual Orientation Not on file Last Filed Vital Signs Vital Sign Reading Time Taken Comments Blood Pressure 145/95 02/25/2025 10:40 AM SECOND CRUSHER Pulse 74 02/25/2025 10:40 AM SECOND CRUSHER Temperature 36.9 C (98.5 F) 02/25/2025 10:40 AM SECOND CRUSHER Respiratory Rate 18 02/25/2025 10:40 AM SECOND CRUSHER Oxygen Saturation 97% 02/25/2025 10:40 AM SECOND CRUSHER Inhaled Oxygen Concentration - - Weight 50.3 kg (111 lb) 05/09/2022 1:03 PM SECOND CRUSHER Height 157.5 cm (5' 2) 05/09/2022 1:03 PM SECOND CRUSHER Body Mass Index 20.3 05/09/2022 1:03 PM SECOND CRUSHER Plan of Treatment Health Maintenance Due Date [...] 12/16/2020, 05/31/2020, 05/10/2020 Influenza Vaccine (#1) 2024 , 12/11/2021, 01/18/2021, Additional history exists Fall Risk Assessment 02/25/2026 02/25/2025, 02/11/2025, 12/04/2024, Additional history exists DTaP/Tdap/Td Vaccine (2 - Td or Tdap) 06/25/2030 06/25/2020 Hepatitis C Screening Completed 07/20/2016 Zoster Vaccine Completed 10/01/2023, 05/25/2023 Goals Goal Patient Goal Type Associated Problems Recent Progress Patient-Stated? Author CCM Chronic Pain Care Plan Chronic Care Management On track(2024 9:10 AM SECOND CRUSHER) Allison Hawthorne, ROSSANA Note: Problem: Chronic Pain [...] home safety. Medical Devices Implanted Type Area Futures Trader Device Identifier Shelf Expiration Date Model / Serial / Lot Plate Plate Neck Screw Screw Neck [employer] Ar-2267 Lens Generating Machine Tender Large Eyelet Pectoralis Button Fixation Latex Free - [id number] Implanted:Qty: 1 on 05/23/2021 by Sridhar Hernandez MD at [facility] Right: Shoulder [employer] 06/09/2025 AR-2267 / / [id number] Description:[employer] AR-2 267 PERSONNEL RECORDS CLERK LARGE EYELET PECTORALIS BUTTON FIXATION LATEX FREE - [id number] MRI Conditional 1.5T and 3T. Normal Operating Mode Max MEGHAN: 2W/kg Scan Duration: 2W/kg whole-body average MEGHAN for 60 minutes of continuous RF (a sequence or back to back series/scan without breaks) DFU website below, accessed 02/16/2025 @ 1245 [email or web address].pdf?fabgldpc-bfyquxu-tgpuvbxruhr=filename%3D%[email or web address]-CWp 0_fmt _en.pdf%22&fqjkdsbk-gasuukt-jszw=application%2Fpdf&V-Ujs-Jhickduy-Token=NKqOp5Wy Z2luX 2VjEOP%2F%2F%2F%2F%2F%2F%2F%2F%2F%1LaHqSPW9WJyog4CmQUEFISCUOKHZeC4J5apPKSDX%2FnJ QFSU1 Au%8PRJA0smkjjA0QIruqQMxStAOq%6DLQNkOscie9lyNAh8xbkj7BhcN7RIImr1eE9PQM1ARaXCHVo% 2F%2F %2F%2F%2F%2F%2F%2F%2F%5ThVPVBjOJXFbOVT9NuL7QuWmLynCTY8ctAJJIx61JVvcqJZFpiqroGP1I g5nZi Xj%7REMsXysFw5Yyk%2PoHOBuMuBbC1nqZWiiU6%8F4cAMBIfo5oerB1%8RXHdXtZPlQdlKV8155LI%2 BBmRr V%7QniNMOUPmIJhmUxeV4phzOwmx2%3JmNo20lSdBmpkuTuVNGzf2A18L%1KC5iSySAJJ6AZTcTG4brE ZD2Co PYn893SbKj7cJPF6OpZwRHRZofG6ljC9jk1ABpYdMhDWkncDinFEi3sBFS1boN%6FtJ0ucLP6Qi84i6j Z0hzL ovgl8x%4LWIiawNAWRzWp5%4M0vXif%3WQHxwRp28JxDNXCZ4%4DuFBqw9PC3CWgkLdvxb81b1gPbM2a B1Jpt fHb12zchiMy8sLoVAaBfuQQts76CGTC8%2FAKn%0SdX8gOGZiBx1%5SyPEgylQIv81OgJ%2FF%2BaiIJ 56R2v T%1PjaLcbyvJBwHObQdJY0KUt4ii%2BMt6E%2BRPZMuQpw%1HOIqcAYGqYAZ3J%2Bdu0%8NO5Dp2MhIl 3PrzB 5OO%2B%9U6DB5KKgeI8BCjU%3WzXT04qYzRrdxvkvDJno%2FnuhXJLXLIceSMzySiTy%5ZLhr5WkqCfZ DHh3m uoOPUeeWLQtPxSE8yN2xetLx5iVUpZI6CW5wZVJEUvhVB7KB67E0XJpzT%7K30iidujqtG%5Mit5apy8 n1v3E 4i9V29ku0241gC5mA4omS4TKMNoykbvyOqkNU7n0jqv%0Uj7P1xGent7gaPxC8wiJnCZqY49BIryBF00 pxv0E DpOq95usriecE77yqlYZC150CrWG5tKXoJNBm3YtppioppJ6Ibb9rUzTOBT3rbwOs2e3IfoJw4ejgpzY GAwlx xqCJqNKck1cKeGTqi5b3A1DWcGew54%4RGAXtJ9b0XfxjKfVG35K7wXUk%1C0kt7d5bmxoKQv0KqH54q 9NICL C0VUBpw2BzLGaACgCl5AaBL0s5bplI9cyHom8HQF0RFv52OuTnoiwbKN4xMYYPnlRWTZQrbu4221jPtW JbvVe KVS2stWs7MRaFFFpG7l%2BA%8JrdeTb4alI%7Yh52fX2BKNIvyqt4d42C3E5E00i%2BuiwMaWsCNCvPm TbwsQ tz%2NOxnsJ59Mqw8TO7EP3RyqaEDUDblFTW9SSKPAAXu1JLzK2YZ%2RGuyvn2r%4JNOZDIhyHxZj425P 566Kt sFlkwP7sl%3D&W-Kqe-Kkgdvcjpu=RCD5-PQDD-BEM652&X-Amz-Ajqi=[id number]&X-Amz- [place] dHeaders=host&I-Xqb-Facsqnlbba=LEOE9LJ2LBD8J5X2NZTN%[id number]%2Feu-west-1%2Fs3% 2Faws 4_request&E-Kks-Repuzql=21600&Q-Gyp-DersdvzikTbzdahdwn=[id number] aaa8a 9nux3r130dz0196fk0z09x12h Procedures Procedure Name Priority Date/Time Associated Diagnosis Comments PAIN MGMT IMAGING SHOULDER, HIP, KNEE JOINT/BURSA INJ LEFT Schedule Routine, Read Routine (OP Routine) 02/25/2025 11:04 AM SECOND CRUSHER Trochanteric bursitis of left hip MRI LUMBAR SPINE WO CONTRAST Schedule Routine, Read Routine (OP Routine) 02/18/2025 8:31 AM SECOND CRUSHER Lumbar radiculopathy PAIN MGMT IMAGING SI JOINT LEFT Schedule Routine, Read Routine (OP Routine) 12/04/2024 9:35 AM CDT Sacroiliitis DEXA AXIAL SKELETON BONE DENSITY 1 OR MORE SITES 02/13/2019 9:56 AM SECOND CRUSHER SERUM HEPATITIS C AB Routine 07/20/2016 6:25 AM CDT from Last 3 Months or Most Recently Relevant to Health Maintenance Results * Imaging Shoulder, Hip, Knee Joint/Bursa INJ Left () (02/25/2025 11:04 AM SECOND CRUSHER) Narrative [facility] - 02/25/2025 12:05 PM SECOND CRUSHER The images from this study are not interpreted by Radiology. Please refer to the physician's procedure / OR operative note. us Latasha Nguyen MD IMG PAIN MGMT PROCEDU RES Final Result RAD_PACS_[facility] * MRI Lumbar Spine WO Contrast (02/18/2025 8:31 AM SECOND CRUSHER) Anatomical Region Laterality Modality Spine N/A Magnetic Resonan ce 02/18/2025 11:0 4 AM SECOND CRUSHER Impressions 02/18/2025 11:04 AM SECOND CRUSHER 1. Mild degenerative changes of the lumbar spine, worse at L4-5, as described above. 2. Chronic compression fracture of the superior endplate of L5. Progression of height loss. No new acute compression fracture. Electronically signed by: Haile Ugalde M.D. Narrative 02/18/2025 11:04 AM SECOND CRUSHER EXAMINATION: Magnetic resonance imaging (MRI) of the lumbar spine without contrast HISTORY: Patient is a 69-year-old female with lumbar radiculopathy. TECHNIQUE: Multiplanar multi-weighted MRI of the lumbar spine was performed without intravenous contrast using the standard protocol. COMPARISON: MRI of the lumbar spine performed on November 07, 2018. FINDINGS: Grade 1 anterolisthesis of L4 upon L5 is identified. A chronic compression fracture involving the superior endplate of L5 is visible with approximately 20% height loss. No progression and height loss is identified from the comparison examination. No new compression fracture is identified. Traction osteophytes are visible at T10-T11 and T11-12. A Schmorl's node is visible within the superior endplate of T12. The conus medullaris terminates at the level of L1. The distal spinal cord signal intensity is normal. Intervertebral disc desiccation and bulging is present throughout the lumbar spine. Disc height loss is visible at L1-L2, L3-L4, and L5-S1. Annular fissures are visible at L1-L2, L3-4, and L5-S1. Mild atrophy of the posterior paraspinal musculature is identified. The aorta is normal. L1-L2: Mild symmetric bulging disc. There is mild bilateral facet arthropathy. There is mild bilateral neuroforaminal stenosis. There is no spinal canal stenosis. L2-L3: Minimal symmetric bulging disc. There is mild bilateral ligamentum flavum infolding along with moderate bilateral facet arthropathy. There is mild bilateral neuroforaminal stenosis. There is no spinal canal stenosis. L3-L4: A minimal symmetric bulging disc. There is mild bilateral ligamentum flavum infolding along with severe right and moderate left facet arthropathy. There is mild left neuroforaminal stenosis. There is no spinal canal stenosis. Disc bulging has minimally progressed at L3-L4. L4-L5: Mild asymmetric bulging disc directed towards the left. There is mild bilateral ligamentum flavum infolding along with moderate right and severe left facet arthropathy. There is mild left neuroforaminal stenosis. There is mild spinal canal stenosis. L5-S1: Mild symmetric bulging disc. There is mild right and moderate left facet arthropathy. There is no neuroforaminal stenosis. There is no spinal canal stenosis. Procedure Note Haile Ugalde MD - 02/18/2025 EXAMINATION: Magnetic resonance imaging (MRI) of the lumbar spine without contrast HISTORY: Patient is a 69-year-old female with lumbar radiculopathy. TECHNIQUE: Multiplanar multi-weighted MRI of the lumbar spine was performed without intravenous contrast using the standard protocol. COMPARISON: MRI of the lumbar spine performed on November 07, 2018. FINDINGS: Grade 1 anterolisthesis of L4 upon L5 is identified. A chronic compression fracture involving the superior endplate of L5 is visible with approximately 20% height loss. No progression and height loss is identified from the comparison examination. No new compression fracture is identified. Traction osteophytes are visible at T10-T11 and T11-12. A Schmorl's node is visible within the superior endplate of T12. The conus medullaris terminates at the level of L1. The distal spinal cord signal intensity is normal. Intervertebral disc desiccation and bulging is present throughout the lumbar spine. Disc height loss is visible at L1-L2, L3-L4, and L5-S1. Annular fissures are visible at L1-L2, L3-4, and L5-S1. Mild atrophy of the posterior paraspinal musculature is identified. The aorta is normal. L1-L2: Mild symmetric bulging disc. There is mild bilateral facet arthropathy. There is mild bilateral neuroforaminal stenosis. There is no spinal canal stenosis. L2-L3: Minimal symmetric bulging disc. There is mild bilateral ligamentum flavum infolding along with moderate bilateral facet arthropathy. There is mild bilateral neuroforaminal stenosis. There is no spinal canal stenosis. L3-L4: A minimal symmetric bulging disc. There is mild bilateral ligamentum flavum infolding along with severe right and moderate left facet arthropathy. There is mild left neuroforaminal stenosis. There is no spinal canal stenosis. Disc bulging has minimally progressed at L3-L4. L4-L5: Mild asymmetric bulging disc directed towards the left. There is mild bilateral ligamentum flavum infolding along with moderate right and severe left facet arthropathy. There is mild left neuroforaminal stenosis. There is mild spinal canal stenosis. L5-S1: Mild symmetric bulging disc. There is mild right and moderate left facet arthropathy. There is no neuroforaminal stenosis. There is no spinal canal stenosis. IMPRESSION: 1. Mild degenerative changes of the lumbar spine, worse at L4-5, as described above. 2. Chronic compression fracture of the superior endplate of L5. Progression of height loss. No new acute compression fracture. Electronically signed by: Haile Ugalde M.D. us Latasha Nguyen MD IMG MRI PROCEDURES Fi nal Result * Imaging SI Joint Injection Left ([id number]) (12/04/2024 9:35 AM CDT) Narrative BRENDA - 12/04/2024 1:00 PM CDT The images from this study are not interpreted by Radiology. Please refer to the physician's procedure / OR operative note. us Latasha MAEG PAIN MGMT PROCEDU RES Final Result RAD_PACS_[facility] * Dexa Axial Skeleton Bone Density 1 or 2 Site (02/13/2019 9:56 AM SECOND CRUSHER) Anatomical Region Laterality Modality Body N/A Radiographic Didi ging 02/13/2019 11:0 1 AM SECOND CRUSHER Narrative 02/13/2019 11:04 AM SECOND CRUSHER Patient Name: JOSIANE ROBERTO Ordering Dr: Nicolás Rodriguez MD D.O.B: 1955 Exam Date: 02/13/19955 Age: 63 Sex: Female MR#: [id number] Loc: RADIOLOGY REPORT Order #[id number] Bone Density Bone Density Hip/Spine (STD) Signed EXAM DESCRIPTION: Bone Density Hip/Spine (STD) REASON FOR STUDY: 63 year old postmenopausal white female with given history of screening. 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 RB: RICH Report ID: [id number] Reading Location: [place] [address] REPORT ELECTRONICALLY SIGNED IN OTHER VENDOR SYSTEM Resulting Agency Comment O Procedure Note iMah Bolden MD - 02/13/2019 Patient Name: JOSIANE ROBERTO Dr: Nicolás Rodriguez MD D.O.B: 1955 Exam Date: 02/13/19 0956 Age: 63 Sex: Female MR#: [id number] Loc: RADIOLOGY REPORT Order #[id number] Bone Density Bone Density Hip/Spine (STD) Signed EXAM DESCRIPTION: Bone Density Hip/Spine (STD) REASON FOR STUDY: 63 year old postmenopausal white female with givenhistory of screening. 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 RB: RICH Report ID: [id number] Reading Location: [id number] REPORT ELECTRONICALLY SIGNED IN OTHER VENDOR SYSTEM Nicolás Rodriguez MD IMG DXA PROCEDURES Final Resu lt * Serum Hepatitis C ab (07/20/2016 6:25 AM CDT) HCV ab NON-REACTI VE NON-REACTI VE CDR HISTORICAL RESULTS Hepatitis signal to cutoff ratio 0.01 <1.00 CDR HISTORICAL RESULTS Serum 07/20/2016 6:25 AM CDT Narrative CDR HISTORICAL RESULTS - 07/21/2016 10:00 AM CDT Test performed at [facility] [address] [place] [address] Director: JESUS ELIZABETH DO,MPH Historical Provider LAB BLOOD ORDERABLES Saida murphy Result CDR HISTORICAL RESULTS from Last 3 Months or Most Recently Relevant to Health Maintenance Insurance [facility] MEDICARE ADVANTAGE [facility] MEDICARE ADVANTAGE Care Teams Cloth Picker Relationship Specialty Start Date End Date Cynthia Sarah MD PCP - General Family Medicine 12/03/20 Elizabeth Ramos, RN Registered Nurse 01/22/20 Latasha Nguyen MD [address] [place] [address] Consulting Physician Pain Management 10/01/17
--- OUTSIDE RECORDS SUMMARY | 2025-03-04 07:18 | XMS_ITS | Encounter Summary ---
Author Organization [facility] Healthcare Address [address] [place] [address] Care Team Providers Care Support Director Name Role Phone Elizabeth Ramos RN Unavailable Unavailab Cynthia Hale MD Primary Care Provider [phone] Latasha Nguyen MD Unavailable Encounter Details Date Type Department Care Team (Late st Contact Info) Description 11/29/2021 Orders Only [facility] [address] [facility] [address] [place] [address] Latasha Nguyen MD [address] [place] [address] Social History Tobacco Use Types Packs/Day Years [...] on file Legal Sex Female 12:20 AM GLOVE FACTORY SEWER Gender Identity Not on file Sexual Orientation Not on file documented as of this encounter Plan of Treatment Not on file documented as of this encounter Goals Goal Patient Goal Type Associated Problems Recent Progress Patient-Stated? Author CCM Chronic Pain Care Plan Chronic Care Management On track(2024 9:10 AM GLOVE FACTORY SEWER) No Allison Shannon, ROSSANA Note: Problem: Chronic [...] on stairs Contact your local community or [facility] for information on exercise, fall prevention programs, or options for improving home safety. documented as of this encounter Visit Diagnoses Not on filedocumented in this encounter Care Teams Support Director Relationship Specialty Start Date End Date Cynthia Sarah MD PCP - General Family Medicine 12/03/20 Elizabeth Ramos, ROSSANA Registered Nurse 01/22/20 Latasha Nguyen MD [address] [place] [address] Consulting Physician Pain Management 10/01/17 documented as of this encounter
--- OUTSIDE RECORDS SUMMARY | 2025-03-04 07:18 | XMS_ITS | Encounter Summary ---
Author Organization [facility] Healthcare Address [address] [place] [address] Care Team Providers Care Filing Or Registry Clerk Name Role Phone Nicolás Rodriguez MD Primary Care Provider [phone] Elizabeth Ramos RN Unavailable Unavailab Cynthia Hale MD Primary Care Provider [phone] Latasha Nguyen MD Unavailable [phone] Reason for Visit * Reason Onset Date Comments Pre-op Exam 12/02/2018 Encounter Details Date Type Department Care Team (Late st Contact Info) Description 12/02/2018 Telephone [facility] [address] [facility] 1[address] [place] [address] Yuridia Shen RN Pre-op Exam [...] on file Legal Sex Female 12:20 AM DATAWAREHOUSE DEVELOPER Gender Identity Not on file Sexual Orientation Not on file documented as of this encounter Plan of Treatment Not on file documented as of this encounter Goals Goal Patient Goal Type Associated Problems Recent Progress Patient-Stated? Author CCM Chronic Pain Care Plan Chronic Care Management On track(2024 9:10 AM DATAWAREHOUSE DEVELOPER) No Allison Shannon, ROSSANA Note: Problem: Chronic [...] on stairs Contact your local community or [facility] for information on exercise, fall prevention [...] documented as of this encounter Care Teams Filing Or Registry Clerk Relationship Specialty Start Date End Date Nicolás Rodriguez MD PCP - General 08/07/17 12/02/20 Cynthia Sarah MD PCP - General Family Medicine 12/03/20 Elizabeth Ramos RN Registered Nurse 01/22/20 Latasha Nguyen MD [address] [facility] [place] [address] Consulting Physician Pain Management 10/01/17 documented as of this encounter
--- OUTSIDE RECORDS SUMMARY | 2025-03-04 07:18 | XMS_ITS | Patient Health Record ---
Author Organization [facility] Address [address] [place], [place] [address] Care Team Providers Care Communications Superintendent Name Role Phone CARLITOS DIALLO Unavailable [phone] Nicolás Rodriguez Unavailable Unavailable Reason For Referral No Information Medications Medication SIG (Take, Route, Frequency, Duration) Notes Start Date End Date Status 120 ACTUAT formoterol fumarate 0.005 MG/ACTUAT / mometasone furoate 0.1 MG/ACTUAT Metered Dose Inhaler [Dulera] INTRAPULMONARY 120 ACTUAT formoterol fumarate 0.005 MG/ACTUAT / mometasone furoate 0.1 MG/ACTUAT Metered Dose Inhaler [Dulera]Original [id number] ACTUAT formoterol fumarate 0.005 MG/ACTUAT / mometasone furoate 0.1 MG/ACTUA 6 Active nortriptyline 10 MG Oral Capsule ORAL nortriptyline 10 MG Oral CapsuleOriginal Medicationnortriptyline 10 MG Oral Capsule *Reorder from [facility] for eRx and Interaction Alerts* 6 Active omeprazole 20 MG Delayed Release Oral Capsule ORAL omeprazole 20 MG Delayed Release Oral CapsuleOriginal Medicationomeprazole 20 MG Delayed Release Oral Capsule *Reorder from [facility] for eRx and Interaction Alerts* 6 Active acetaminophen 300 MG / hydrocodone bitartrate 5 MG Oral Tablet ORAL acetaminophen 300 MG / hydrocodone bitartrate 5 MG Oral TabletOriginal Medicationacetaminophen 300 MG / hydrocodone bitartrate 5 MG Oral Tablet *Reorder from [facility] for eRx and Interaction Alerts* 4 Active Medrol Dosepak ORAL Medrol DosepakOr iginal MedicationMedrol Dosepak *Reorder from [facility] for eRx and Interaction Alerts* 0 Active nabumetone 500 MG Oral Tablet [Relafen] ORAL nabumetone 500 MG Oral Tablet [Relafen]Original Medicationnabumetone 500 MG Oral Tablet [Relafen] *[facility] and Interaction Alert[facility]* 4 Active Social History Social History Additional Details Category Social Info Options Details Migrated Social History Migrated Social History History of tobacco use : , Smoking Status : Never smoked Plan Of Treatment No Information Insurance Providers Payer Name Payer Address Payer Phone Subscriber Number Group Number Insured Name Patient Relationship to Insured Coverage Start Date Coverage End Date [facility] [address] [address] [place] [id number] ZEENAT ROBERTO Self - patient is the insured
--- OUTSIDE RECORDS SUMMARY | 2025-03-04 07:18 | XMS_ITS | Encounter Summary ---
Author Organization [facility] Healthcare Address [address] [place] [address] Care Team Providers Care Minister Name Role Phone Nicolás Rodriguez MD Primary Care Provider [phone] Elizabeth Ramos RN Unavailable Unavailab Cynthia Hale MD Primary Care Provider [phone] Latasha Nguyen MD Unavailable Reason for Visit * Reason Onset Date Comments PRECALL 09/08/2019 Encounter Details Date Type Department Care Team (Late st Contact Info) Description 09/08/2019 Telephone [facility] [address] 1st [place] [address] Ju Lundberg RN PRECALL Social [...] on file 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 Author CCM Chronic Pain Care Plan Chronic Care Management On track(2024 9:10 AM GREY GOODS TESTER) No Allison Shannon, ROSSANA Note: Problem: Chronic [...] on stairs Contact your local community or [facility] for information on exercise, fall prevention [...] documented as of this encounter Care Teams Minister Relationship Specialty Start Date End Date Nicolás Rodriguez MD PCP - General 08/07/17 12/02/20 Cynthia Sarah MD PCP - General Family Medicine 12/03/20 Elizabeth Ramos RN Registered Nurse 01/22/20 Latasha Nguyen MD [address] [facility] [place] [address] Consulting Physician Pain Management 10/01/17 documented as of this encounter
--- OUTSIDE RECORDS SUMMARY | 2025-03-04 07:18 | XMS_ITS | Encounter Summary ---
Author Organization [facility] Address [address] [place] [address] Care Team Providers Care Institute Director Name Role Phone Jess Burleson MD Primary Care Provider [phone] Encounter Details Date Type Department Care Team (Late Contact Info) Description 04/22/2002 Outpatient Historical [facility] Nicolás Arnold MD [address] [place] [address] [address] [place] [address] DIARRHEA NOS (Primary Dx) Social History Tobacco Use Types Packs/Day Years Used Date Smoking Tobacco: Never Assessed Comments Unknown Sex and Gender Information Value Date Recorded Sex Assigned at Not on file Legal Sex Female 4:25 AM SYSTEM DISPATCHER Gender Identity Not on file Sexual Orientation Not on file documented as of this encounter Plan of Treatment Upcoming Encounters Date Type Department Care Team (Late Contact Info) Description 03/18/2025 11:00 AM SYSTEM DISPATCHER Office Visit [facility] Pulmonology [facility] [address] [place] [phone] Robbie Summers MD [address] [place], [place] [id number] documented as of this encounter Visit Diagnoses Diagnosis Diarrhea- Primary documented in this encounter Additional Health Concerns Infection Onset Date Last Indicated Resolved Time R/O COVID-19 03/22/2021 03/22/2021 03/29/2021 1:16 AM SYSTEM DISPATCHER documented as of this encounter Care Teams Institute Director Relationship Specialty Start Date End Date Jess Burleson MD [address] [address] PCP - General 02/26/15 documented as of this encounter
--- OUTSIDE RECORDS SUMMARY | 2025-03-04 07:18 | XMS_ITS | Encounter Summary ---
Author Organization [facility] Address [address] [place] [address] Care Team Providers Care Gristmill Operator Name Role Phone Jess Burleson MD Primary Care Provider [phone] Encounter Details Date Type Department Care Team (Late st Contact Info) Description 03/03/2025 External Device Data [facility] ABSTRACTION Provider, Abstract NO ADDRESS ON FILE Social History Tobacco Use Types Packs/Day Years Used Date Smoking Tobacco: Former Cigarettes 0 Q uit: 06/09/2001 Alcohol Use Standard Drinks/Week Comments Not Asked 0 (1 standard drink = 0.6 oz pur e alcohol) Comments Unknown Sex and Gender Information Value Date Recorded Sex Assigned at Not on file Legal Sex Female 4:25 AM INTERVENTIONIST Gender Identity Not on file Sexual Orientation Not on file documented as of this encounter Plan of Treatment Upcoming Encounters Date Type Department Care Team (Late st Contact Info) Description 03/18/2025 11:00 AM INTERVENTIONIST Office Visit [facility] Pulmonology [facility] [address] [facility] [address] [place] [address] Robbie Summers MD [address] [place] [address] documented as of this encounter Visit Diagnoses Not on filedocumented in this encounter Care Teams Gristmill Operator Relationship Specialty Start Date End Date Jess Burleson MD [address] [address] PCP - General 02/26/15 documented as of this encounter
--- OUTSIDE RECORDS SUMMARY | 2025-03-04 07:18 | XMS_ITS | Patient Health Record ---
Author Organization [employer] Address [address] [facility]. [address] [place] [address] Care Team Providers Care Professor Of Chemical Engineering Name Role Phone Cynthia Sarah MD Primary Care Provider Dominguez Cm Unavailable [phone] Allison Cole Unavailable [phone] Allergies Allergen (clinical drug ingredient) Drug/Non Drug Allergy documented on EMR Reaction Allergy Type Onset Date Status tramadol Tramadol HCl Unknown Drug Allergy Acti ve Substance with sulfonamide structure and antibacterial mechanism of action (substance) Sulfa Antibiotics rash Drug Allergy 11/17/2022 active Results Component Value Reference Range Notes CBC With Differential/Platel et Reviewed date:06/14/2024 09:40:36 AM Interpretation: Performing Lab:[facility], [address] [place] [address], Phone - [phone], Director - Ricbarrera Notes/Report: WBC 6.1 3.4-10.8 [...] Omeprazole 40 MG TAKE 1 CAPSULE BY [facility] ONCE DAILY 1/2 HOUR BEFORE MORNING MEAL; Duration: 90 Active Famotidine 40 MG TAKE 1 TABLET BY [facility] EVERY DAY FOR 30 DAYS; Duration: 90 Active Colestipol HCl 1 GM 2 tablets Orally Onc e a day; Duration: 90 days 05/07/2024 Active Immunizations Vaccine Route [...] Problem Status W/U Status Risk Notes Problem Stricture of esophagus (82785471) Esophageal obstruction (K22.2) Active confirmed Problem Diverticular disease of colon (194156835) Diverticulosis of large intestine without perforation or abscess without bleeding (K57.30) Active confirmed Problem Irritable bowel syndrome with diarrhea (224241629) Irritable bowel syndrome with diarrhea (K58.0) Active confirmed Problem Constipation (42326755) Constipation, unspecified (K59.00) Active confirmed Problem Melena (6830221) Melena (K92.1) Active confirme d Recently, her stools have been darker in color. Problem Epigastric pain (68202932) Epigastric pain (R10.13) Active confirmed She has [...] peptic ulcer, gastroenteritis , or others. Problem Nausea (851756140) Nausea (R11.0) Active confirmed She has b een feeling nauseated after eating, like she could vomit. Her reflux symptoms have been well controlled on pantoprazole. Problem Dysphagia (94819914) Dysphagia, unspecified (R13.10) Active confirmed Problem Incontinence of feces (88004868) Full incontinence of feces (R15.9) Active confirmed Suspect pelvic floor dysfunction may be contributing. Problem Polyp colon (94923367) Colon polyp (K63.5) Active confirmed Problem Diarrhea (45992924) Diarrhea (R19.7) Active confirmed Improve now that she is off antibiotics. She will also stop taking her probiotics as well. Problem Flatulence, eructation and gas pain (539777749) Bloating (R14.0) Active confirmed She has had increased abdominal bloating over the last few days. Problem History of polyp of colon (situation) (222758594) History of colon polyps (Z86.010) Active confirmed Her most re cent colonoscopy in May revealed a polyp and she was instructed to follow up in 5 years which would be in 2023. Problem Epigastric pain (12539541) Midepigastric pain (R10.13) Active confirmed Problem Dysphagia (00017107) Dysphagia (R13.10) Active confirmed Problem Irritable bowel syndrome (36157839) Irritable bowel syndrome with both constipation and [...] she would back down to soups. Problem Irritable bowel syndrome characterized by constipation (450980810) Irritable bowel syndrome with constipation (K58.1) Active confirmed Continues to be symptomatic with lower abdominal cramping. There has been no hematochezia. Problem Abdominal pain (45127725) Abdominal cramping (R10.9) Active confirmed Problem Irritable bowel syndrome (82347466) Irritable bowel syndrome, unspecified type (K58.9) Active confirmed She has long-standing history of irregular bowel habits. Sometimes her stools are explosive and come on urgently. Problem Bowel incontinence (44810800) Fecal incontinence (R15.9) Active confirmed Problem Anemia (524518446) Anemia (D64.9) Active confirmed Problem Internal hemorrhoids (45787592) Hemorrhoids, internal (K64.8) Active confirmed Problem Left lower quadrant pain (180455691) LLQ pain (R10.32) Active confirmed She has been experiencing pelvic and left lower quadrant pain over the last couple of days. She also feels the urge to urinate, but has not been able to go as much. She denies having any fevers. She has been slightly more constipated. Differential diagnosis includes diverticulitis, urinary tract infection, gastroenteritis , or others. Problem Diverticulitis (91673777) Diverticulitis (K57.92) Active confirmed Improving at this [...] of diverticulitis recently with abscess formation. Problem History of cholecystectomy (143718023) History of cholecystectomy (Z90.49) Active confirmed Problem Colitis (10176748) Colitis (K52.9) Active confirmed Problem Nausea and vomiting (76258538) Nausea and vomiting (R11.2) Active confirmed Problem Right upper quadrant pain (612320397) RUQ abdominal pain (R10.11) Active confirmed Problem Diverticulitis of colon (134708787) Acute diverticulitis (K57.92) Active confirmed Problem Diverticulitis of colon (137844704) Diverticulitis of colon (K57.32) Active confirmed Problem Pain in pelvis (64293328) Pelvic pain (R10.2) Active confirmed Problem Gastroesophageal reflux disease (721034952) Mild acid reflux (K21.9) Active confirmed Currently controlled on Omeprazole 40 mg daily. It continues to be helpful and she gets a lot of heartburn if she is out of the medications. 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 H[address] [place] [address] 04/14/2024 Allison Cole Upper abdominal pain R10.10 ; Dysphagia R13.10 ; Abdominal bloating R14.0 ; Fecal incontinence R15.9 and Diarrhea R19.7 [facility] [address] [place] [address] 05/07/2024 Dominguez Ramgopal Dyspepsia R10.13 ; Diarrhea R19.7 and Bloating R14.0 [facility], [address] [place] [address] 03/07/2024 Dominguez Ramgopal [facility] [address] [facility] [place] [address] 04/15/2024 Dominguez Ramgopal [facility] [address] [facility] [place] [address] 04/15/2024 Domingeuz Ramgopal [facility], [address] [place] [address] 04/18/2024 Dominguez Ramgopal Anemia D64.9 [facility], [address] [place] [address] 05/08/2024 Dominguez Ramgopal [facility] [address] [place] [address] [place] [address] 06/09/2024 Dominguez Ramgopal [facility] [address] [place] [address] [place] [address] 07/08/2024 Dominguez Ramgopal Diarrhea R19.7 Assessments Encounter Date Diagnosis (ICD [...] Insured Coverage Start Date Coverage End Date [facility] Medicare Advantage Ppo [address] [address] [place] [address] [id number] Mynor Bardales Spouse - patient is the [...]
--- OUTSIDE RECORDS SUMMARY | 2025-03-04 07:18 | XMS_ITS | Patient Health Record ---
Author Organization [facility] Address [address] [address] [place] [address] Care Team Providers Care Knotter Name Role Phone Cynthia Sarah MD Primary Care Provider Kelly Zurita Unavailable [phone] Allergies Allergen (clinical drug ingredient) Drug/Non Drug [...] 2 MG Oral Active Vitamin D (Ergocalciferol) 28151 UNIT Oral Active Biotin - - oral *Pick strength-form from [employer] for eRX* Active Probiotic Blend - as directed Orally Active Dulera 100-5 MCG/ACT Inhalation Active Hydroxychloroquine Sulfate 200 MG 1 Orally daily; Duration: 90 days Active Acetaminophen-Codeine 300-30 MG prn Oral Active Metamucil - daily oral *Pick strength-form from [employer] for eRX* Active ZyrTEC Allergy 10 MG Oral Active Calcium Pantothenate 500 MG chew 1 tablet by oral route once Oral 1 Active Glucosamine Sulfate 500 mg take 1 tablet by oral route once Oral 1 Active Prolia 60 MG/ML inject 1 milliliter (60 mg) by subcutaneous route every 6 months in the upper arm, upper thigh or abdomen Subcutaneous [id number]-0 3 Active Problems Problem Type SNOMED Code ICD Code Onset Dates Problem Status W/U Status Risk Notes Problem Inflammatory arthritis (5388562) Inflammatory arthritis (M19.90) Active confirmed Problem Rheumatoid arthritis (56692012) Rheumatoid arthritis, unspecified (M06.9) Active confirmed Vital Signs Heart Rate 81 /min 11/06/2024 Temperature 97.7 degrees Fahrenheit 11/06/2024 Blood pressure diastolic 78 mm Hg 11/06/2024 Oximetry 95 % 11/06/2024 Height-cm 162.56 cm 11/06/2024 Weight-kg 50.08 kg 11/06/2024 Height 64 in 11/06/2024 Blood pressure systolic 102 mm Hg 11/06/2024 Weight 110.4 lbs 11/06/2024 BMI 18.95 kg/m2 11/06/2024 Encounters Encounter Location Date Provider Diagnosis [facility] [address] [facility] [address] [place] [address] 05/13/2024 Kelly Hua Inflammatory arthrit is M19.90 ; High risk medication use Z79.899 and Lumbar back pain M54.50 [facility] [address] [facility] [address] [place] [address] 11/06/2024 Kelly Sequeira Inflammatory arthrit is M19.90 ; High risk [...] stable, continue plaquenil, return in 6 months 05/13/2024 High risk medication use (ICD-10 - [...] Treatment Next Appt Details Provider Name:Kelly Sequeira, 05/08 01:00:00 PM, [address] [facility] [address], [place], [address], Insurance Providers Payer Name Payer Address Payer Phone Subscriber Number Group Number Insured Name Patient Relationship to Insured Coverage Start Date Coverage End Date [employer] Medicare Advantage [facility] [address] [address] [place] [address] [phone] [id number] Josiane Bardales Self - patient is the insured Medical (General) History Medical History History ICD Code Asthma; Rheumatoid arthritis; Surgical History Surgery Date(Month/Year) Gall Bladder Surgery; 2017-06-11 Hysterectomy; 2017-06-11 Thoracentesis; 2017-06-11 Neck Surgery; 2017-06-11 appendectomy partial colectomy
--- OUTSIDE RECORDS SUMMARY | 2025-03-04 07:18 | XMS_ITS | Encounter Summary ---
Author Organization [facility] Healthcare Address [address] [place] [address] Care Team Providers Care Social Services Counselor Name Role Phone Nicolás Rodriguez MD Primary Care Provider [phone] Elizabeth Ramos RN Unavailable Unavailab Cynthia Hale MD Primary Care Provider [phone] Latasha Nguyen MD Unavailable Reason for Visit * Reason Onset Date Comments Pre-op Exam 09/30/2018 Encounter Details Date Type Department Care Team (Late st Contact Info) Description 09/30/2018 Telephone [facility] [address] [facility] 1st [place] [address] Yuridia Shen RN Pre-op Exam [...] on file Legal Sex Female 12:20 AM MEDIA RELATIONS INTERN Gender Identity Not on file Sexual Orientation Not on file documented as of this encounter Plan of Treatment Not on file documented as of this encounter Goals Goal Patient Goal Type Associated Problems Recent Progress Patient-Stated? Author CCM Chronic Pain Care Plan Chronic Care Management On track(2024 9:10 AM MEDIA RELATIONS INTERN) Allison Hawthorne, ROSSANA Note: Problem: Chronic Pain [...] as of this encounter Care Teams Social Services Counselor Relationship Specialty Start Date End Date Nicolás Rodriguez MD PCP - General 08/07/17 12/02/20 Cynthia Sarah MD PCP - General Family Medicine 12/03/20 Elizabeth Ramos, RN Registered Nurse 01/22/20 Latasha Nguyen MD [address] [place] [address] Consulting Physician Pain Management 10/01/17 documented as of this encounter
--- OUTSIDE RECORDS SUMMARY | 2025-03-04 07:18 | XMS_ITS | Clinical Summary ---
Author Organization [facility] Address [address] [place] [address] Care Team Providers Care Patient Portal Concierge Name Role Phone Unavailable Primary Care Provider [...] Scan (General) 2021 COVID-19 Vaccine ( - 2024-2 6 season) 2024 Influenza Adult (#1) 2024 RSV Immunization or 60+ Years (1 - 1-dose 75+ series) 2031 Hepatitis A Vaccines Aged Out No long er eligible based on patient's age to complete this topic Meningococcal B Vaccine Aged Out No l onger eligible based on patient's age to complete this topic Meningococcal Vaccine Aged Out No gonzalez manny eligible based on patient's age to complete this topic RSV Immunizations Under 20 Months Aged Out No longer eligible based on patient's age to complete this topic
--- OUTSIDE RECORDS SUMMARY | 2025-03-04 07:18 | XMS_ITS | Encounter Summary ---
Author Organization [facility] Address [address] [place] [address] Care Team Providers Care Structural Iron Erector Name Role Phone Jess Burleson MD Primary Care Provider [phone]- [phone] Encounter Details Date Type Department Care Team (Late Contact Info) Description 11/18/2007 Outpatient Historical [facility] Dwain Moulton MD [address] [facility] [address] [place] [address] Personal History of Colonic Polyps Social History Tobacco Use Types Packs/Day Years Used Date Smoking Tobacco: Never Assessed Comments Unknown Sex and Gender Information Value Date Recorded Sex Assigned at Not on file Legal Sex Female 4:25 AM COILED COIL INSPECTOR Gender Identity Not on file Sexual Orientation Not on file documented as of this encounter Plan of Treatment Upcoming Encounters Date Type Department Care Team (Late Contact Info) Description 03/18/2025 11:00 AM COILED COIL INSPECTOR Office Visit [facility] Pulmonology [facility] [address] [place] [address] Robbie Summers MD [address] [place] [address] documented as of this encounter Procedures Procedure Name Priority Date/Time Associated Diagnosis Comments PATHOLOGY Routine 11/18/2007 1:27 PM CDT documented in this encounter Results * PATHOLOGY (11/18/2007 1:27 PM CDT) [place]AL [place] [facility] [place] [address] [place], [place] [address] Patient: ZEENAT ROBERTO : 1955 Procedure Date: 11/18/2007 Accession Date: 11/18/2007 Case No: [id number] Ordering Dr: DWAIN MOULTON Case types AW, BW, FW, NW and SH are performed by [facility] [place], [place], [place] SURGICAL PATHOLOGY & NON-GYNECOLOGIC CYTOPATHOLOGY REPORT [...] entire specimen is submitted in cassette B1. [facility] 11.18.2007 02:42 pm Microscopic: The slides are labeled [id number] and Zeenat Roberto. The sections of the [...] R/O COVID-19 03/22/2021 03/22/2021 03/29/2021 1:16 AM COILED COIL INSPECTOR documented as of this encounter Care Teams Structural Iron Erector Relationship Specialty Start Date End Date Jess Burleson MD [address] [address] PCP - General 02/26/15 documented as of this encounter
--- OUTSIDE RECORDS SUMMARY | 2025-03-04 07:18 | XMS_ITS | Encounter Summary ---
Author Organization [facility] Address [address] [place] [address] Care Team Providers Care Postmaster Relief Name Role Phone Jess Burleson MD Primary Care Provider [phone] Encounter Details Date Type Department Care Team (Late Contact Info) Description 06/10/2002 Outpatient Historical [facility] Nicolás Arnold MD [address] [facility] [address] [place] [address] ACUTE GASTRITIS W/O HEMORRHAGE (Primary Dx) Social History Tobacco Use Types Packs/Day Years Used Date Smoking Tobacco: Never Assessed Comments Unknown Sex and Gender Information Value Date Recorded Sex Assigned at Not on file Legal Sex Female 4:25 AM DIE DESIGNER APPRENTICE Gender Identity Not on file Sexual Orientation Not on file documented as of this encounter Plan of Treatment Upcoming Encounters Date Type Department Care Team (Late Contact Info) Description 03/18/2025 11:00 AM DIE DESIGNER APPRENTICE Office [facility] Pulmonology [facility] [address] [place] [address] Robbie Summers MD [address] [place] [address] documented as of this encounter Visit Diagnoses Diagnosis Acute gastritis without mention of hemorrhage- Primary documented in this encounter Additional Health Concerns Infection Onset Date Last Indicated Resolved Time R/O COVID-19 03/22/2021 03/22/2021 03/29/2021 1:16 AM DIE DESIGNER APPRENTICE documented as of this encounter Care Teams Postmaster Relief Relationship Specialty Start Date End Date Jess Burleson MD [address] [address] PCP - General 02/26/15 documented as of this encounter
--- OUTSIDE RECORDS SUMMARY | 2025-03-04 07:18 | XMS_ITS | Clinical Summary ---
Author Organization [facility] Address [address] [place] [place] [address] Phone Care Team Providers Care Model Technician Name Role Phone Jess Burleson MD Primary Care Provider [phone] Allergies Active Allergy Reactions Criticality Noted Date [...] mouth daily. Active mometasone (NASONEX) 50 mcg/actuation Hammond, Non-Aerosol daily. Active CALCIUM PHOSPHATE DIBAS/VIT D3 [...] ondansetron (ZOFRAN) 4 mg Tablet 1 Tablet. 12/14/20 22 Active fluticasone propionate (FLONASE) 50 mcg/spray Hammond, Suspension nasal inhaler Administer 1 Hammond in each nostril. 01/20/20 20 Active ipratropium bromide (ATROVENT) 42 mcg (0.06 %) Hammond, Non-Aerosol ADMINISTER 2 SPRAYS IN EACH NOSTRIL [...] inhaler 1 Each 6 12/25/19 25 Active Active Problems Problem Noted Date Diagnosed Date Asthma, chronic, mild persistent, uncomplicated 01/23/2020 Personal history of tobacco use 01/23/2020 Current chronic use of inhaled steroid 0 Gastroesophageal reflux disease 01/23/2020 Chronic allergic rhinitis due to pollen 01/23/20 Resolved Problems Problem Noted Date Diagnosed Date Resolved Date Asthma 08/22/2013 01/23/2020 Encounters Date Type Department Care Team Description 03/03/2025 External Device Data [facility] ABSTRACTION Provider, Abstract 01/27/2025 External Device Data [facility] ABSTRACTION Provider, Abstract 12/31/2024 External Device Data [facility]STRACTION Provider, Abstract 12/24/2024 [facility] Pulmonology [facility] [address] [place] [phone] Robbie Summers MD from Last 3 Months Immunizations Immunization Administration Dates Next Due INFLUENZA VACCINE QUADRIVALENT 6 MOS UP PF IM Influenza Seasonal Unspecified Formulation IM Family History Medical History Relation Name Comments Diabetes Brother [place] Relation Name Status Comments Brother [place] Alive Social History Tobacco Use Types Packs/Day Years Used Date Smoking Tobacco: Former Cigarettes 0 Q uit: 06/09/2001 Tobacco Cessation:Counseling Given: Not Answered Alcohol Use Standard Drinks/Week Comments Not Asked 0 (1 standard drink = 0.6 oz pur e alcohol) Comments Unknown Sex and Gender Information Value Date Recorded Sex Assigned at Not on file Legal Sex Female 4:25 AM WELDING PRODUCTION SUPERVISOR Gender Identity Not on file Sexual Orientation Not on file Last Filed Vital Signs Vital Sign Reading Time Taken Comments Blood Pressure 108/70 09/08/2024 10:34 AM CDT Pulse 72 09/08/2024 10:34 AM CDT Temperature - - Respiratory Rate 16 01/18/2021 10:22 AM WELDING PRODUCTION SUPERVISOR Oxygen Saturation 93% 09/08/2024 10:34 AM CDT w/o o2 Inhaled Oxygen Concentration - - Weight 50.3 kg (111 lb) 09/08/2024 10:34 AM CDT Height 157.5 cm (5' 2) 09/08/2024 10:34 AM CDT Body Mass Index 20.3 09/08/2024 10:34 AM CDT Plan of Treatment Upcoming Encounters Date Type Department Care Team (Late st Contact Info) Description 03/18/2025 11:00 AM WELDING PRODUCTION SUPERVISOR Office Visit [facility] Pulmonology [facility] [address] [place] [address] Robbie Summers MD [address] [place] [address] Health Maintenance Due Date Last [...] VACCINE (60+ or ) (1 - Risk 50-74 years 1-dose series) 2006 BREAST CANCER SCREENING 11/30/2021 12/01/19 21, 11/30/2020, 08/07/2018 OSTEOPOROSIS SCREENING 02/14/2024 9, 02/13/2019, 07/07/2016 INFLUENZA VACCINE (#1) 2024 , 12/06/2017, 11/10/2016, Additional history exists Insurance RX [employer] RX Member Subscriber Plan / Payer (Ef fective 2021-Present) Name:Josiane Bardales Relation to Subscriber:Self Name:Josiane Bardales Subscriber ID:Not on file Payer ID:Not on file Group ID:[id number] Type:RX Medicare Part D Address: [address] Care Teams Model Technician Relationship Specialty Start Date End Date Jess Burleson MD [address] [id number] PCP - General 02/26/15
--- NOTE | 2025-03-04 07:39 | ED.GENADULT ---
HPI - General Adult General Chief complaint: Nausea/Vomiting/Diarrhea Stated complaint: n/v/d Time Seen by Provider: 03/04/25 06:59 History of Present Illness HPI narrative: 69-year-old female presented to the emergency department for evaluation for nausea vomiting diarrhea with associated abdominal pain. Patient does have a prior history diverticulitis and resulting hemicolectomy that was done at [facility] approximately 4 years ago. Patient states that she needed to have surgery again she would prefer to go back to [facility]. Patient presented to [place] emergency department for evaluation for the lower abdominal pain. Related Data Home Medications ?Medication ?Instructions ?Recorded ?Confirmed ?Last Taken ?Type tizanidine 4 mg tablet 4 mg PO DIRECTED 02/06/20 12/24/24 Unknown History calcium carbonate (Natural Calcium) 500 mg PO DAILY 06/25/20 12/24/24 Unknown History cetirizine 10 mg capsule (Zyrtec) 10 mg PO DAILY PRN allergies 06/25/20 12/24/24 Unknown History cholecalciferol (vitamin D3) 25 25 mcg PO DAILY 06/25/20 12/24/24 Unknown History mcg (1,000 unit) capsule mometasone-formoterol HFA 200 2 inh inhalation BID 07/25/21 12/24/24 Unknown History mcg-5 mcg/actuation aerosol inhaler (Dulera) colestipol 1 gram tablet 2 g PO ONCE 05/29/24 01/05/25 Unknown History hydroxychloroquine 200 mg tablet 200 mg PO DAILY 05/29/24 01/05/25 Unknown History (Plaquenil) Allergies Allergy/AdvReac Type Severity Reaction Status Date / Time Sulfa (Sulfonamide Allergy Unknown Rash Verified 12/24/24 15:39 Antibiotics) sulfanilamide Allergy Unknown Rash Verified 12/24/24 15:39 tramadol Allergy Unknown Unknown Verified 12/24/24 15:39 methotrexate AdvReac Intermediate Other Verified 12/24/24 15:39 diclofenac AdvReac Unknown Unknown Verified 12/24/24 15:39 Review of Systems Review of Systems: All systems reviewed & are unremarkable except as noted in HPI and below PMFSH Past Medical History Medical History Tremor Myelopathy Muscle spasm Dysphonia Chronic narcotic use Chronic fatigue Cervicalgia Diverticulitis Rheumatoid arthritis Ankle fracture, left (Unknown) required ORIF Chronic back pain Bronchitis Age related osteoporosis Mitral valve prolapse GERD (gastroesophageal reflux disease) Surgical History Surgical History History of colectomy Status post colon resection History of appendectomy History of bunionectomy of both great toes Hx of cervical spine surgery fusion History of cholecystectomy History of hysterectomy Family History Family History Mother Asthma Family history of arthritis Family history of emphysema, Onset Age: 67 Patient's mother is Sibling Family history of diabetes mellitus in first degree relative Family history of heart disease in male family member before age 55 Other Diabetes mellitus Family history of gout Social History Social History Smoking packs per day: 1 Smoking cigarettes per day: 20.0 Years smoked: 25 Smoking pack-years: 25.00 Smoking status: Former smoker Tobacco type: cigarettes Second hand tobacco smoke exposure: Yes Smoking end date: 03/12/02 Alcohol intake: current Drinks per week: 1 Substance use: never Substance use type: does not use Lack of Transportation: No Lack of Food: Never True Current Housing: I Have Housing Concerned About Future Housing: No Difficulty Paying Gas/Electric Bills: No Difficulty Paying for Meds: No Currently Unemployed: No Education: Trade/Vocational Certificate Difficulty w/ Childcare or Family Care: No Living arrangements: with family Occupation/Education: retired Gender identity (if verbalized by the patient): Female Spiritual care concerns: No Agree to blood products: No Exam Narrative: APPEARANCE: Well appearing, no pain, no distress, well-nourished. HEAD: normocephalic, atraumatic. EYES: PERRLA/EOMI, conjunctivae clear. NOSE: Normal no drainage EARS:TMS clear with good light reflex. THROAT: Pharynx clear, no exudate. NECK: Supple. No adenopathy, no masses. RESPIRATORY: Airway patent, respirations nonlabored. Clear to auscultation bilaterally, no rales, rhonchi, wheezing. CARDIOVASCULAR: Regular rate and rhythm without murmurs rubs or gallops. ABDOMINAL: Upper abdominal tenderness to palpation MUSCULOSKELETAL: Moves all extremities. Strength/ROM intact, No edema, No calf tenderness. NEURO: Alert. Cranial nerves II through XII intact. Good gait. Good coordination SKIN: Warm, dry. Normal Color Course Vital Signs Vital signs: Vital Signs Temperature 97.5 F L 03/04/25 04:24 Pulse Rate 101 H 03/04/25 04:24 Respiratory Rate 18 03/04/25 04:24 Blood Pressure 143/96 H 03/04/25 04:24 Pulse Oximetry 99 03/04/25 04:24 Oxygen Delivery Room Air 03/04/25 04:24 Temperature 98.4 F 03/04/25 08:04 Pulse Rate 73 03/04/25 10:45 Respiratory Rate 18 03/04/25 10:45 Blood Pressure 149/93 H 03/04/25 10:45 Pulse Oximetry 97 03/04/25 10:45 Oxygen Delivery Room Air 03/04/25 04:24 [facility] Narrative Medical decision making narrative: 69-year-old female with prior history of diverticulitis and hemicolectomy presents emergency department for evaluation for nausea vomiting diarrhea worsening abdominal pain. Patient is currently afebrile but does have a leukocytosis of 12.4 hemoglobin of 16.3. No acute abnormalities on the patient's CMP patient has a normal lipase. Patient was negative for influenza RSV and for COVID. CT and pelvis is pending. Patient did request treatment for nausea and abdominal pain. Patient was treated 1 L of lactated Ringer's, 4 mg IV Zofran and 0.5 mg of IV Dilaudid. On re-evaluation patient does feel improved. Patient is resting comfortably. Patient CT scan did show evidence of diarrheal illness but no obstruction, no diverticulitis or perforation or abscess. Patient And family were updated on the results of the workup and plan for treatment. All questions were addressed. Differential Diagnosis Differential Diagnosis: Colitis, diverticulitis, enteritis, cholecystitis, bowel obstruction, abscess, perforation Lab Data [facility] Lab Attestation statement: I personally reviewed the patient's lab results. 03/04/25 04:34 03/04/25 04:34 Labs: Lab Results 03/04/25 Range/Units 04:34 WBC 12.4 H (4.5-10.0) K/mm3 RBC 5.70 H (4.2-5.4) M/mm3 Hgb 16.3 H (12.0-15.0) g/dL Hct 48.4 H (37.0-47.0) % MCV 84.9 (80-100) fl MCH 28.6 (26-34) pg MCHC 33.7 (32-36) g/dl RDW 13.4 (11.5-14.5) % Plt Count 251 (150-375) k/mm3 MPV 8.6 (7.4-10.4) fl Immature Gran % (Auto) 0.4 (0-0.5) % Neut % (Auto) 87.5 H (45.5-73.1) % Lymph % (Auto) 6.3 L (18.3-44.2) % [place] % (Auto) 4.6 (2.6-8.5) % Eos % (Auto) 0.9 (0-4.4) % Baso % (Auto) 0.3 (0.2-1.2) % Lymph # (Auto) 0.78 L (0.9-3.2) K/mm3 [place] # (Auto) 0.6 (0.1-0.6) K/mm3 Eos # (Auto) 0.1 (0-0.3) K/mm3 Baso # (Auto) 0.0 (0.0-0.1) K/mm3 Abs Immat Gran (auto) 0.05 H (0.00-0.031) K/mm3 Absolute Neuts (auto) 10.8 H (1.3-6.7) K/mm3 Absolute Nucleated RBC 0.000 (0.0-0.012) K/mm3 Nucleated RBC % 0.0 (0.0-0.2) % Sodium 137 (137-145) mmol/L Potassium 3.7 (3.4-5.0) mmol/L Chloride 101 (98-107) mmol/L Carbon Dioxide 29 (22-30) mmol/L Anion Gap 7 (4-12) mmol/L BUN 19 H (7-17) mg/dL Creatinine 0.75 (0.7-1.0) mg/dL Estim Creat Clear Calc 49 ml/min Estimated GFR > 60 (59 - ) Glucose 112 H (65-110) mg/dL Calcium 10.0 (8.4-10.2) mg/dL Total Bilirubin 0.8 (0.2-1.3) mg/dL AST 30 (14-36) U/L ALT 22 (6-35) U/L Alkaline Phosphatase 62 (38-126) U/L Total Protein 8.1 (6.3-8.2) g/dL Albumin 4.8 (3.5-5.1) g/dL Lipase 152 (23-300) U/L Influenza A (RT-PCR) Negative (Negative) Influenza B (RT-PCR) Negative (Negative) RSV (RT-PCR) Negative (Negative) SARS-CoV-2 RNA (RT-PCR) Negative (Negative) Imaging Data Radiologist's impression: ITS Impressions Abdomen/Pelvis CT 03/04/25 08:22 IMPRESSION: 1. Fluid scattered throughout nondilated small bowel and proximal colon consistent with nonspecific diarrhea. Correlate clinically for possible gastroenteritis. Discharge Plan Discharge Clinical Impression: Nausea vomiting and diarrhea Patient Disposition: Home Condition: Stable Instructions: Antibiotic Form, Clear Liquid Diet (ED), Gastroenteritis (ED), Acute Nausea and Vomiting (ED) Additional Instructions: Zofran as needed for nausea control. Reglan as needed for additional nausea control. Clear liquid diet for the next 1-3 days. Advance to bland diet as tolerated. Have close follow-up with your primary care physician. Patient Language: Japanese Prescriptions: New ondansetron 4 mg tablet,disintegrating 4 mg PO Q8H PRN (Reason: nausea and vomiting) Qty: 14 0RF metoclopramide HCl [Reglan] 10 mg tablet 10 mg PO Q6H PRN (Reason: nausea and vomiting) Qty: 14 0RF No Action tizanidine 4 mg tablet 4 mg PO DIRECTED Zyrtec 10 mg capsule 10 mg PO DAILY PRN (Reason: allergies) cholecalciferol (vitamin D3) 25 mcg (1,000 unit) capsule 25 mcg PO DAILY calcium carbonate [Natural Calcium] 500 mg calcium (1,250 mg) tablet 500 mg PO DAILY Patient Comments: . colestipol 1 gram tablet 2 g PO ONCE hydroxychloroquine [Plaquenil] 200 mg tablet 200 mg PO DAILY (DME) RSV vaccine See Rx Instructions .Route .MEDSUPPLY Qty: 1 0RF Rx Instructions: As directed for injection albuterol sulfate 90 mcg/actuation HFA aerosol inhaler 2 inh INHALATION Q6H PRN (Reason: shortness of breath or wheezing) Qty: 1 1RF Patient Comments: . Dulera 200-5 mcg/actuation HFA aerosol inhaler 2 inh INHALATION BID fluticasone propionate 50 mcg/actuation spray,suspension 2 spray INTRANASAL DAILY Qty: 16 3RF omeprazole 40 mg capsule,delayed release(DR/EC) 40 mg PO BID Qty: 180 1RF ondansetron 4 mg tablet,disintegrating 4 mg PO .every 4 hours PRN (Reason: nausea and vomiting) Qty: 10 0RF ipratropium bromide 42 mcg (0.06 %) spray,non-aerosol 2 spray intranasal TID Qty: 15 5RF Rx Instructions: administer into each nostril Follow-up/Referrals: Kassy Mortensen PA-C [Primary Care Provider, Family Practice]
[2025-03-04] MEDS: HYDROmorphone HCL INJ (*CRX) 1 MG/ML SYR 0.5 MG IV PUSH (07:56)
[2025-03-04] MEDS: ONDANSETRON INJ 4 MG/2 ML VIAL IV PUSH (07:56)
[2025-03-04 08:04] VITALS: BP 124/90; PULSE 87; RESP 14; TEMP 36.9; O2SAT 95
[2025-03-04] MEDS: METOCLOPRAMIDE HCL INJ 10 MG/2 ML VIAL IV PUSH (09:03)
[2025-03-04 10:45] VITALS: BP 149/93; PULSE 73; RESP 18; O2SAT 97
== END 2025-03-04 10:46 | disposition home or self-care (01) ==
PROVIDERS: Emergency Medicine; Emergency Provider Emergency Medicine; PCP Student in an Organized Health Care Education/Training Program
DX: R11.2 Nausea with vomiting, unspecified (principal); R19.7 Diarrhea, unspecified; Z20.822 Contact with and (suspected) exposure to COVID-19; K21.9 Gastro-esophageal reflux disease without esophagitis; M06.9 Rheumatoid arthritis, unspecified
CPT/HCPCS: 36415; 74177; 80053; 83690; 85025; 87637; 96374; 96375; 99284; J1171; J2405; J2765; Q9967